=== PATIENT | male | born 1945 | race Caucasian/White ===

== ENCOUNTER 2017-08-08 09:01 | Inpatient (IN) | payer MEDICARE, BC ==
[2017-08-08] MEDS ORDERED: ACETAMINOPHEN 325 MG TABLET PO ONE (09:18)
[2017-08-08] MEDS ORDERED: CEFTRIAXONE INJ 1000 MG VIAL IV ONE (09:19)
[2017-08-08 10:03] LABS: VENOUS BLOOD BASE EXCESS -2.6 mmol/L; VENOUS BLOOD HCO3 21.5 mmol/L (20-32); VENOUS BLOOD PCO2 35.1 mmHg (35-63); VENOUS BLOOD PH 7.4 (7.30-7.42)
[2017-08-08 10:04] LABS: APPEARANCE,URINE CLOUDY; BILIRUBIN,URINE NEGATIVE (NEGATIVE); COLOR,URINE AMBER; GLUCOSE, URINE NEGATIVE (NEGATIVE); KETONES,URINE NEGATIVE (NEGATIVE); LEUKOCYTE ESTERASE,URINE NEGATIVE (NEGATIVE); NITRITE,URINE NEGATIVE (NEGATIVE); PROTEIN,URINE 100 mg/dL (NEGATIVE); URINE SPECIFIC GRAVITY 1.021
[2017-08-08 10:06] LABS: ABSOLUTE MONOCYTES (AUTO) 0.4 10^3/uL (0.1-1.4); ABSOLUTE NEUT (AUTO) 4.4 10^3/uL (1.7-8.2); BASOPHILS % (AUTO) 0.5 % (0-2); HEMATOCRIT 40.9 % (37.9-51.0); LYMPHOCYTES % (AUTO) 16.7 % (13-45); MEAN CORPUSCULAR HGB CONC 34.2 g/dL (32.0-36.0); MEAN CORPUSCULAR VOLUME 88 fl (80-97); MONOCYTES % (AUTO) 6.8 % (3-13); RED BLOOD COUNT 4.67 10^6/uL (4.35-5.55); RED CELL DISTRIBUTION WIDTH 14.3 % (11.5-14.0); TOTAL CELLS COUNTED % (AUTO) 100 %; WHITE BLOOD COUNT 5.8 10^3/uL (4.0-10.5)
[2017-08-08 10:09] LABS: PROTHROMBIN TIME 13.7 SEC (11.4-15.4)
[2017-08-08 10:20] LABS: ALANINE AMINOTRANSFERASE 111 U/L (21-72); ALBUMIN 3.7 g/dL (3.5-5.0); ALKALINE PHOSPHATASE 154 U/L (38-126); ASPARTATE AMINO TRANSFERASE 99 U/L (17-59); BILIRUBIN,DIRECT 0.7 mg/dL (0.0-0.4); BILIRUBIN,TOTAL 0.9 mg/dL (0.2-1.3); BLOOD UREA NITROGEN 32 mg/dL (7-20); CALCIUM 8.8 mg/dL (8.4-10.2); GLUCOSE 117 mg/dL (75-110); POTASSIUM 4.1 mmol/L (3.6-5.0)
[2017-08-08 10:25] LABS: CARBON DIOXIDE 21 mmol/L (22-30); CHLORIDE 91 mmol/L (98-107); SODIUM 130.2 mmol/L (137-145)
[2017-08-08 10:29] LABS: ANION GAP 18 (5-19)
[2017-08-08 10:31] LABS: PLATELET COUNT 65 10^3/uL (150-450)
--- NOTE | 2017-08-08 11:08 | ER Document Report ---
ED General - General Chief Complaint: Fever Stated Complaint: FEVER Time Seen by Provider: 08/08/17 09:18 Mode of Arrival: Ambulatory Information source: Patient Notes: 72-year-old male presents with complaints of fever of 3 day duration not feeling well over the past couple weeks and then the cough that started last night. Patient denies any shortness breath breathing patient notes he had a bunch of scratches on his arm from barbed wire couple weeks ago and used topical and oral antibiotics for it TRAVEL OUTSIDE OF THE [place] IN LAST 30 DAYS: No - HPI Onset: Last week Onset/Duration: Persistent Quality of pain: Achy Severity: Mild Pain Level: 1 Associated symptoms: Nonproductive cough, Fever, Weakness Exacerbated by: Denies Relieved by: Denies Similar symptoms previously: Yes Recently seen / treated by doctor: No - Related Data Allergies/Adverse Reactions: Penicillins Allergy (Verified 12/08/14 22:06) propoxyphene HCl [From Darvon] Allergy (Verified 12/08/14 22:06) Past Medical History - Social History Smoking Status: Former Smoker Cigarette use (# per day): No Chew tobacco use (# tins/day): No Smoking Education Provided: No Family History: Reviewed & Not Pertinent Patient has suicidal ideation: No Patient has homicidal ideation: No Renal/ Medical History: Denies: Hx Peritoneal Dialysis Past Surgical History: Reports: Hx Orthopedic Surgery - BACK SURGERY Review of Systems - Review of Systems Notes: REVIEW OF SYSTEMS: CONSTITUTIONAL : Admits to fevers chills body aches EENT: Denies eye, ear, throat, or mouth pain or symptoms. Denies nasal or sinus congestion or discharge. Denies throat, tongue, or mouth swelling or difficulty swallowing. CARDIOVASCULAR: Denies chest pain. Denies palpitations or racing or irregular heart beat. Denies ankle edema. RESPIRATORY: Admits to cough GASTROINTESTINAL: Denies abdominal pain or distention. Denies nausea, vomiting , or diarrhea. Denies blood in vomitus, stools, or per rectum. Denies black, tarry stools. Denies constipation. GENITOURINARY: Denies difficulty urinating, painful urination, burning, frequency, blood in urine, or discharge. MUSCULOSKELETAL: Admits body aches SKIN: Admits to right forearm abrasions HEMATOLOGIC : Denies easy bruising or bleeding. LYMPHATIC: Denies swollen, enlarged glands. NEUROLOGICAL: Denies confusion or altered mental status. Denies passing out or loss of consciousness. Denies dizziness or lightheadedness. Denies headache. Denies weakness or paralysis or loss of use of either side. Denies problems with gait or speech. Denies sensory loss, numbness, or tingling. Denies seizures. PSYCHIATRIC: Denies anxiety or stress. Denies depression, suicidal ideation, or homicidal ideation. ALL OTHER SYSTEMS REVIEWED AND NEGATIVE. Dictation was performed using [email or web address] voice recognition software PHYSICAL EXAMINATION: GENERAL: Febrile but overall well-appearing, well-nourished and in no acute distress. HEAD: Atraumatic, normocephalic. EYES: Pupils equal round and reactive to light, extraocular movements intact, sclera anicteric, conjunctiva are normal. ENT: Nares patent, oropharynx clear without exudates. Moist mucous membranes. NECK: Normal range of motion, supple without lymphadenopathy LUNGS: Crackles at the bases HEART: Regular rate and rhythm without murmurs ABDOMEN: Soft, nontender, nondistended abdomen. No guarding, no rebound. No masses appreciated. Musculoskeletal: Normal range of motion, no pitting or edema. No cyanosis. NEUROLOGICAL: Cranial nerves grossly intact. Normal speech, normal gait. Normal sensory, motor exams PSYCH: Normal mood, normal affect. SKIN: Well-healing superficial abrasion of the right forearm Physical Exam - Vital signs Vitals: Temp Pulse Resp BP Pulse Ox 100.2 F 109 H 22 H 115/96 H 93 08/08/17 09:10 08/08/17 09:10 08/08/17 09:10 08/08/17 09:10 08/08/17 09:10 Course - Re-evaluation Re-evalutation: 08/08/17 11:10 lab results from pcp office note CMP with estimated GFR 02-23-2017 sodium 142 normal potassium 4.7 normal chloride 102 normal CO2 33 high glucose 95 normal BUN 20 normal creatinine 1.49 high bilirubin, total 0.5 normal alkaline phosphatase 49 normal AST/SGOT 22 normal ALT/SGPT 22 normal total protein 6.6 normal albumin 4.3 normal calcium 9.6 normal est GFR, 53 low est GFR, nonafrican afghan 46 low 08/08/17 14:47 Patient's lab work imaging and presentation is most consistent with pneumonia, given his acute renal insufficiency and hypoxemia I believe patient is septic from pneumonia, he will be admitted to the hospitalist service antibiotics have been started - Vital Signs Vital signs: Temp Pulse Resp BP Pulse Ox 100.2 F 109 H 22 H 115/96 H 93 08/08/17 09:10 08/08/17 09:10 08/08/17 09:10 08/08/17 09:10 08/08/17 09:10 - Laboratory Result Diagrams: 08/08/17 09:40 08/08/17 09:40 Laboratory results interpreted by me: 08/08/17 08/08/17 08/08/17 09:32 09:40 09:40 RDW 14.3 H Plt Count 65 L Sodium 130.2 L Chloride 91 L Carbon Dioxide 21 L BUN 32 H Creatinine 2.23 H Est GFR ( Amer) 35 L Est GFR (Non-Af Amer) 29 L Glucose 117 H Lactic Acid Direct Bilirubin 0.7 H AST 99 H ALT 111 H Alkaline Phosphatase 154 H Total Protein 6.0 L Urine Protein 100 H Urine Blood SMALL H Urine Urobilinogen 4.0 H 08/08/17 09:40 RDW Plt Count Sodium Chloride Carbon Dioxide BUN Creatinine Est GFR ( Amer) Est GFR (Non-Af Amer) Glucose Lactic Acid 2.6 H Direct Bilirubin AST ALT Alkaline Phosphatase Total Protein Urine Protein Urine Blood Urine Urobilinogen - Diagnostic Test Radiology reviewed: Image reviewed - No acute abnormality noted on chest x-ray, Reports reviewed Critical Care Note - Critical Care Note Total time excluding time spent on procedures (mins): 34 Comments: 34 minutes of critical care time spent in direct contact evaluating and reevaluating the patient, treating symptoms, reviewing labs and studies and speaking with family and consultants excluding any procedures Discharge - Discharge Clinical Impression: Body aches, SIRS (systemic inflammatory response syndrome) Fever Qualifiers: Fever type: unspecified Qualified Code(s): R50.9 - Fever, unspecified Pneumonia Qualifiers: Pneumonia type: due to unspecified organism Laterality: right Lung location: unspecified part of lung Qualified Code(s): J18.9 - Pneumonia, unspecified organism Condition: Stable Disposition: ADMITTED INPATIENT Admitting Provider: Hospitalist Unit Admitted: Medical Floor
[2017-08-08] MEDS ORDERED: NORMAL SALINE 1000 ML 1,000 ML IV PRN ×2 (11:10→11:11)
[2017-08-08] MEDS ORDERED: NORMAL SALINE 1000 ML 1,000 ML IV ONE (11:19)
--- NOTE | 2017-08-08 12:52 | RADIOLOGY REPORT (SQ) ---
EXAM DESCRIPTION: CHEST 2 VIEWS COMPLETED DATE/TIME: 08/08/2017 12:33 pm REASON FOR STUDY: cough, fever COMPARISON: 11/09/2007. EXAM PARAMETERS: NUMBER OF VIEWS: two views TECHNIQUE: Digital Frontal and Lateral radiographic views of the chest acquired. RADIATION DOSE: NA LIMITATIONS: none FINDINGS: LUNGS AND PLEURA: Minimal bilateral apical pleural thickening again noted. No acute infil trates or effusions. MEDIASTINUM AND HILAR STRUCTURES: No masses or contour abnormalities. HEART AND VASCULAR STRUCTURES: The heart is normal with uncoiling thoracic aorta. BONES: Dorsal spondylosis seen. HARDWARE: None in the chest. IMPRESSION: NO ACUTE RADIOGRAPHIC FINDING IN THE CHEST. TECHNICAL DOCUMENTATION: JOB ID: [id number] [id number] 2010 [employer]- All Rights Reserved Reading location - IP/workstation name: [email or web address]
--- NOTE | 2017-08-08 13:46 | PDOC H&P ---
History of Present Illness Admission Date/PCP: 08/08/17 13:16 Patient complains of: Difficulty breathing and shortness of breath History of Present Illness: This patient presented with complaints of fever for 3 days associated with generalized malaise as well as a nonproductive cough. Denies any nausea vomiting chest pain or any other pertinent symptoms. He does have some scratches on his arms sustained from a encounter with the barbed wire couple weeks ago. Both patient and his are very poor historians and I am unable to obtain much information from them. There is a denial of any prior liver disease though although patient's lab data indicate otherwise Past Medical History Past Medical History: Patient and spouse unable to give me a concise past medical history. Cardiac Medical History: Reports: Hypertension Psychiatric Medical History: Reports: None Traumatic Medical History: Reports: None Hematology: Reports: None Past Surgical History Past Surgical History: Reports: Orthopedic Surgery - BACK SURGERY Social History Information Source: [facility] Records - Very minimal information from old records Smoking Status: Former Smoker - Advance Directive Resuscitation Status: Full Code Family History Family History: Reviewed & Not Pertinent Parental Family History Reviewed: No Children Family History Reviewed: NA Sibling(s) Family History Reviewed.: NA Medication/Allergy Home Medications: Amitriptyline HCl [Elavil 50 Mg Tablet] 50 mg PO BID 08/08/17 Calcium Carbonate [Calcium] 600 mg PO DAILY 08/08/17 Cetirizine HCl [All Day Allergy] 10 mg PO DAILY 08/08/17 Cholecalciferol (Vitamin D3) [Vitamin D] 2,000 unit PO Q2D@1000 08/08/17 Lisinopril/Hydrochlorothiazide [Lisinopril-Hctz 10-12.5 mg Tab] 1 tab PO DAILY 08/08/17 Omeprazole Magnesium [Prilosec Otc] 20 mg PO BID 08/08/17 Pravastatin Sodium [Pravachol] 20 mg PO QPM 08/08/17 Allergies/Adverse Reactions: Penicillins Allergy (Verified 08/08/17 17:51) propoxyphene HCl [From Darvon] Allergy (Verified 08/08/17 17:51) Review of Systems Constitutional: PRESENT: chills, fever(s), weakness Eyes: ABSENT: visual disturbances Ears: ABSENT: hearing changes Nose, Mouth, and Throat: ABSENT: headache(s), sore throat Cardiovascular: ABSENT: chest pain, dyspnea on exertion, orthropnea, palpitations Respiratory: PRESENT: cough. ABSENT: dyspnea, hemoptysis Gastrointestinal: ABSENT: abdominal pain, constipation, diarrhea, hematemesis, hematochezia, nausea, vomiting Genitourinary: ABSENT: dysuria, hematuria Musculoskeletal: ABSENT: back pain Integumentary: ABSENT: rash, wounds Neurological: PRESENT: confusion. ABSENT: abnormal gait, abnormal speech, dizziness, focal weakness, syncope Psychiatric: ABSENT: anxiety, depression, homidical ideation, suicidal ideation Endocrine: ABSENT: cold intolerance, heat intolerance, polydipsia, polyuria Physical Exam Vital Signs: Temp Pulse Resp BP Pulse Ox 100.2 F 109 H 22 H 115/96 H 93 08/08/17 09:10 08/08/17 09:10 08/08/17 09:10 08/08/17 09:10 08/08/17 09:10 General appearance: PRESENT: no acute distress, well-developed, well-nourished Head exam: PRESENT: atraumatic, normocephalic Eye exam: PRESENT: conjunctiva pink, PERRLA. ABSENT: scleral icterus Mouth exam: PRESENT: moist, tongue midline Neck exam: ABSENT: carotid bruit, JVD, lymphadenopathy, thyromegaly Respiratory exam: PRESENT: decreased breath sounds. ABSENT: rales, rhonchi, wheezes Cardiovascular exam: PRESENT: RRR. ABSENT: diastolic murmur, rubs, systolic murmur Pulses: PRESENT: normal dorsalis pedis pul Vascular exam: PRESENT: normal capillary refill GI/Abdominal exam: PRESENT: normal bowel sounds, soft. ABSENT: distended, guarding, mass, organolmegaly, rebound, tenderness Rectal exam: PRESENT: deferred Extremities exam: PRESENT: full ROM. ABSENT: calf tenderness, clubbing, pedal edema Neurological exam: PRESENT: alert, awake, oriented to person, oriented to place , oriented to time, oriented to situation, CN II-XII grossly intact. ABSENT: motor sensory deficit Psychiatric exam: PRESENT: appropriate affect, normal mood. ABSENT: homicidal ideation, suicidal ideation Skin exam: PRESENT: dry, intact, warm. ABSENT: cyanosis, rash Results Laboratory Results: Laboratory 08/08/17 08/08/17 08/08/17 09:32 09:40 09:40 WBC 5.8 RBC 4.67 Hgb 14.0 Hct 40.9 MCV 88 MCH 30.0 MCHC 34.2 RDW 14.3 H Plt Count 65 L Seg Neutrophils % 76.0 Lymphocytes % 16.7 Monocytes % 6.8 Eosinophils % 0.0 Basophils % 0.5 Absolute Neutrophils 4.4 Absolute Lymphocytes 1.0 Absolute Monocytes 0.4 Absolute Eosinophils 0.0 Absolute Basophils 0.0 PT 13.7 INR 1.00 VBG pH VBG pCO2 VBG HCO3 VBG Base Excess Sodium Potassium Chloride Carbon Dioxide Anion Gap BUN Creatinine Est GFR ( Amer) Est GFR (Non-Af Amer) Glucose POC Glucose Lactic Acid Calcium Total Bilirubin Direct Bilirubin Neonat Total Bilirubin Neonat Direct Bilirubin Neonat Indirect Bili AST ALT Alkaline Phosphatase Total Protein Albumin Urine Color TREVIN Urine Appearance CLOUDY Urine pH 5.0 Ur Specific [place] 1.021 Urine Protein 100 H Urine Glucose (UA) NEGATIVE Urine Ketones NEGATIVE Urine Blood SMALL H Urine Nitrite NEGATIVE Urine Bilirubin NEGATIVE Urine Urobilinogen 4.0 H Ur Leukocyte Esterase NEGATIVE Urine WBC (Auto) 5 Urine RBC (Auto) 2 Squamous Epi Cells Auto 2 Urine Mucus (Auto) FEW Urine Ascorbic Acid NEGATIVE 08/08/17 08/08/17 08/08/17 09:40 09:40 09:40 WBC RBC Hgb Hct MCV MCH MCHC RDW Plt Count Seg Neutrophils % Lymphocytes % Monocytes % Eosinophils % Basophils % Absolute Neutrophils Absolute Lymphocytes Absolute Monocytes Absolute Eosinophils Absolute Basophils PT INR VBG pH 7.40 VBG pCO2 35.1 VBG HCO3 21.5 VBG Base Excess -2.6 Sodium 130.2 L Potassium 4.1 Chloride 91 L Carbon Dioxide 21 L Anion Gap 18 BUN 32 H Creatinine 2.23 H Est GFR ( Amer) 35 L Est GFR (Non-Af Amer) 29 L Glucose 117 H POC Glucose Lactic Acid 2.6 H Calcium 8.8 Total Bilirubin 0.9 Direct Bilirubin 0.7 H Neonat Total Bilirubin Not Reportable Neonat Direct Bilirubin Not Reportable Neonat Indirect Bili Not Reportable AST 99 H ALT 111 H Alkaline Phosphatase 154 H Total Protein 6.0 L Albumin 3.7 Urine Color Urine Appearance Urine pH Ur Specific [place] Urine Protein Urine Glucose (UA) Urine Ketones Urine Blood Urine Nitrite Urine Bilirubin Urine Urobilinogen Ur Leukocyte Esterase Urine WBC (Auto) Urine RBC (Auto) Squamous Epi Cells Auto Urine Mucus (Auto) Urine Ascorbic Acid 08/08/17 10:25 WBC RBC Hgb Hct MCV MCH MCHC RDW Plt Count Seg Neutrophils % Lymphocytes % Monocytes % Eosinophils % Basophils % Absolute Neutrophils Absolute Lymphocytes Absolute Monocytes Absolute Eosinophils Absolute Basophils PT INR VBG pH VBG pCO2 VBG HCO3 VBG Base Excess Sodium Potassium Chloride Carbon Dioxide Anion Gap BUN Creatinine Est GFR ( Amer) Est GFR (Non-Af Amer) Glucose POC Glucose 102 Lactic Acid Calcium Total Bilirubin Direct Bilirubin Neonat Total Bilirubin Neonat Direct Bilirubin Neonat Indirect Bili AST ALT Alkaline Phosphatase Total Protein Albumin Urine Color Urine Appearance Urine pH Ur Specific [place] Urine Protein Urine Glucose (UA) Urine Ketones Urine Blood Urine Nitrite Urine Bilirubin Urine Urobilinogen Ur Leukocyte Esterase Urine WBC (Auto) Urine RBC (Auto) Squamous Epi Cells Auto Urine Mucus (Auto) Urine Ascorbic Acid Impressions: Chest X-Ray 08/08/17 09:19 IMPRESSION: NO ACUTE RADIOGRAPHIC FINDING IN THE CHEST. Assessment & Plan - Diagnosis (1) Pneumonia Qualifiers: Pneumonia type: due to unspecified organism Laterality: right Lung location: unspecified part of lung Qualified Code(s): J18.9 - Pneumonia, unspecified organism Is this a current diagnosis for this admission?: Yes Plan: This appears to be the most likely etiology of his symptoms although chest x- ray is negative. This could be due to dehydration. Patient will be placed on empiric antibiotic (2) Acute kidney injury Is this a current diagnosis for this admission?: Yes Plan: Baseline kidney function is unknown. I see no recent or prior kidney function in chart (3) Hyponatremia Is this a current diagnosis for this admission?: Yes Plan: Likely diuretic induced (4) Transaminitis Is this a current diagnosis for this admission?: Yes Plan: Etiology unclear, may need sonogram. - Time Time Spent: 30 to 50 Minutes Smoking Cessation Education: 3 to 10 minutes Anticipated discharge: Home Within: within 48 hours - Inpatient Certification Based on my medical assessment, after consideration of the patient's comorbidities, presenting symptoms, or acuity I expect that the services needed warrant INPATIENT care.: Yes Medical Necessity: Need For IV Fluids, Need for IV Antibiotics, Risk of Complication if Not Cared For in Hospital
[2017-08-08] MEDS ORDERED: OXYCODONE-ACETAMINOPHEN 5-325 MG TABLET PO PRN (14:11)
[2017-08-08] MEDS ORDERED: TEMAZEPAM 7.5 MG CAPSULE PO PRN (14:11)
[2017-08-08] MEDS ORDERED: MAG HYDROX/AL HYDROX/SIMETH SUSP 30 ML UDCUP PO PRN (14:11)
[2017-08-08] MEDS ORDERED: ENOXAPARIN SODIUM INJ 30 MG/0.3 ML DISP.SYRIN SUBCUT ONE (15:30)
--- NOTE | 2017-08-08 15:52 | EKG REPORT ---
SEVERITY:- ABNORMAL ECG - SINUS TACHYCARDIA NONSPECIFIC ST-T CHANGES- ANTEROLATERAL LEADS : Confirmed by: Ishaan Morrison MD 08-Aug-2017 15:52:01
[2017-08-08] MEDS: 1/2 NORMAL SALINE 1,000 ML IV PRN ×2 (17:36→18:19)
[2017-08-08] MEDS: AMITRIPTYLINE HCL 50 MG TABLET PO SCH (18:18)
[2017-08-08] MEDS: FAMOTIDINE 20 MG TABLET PO SCH (21:52)
[2017-08-08] MEDS: ATORVASTATIN CALCIUM 10 MG TABLET PO SCH (21:52)
[2017-08-09 06:47] LABS: ALANINE AMINOTRANSFERASE 92 U/L (21-72); ALBUMIN 2.8 g/dL (3.5-5.0); ALKALINE PHOSPHATASE 120 U/L (38-126); ANION GAP 14 (5-19); ASPARTATE AMINO TRANSFERASE 90 U/L (17-59); BILIRUBIN,DIRECT 0.6 mg/dL (0.0-0.4); BILIRUBIN,TOTAL 0.7 mg/dL (0.2-1.3); BLOOD UREA NITROGEN 25 mg/dL (7-20); CALCIUM 7.4 mg/dL (8.4-10.2); CARBON DIOXIDE 18 mmol/L (22-30); CHLORIDE 95 mmol/L (98-107); GLUCOSE 87 mg/dL (75-110); POTASSIUM 4.1 mmol/L (3.6-5.0); SODIUM 126.7 mmol/L (137-145)
[2017-08-09 07:50] LABS: HEMATOCRIT 36.4 % (37.9-51.0); HEMOGLOBIN 12.6 g/dL (13.5-17.0); MEAN CORPUSCULAR HGB CONC 34.5 g/dL (32.0-36.0); MEAN CORPUSCULAR VOLUME 87 fl (80-97); RED BLOOD COUNT 4.19 10^6/uL (4.35-5.55); RED CELL DISTRIBUTION WIDTH 14.4 % (11.5-14.0); WHITE BLOOD COUNT 6.9 10^3/uL (4.0-10.5)
[2017-08-09] MEDS ORDERED: NORMAL SALINE 1000 ML 1,000 ML IV PRN (08:08)
[2017-08-09 08:37] LABS: PLATELET COUNT 64 10^3/uL (150-450)
[2017-08-09] MEDS: AMITRIPTYLINE HCL 50 MG TABLET PO SCH ×2 (09:07→17:55)
[2017-08-09] MEDS: CETIRIZINE 10 MG TABLET PO SCH (09:07)
[2017-08-09] MEDS: CALCIUM CARBONATE 500 MG TAB.CHEW PO SCH (09:07)
[2017-08-09] MEDS: AZITHROMYCIN 250 MG TABLET PO SCH (09:07)
[2017-08-09] MEDS: FAMOTIDINE 20 MG TABLET PO SCH ×2 (09:07→22:04)
[2017-08-09] MEDS: DOCUSATE SODIUM 100 MG CAPSULE PO SCH (09:11)
[2017-08-09] MEDS: CEFTRIAXONE SODIUM 1,000 MG in DEXTROSE 5%-WATER 50 ML IV SCH (09:55)
[2017-08-09] MEDS ORDERED: ENOXAPARIN SODIUM INJ 30 MG/0.3 ML DISP.SYRIN SUBCUT SCH (10:00)
[2017-08-09] MEDS ORDERED: CEFTRIAXONE 1 GM/D5W RTU 1 GM/50 ML RTUPB IV SCH (10:00)
--- NOTE | 2017-08-09 12:08 | PDOC PROGRESS REPORT ---
Subjective Progress Note for:: 08/09/17 Subjective:: Patient admitted with fever, ? PNA but with negative chest xray. He is sleeping though arousable. Denies any new complaints. No reported nausea or vomiting or abdominal pain Reason For Visit: PNEUMONIA, SEPSIS, PERRY Physical Exam Vital Signs: Temp Pulse Resp BP Pulse Ox 100.0 F 120 H 20 119/57 L 96 08/08/17 22:44 08/08/17 22:44 08/08/17 22:44 08/08/17 22:44 08/08/17 22:44 Intake & Output 08/08/17 08/09/17 08/10/17 06:59 06:59 06:59 Intake Total 1722 Output Total 200 Balance 1522 Weight 96.7 kg General appearance: PRESENT: no acute distress, well-developed, well-nourished Head exam: PRESENT: atraumatic Eye exam: PRESENT: conjunctiva pink, PERRLA. ABSENT: scleral icterus Ear exam: PRESENT: normal external ear exam Mouth exam: PRESENT: tongue midline Neck exam: ABSENT: carotid bruit, JVD, lymphadenopathy, thyromegaly Respiratory exam: PRESENT: clear to auscultation fredis. ABSENT: rales, rhonchi, wheezes Cardiovascular exam: PRESENT: RRR. ABSENT: diastolic murmur, rubs, systolic murmur Pulses: PRESENT: normal dorsalis pedis pul Vascular exam: PRESENT: normal capillary refill GI/Abdominal exam: PRESENT: normal bowel sounds, soft. ABSENT: distended, guarding, mass, organolmegaly, rebound, tenderness Rectal exam: PRESENT: deferred Extremities exam: PRESENT: full ROM. ABSENT: calf tenderness, clubbing, pedal edema Neurological exam: PRESENT: other - sleeping bu arousable, slightly confused. ABSENT: motor sensory deficit Psychiatric exam: ABSENT: homicidal ideation, suicidal ideation Skin exam: PRESENT: dry, intact, warm. ABSENT: cyanosis, rash Results Laboratory Results: 08/09/17 05:27 08/09/17 05:27 08/08/17 08/09/17 08/09/17 14:29 05:27 05:27 WBC 6.9 RBC 4.19 L Hgb 12.6 L Hct 36.4 L MCV 87 MCH 30.0 MCHC 34.5 RDW 14.4 H Plt Count 64 L Sodium 126.7 L Potassium 4.1 Chloride 95 L Carbon Dioxide 18 L Anion Gap 14 BUN 25 H Creatinine 1.65 H Est GFR ( Amer) 50 L Est GFR (Non-Af Amer) 41 L Glucose 87 Lactic Acid 1.9 Calcium 7.4 L Total Bilirubin 0.7 AST 90 H ALT 92 H Alkaline Phosphatase 120 Total Protein 5.0 L Albumin 2.8 L Impressions: Chest X-Ray 08/08/17 09:19 IMPRESSION: NO ACUTE RADIOGRAPHIC FINDING IN THE CHEST. Assessment & Plan - Diagnosis (1) Pneumonia Qualifiers: Pneumonia type: due to unspecified organism Laterality: right Lung location: unspecified part of lung Qualified Code(s): J18.9 - Pneumonia, unspecified organism Is this a current diagnosis for this admission?: Yes Plan: This is a presumptive diagnosis however. Will continue empiric antibiotic (2) Acute kidney injury Is this a current diagnosis for this admission?: Yes Plan: Baseline kidney function is unknown. Kidney function is improved (3) Hyponatremia Is this a current diagnosis for this admission?: Yes Plan: Likely diuretic induced or secondary to liver disease. He was on hypotonic fluid but will change to isotonic fluid (4) Transaminitis Is this a current diagnosis for this admission?: Yes Plan: Etiology unclear, he surely has underlying liver disease however this is not listed as a PMH and spouse unaware of this. Will obtain sono and order Hepatitis panel. Will check Ammonia level. There is no clinical evidence of SBP but will keep this in mind especially if sono shows ascites. - Time Time Spent with patient: 15-24 minutes Anticipated discharge: Home Within: within 72 hours - Inpatient Certification Based on my medical assessment, after consideration of the patient's comorbidities, presenting symptoms, or acuity I expect that the services needed warrant INPATIENT care.: Yes Medical Necessity: Need For IV Fluids, Need for IV Antibiotics
[2017-08-09] MEDS: ACETAMINOPHEN 325 MG TABLET PO PRN ×2 (12:25→22:09)
--- NOTE | 2017-08-09 14:08 | RADIOLOGY REPORT (SQ) ---
EXAM DESCRIPTION: U/S ABDOMEN COMPLETE W/DOPPLER COMPLETED DATE/TIME: 08/09/2017 1:50 pm REASON FOR STUDY: Abnormal LFT COMPARISON: CT abdomen and pelvis 11/17/2012. TECHNIQUE: Dynamic and static grayscale images acquired of the abdomen and recorded on PACS. Charlio peyton selected color Doppler and spectral images recorded. LIMITATIONS: None. FINDINGS: PANCREAS: No abnormality seen. LIVER: The liver demonstrates normal echogenicity measuring 14.4 cm in length which is normal. . LIVER VASCULATURE: Normal directional flow of the main portal vein and hepatic veins. GALLBLADDER: No abnormality. The gallbladder wall is normal measuring 2.6 mm. Negative Day sign. INTRAHEPATIC DUCTS AND COMMON DUCT: CBD is normal measuring 0.5 cm. Intrahepatic ducts normal calibe r. No filling defects. INFERIOR VENA CAVA: Normal flow. AORTA: The upper abdominal aorta measures 3 cm in AP diameter. The mid abdominal aorta measures 2.3 cm in AP diameter and distally 2.1 cm. . RIGHT KIDNEY: The right kidney is normal measuring 11.2 c m. No hydronephrosis. LEFT KIDNEY: The left kidney is normal measuring 9.5 cm. No hydronephrosis. PERITONEAL AND PLEURAL SPACES: No ascites or effusions. SPLEEN: No abnormality seen. Head measures 11.2 cm. IMPRESSION: NORMAL ABDOMINAL ULTRASOUND. TECHNICAL DOCUMENTATION: JOB ID: [id number] SC-[id number] 2010 [employer]- All Rights Reserved Reading location - IP/workstation name: [email or web address]
[2017-08-09] MEDS: ATORVASTATIN CALCIUM 10 MG TABLET PO SCH (22:03)
[2017-08-10 05:53] LABS: ALANINE AMINOTRANSFERASE 71 U/L (21-72); ALBUMIN 2.7 g/dL (3.5-5.0); ALKALINE PHOSPHATASE 97 U/L (38-126); ANION GAP 11 (5-19); ASPARTATE AMINO TRANSFERASE 102 U/L (17-59); BILIRUBIN,DIRECT 0.7 mg/dL (0.0-0.4); BILIRUBIN,TOTAL 0.7 mg/dL (0.2-1.3); BLOOD UREA NITROGEN 24 mg/dL (7-20); CALCIUM 7.6 mg/dL (8.4-10.2); CARBON DIOXIDE 21 mmol/L (22-30); CHLORIDE 97 mmol/L (98-107); GLUCOSE 75 mg/dL (75-110); POTASSIUM 4.8 mmol/L (3.6-5.0); SODIUM 128.9 mmol/L (137-145); TOTAL PROTEIN 5.1 g/dL (6.3-8.2)
[2017-08-10] MEDS: CALCIUM CARBONATE 500 MG TAB.CHEW PO SCH (10:27)
[2017-08-10] MEDS: CEFTRIAXONE SODIUM 1,000 MG in DEXTROSE 5%-WATER 50 ML IV SCH (10:28)
[2017-08-10] MEDS: CETIRIZINE 10 MG TABLET PO SCH (10:33)
[2017-08-10] MEDS: AZITHROMYCIN 250 MG TABLET PO SCH (10:33)
[2017-08-10] MEDS: FAMOTIDINE 20 MG TABLET PO SCH ×2 (10:33→22:46)
[2017-08-10] MEDS: AMITRIPTYLINE HCL 50 MG TABLET PO SCH ×2 (10:33→18:27)
[2017-08-10] MEDS: DOCUSATE SODIUM 100 MG CAPSULE PO SCH (10:35)
[2017-08-10] MEDS: CHOLECALCIFEROL (D3) 1,000 UNIT TABLET PO SCH (11:08)
--- NOTE | 2017-08-10 16:13 | PDOC PROGRESS REPORT ---
Subjective Progress Note for:: 08/10/17 Subjective:: Patient is seen resting in bedside chair. He is not on any oxygen. He states he does get short of breath with minimal exertion. He denies any cough or chest pain. He denies nausea, vomiting or diarrhea. He denies any significant arthralgias or myalgias. He is very unsteady on his feet according to the nursing staff. Which is not his norm. Remaining review of systems are negative Reason For Visit: PNEUMONIA, SEPSIS, PERRY Physical Exam Vital Signs: Temp Pulse Resp BP Pulse Ox 100.3 F 127 H 22 H 109/57 L 97 08/10/17 11:29 08/10/17 11:29 08/10/17 11:29 08/10/17 11:29 08/10/17 11:29 Intake & Output 08/09/17 08/10/17 08/11/17 06:59 06:59 06:59 Intake Total 1722 664 320 Output Total 200 Balance 1522 664 320 Weight 96.7 kg 100.7 kg General appearance: PRESENT: no acute distress, obese, well-developed, well- nourished Head exam: PRESENT: atraumatic, normocephalic Eye exam: PRESENT: conjunctiva pink, EOMI, PERRLA. ABSENT: scleral icterus Ear exam: PRESENT: normal external ear exam Mouth exam: PRESENT: moist, tongue midline Teeth exam: PRESENT: poor dentation Neck exam: ABSENT: carotid bruit, JVD, lymphadenopathy, thyromegaly Respiratory exam: PRESENT: clear to auscultation fredis. ABSENT: rales, rhonchi, wheezes Cardiovascular exam: PRESENT: RRR. ABSENT: diastolic murmur, rubs, systolic murmur Pulses: PRESENT: normal dorsalis pedis pul Vascular exam: PRESENT: normal capillary refill GI/Abdominal exam: PRESENT: normal bowel sounds, soft. ABSENT: distended, guarding, mass, organolmegaly, rebound, tenderness Rectal exam: PRESENT: deferred Extremities exam: PRESENT: full ROM. ABSENT: calf tenderness, clubbing, pedal edema Musculoskeletal exam: PRESENT: ambulatory, full ROM, normal inspection Neurological exam: PRESENT: alert, awake, oriented to person, oriented to place , oriented to time, oriented to situation, CN II-XII grossly intact. ABSENT: motor sensory deficit Psychiatric exam: PRESENT: appropriate affect Skin exam: PRESENT: dry - scratches on forearms from working on barbed wire fence, warm Results Laboratory Results: 08/09/17 05:27 08/10/17 04:58 08/10/17 08/10/17 04:58 05:06 Sodium 128.9 L Potassium 4.8 Chloride 97 L Carbon Dioxide 21 L Anion Gap 11 BUN 24 H Creatinine 1.49 H Est GFR ( Amer) 56 L Est GFR (Non-Af Amer) 46 L Glucose 75 Calcium 7.6 L Total Bilirubin 0.7 AST 102 H ALT 71 Alkaline Phosphatase 97 Ammonia < 8.7 L Total Protein 5.1 L Albumin 2.7 L Impressions: Chest X-Ray 08/08/17 09:19 IMPRESSION: NO ACUTE RADIOGRAPHIC FINDING IN THE CHEST. Abdomen Ultrasound 08/09/17 00:00 IMPRESSION: NORMAL ABDOMINAL ULTRASOUND. Assessment & Plan - Diagnosis (1) SIRS (systemic inflammatory response syndrome) Is this a current diagnosis for this admission?: No Plan: Resolved. With IV hydration and antibiotics (2) Thrombocytopenia Is this a current diagnosis for this admission?: Yes Plan: Possible viral etiology. was sick with similar symptoms prior to him becoming ill. He has also had recent tick bites. Will check lyme ab, Jw German panel. It has been stable he has no history of prior blood dyscrasias (3) Acute kidney injury Is this a current diagnosis for this admission?: Yes (4) Hyponatremia Is this a current diagnosis for this admission?: Yes (6) Fever Qualifiers: Fever type: unspecified Qualified Code(s): R50.9 - Fever, unspecified Is this a current diagnosis for this admission?: Yes Plan: Resolved over the last 24 hrs (7) Transaminitis Is this a current diagnosis for this admission?: Yes (8) Pneumonia Qualifiers: Pneumonia type: due to unspecified organism Laterality: right Lung location: unspecified part of lung Qualified Code(s): J18.9 - Pneumonia, unspecified organism Is this a current diagnosis for this admission?: Yes Plan: No evidence on chest xray. He is still short of breath with exertion. Will get CTA of the chest tomorrow with continued improvement of his kidney function - Time Time Spent with patient: 25-34 minutes Total Critical Time (Minutes): 15 Medications reviewed and adjusted accordingly: Yes Anticipated discharge: Home Within: within 48 hours - Inpatient Certification Based on my medical assessment, after consideration of the patient's comorbidities, presenting symptoms, or acuity I expect that the services needed warrant INPATIENT care.: Yes I certify that my determination is in accordance with my understanding of Medicare's requirements for reasonable and necessary INPATIENT services [42 CFR 412.3e].: Yes Medical Necessity: Failure to Improve With Outpatient Therapy, Need For IV Fluids, Risk of Complication if Not Cared For in Hospital
[2017-08-10] MEDS: ACETAMINOPHEN 325 MG TABLET PO PRN ×2 (18:27→22:46)
--- NOTE | 2017-08-10 20:10 | EKG REPORT ---
SEVERITY:- BORDERLINE ECG - SINUS TACHYCARDIA BORDERLINE T WAVE ABNORMALITIES : Confirmed by: Laurence Stahl 10-Aug-2017 20:09:00
[2017-08-10] MEDS: ATORVASTATIN CALCIUM 10 MG TABLET PO SCH (22:45)
[2017-08-11 01:15] LABS: HEMATOCRIT 36.2 % (37.9-51.0); HEMOGLOBIN 12.3 g/dL (13.5-17.0); MEAN CORPUSCULAR HEMOGLOBIN 29.6 pg (27.0-33.4); MEAN CORPUSCULAR HGB CONC 33.8 g/dL (32.0-36.0); MEAN CORPUSCULAR VOLUME 87 fl (80-97); RED BLOOD COUNT 4.15 10^6/uL (4.35-5.55); RED CELL DISTRIBUTION WIDTH 14.8 % (11.5-14.0); WHITE BLOOD COUNT 7.2 10^3/uL (4.0-10.5)
[2017-08-11 01:26] LABS: PLATELET COUNT 80 10^3/uL (150-450)
[2017-08-11 01:43] LABS: ALANINE AMINOTRANSFERASE 73 U/L (21-72); ALBUMIN 2.5 g/dL (3.5-5.0); ALKALINE PHOSPHATASE 92 U/L (38-126); ANION GAP 14 (5-19); ASPARTATE AMINO TRANSFERASE 109 U/L (17-59); BILIRUBIN,DIRECT 0.6 mg/dL (0.0-0.4); BILIRUBIN,TOTAL 0.6 mg/dL (0.2-1.3); BLOOD UREA NITROGEN 25 mg/dL (7-20); CALCIUM 7.7 mg/dL (8.4-10.2); CARBON DIOXIDE 17 mmol/L (22-30); CHLORIDE 100 mmol/L (98-107); GLUCOSE 91 mg/dL (75-110); POTASSIUM 4.5 mmol/L (3.6-5.0); SODIUM 130.5 mmol/L (137-145); TOTAL PROTEIN 4.8 g/dL (6.3-8.2)
[2017-08-11 01:48] LABS: ABSOLUTE LYMPHOCYTES# (MANUAL) 0.1 10^3/uL (0.5-4.7); ABSOLUTE MONOCYTES # (MANUAL) 0.4 10^3/uL (0.1-1.4); ABSOLUTE NEUTROPHILS# (MANUAL) 6.7 10^3/uL (1.7-8.2); ANISOCYTOSIS SLIGHT; BAND NEUTROPHILS % (MANUAL) 5 % (3-5); BASOPHILS % (MANUAL) 1 % (0-2); EOSINOPHILS % (MANUAL) 0 % (0-6); LYMPHOCYTES % (MANUAL) 1 % (13-45); MONOCYTES % (MANUAL) 5 % (3-13); PLATELET COMMENT DECREASED; PLATELET GIANT PRESENT; PLATELET LARGE PRESENT; SEGMENTED NEUTROPHILS % (MAN) 88 % (42-78); TOTAL CELLS COUNTED 100; TOXIC GRANULATION SLIGHT; TOXIC VACUOLATION PRESENT
[2017-08-11 01:56] LABS: ERYTHROCYTE SEDIMENTATION RATE 14 mm/hr (0-20)
[2017-08-11 07:28] LABS: HEMATOCRIT 36.5 % (37.9-51.0); HEMOGLOBIN 12.3 g/dL (13.5-17.0); MEAN CORPUSCULAR HEMOGLOBIN 29.6 pg (27.0-33.4); MEAN CORPUSCULAR HGB CONC 33.7 g/dL (32.0-36.0); MEAN CORPUSCULAR VOLUME 88 fl (80-97); RED BLOOD COUNT 4.16 10^6/uL (4.35-5.55); RED CELL DISTRIBUTION WIDTH 15.5 % (11.5-14.0); WHITE BLOOD COUNT 6.9 10^3/uL (4.0-10.5)
[2017-08-11 07:42] LABS: HEPATITIS A AB IGM Negative (Negative); HEPATITIS B CORE AB IGM Negative (Negative); HEPATITS B SURFACE ANTIGEN Negative (Negative)
[2017-08-11 07:46] LABS: ALANINE AMINOTRANSFERASE 74 U/L (21-72); ALBUMIN 2.6 g/dL (3.5-5.0); ALKALINE PHOSPHATASE 100 U/L (38-126); ANION GAP 13 (5-19); ASPARTATE AMINO TRANSFERASE 115 U/L (17-59); BILIRUBIN,DIRECT 0.6 mg/dL (0.0-0.4); BILIRUBIN,TOTAL 0.6 mg/dL (0.2-1.3); BLOOD UREA NITROGEN 23 mg/dL (7-20); CALCIUM 7.6 mg/dL (8.4-10.2); CARBON DIOXIDE 19 mmol/L (22-30); CHLORIDE 99 mmol/L (98-107); GLUCOSE 71 mg/dL (75-110); POTASSIUM 4.3 mmol/L (3.6-5.0); SODIUM 130.6 mmol/L (137-145)
[2017-08-11 08:30] LABS: PLATELET COUNT 83 10^3/uL (150-450)
[2017-08-11 08:40] LABS: ABSOLUTE LYMPHOCYTES# (MANUAL) 0.1 10^3/uL (0.5-4.7); ABSOLUTE MONOCYTES # (MANUAL) 0.1 10^3/uL (0.1-1.4); ABSOLUTE NEUTROPHILS# (MANUAL) 6.7 10^3/uL (1.7-8.2); BAND NEUTROPHILS % (MANUAL) 7 % (3-5); BASOPHILS % (MANUAL) 0 % (0-2); EOSINOPHILS % (MANUAL) 0 % (0-6); LYMPHOCYTES % (MANUAL) 1 % (13-45); MONOCYTES % (MANUAL) 1 % (3-13); SEGMENTED NEUTROPHILS % (MAN) 90 % (42-78); TOTAL CELLS COUNTED 100
[2017-08-11 08:41] LABS: ANISOCYTOSIS SLIGHT; HYPOCHROMASIA SLIGHT; PLATELET COMMENT DECREASED; POLYCHROMASIA SLIGHT; TOXIC GRANULATION 2+; TOXIC VACUOLATION PRESENT
--- NOTE | 2017-08-11 08:42 | RADIOLOGY REPORT (SQ) ---
EXAM DESCRIPTION: CHEST 2 VIEWS COMPLETED DATE/TIME: 08/11/2017 8:25 am REASON FOR STUDY: Cough, shortness of breath, and fever COMPARISON: Two-view chest 08/08/2017, 11/09/2007 EXAM PARAMETERS: NUMBER OF VIEWS: two views TECHNIQUE: Digital Frontal and Lateral radiographic views of the chest acquired. RADIATION DOSE: NA LIMITATIONS: none FINDINGS: LUNGS AND PLEURA: There is bandlike atelectasis at the right lung base. Trace bilateral pleural effusions in the posterior costophrenic sulci. No fluffy alveolar infiltrates worrisome for pulmonary edema or pneumonia. MEDIASTINUM AND HILAR STRUCTURES: No masses or contour abnormalities. HEART AND VASCULAR STRUCTURES: No cardiomegaly BONES: No acute findings. HARDWARE: None in the chest. OTHER: No other significant finding. IMPRESSION: Right lung base bandlike atelectasis Trace bilateral pleural effusions TECHNICAL DOCUMENTATION: JOB ID: [id number] [employer]- All Rights Reserved Reading location - IP/workstation name: [email or web address]
[2017-08-11 09:15] LABS: HEPATITIS C VIRUS ANTIBODY <0.1 s/co ratio (0.0-0.9)
[2017-08-11] MEDS: CEFTRIAXONE SODIUM 1,000 MG in DEXTROSE 5%-WATER 50 ML IV SCH (10:17)
[2017-08-11] MEDS: METOPROLOL TARTRATE 25 MG TABLET PO SCH ×2 (10:18→22:37)
[2017-08-11] MEDS: AMITRIPTYLINE HCL 50 MG TABLET PO SCH ×2 (10:18→17:11)
[2017-08-11] MEDS: CETIRIZINE 10 MG TABLET PO SCH (10:18)
[2017-08-11] MEDS: AZITHROMYCIN 250 MG TABLET PO SCH (10:18)
[2017-08-11] MEDS: CALCIUM CARBONATE 500 MG TAB.CHEW PO SCH (10:19)
[2017-08-11] MEDS: DOCUSATE SODIUM 100 MG CAPSULE PO SCH (10:19)
[2017-08-11] MEDS: FAMOTIDINE 20 MG TABLET PO SCH ×2 (10:19→22:36)
--- NOTE | 2017-08-11 17:01 | RADIOLOGY REPORT (SQ) ---
EXAM DESCRIPTION: CT CHEST WITHOUT; CT ABD/PELVIS NO ORAL OR IV COMPLETED DATE/TIME: 08/11/2017 4:36 pm; 08/11/2017 4:40 pm REASON FOR STUDY: Shortness of breath; Fever, thrombocytopenia, and elevated liver enzyme COMPARISON: None. TECHNIQUE: CT scan of the chest performed without intravenous contrast using helical scanning techni que. Images reviewed with lung, soft tissue and bone windows. Reconstructed coronal and sagittal MPR images reviewed. All images stored on PACS. CT scan of the abdomen and pelvis performed without intravenous contrast and withoutoral contrast usi ng helical scanning technique with dynamic intravenous contrast injection. Images reviewed with lung , soft tissue and bone windows. Reconstructed coronal and sagittal MPR images reviewed. All images stored on PACS. All CT scanners at this facility use dose modulation, iterative reconstruction, and/or weight based d osing when appropriate to reduce radiation dose to as low as reasonably achievable (ALARA). [facility]: Dose Right [facility]: CareDose [facility]: Dose Right [facility]: Teradose 4D [facility]: [employer] RADIATION DOSE: 36mGy. LIMITATIONS: MOTION ARTIFACT FINDINGS: CHEST: AXILLAE: No adenopathy. CHEST WALL: No masses. No subcutaneous air. LUNGS: No nodules or masses. No pneumothorax. No infiltrates. PLEURA: Trace bilateral pleural effusions are present. THYROID: Like 5 of scan came and the small HILAR AND MEDIASTINAL STRUCTURES: No identified masses or abnormal nodes. AORTA AND GREAT VESSELS: No aneurysm. HEART: No pericardial effusion. HARDWARE AND LIFELINES: None. BONES: No significant finding. OTHER: No other significant finding. ABDOMEN AND PELVIS: LIVER: Normal size. No masses. No dilated ducts. SPLEEN: 14 cm in length, mildly enlarged. This is new compared to imaging from 2013 PANCREAS: No masses. No significant calcifications. No adjacent inflammation or peripancreatic flui d collections. Pancreatic duct not dilated. GALLBLADDER: No identified stones by CT criteria. No inflammatory changes to suggest cholecystitis. ADRENAL GLANDS: No significant masses or asymmetry. RIGHT KIDNEY AND URETER: No solid masses. Assessment limited by lack of IV contrast. No significant calcifications. No hydronephrosis or hydroureter. LEFT KIDNEY AND URETER: No solid masses. Assessment limited by lack of IV contrast. No significant calcifications. No hydronephrosis or hydroureter. AORTA AND VESSELS: No aneurysm. RETROPERITONEUM: No retroperitoneal adenopathy, hemorrhage or masses. APPENDIX: Normal. LARGE AND SMALL BOWEL: No dilatation. No masses. No wall thickening. Row of anastomotic christen po st sigmoid partial colectomy ABDOMINAL WALL: Intact ventral hernia repair with multiple surgical christen PERITONEAL CAVITY: No free air. No free fluid. No peritoneal implants or masses. PELVIS: No mass or free fluid. Normal bladder. BONES: Old lower lumbar laminectomy at L4 OTHER: No other significant finding. IMPRESSION: Trace bilateral pleural effusions. No pneumothorax. No alveolar pulmonary edema or den se pneumonia. No bowel obstruction. Post partial sigmoid colectomy. Intact ventral hernia repair. TECHNICAL DOCUMENTATION: JOB ID: [id number] Quality ID # [id number]: Final reports with documentation of one or more dose reduction techniques (e.g., Au tomated exposure control, adjustment of the mA and/or kV according to patient size, use of iterative reconstruction technique) 2010 [employer]- All Rights Reserved Reading location - IP/workstation name: [email or web address]
--- NOTE | 2017-08-11 17:01 | RADIOLOGY REPORT (SQ) ---
EXAM DESCRIPTION: CT CHEST WITHOUT; CT ABD/PELVIS NO ORAL OR IV COMPLETED DATE/TIME: 08/11/2017 4:36 pm; 08/11/2017 4:40 pm REASON FOR STUDY: Shortness of breath; Fever, thrombocytopenia, and elevated liver enzyme COMPARISON: None. TECHNIQUE: CT scan of the chest performed without intravenous contrast using helical scanning techni que. Images reviewed with lung, soft tissue and bone windows. Reconstructed coronal and sagittal MPR images reviewed. All images stored on PACS. CT scan of the abdomen and pelvis performed without intravenous contrast and withoutoral contrast usi ng helical scanning technique with dynamic intravenous contrast injection. Images reviewed with lung , soft tissue and bone windows. Reconstructed coronal and sagittal MPR images reviewed. All images stored on PACS. All CT scanners at this facility use dose modulation, iterative reconstruction, and/or weight based d osing when appropriate to reduce radiation dose to as low as reasonably achievable (ALARA). [facility]: Dose Right [facility]: CareDose [facility]: Dose Right [facility]: Teradose 4D [facility]: [employer] RADIATION DOSE: 36mGy. LIMITATIONS: MOTION ARTIFACT FINDINGS: CHEST: AXILLAE: No adenopathy. CHEST WALL: No masses. No subcutaneous air. LUNGS: No nodules or masses. No pneumothorax. No infiltrates. PLEURA: Trace bilateral pleural effusions are present. THYROID: Like 5 of scan came and the small HILAR AND MEDIASTINAL STRUCTURES: No identified masses or abnormal nodes. AORTA AND GREAT VESSELS: No aneurysm. HEART: No pericardial effusion. HARDWARE AND LIFELINES: None. BONES: No significant finding. OTHER: No other significant finding. ABDOMEN AND PELVIS: LIVER: Normal size. No masses. No dilated ducts. SPLEEN: 14 cm in length, mildly enlarged. This is new compared to imaging from 2013 PANCREAS: No masses. No significant calcifications. No adjacent inflammation or peripancreatic flui d collections. Pancreatic duct not dilated. GALLBLADDER: No identified stones by CT criteria. No inflammatory changes to suggest cholecystitis. ADRENAL GLANDS: No significant masses or asymmetry. RIGHT KIDNEY AND URETER: No solid masses. Assessment limited by lack of IV contrast. No significant calcifications. No hydronephrosis or hydroureter. LEFT KIDNEY AND URETER: No solid masses. Assessment limited by lack of IV contrast. No significant calcifications. No hydronephrosis or hydroureter. AORTA AND VESSELS: No aneurysm. RETROPERITONEUM: No retroperitoneal adenopathy, hemorrhage or masses. APPENDIX: Normal. LARGE AND SMALL BOWEL: No dilatation. No masses. No wall thickening. Row of anastomotic christen po st sigmoid partial colectomy ABDOMINAL WALL: Intact ventral hernia repair with multiple surgical christen PERITONEAL CAVITY: No free air. No free fluid. No peritoneal implants or masses. PELVIS: No mass or free fluid. Normal bladder. BONES: Old lower lumbar laminectomy at L4 OTHER: No other significant finding. IMPRESSION: Trace bilateral pleural effusions. No pneumothorax. No alveolar pulmonary edema or den se pneumonia. No bowel obstruction. Post partial sigmoid colectomy. Intact ventral hernia repair. TECHNICAL DOCUMENTATION: JOB ID: [id number] Quality ID # [id number]: Final reports with documentation of one or more dose reduction techniques (e.g., Au tomated exposure control, adjustment of the mA and/or kV according to patient size, use of iterative reconstruction technique) 2010 [employer]- All Rights Reserved Reading location - IP/workstation name: [facility]
--- NOTE | 2017-08-11 17:25 | XCELERA REPORT ---
[address] [address] Transthoracic Echocardiogram Report Name: PURA HARRELL Age: 72 yrs Gender: Male : 1945 Patient Status: Inpatient Patient Location: [address] [place] [address] Study Date: 08/11/2017 02:19 PM Procedure: A two-dimensional transthoracic echocardiogram with color flow and Doppler was performed. Study Quality: Technically suboptimal. POOR DOPPLER INTEROGATION. Reason For Study: SOB History: Shortness of breath. Ordering Physician: LEO AMBROSE Performed By: Felecia Iglesias Interpretation Summary A two-dimensional transthoracic echocardiogram with color flow and Doppler was performed. Study Quality: Technically suboptimal. The left ventricle is normal in size. There is mild concentric left ventricular hypertrophy. LV EF is > THAN 75% The left ventricle is hyperdynamic. Doppler measurements suggest impaired left ventricular relaxation, which is associated with grade I/IV or mild diastolic dysfunction hYPERDYNAMIC LV CONTRACTILITY. No gross thrombus. The left atrial size is normal. There is no evidence of mitral valve prolapse. There is no mitral valve stenosis. There is no mitral regurgitation noted. The aortic valve is mildly calcified There is no aortic valvular vegetation. There is no LVOT obstruction. No aortic regurgitation is present. There is no tricuspid stenosis. Probably no TR.Unable to calculate RVSP/Pulmonary Hypertension. There is no pericardial effusion. MMode/2D Measurements & Calculations RVDd: 3.2 cm LVIDd: 4.5 cm FS: 45.1 % Ao root diam: 3.1 cm IVSd: 1.3 cm LVIDs: 2.5 cm EDV(Teich): 94.7 ml Ao root area: 7.3 cm2 LVPWd: 1.2 cm ESV(Teich): 22.2 ml LA dimension: 3.0 cm EF(Teich): 76.5 % LVOT diam: 1.9 cm LVOT area: 2.8 cm2 Doppler Measurements & Calculations MV E max elda: MV P1/2t max elda: Ao V2 max: LV V1 max P.2 cm/sec 97.0 cm/sec 156.7 cm/sec 9.0 mmHg MV A max elda: MV P1/2t: 48.3 msec Ao max PG: LV V1 max: 91.0 cm/sec 9.8 mmHg 149.7 cm/sec MV E/A: 0.84 MVA(P1/2t): 4.6 cm2 MV dec slope: APRIL(V,D): 2.6 cm2 587.4 cm/sec2 MV dec time: 0.20 sec PA V2 max: 44.1 cm/sec PA max P.78 mmHg Left Ventricle The left ventricle is normal in size. There is mild concentric left ventricular hypertrophy. LV EF is > THAN 75%. The left ventricle is hyperdynamic. Doppler measurements suggest impaired left ventricular relaxation, which is associated with grade I/IV or mild diastolic dysfunction. hYPERDYNAMIC LV CONTRACTILITY. No gross thrombus. Right Ventricle The right ventricle is not well visualized secondary to technical limitations. Atria Right atrium not well visualized secondary to technical limitations. The left atrial size is normal. Mitral Valve There is no evidence of mitral valve prolapse. There is no vegetation seen on the mitral valve. There is no mitral valve stenosis. There is no mitral regurgitation noted. Aortic Valve The aortic valve is mildly calcified. There is no aortic valvular vegetation. There is no aortic stenosis. There is no LVOT obstruction. No aortic regurgitation is present. Tricuspid Valve There is no tricuspid stenosis. Probably no TR.Unable to calculate RVSP/Pulmonary Hypertension. Pulmonic Valve There is no pulmonic valvular stenosis. There is no pulmonic valvular regurgitation. Great Vessels The aortic root is normal size. Effusions There is no pericardial effusion. : LEO AMBROSE > Chichi Marquez
[2017-08-11] MEDS: ATORVASTATIN CALCIUM 10 MG TABLET PO SCH (22:36)
[2017-08-11 23:44] LABS: ARTERIAL BLOOD BASE EXCESS -4.7 mmol/L; ARTERIAL BLOOD H2CO3 0.93 mmol/L (1.05-1.35); ARTERIAL BLOOD PCO2 30.8 mmHg (35-45); ARTERIAL BLOOD PH 7.41 (7.35-7.45); ARTERIAL BLOOD PO2 72.8 mmHg (80-100); ARTERIAL BLOOD TOTAL CO2 19.9 mmol/L (23-27)
[2017-08-11] MEDS: ACETAMINOPHEN 325 MG TABLET PO PRN (23:44)
[2017-08-11 23:52] LABS: ARTERIAL BLOOD FIO2 2L
[2017-08-11] MEDS ORDERED: FUROSEMIDE INJ/PF 40 MG/4 ML SDV IV ONE (23:57)
--- NOTE | 2017-08-12 00:51 | RADIOLOGY REPORT (SQ) ---
EXAM DESCRIPTION: Single view of the chest CLINICAL HISTORY: wheezing and sob COMPARISON: 08/11/2017 FINDINGS: Single frontal view of the chest. Cardiomegaly. Low lung volumes. Curvilinear right basilar opacities are stable. No pneumothorax or definite pleural effusion. Leads overlie the chest. Degenerative change of the spine. Upper abdominal soft tissues are unremarkable. IMPRESSION: 1. Stable appearance of the chest.
[2017-08-12] MEDS ORDERED: METOPROLOL TARTRATE PF/INJ 5 MG/5 ML SDV IV ONE ×2 (01:55→02:00)
[2017-08-12] MEDS ORDERED: DILTIAZEM HCL 180 MG CAPSULE.CR PO ONE (02:00)
[2017-08-12] MEDS: IPRATROPIUM/ALBUTEROL 0.5-2.5 MG/3 ML AMPUL NEB PRN ×3 (03:34→21:27)
[2017-08-12] MEDS ORDERED: NORMAL SALINE 500 ML IV ONE (08:00)
--- NOTE | 2017-08-12 08:46 | EKG REPORT ---
SEVERITY:- ABNORMAL ECG - ATRIAL FIBRILLATION WITH RAPID V-RATE : Confirmed by: Laurence Stahl 12-Aug-2017 08:46:05
--- NOTE | 2017-08-12 08:46 | EKG REPORT ---
SEVERITY:- BORDERLINE ECG - SINUS TACHYCARDIA LOW VOLTAGE THROUGHOUT : Confirmed by: Laurence Stahl 12-Aug-2017 08:46:14
[2017-08-12] MEDS: FAMOTIDINE 20 MG TABLET PO SCH ×2 (10:44→20:54)
[2017-08-12] MEDS: AZITHROMYCIN 250 MG TABLET PO SCH (10:45)
[2017-08-12] MEDS: METOPROLOL TARTRATE 25 MG TABLET PO SCH (10:47)
[2017-08-12] MEDS: CETIRIZINE 10 MG TABLET PO SCH (10:48)
[2017-08-12] MEDS: AMITRIPTYLINE HCL 50 MG TABLET PO SCH (10:49)
[2017-08-12] MEDS: DOCUSATE SODIUM 100 MG CAPSULE PO SCH (10:50)
[2017-08-12] MEDS: ACETAMINOPHEN 325 MG TABLET PO PRN (10:51)
[2017-08-12] MEDS: CEFTRIAXONE SODIUM 1,000 MG in DEXTROSE 5%-WATER 50 ML IV SCH (10:52)
--- NOTE | 2017-08-12 10:52 | PDOC PROGRESS REPORT ---
Subjective Progress Note for:: 08/11/17 Subjective:: Patient is seen resting in bedside chair. He is not on any oxygen. He states he does get short of breath with minimal exertion. He denies any cough or chest pain. He denies nausea, vomiting or diarrhea. He denies any significant arthralgias or myalgias. He is very unsteady on his feet according to the nursing staff. He is also confused at times according to his . Which is not his norm. Remaining review of systems are negative Reason For Visit: GENERALIZED PAIN, FEVER, SYSTEMIC INFLAMMATION Physical Exam Vital Signs: Temp Pulse Resp BP Pulse Ox 100.3 F 106 H 21 H 109/56 L 93 08/12/17 07:46 08/12/17 07:46 08/12/17 07:46 08/12/17 07:46 08/12/17 07:46 Intake & Output 08/11/17 08/12/17 08/13/17 06:59 06:59 06:59 Intake Total 2048 770 Output Total 300 200 Balance 1748 570 Weight 102.1 kg 102.1 kg General appearance: PRESENT: no acute distress, obese, well-developed, well- nourished, other - veronique complexion Head exam: PRESENT: atraumatic, normocephalic Eye exam: PRESENT: conjunctiva pink, EOMI, PERRLA. ABSENT: scleral icterus Ear exam: PRESENT: normal external ear exam Mouth exam: PRESENT: moist, tongue midline Teeth exam: PRESENT: poor dentation Neck exam: ABSENT: carotid bruit, JVD, lymphadenopathy, thyromegaly Respiratory exam: PRESENT: clear to auscultation fredis, symmetrical, unlabored. ABSENT: rales, rhonchi, wheezes Cardiovascular exam: PRESENT: RRR. ABSENT: diastolic murmur, rubs, systolic murmur Pulses: PRESENT: normal carotid pulses, normal radial pulses Vascular exam: PRESENT: normal capillary refill GI/Abdominal exam: PRESENT: normal bowel sounds, soft. ABSENT: distended, guarding, mass, organolmegaly, rebound, tenderness Rectal exam: PRESENT: deferred Extremities exam: PRESENT: full ROM. ABSENT: calf tenderness, clubbing, pedal edema Musculoskeletal exam: PRESENT: ambulatory, full ROM, normal inspection Neurological exam: PRESENT: alert, awake, oriented to person, oriented to place , oriented to time, oriented to situation, CN II-XII grossly intact. ABSENT: motor sensory deficit Psychiatric exam: PRESENT: flat affect, normal mood. ABSENT: homicidal ideation , suicidal ideation Skin exam: PRESENT: dry, intact, warm, other - healing scratches to bilateral forearms. ABSENT: cyanosis, rash Results Laboratory Results: 08/11/17 07:05 08/11/17 07:05 08/11/17 23:15 Carbonic Acid 0.93 L HCO3/H2CO3 Ratio 20:1 ABG pH 7.41 ABG pCO2 30.8 L ABG pO2 72.8 L ABG HCO3 19.0 L ABG O2 Saturation 95.0 ABG Base Excess -4.7 FiO2 2L Impressions: Abdomen Ultrasound 08/09/17 00:00 IMPRESSION: NORMAL ABDOMINAL ULTRASOUND. Abdomen/Pelvis CT 08/11/17 00:00 IMPRESSION: Trace bilateral pleural effusions. No pneumothorax. No alveolar pulmonary edema or dense pneumonia. No bowel obstruction. Post partial sigmoid colectomy. Intact ventral hernia repair. Chest CT 08/11/17 00:00 IMPRESSION: Trace bilateral pleural effusions. No pneumothorax. No alveolar pulmonary edema or dense pneumonia. No bowel obstruction. Post partial sigmoid colectomy. Intact ventral hernia repair. Chest X-Ray 08/11/17 08:00 IMPRESSION: Right lung base bandlike atelectasis Trace bilateral pleural effusions Assessment & Plan - Diagnosis (1) SIRS (systemic inflammatory response syndrome) Is this a current diagnosis for this admission?: No Plan: He remains tachycardic with intermittent low grade temp. Chest xray today shows no signs of pneumonia. His urine culture grew 30,000 colonies of bacteria. Blood cultures are negative. Will check echo, although he has no cardiomegaly on chest xray he does have small effusions. If negative with ly scan without contrast. Viral studies are pending (2) Thrombocytopenia Is this a current diagnosis for this admission?: Yes Plan: Possible viral etiology. was sick with similar symptoms prior to him becoming ill. He has also had recent tick bites. Will check lyme ab, Jw German panel etc. It has been stable he has no history of prior blood dyscrasias (3) Acute kidney injury Is this a current diagnosis for this admission?: Yes Plan: Stable (4) Hyponatremia Is this a current diagnosis for this admission?: Yes Plan: Slowly improving (5) Body aches Is this a current diagnosis for this admission?: No Plan: Resolved (6) Fever Qualifiers: Fever type: unspecified Qualified Code(s): R50.9 - Fever, unspecified Is this a current diagnosis for this admission?: Yes Plan: He continues to have low grade temp spikes up to 100.2 T (7) Transaminitis Is this a current diagnosis for this admission?: Yes Plan: No signs of cirrhosis or fatty liver on ultrasound. He was on a statin. Non drinker (8) Pneumonia Qualifiers: Pneumonia type: due to unspecified organism Laterality: right Lung location: unspecified part of lung Qualified Code(s): J18.9 - Pneumonia, unspecified organism Is this a current diagnosis for this admission?: Yes Plan: No evidence on chest xray. He is still short of breath with exertion. Will get CT chest without contrast due to tello - Time Time Spent with patient: 25-34 minutes Total Critical Time (Minutes): 15 Medications reviewed and adjusted accordingly: Yes
[2017-08-12] MEDS: CALCIUM CARBONATE 500 MG TAB.CHEW PO SCH (10:53)
[2017-08-12] MEDS: CHOLECALCIFEROL (D3) 1,000 UNIT TABLET PO SCH (10:53)
[2017-08-12 10:56] LABS: PHOSPHORUS 3.5 mg/dL (2.5-4.5)
[2017-08-12] MEDS ORDERED: DILTIAZEM HCL/D5W 125 MG/125 ML RTUINJ IV PRN (11:30)
[2017-08-12] MEDS ORDERED: NORMAL SALINE 1000 ML 1,000 ML IV PRN (11:34)
[2017-08-12 12:13] LABS: HEMATOCRIT 35.4 % (37.9-51.0); MEAN CORPUSCULAR HEMOGLOBIN 29.4 pg (27.0-33.4); MEAN CORPUSCULAR VOLUME 87 fl (80-97); RED CELL DISTRIBUTION WIDTH 15.3 % (11.5-14.0); WHITE BLOOD COUNT 3.5 10^3/uL (4.0-10.5)
[2017-08-12 12:19] LABS: ARTERIAL BLOOD BASE EXCESS -3.6 mmol/L; ARTERIAL BLOOD FIO2 5 L; ARTERIAL BLOOD HCO3 20.3 mmol/L (20-26); ARTERIAL BLOOD O2 SATURATION 98.2 % (94-98); ARTERIAL BLOOD PCO2 33.1 mmHg (35-45); ARTERIAL BLOOD PH 7.41 (7.35-7.45); ARTERIAL BLOOD PO2 113.2 mmHg (80-100); ARTERIAL BLOOD TOTAL CO2 21.3 mmol/L (23-27)
[2017-08-12 12:29] LABS: ALANINE AMINOTRANSFERASE 81 U/L (21-72); ALBUMIN 2.3 g/dL (3.5-5.0); ALKALINE PHOSPHATASE 88 U/L (38-126); ANION GAP 10 (5-19); ASPARTATE AMINO TRANSFERASE 143 U/L (17-59); BILIRUBIN,DIRECT 0.5 mg/dL (0.0-0.4); BILIRUBIN,TOTAL 0.5 mg/dL (0.2-1.3); BLOOD UREA NITROGEN 33 mg/dL (7-20); CALCIUM 8.2 mg/dL (8.4-10.2); CARBON DIOXIDE 22 mmol/L (22-30); CHLORIDE 101 mmol/L (98-107); GLUCOSE 116 mg/dL (75-110); POTASSIUM 4.5 mmol/L (3.6-5.0); SODIUM 132.9 mmol/L (137-145); TOTAL PROTEIN 4.7 g/dL (6.3-8.2)
[2017-08-12 12:46] LABS: ABSOLUTE LYMPHOCYTES# (MANUAL) 0.1 10^3/uL (0.5-4.7); ABSOLUTE NEUTROPHILS# (MANUAL) 3.4 10^3/uL (1.7-8.2); BAND NEUTROPHILS % (MANUAL) 1 % (3-5); BASOPHILS % (MANUAL) 0 % (0-2); EOSINOPHILS % (MANUAL) 0 % (0-6); LYMPHOCYTES % (MANUAL) 0 % (13-45); METAMYELOCYTES % (MANUAL) 1 % (0); MONOCYTES % (MANUAL) 1 % (3-13); SEGMENTED NEUTROPHILS % (MAN) 94 % (42-78); TOTAL CELLS COUNTED 100
[2017-08-12 12:49] LABS: ANISOCYTOSIS SLIGHT; OVALOCYTES 1+; PLATELET COMMENT DECREASED; PLATELET COUNT 79 10^3/uL (150-450); POIKILOCYTOSIS 1+; TEAR DROP CELLS SLIGHT; TOXIC GRANULATION 1+; TOXIC VACUOLATION PRESENT
--- NOTE | 2017-08-12 13:09 | RADIOLOGY REPORT (SQ) ---
EXAM DESCRIPTION: CHEST SINGLE VIEW COMPLETED DATE/TIME: 08/12/2017 12:30 pm REASON FOR STUDY: SOB COMPARISON: Chest x-ray and 08/12/2017 at 0020 hours and chest x-ray and chest CT 08/11/2017 EXAM PARAMETERS: NUMBER OF VIEWS: One view. TECHNIQUE: Single frontal radiographic view of the chest acquired. RADIATION DOSE: NA LIMITATIONS: Patient body habitus. Shallow inspiration. FINDINGS: LUNGS AND PLEURA: Stable curvilinear atelectatic marking right lung base. Minimal bluntin g costophrenic angles. MEDIASTINUM AND HILAR STRUCTURES: Stable HEART AND VASCULAR STRUCTURES: Cardiomegaly stable. No overt CHF. BONES: No acute findings. HARDWARE: None in the chest. OTHER: No other significant finding. IMPRESSION: Stable appearance. TECHNICAL DOCUMENTATION: JOB ID: [id number] 1986 [employer]- All Rights Reserved Reading location - IP/workstation name: [email or web address]
[2017-08-12 13:49] LABS: LYME DISEASE IGM AB <0.80 index (0.00-0.79)
[2017-08-12] MEDS ORDERED: VANCOMYCIN HCL 0 MG in DEXTROSE 5%-WATER 250 ML IV NR (14:00)
[2017-08-12 15:30] LABS: EBV DNA PCR QUANT 970 copies/mL (Negative)
--- NOTE | 2017-08-12 15:42 | PDOC PROGRESS REPORT ---
Subjective Progress Note for:: 08/12/17 Subjective:: 72-year-old gentleman was admitted on August 08 with shortness of breath. Past medical history: Hypertension He was admitted with acute renal failure hyponatremia and suspected pneumonia and was started on Azithromycin, Rocephin and IV fluids. The patient had abnormal transaminases. Abdominal ultrasound was normal. CT of the chest did not show any infiltrate or pulmonary edema. He developed Afib RVR overnight and reverted to SR with IV Metoprolol and PO Cardizem. He has borderline hypotension and fever. Will be transferred to ICU for closer monitoring. Repeat blood cultures ordered. Antibiotic coverage expanded- Vanc meropenem and Doxycycline ordered. Son was at [facility] and reported that he does not drink alcohol. was doing well until a couple of weeks ago when he developed flu like symptoms cough and runny nose which his also had, however, he refused to see a doctor until he became progressively weaker and was brought to the ER by his family Echo showed hyperdynamic LV per Dr. Iraheta. His input is appreciated. CT head was done to r/o CVA- official report pending. Reason For Visit: GENERALIZED PAIN, FEVER, SYSTEMIC INFLAMMATION Physical Exam Vital Signs: Temp Pulse Resp BP Pulse Ox 100.3 F 106 H 21 H 109/56 L 93 08/12/17 07:46 08/12/17 07:46 08/12/17 07:46 08/12/17 07:46 08/12/17 07:46 Intake & Output 08/11/17 08/12/17 08/13/17 06:59 06:59 06:59 Intake Total 2048 770 Output Total 300 200 Balance 1748 570 Weight 102.1 kg 102.1 kg General appearance: PRESENT: obese Head exam: PRESENT: normocephalic Eye exam: ABSENT: scleral icterus Mouth exam: PRESENT: moist Neck exam: ABSENT: tracheal deviation Respiratory exam: PRESENT: rhonchi, symmetrical, unlabored Cardiovascular exam: PRESENT: RRR GI/Abdominal exam: PRESENT: normal bowel sounds, soft. ABSENT: tenderness Rectal exam: PRESENT: deferred Gentrourinary exam: ABSENT: indwelling catheter Extremities exam: ABSENT: pedal edema Psychiatric exam: PRESENT: anxious Results Laboratory Results: 08/11/17 07:05 08/11/17 07:05 08/11/17 23:15 Carbonic Acid 0.93 L HCO3/H2CO3 Ratio 20:1 ABG pH 7.41 ABG pCO2 30.8 L ABG pO2 72.8 L ABG HCO3 19.0 L ABG O2 Saturation 95.0 ABG Base Excess -4.7 FiO2 2L Impressions: Abdomen Ultrasound 08/09/17 00:00 IMPRESSION: NORMAL ABDOMINAL ULTRASOUND. Abdomen/Pelvis CT 08/11/17 00:00 IMPRESSION: Trace bilateral pleural effusions. No pneumothorax. No alveolar pulmonary edema or dense pneumonia. No bowel obstruction. Post partial sigmoid colectomy. Intact ventral hernia repair. Chest CT 08/11/17 00:00 IMPRESSION: Trace bilateral pleural effusions. No pneumothorax. No alveolar pulmonary edema or dense pneumonia. No bowel obstruction. Post partial sigmoid colectomy. Intact ventral hernia repair. Chest X-Ray 08/11/17 08:00 IMPRESSION: Right lung base bandlike atelectasis Trace bilateral pleural effusions Assessment & Plan - Diagnosis (1) Sepsis Is this a current diagnosis for this admission?: Yes Plan: Due to pneumonia, ? Viral. Continue antibiotics. Follow cultures (2) Acute kidney injury Is this a current diagnosis for this admission?: Yes Plan: Due to acute illness and dehydration. Gentle IV fluids. Monitor kidney function. (3) Hyponatremia Is this a current diagnosis for this admission?: Yes Plan: Monitor. IV NS (4) Pneumonia Qualifiers: Pneumonia type: due to unspecified organism Laterality: right Lung location: unspecified part of lung Qualified Code(s): J18.9 - Pneumonia, unspecified organism Is this a current diagnosis for this admission?: Yes Plan: Continue antibiotics as above. Follow-up on cultures. (5) Thrombocytopenia Is this a current diagnosis for this admission?: Yes Plan: Likely due to sepsis. Monitor closely. (6) Transaminitis Is this a current diagnosis for this admission?: Yes Plan: Likely due to sepsis, monitor closely. Abdominal ultrasound was unremarkable. - Time Time Spent with patient: 35 or more minutes
--- NOTE | 2017-08-12 15:56 | RADIOLOGY REPORT (SQ) ---
EXAM DESCRIPTION: CT HEAD WITHOUT COMPLETED DATE/TIME: 08/12/2017 3:34 pm REASON FOR STUDY: Confusion. COMPARISON: None. TECHNIQUE: Axial images acquired through the brain without intravenous contrast. Images reviewed wi th bone, brain and subdural windows. Additional sagittal and coronal reconstructions were generated. Images stored on PACS. All CT scanners at this facility use dose modulation, iterative reconstruction, and/or weight based d osing when appropriate to reduce radiation dose to as low as reasonably achievable (ALARA). [facility]: Dose Right [facility]: CareDose [facility]: Dose Right [facility]: Teradose 4D [facility]: PaletteApp RADIATION DOSE: CT Rad equipment meets quality standard of care and radiation dose reduction techniq ues were employed. CTDIvol: 48.6 mGy. DLP: 1003 mGy-cm. mGy. LIMITATIONS: None. FINDINGS: VENTRICLES: Normal size and contour. CEREBRUM: No masses. No hemorrhage. No midline shift. No evidence for acute infarction. Normal gra y/white matter differentiation. No areas of low density in the white matter. CEREBELLUM: No masses. No hemorrhage. No alteration of density. No evidence for acute infarction. EXTRAAXIAL SPACES: No fluid collections. No masses. ORBITS AND GLOBE: No intra- or extraconal masses. Normal contour of globe without masses. CALVARIUM: No fracture. PARANASAL SINUSES: No fluid or mucosal thickening. SOFT TISSUES: No mass or hematoma. OTHER: No other significant finding. IMPRESSION: NORMAL BRAIN CT WITHOUT CONTRAST. EVIDENCE OF ACUTE STROKE: NO. COMMENT: Quality ID # [id number]: Final reports with documentation of one or more dose reduction techniques (e.g., Automated exposure control, adjustment of the mA and/or kV according to patient size, use of iterative reconstruction technique) TECHNICAL DOCUMENTATION: JOB ID: [id number] [employer]- All Rights Reserved Reading location - IP/workstation name: [email or web address]
[2017-08-12] MEDS ORDERED: VANCOMYCIN HCL 1,500 MG in DEXTROSE 5%-WATER 250 ML IV SCH (16:00)
[2017-08-12 16:02] LABS: HEMATOCRIT 35.3 % (37.9-51.0); MEAN CORPUSCULAR HEMOGLOBIN 29.5 pg (27.0-33.4); MEAN CORPUSCULAR HGB CONC 33.9 g/dL (32.0-36.0); MEAN CORPUSCULAR VOLUME 87 fl (80-97); RED BLOOD COUNT 4.06 10^6/uL (4.35-5.55); RED CELL DISTRIBUTION WIDTH 15.3 % (11.5-14.0); WHITE BLOOD COUNT 2.9 10^3/uL (4.0-10.5)
[2017-08-12] MEDS ORDERED: ACETAMINOPHEN 650 MG SUPP.RECT PR ONE (16:12)
[2017-08-12 16:19] LABS: ALANINE AMINOTRANSFERASE 80 U/L (21-72); ALBUMIN 2.5 g/dL (3.5-5.0); ALKALINE PHOSPHATASE 92 U/L (38-126); ASPARTATE AMINO TRANSFERASE 166 U/L (17-59); BILIRUBIN,DIRECT 0.5 mg/dL (0.0-0.4); BILIRUBIN,TOTAL 0.5 mg/dL (0.2-1.3); TOTAL PROTEIN 4.8 g/dL (6.3-8.2)
[2017-08-12] MEDS ORDERED: ACETAMINOPHEN 650 MG SUPP.RECT PR PRN (16:22)
[2017-08-12] MEDS ORDERED: NORMAL SALINE 1000 ML 1,000 ML IV ONE (17:00)
[2017-08-12 17:01] LABS: PLATELET COUNT 78 10^3/uL (150-450)
[2017-08-12 17:06] LABS: ABSOLUTE LYMPHOCYTES# (MANUAL) 0.2 10^3/uL (0.5-4.7); ABSOLUTE MONOCYTES # (MANUAL) 0.1 10^3/uL (0.1-1.4); ABSOLUTE NEUTROPHILS# (MANUAL) 2.6 10^3/uL (1.7-8.2); BAND NEUTROPHILS % (MANUAL) 6 % (3-5); BASOPHILS % (MANUAL) 1 % (0-2); EOSINOPHILS % (MANUAL) 0 % (0-6); LYMPHOCYTES % (MANUAL) 3 % (13-45); METAMYELOCYTES % (MANUAL) 1 % (0); MONOCYTES % (MANUAL) 2 % (3-13); PLATELET COMMENT DECREASED; PLATELET LARGE PRESENT; SEGMENTED NEUTROPHILS % (MAN) 84 % (42-78); TOTAL CELLS COUNTED 100
[2017-08-12 17:07] LABS: ANISOCYTOSIS SLIGHT; HYPOCHROMASIA SLIGHT; POLYCHROMASIA SLIGHT; TOXIC GRANULATION 2+; TOXIC VACUOLATION PRESENT
[2017-08-12] MEDS: MEROPENEM 1 GM in NORMAL SALINE 50 ML IV SCH (18:31)
[2017-08-12] MEDS ORDERED: OXYCODONE-ACETAMINOPHEN 5-325 MG TABLET PO PRN (19:40)
[2017-08-12] MEDS ORDERED: FONDAPARINUX SODIUM INJ 2.5 MG/0.5 ML DISP.SYRIN SUBCUT SCH (20:00)
[2017-08-12] MEDS: VANCOMYCIN HCL 1,500 MG in DEXTROSE 5%-WATER 250 ML IV SCH (20:03)
[2017-08-12] MEDS: NORMAL SALINE 1000 ML 1,000 ML IV PRN (20:05)
--- NOTE | 2017-08-12 22:45 | EKG REPORT ---
SEVERITY:- BORDERLINE ECG - SINUS TACHYCARDIA LOW VOLTAGE IN FRONTAL LEADS BORDERLINE T ABNORMALITIES, ANT-LAT LEADS : Confirmed by: Laurence Stahl 12-Aug-2017 19:45:10
[2017-08-12] MEDS: DOXYCYCLINE HYCLATE 100 MG in DEXTROSE 5%-WATER 250 ML IV SCH (23:01)
--- NOTE | 2017-08-13 | CONSULTATION REPORT E ---
Consultation Report NAME: PURA HARRELL : 1945 AGE: 72Y DATE: 08/12/2017 ROOM: 611 A TO: FLORY MESA M.D. FROM: SAIMA SILVA M.D. Requesting Physician REASON FOR CONSULTATION: Atrial fibrillation with rapid ventricular response (paroxysmal). HISTORY OF PRESENT ILLNESS: Note the patient is very confused and unable to give a history. History obtained from son who is not a very good historian. The patient is a 72-year-old male who has had until recently robust activity, admitted with fever as per the son 103 degrees with wheezing and cough, nonproductive of any sputum. He does have some scratches from the barbwire. But, there is no history of tick bites. As per the son there is no PND or orthopnea. The patient has never had problems like this. There is no history of asthma or COPD. He has a history of hypertension for which he is on medication and as per the son well-controlled. He has no history of diabetes mellitus. There is no history of chronic kidney disease. No history of chest pains suggestive of angina or pleurisy. The patient was treated with antibiotics and became more confused. He also has acute renal failure and abnormal liver function tests. The patient also, when I examined him, had asterixis. In the early a.m. of 08/12/2017 the patient went into atrial fibrillation with rapid ventricular response. He was given 1 dose of p.o. Cardizem and converted to sinus rhythm in the form of sinus tachycardia. There is no prior history of atrial fibrillation. PAST MEDICAL HISTORY: As per the son; history of hypertension, history of chronic back pain but the patient has robust activity in spite of his back pain. No history of TIA, CVA. No history of asthma, COPD. No history of sleep apnea. No history of congestive heart failure. No history of CAD, angina, or HI. No history of PND, orthopnea, or leg edema. PAST SURGICAL HISTORY: Positive for back surgery, colon surgery for ruptured colon in the past, and a ventral hernia repair. FAMILY HISTORY: Negative for coronary artery disease, hypertension, or diabetes mellitus. SOCIAL HISTORY: The patient quit smoking 30 years ago. There is no history of drug abuse. DISPOSITION: The patient is a full code. His and the patient's son are his surrogate healthcare providers. ALLERGIES: The patient is allergic to PENICILLIN AND PROPOXYPHENE. MEDICATIONS: His medications are: Tylenol 650 mg per rectally q.4 hours p.r.n. He is on vitamin D3 - 2000 units p.o. q.48 hours. He is on Colace 100 mg p.o. daily. He is on Pepcid 20 mg p.o. daily. He did get Lasix 60 mg IV x1. He is on DuoNebs 3 mL nebulizer treatment q.6 hours p.r.n. He was started on a Cardizem drip at 15 mg/hr to make sure that he does not go back into atrial fibrillation in spite of the patient being in sinus tachycardia, but the patient's blood pressure dropped to 95 and, hence, this was stopped. He is on Vibramycin 100 mg IV q.12 hours. He is on meropenem 1 gram IV q.12 hours. He will be started on normal saline at 100 mL per hour. He is on magnesium hydroxide 30 mL p.o. q.6 hours. He did receive metoprolol 5 mg IV push x1 and normal saline 500 mL and 1000 mL boluses given. He is on vancomycin 1500 mg IV daily at 1999. He is on oxycodone/acetaminophen 1 tablet p.o. q.4 hours p.r.n. REVIEW OF SYSTEMS: CONSTITUTIONAL: History of fever, chills, and rigors as per the son with temperature going up to 103, this was just a day or 2 prior to admission. HEAD: Denies any history of headaches or head injury. EYES: No history of amblyopia or diplopia. No history of amaurosis fugax. ENT: There are no nosebleeds, tinnitus, or hearing loss. Throat; no history of odynphagia or dysphagia. SKIN: No history of skin cancer or skin rashes. There are a few scratches from barbwire. No history of psoriasis or jaundice. NECK: No history of pain in the neck or swelling in the neck. LUNGS: Wheezing as mentioned earlier with cough, nonproductive of any sputum. No history of asthma or COPD. He has never had symptoms of this kind in the past. CARDIAC: No history of CAD, angina, chest pains. No history of congestive heart failure. No history of PND, orthopnea. No history of leg edema. No history of anginal symptoms. No history of coronary artery disease, HI. No history of valvular disease. No history of rheumatic heart disease. No history of syncope. GASTROINTESTINAL: No history of peptic ulcer disease. No history of GI bleed. RENAL: No past history of chronic kidney disease. The patient seems to be in acute renal failure. In the past, 5 years ago, the patient had some problems with his prostate but his PSA was fine and he has not had any problems since. There are no symptom of UTI as per the son. CENTRAL NERVOUS SYSTEM: No history of TIA or CVA. The patient at present with altered mental status and is delirious and is very confused, but moves all 4 extremities. PSYCHIATRIC: There is no past history of suicidal ideation. No history of anxiety or depression. At present the patient does appear to be agitated. The rest of the review of systems is not obtainable since the son does not know much. PHYSICAL EXAMINATION: GENERAL: On examination the patient is mildly obese. He is very confused. Extremities of the hand show asterixis in both hands. VITAL SIGNS: His temperature is 101.7 degrees Fahrenheit. Pulse is 125 beats per minute to 110 beats per minute, which is sinus tachycardia. His blood pressure dropped to 95/62. Respirations are 20 per minute. O2 saturations are 95% on 5 liters nasal cannula. HEENT: Head is atraumatic, normocephalic. Eyes: Pupils are equal, round and regular, reactive to light. The patient's ENT is not examined since the patient is not very cooperative, but no gross lesions seen in the ears or nose. SKIN: There are no skin rashes. There is no petechiae or ecchymosis. There is no discoloration. There are a few superficial scratches in the arms on both sides. NECK: Supple. There is no JVD. There is no lymphadenopathy. There is no goiter. Carotids are equal. There is no bruit. Trachea is central. LUNGS: Show bilateral wheezing and rhonchi. No rales of CHF. HEART: S1 and S2 is heard. There is no S3 gallop. There is no S4 gallop. There is a systolic murmur in the left sternal border and the apex. There is no rub. ABDOMEN: Soft, obese, nontender. There is no hepatosplenomegaly. Bowel sounds are well heard. EXTREMITIES: Femorals are slightly diminished. Leg pulses are diminished. There is no pedal edema. There is no DVT or cellulitis. There is no calf tenderness. CENTRAL NERVOUS SYSTEM: The patient is very confused and disoriented and delirious, but moves all 4 extremities. PSYCHIATRIC: The patient does appear to be agitated. Psych testing could not be done due to the patient's mental status. DIAGNOSTICS: The patient's EKG on admission shows sinus tachycardia with nonspecific ST-T changes in anterolateral leads. His subsequent EKG showed atrial fibrillation with rapid ventricular response and later that day on 08/12, morning his EKG shows sinus tachycardia with no acute changes. His abdominal pelvis CT done on 08/11/2017 shows trace bilateral pleural effusion, no pneumothorax, no alveolar pulmonary edema or dense pneumonia. No bowel obstruction. Post partial sigmoid colectomy. Intact ventral hernia repair. His abdominal ultrasound shows no acute lesions in the liver or gallbladder. His chest CT as mentioned earlier. His echocardiogram shows that the study is technically suboptimal. Left ventricle is normal size. There is mild concentric left ventricular hypertrophy. LV ejection fraction is hyperdynamic and greater than 75%. There is mild diastolic dysfunction. The are no gross murmurs. There is no mitral regurgitation. There is no mitral valve stenosis. There is no aortic valvular vegetation. There is no aortic regurgitation. The aortic valve is mildly calcified. There is no aortic stenosis. There is no tricuspid stenosis. Probably no TR. Unable to calculate right ventricular systolic pressure due to lack of TR jet. There is no pericardial effusion. His Lyme screen IgG and IgM is normal and less than 0.91. His other Lyme titers are not reportable. His Lyme IgM quantitation is less than 0.80. His Jw-German virus DNA quantification copy/mL 970 which is normal. Jw-German virus quantity PCR plasma log 10, 2.987 which is normal. His Hepatitis A IgM antibody is negative. Hepatitis B antigen is negative. His hepatitis B core IgM antibody is negative. His hepatitis C antibody is less than 0.1. His ABG showed a pH of 7.41, pCO2 is 33.1, pO2 is 113.2, O2 sats are 98.2% on 5 liters. His sodium is 132.9, potassium 4.5, chloride 101, CO2 is 22. The patient's BUN is 33, creatinine 1.73, GFR is reduced to 39 from 46 on 08/11/17. His calcium is 8.2. His liver function tests are abnormal with a total bilirubin of 0.5, his direct bilirubin is 0.5, his AST is elevated at 143, his ALT is 81, his alk-phos is 88. His serum ammonia level on 08/10, was less than 8.7. His TSH is 2.28. His white count is 3500, hemoglobin is 12, hematocrit is 35.2, and his platelet count is reduced to 79,000. IMPRESSION: 1. Paroxysmal atrial fibrillation transient. Note the patient now in sinus tachycardia. 2. Altered mental status/delirium. Most likely secondary to acute infection/sepsis. 3. Asterixis suspicious for impending hepatic or renal or respiratory failure. Hence would recommend that the patient be transferred to ICU setting. This has been discussed with the patient's son and the patient's family. 4. Asthmatic bronchitis. 5. Abnormal liver function test. 6. Acute renal failure, worsening. 7. Hypertension by history, at present hypotensive. 8. Chronic back pain. RECOMMENDATION: Would recommend to transfer the patient to ICU setting. Continue IV fluids. Continue antibiotics. Continue respiratory treatments. Monitor the patient's liver function test. Note in view of the patient's platelet being low and the patient's renal insufficiency at present would not use Lovenox or heparin, would place the patient on Arixtra for DVT prophylaxis. This has been discussed with the patient, the patient son. They know about the patient being transferred to the ICU for intensive care. Note the case has been discussed with the hospitalist and also the patient's family. PROGNOSIS: The patient's prognosis is very guarded. Note medical decision making is highly complex in view of the multiple comorbidities in this patient. Will follow with you. Thanking you. DICTATING PHYSICIAN: FLORY MESA M.D. [id number] PHY#: [id number] ID: [id number] JOB#: [id number] ACCT: [id number] cc:FLORY MESA M.D. >
[2017-08-13 01:12] LABS: ARTERIAL BLOOD BASE EXCESS -4.7 mmol/L; ARTERIAL BLOOD FIO2 12L; ARTERIAL BLOOD H2CO3 1.55 mmol/L (1.05-1.35); ARTERIAL BLOOD HCO3 22.6 mmol/L (20-26); ARTERIAL BLOOD PCO2 51.5 mmHg (35-45); ARTERIAL BLOOD PH 7.26 (7.35-7.45); ARTERIAL BLOOD PO2 93.8 mmHg (80-100); ARTERIAL BLOOD TOTAL CO2 24.2 mmol/L (23-27)
[2017-08-13] MEDS ORDERED: KETOROLAC TROMETHAMINE INJ/PF 30 MG/1 ML SDV IM ONE (01:15)
[2017-08-13 03:01] LABS: ARTERIAL BLOOD BASE EXCESS -5.8 mmol/L; ARTERIAL BLOOD HCO3 21.9 mmol/L (20-26); ARTERIAL BLOOD O2 SATURATION 96.2 % (94-98); ARTERIAL BLOOD PCO2 53.2 mmHg (35-45); ARTERIAL BLOOD PH 7.23 (7.35-7.45); ARTERIAL BLOOD PO2 97.6 mmHg (80-100); ARTERIAL BLOOD TOTAL CO2 23.6 mmol/L (23-27)
[2017-08-13 03:03] LABS: ARTERIAL BLOOD FIO2 50%
[2017-08-13 04:44] LABS: ANION GAP 12 (5-19); BLOOD UREA NITROGEN 35 mg/dL (7-20); CALCIUM 7.6 mg/dL (8.4-10.2); CARBON DIOXIDE 20 mmol/L (22-30); CHLORIDE 105 mmol/L (98-107); GLUCOSE 99 mg/dL (75-110); PHOSPHORUS 4.8 mg/dL (2.5-4.5); POTASSIUM 4.9 mmol/L (3.6-5.0); SODIUM 136.6 mmol/L (137-145)
[2017-08-13] MEDS: MEROPENEM 1 GM in NORMAL SALINE 50 ML IV SCH ×2 (05:28→17:34)
[2017-08-13 06:39] LABS: EBV EARLY AG AB DIFFUSE Negative (Neg:<1:20)
[2017-08-13 07:35] LABS: EPSTEIN BARR EARLY AG IGG AB <9.0 U/mL (0.0-8.9); EPSTEIN BARR NUCLEAR AG IGG AB 82.1 U/mL (0.0-17.9); EPSTEIN BARR VCA IGG AB >600.0 U/mL (0.0-17.9)
--- NOTE | 2017-08-13 08:37 | RADIOLOGY REPORT (SQ) ---
EXAM DESCRIPTION: CHEST SINGLE VIEW COMPLETED DATE/TIME: 08/13/2017 8:18 am REASON FOR STUDY: Dyspnea COMPARISON: 08/12/2017 EXAM PARAMETERS: NUMBER OF VIEWS: One view. TECHNIQUE: Single frontal radiographic view of the chest acquired. RADIATION DOSE: NA LIMITATIONS: None. FINDINGS: LUNGS AND PLEURA: Minimal linear density is again identified and right lung base most cons istent with subsegmental atelectasis. Remaining lung alvares are clear. MEDIASTINUM AND HILAR STRUCTURES: No masses. Contour normal. HEART AND VASCULAR STRUCTURES: The configuration of the heart mediastinal structures is unchanged BONES: No acute findings. HARDWARE: None in the chest. OTHER: Some elevation of the right hemidiaphragm is seen. IMPRESSION: No significant interval change. Findings as noted above. TECHNICAL DOCUMENTATION: JOB ID: [id number] [employer]- All Rights Reserved Reading location - IP/workstation name: [email or web address]
[2017-08-13 09:11] LABS: ARTERIAL BLOOD BASE EXCESS -5.5 mmol/L; ARTERIAL BLOOD H2CO3 1.54 mmol/L (1.05-1.35); ARTERIAL BLOOD HCO3 21.9 mmol/L (20-26); ARTERIAL BLOOD O2 SATURATION 95.5 % (94-98); ARTERIAL BLOOD PH 7.25 (7.35-7.45); ARTERIAL BLOOD PO2 89.7 mmHg (80-100); ARTERIAL BLOOD TOTAL CO2 23.5 mmol/L (23-27)
[2017-08-13 09:14] LABS: ARTERIAL BLOOD FIO2 40%
[2017-08-13] MEDS: DOCUSATE SODIUM 100 MG CAPSULE PO SCH (09:20)
[2017-08-13] MEDS: MAGNESIUM SULFATE/D5W 1 GM/100 ML RTUPB IV SCH ×2 (09:23→12:37)
[2017-08-13] MEDS: DOXYCYCLINE HYCLATE 100 MG in DEXTROSE 5%-WATER 250 ML IV SCH ×2 (09:24→22:15)
[2017-08-13 09:37] LABS: FIBRINOGEN 270 mg/dL (209-497); INTERNATIONAL RATION (INR) 1.16; PROTHROMBIN TIME 15.4 SEC (11.4-15.4)
[2017-08-13 09:38] LABS: PARTIAL THROMBOPLASTIN TIME 39.1 SEC (23.5-35.8)
[2017-08-13] MEDS ORDERED: PHARMACY COMMUNICATION ORDER MC NR (09:45)
[2017-08-13] MEDS ORDERED: LACTOBACILLUS ACIDOPHILUS 250 MG TAB PO SCH (10:00)
[2017-08-13] MEDS ORDERED: MAG HYDROX/AL HYDROX/SIMETH SUSP 30 ML UDCUP NG PRN (10:07)
[2017-08-13] MEDS ORDERED: PROPOFOL INJ 200 MG/20 ML VIAL IV ONE (10:17)
[2017-08-13] MEDS: IPRATROPIUM/ALBUTEROL 0.5-2.5 MG/3 ML AMPUL NEB PRN (10:31)
--- NOTE | 2017-08-13 10:50 | RADIOLOGY REPORT (SQ) ---
EXAM DESCRIPTION: CHEST SINGLE VIEW COMPLETED DATE/TIME: 08/13/2017 10:39 am REASON FOR STUDY: intubation COMPARISON: AP chest 08/13/2017, 08/12/2017, 08/11/2017 CT chest 08/11/2017 EXAM PARAMETERS: NUMBER OF VIEWS: One view. TECHNIQUE: Single frontal radiographic view of the chest acquired. RADIATION DOSE: NA LIMITATIONS: None. FINDINGS: Endotracheal tube tip 5 to 6 cm above the loly. Nasogastric tube tip and side port in the stomach. LUNGS AND PLEURA: Minimal atelectasis or scarring along the right major and minor fissures, unchanged . No fluffy alveolar infiltrates worrisome for edema or pneumonia. No pleural effusion. No pneumothorax. MEDIASTINUM AND HILAR STRUCTURES: No masses. Contour normal. HEART AND VASCULAR STRUCTURES: Heart normal in size. Normal vasculature. BONES: No acute findings. HARDWARE: As above OTHER: No other significant finding. IMPRESSION: Endotracheal tube tip 5 to 6 cm above the loly. Nasogastric tube tip and side port in the stomach Stable minimal scarring or atelectasis along the right minor and major fissures. TECHNICAL DOCUMENTATION: JOB ID: [id number] [employer]- All Rights Reserved Reading location - IP/workstation name: [email or web address]
--- NOTE | 2017-08-13 11:16 | PDOC CONSULTATION ---
Consultation Consult Date: 08/13/17 Attending physician:: SAIMA BEAR Consult reason:: resp failure History of Present Illness Admission Date/PCP: 08/08/17 13:16 History of Present Illness: PURA HARRELL is a 72 year old male,he presented to the emergency room several days ago with fever a cough that was nonproductive generalized weakness and pain he subsequently was progressively lethargic and unarousable and was subsequently transferred to the ICU and placed on BiPAP as he was beginning to develop a metabolic acidosis. He currently is unable to give the BiPAP mass on his dressing about and is not particularly responsive to commands. He I electively intubated him as he could not protect his airway and was not adequately ventilating on his BiPAP. His oxygenation remained acceptable. No additional history is available at this time. Past Medical History Cardiac Medical History: Reports: Atrial Fibrillation, Hypertension Pulmonary Medical History: Reports: Chronic Obstructive Pulmonary Disease (COPD) Neurological Medical History: Denies: Multiple Sclerosis Psychiatric Medical History: Reports: None Traumatic Medical History: Reports: None Hematology: Reports: None Past Surgical History Past Surgical History: Reports: Orthopedic Surgery - BACK SURGERY Social History Information Source: [facility] Records Smoking Status: Former Smoker Cigarettes Packs Per Day: 4 Cigars Per Day: 0 Pipes Per Day: 0 Number of Years Smokin Last Time Smoked: 03/30/1997 Frequency of Alcohol Use: None Hx Recreational Drug Use: No Hx Prescription Drug Abuse: No - Advance Directive Resuscitation Status: Full Code Family History Parental Family History Reviewed: No Children Family History Reviewed: No Sibling(s) Family History Reviewed.: No Medication/Allergy Home Medications: Amitriptyline HCl [Elavil 50 Mg Tablet] 50 mg PO BID 08/08/17 Calcium Carbonate [Calcium] 600 mg PO DAILY 08/08/17 Cetirizine HCl [All Day Allergy] 10 mg PO DAILY 08/08/17 Cholecalciferol (Vitamin D3) [Vitamin D] 2,000 unit PO Q2D@1000 08/08/17 Lisinopril/Hydrochlorothiazide [Lisinopril-Hctz 10-12.5 mg Tab] 1 tab PO DAILY 08/08/17 Omeprazole Magnesium [Prilosec Otc] 20 mg PO BID 08/08/17 Pravastatin Sodium [Pravachol] 20 mg PO QPM 08/08/17 Allergies/Adverse Reactions: Penicillins Allergy (Verified 08/08/17 17:51) propoxyphene HCl [From Darvon] Allergy (Verified 08/08/17 17:51) Review of Systems ROS unobtainable: Due to endotracheal tube, Due to mental status Physical Exam Vital Signs: Temp Pulse Resp BP Pulse Ox 97.5 F 99 26 H 105/58 L 97 08/13/17 07:47 08/13/17 07:55 08/13/17 07:47 08/13/17 07:47 08/13/17 07:47 Intake & Output 08/12/17 08/13/17 08/14/17 06:59 06:59 06:59 Intake Total 770 4308 Output Total 200 1350 115 Balance 570 2958 -115 Weight 102.1 kg General appearance: PRESENT: disheveled, mild distress, obese Head exam: PRESENT: atraumatic, normocephalic Eye exam: PRESENT: conjunctiva pale. ABSENT: EOMI, nystagmus, periorbital swelling, scleral icterus Mouth exam: PRESENT: dry mucosa, neck supple, tongue midline Neck exam: ABSENT: carotid bruit, JVD, lymphadenopathy, thyromegaly, tracheal deviation, tracheostomy Respiratory exam: PRESENT: decreased breath sounds, prolonged expiratory phas, rhonchi, symmetrical, wheezes. ABSENT: rales, retraction, stridor, tachypnea Cardiovascular exam: PRESENT: RRR, +S1, +S2, tachycardia Pulses: PRESENT: normal radial pulses GI/Abdominal exam: PRESENT: diminished bowel sounds, soft Extremities exam: ABSENT: calf tenderness, clubbing, joint swelling Musculoskeletal exam: ABSENT: deformity, dislocation Neurological exam: PRESENT: awake. ABSENT: oriented to person, oriented to place, oriented to time, oriented to situation Skin exam: PRESENT: dry, warm Results Laboratory Results: 08/12/17 15:40 08/13/17 04:17 08/12/17 08/12/17 08/12/17 09:50 11:52 11:57 WBC 3.5 L RBC 4.10 L Hgb 12.0 L Hct 35.4 L MCV 87 MCH 29.4 MCHC 34.0 RDW 15.3 H Plt Count 79 L Seg Neutrophils % Not Reportable Lymphocytes % Not Reportable Monocytes % Not Reportable Eosinophils % Not Reportable Basophils % Not Reportable Absolute Neutrophils Not Reportable Absolute Lymphocytes Not Reportable Absolute Monocytes Not Reportable Absolute Eosinophils Not Reportable Absolute Basophils Not Reportable Carbonic Acid 1.00 L HCO3/H2CO3 Ratio 20:1 ABG pH 7.41 ABG pCO2 33.1 L ABG pO2 113.2 H ABG HCO3 20.3 ABG O2 Saturation 98.2 H ABG Base Excess -3.6 FiO2 5 L Sodium Potassium Chloride Carbon Dioxide Anion Gap BUN Creatinine Est GFR ( Amer) Est GFR (Non-Af Amer) Glucose Calcium Phosphorus 3.5 Magnesium 1.6 Total Bilirubin AST ALT Alkaline Phosphatase Ammonia Total Protein Albumin 08/12/17 08/12/17 08/12/17 11:57 15:40 15:40 WBC 2.9 L RBC 4.06 L Hgb 12.0 L Hct 35.3 L MCV 87 MCH 29.5 MCHC 33.9 RDW 15.3 H Plt Count 78 L Seg Neutrophils % Not Reportable Lymphocytes % Not Reportable Monocytes % Not Reportable Eosinophils % Not Reportable Basophils % Not Reportable Absolute Neutrophils Not Reportable Absolute Lymphocytes Not Reportable Absolute Monocytes Not Reportable Absolute Eosinophils Not Reportable Absolute Basophils Not Reportable Carbonic Acid HCO3/H2CO3 Ratio ABG pH ABG pCO2 ABG pO2 ABG HCO3 ABG O2 Saturation ABG Base Excess FiO2 Sodium 132.9 L Potassium 4.5 Chloride 101 Carbon Dioxide 22 Anion Gap 10 BUN 33 H Creatinine 1.73 H Est GFR ( Amer) 47 L Est GFR (Non-Af Amer) 39 L Glucose 116 H Calcium 8.2 L Phosphorus Magnesium 1.6 Total Bilirubin 0.5 0.5 AST 143 H 166 H ALT 81 H 80 H Alkaline Phosphatase 88 92 Ammonia Total Protein 4.7 L 4.8 L Albumin 2.3 L 2.5 L 08/13/17 08/13/17 08/13/17 01:00 02:45 04:17 WBC RBC Hgb Hct MCV MCH MCHC RDW Plt Count Seg Neutrophils % Lymphocytes % Monocytes % Eosinophils % Basophils % Absolute Neutrophils Absolute Lymphocytes Absolute Monocytes Absolute Eosinophils Absolute Basophils Carbonic Acid 1.55 H 1.60 H HCO3/H2CO3 Ratio 14:1 13:1 ABG pH 7.26 L 7.23 L ABG pCO2 51.5 H 53.2 H ABG pO2 93.8 97.6 ABG HCO3 22.6 21.9 ABG O2 Saturation 96.0 96.2 ABG Base Excess -4.7 -5.8 FiO2 12L 50% Sodium 136.6 L Potassium 4.9 Chloride 105 Carbon Dioxide 20 L Anion Gap 12 BUN 35 H Creatinine 1.68 H Est GFR ( Amer) 49 L Est GFR (Non-Af Amer) 40 L Glucose 99 Calcium 7.6 L Phosphorus 4.8 H Magnesium 1.8 Total Bilirubin AST ALT Alkaline Phosphatase Ammonia Total Protein Albumin 08/13/17 08/13/17 04:17 04:17 WBC RBC Hgb Hct MCV MCH MCHC RDW Plt Count Seg Neutrophils % Lymphocytes % Monocytes % Eosinophils % Basophils % Absolute Neutrophils Absolute Lymphocytes Absolute Monocytes Absolute Eosinophils Absolute Basophils Carbonic Acid HCO3/H2CO3 Ratio ABG pH ABG pCO2 ABG pO2 ABG HCO3 ABG O2 Saturation ABG Base Excess FiO2 Sodium Potassium Chloride Carbon Dioxide Anion Gap BUN Creatinine Est GFR ( Amer) Est GFR (Non-Af Amer) Glucose Calcium Phosphorus Magnesium Total Bilirubin AST ALT Alkaline Phosphatase Ammonia 23.3 Total Protein Albumin 2.1 L 08/13/17 04:17 NT-Pro-B Natriuret Pep 1510 H Impressions: Abdomen Ultrasound 08/09/17 00:00 IMPRESSION: NORMAL ABDOMINAL ULTRASOUND. Abdomen/Pelvis CT 08/11/17 00:00 IMPRESSION: Trace bilateral pleural effusions. No pneumothorax. No alveolar pulmonary edema or dense pneumonia. No bowel obstruction. Post partial sigmoid colectomy. Intact ventral hernia repair. Chest CT 08/11/17 00:00 IMPRESSION: Trace bilateral pleural effusions. No pneumothorax. No alveolar pulmonary edema or dense pneumonia. No bowel obstruction. Post partial sigmoid colectomy. Intact ventral hernia repair. Head CT 08/12/17 00:00 IMPRESSION: NORMAL BRAIN CT WITHOUT CONTRAST. EVIDENCE OF ACUTE STROKE: NO. Assessment & Plan - Diagnosis (1) Elevated liver function tests Is this a current diagnosis for this admission?: Yes Plan: Labs- All tests 24 hr 08/08/17 08/09/17 08/10/17 09:40 05:27 04:58 Total Bilirubin Direct Bilirubin AST 99 H 90 H 102 H ALT 111 H 92 H 71 Alkaline Phosphatase 154 H 120 97 08/11/17 08/11/17 08/12/17 00:53 07:05 11:57 Total Bilirubin Direct Bilirubin AST 109 H 115 H 143 H ALT 73 H 74 H 81 H Alkaline Phosphatase 92 100 88 08/12/17 15:40 Total Bilirubin 0.5 Direct Bilirubin 0.5 H AST 166 H ALT 80 H Alkaline Phosphatase 92 (2) Acute kidney injury Is this a current diagnosis for this admission?: Yes Plan: Improved since the time of admission Labs- All tests 24 hr 08/13/17 04:17 BUN 35 H Creatinine 1.68 H (3) Sepsis Is this a current diagnosis for this admission?: Yes Plan: Metabolic acidosis with insufficient respiratory response to compensate; Evidence for pneumonia; evidence for UTI not particularly strong at this time Labs- All tests 24 hr 08/08/17 08/09/17 08/11/17 09:40 05:27 00:53 WBC 5.8 6.9 Seg Neuts % (Manual) 88 H Band Neutrophils % 5 08/11/17 08/12/17 08/12/17 07:05 11:57 15:40 WBC 6.9 Seg Neuts % (Manual) 90 H 94 H 84 H Band Neutrophils % 7 H 1 L 6 H 08/12/17 15:45 Blood Culture - Pending Blood 08/12/17 15:40 Blood Culture - Pending Blood 08/08/17 11:42 Blood Culture - Preliminary Blood NO GROWTH 4 DAYS 08/08/17 09:40 Blood Culture - Final Blood NO GROWTH IN 5 DAYS 08/08/17 09:32 Urine Culture - Final Clean Catch Midstream Enterococcus Faecalis(Group D) (4) Thrombocytopenia Is this a current diagnosis for this admission?: Yes Plan: Labs- All tests 24 hr 08/08/17 08/09/17 08/11/17 09:40 05:27 00:53 Plt Count 65 L 64 L 80 L 08/11/17 08/12/17 08/12/17 07:05 11:57 15:40 Plt Count 83 L 79 L 78 L (5) Altered mental status, unspecified Is this a current diagnosis for this admission?: Yes Plan: Suspect metabolic etiology uncertain in view of thrombocytopenia CT of the head may be warranted - Time Total Critical Time (Minutes): 60
[2017-08-13 11:58] LABS: ARTERIAL BLOOD BASE EXCESS -5.8 mmol/L; ARTERIAL BLOOD FIO2 50%; ARTERIAL BLOOD H2CO3 1.01 mmol/L (1.05-1.35); ARTERIAL BLOOD HCO3 18.7 mmol/L (20-26); ARTERIAL BLOOD PCO2 33.4 mmHg (35-45); ARTERIAL BLOOD PH 7.37 (7.35-7.45); ARTERIAL BLOOD PO2 75.9 mmHg (80-100); ARTERIAL BLOOD TOTAL CO2 19.7 mmol/L (23-27)
[2017-08-13] MEDS: NORMAL SALINE 1000 ML 1,000 ML IV PRN ×2 (12:38→22:15)
[2017-08-13] MEDS: PROPOFOL 100 ML IV PRN ×2 (12:42→16:02)
[2017-08-13] MEDS: MIDAZOLAM HCL 50 MG/100 ML RTUINJ IV PRN ×2 (12:44→16:03)
[2017-08-13 12:47] LABS: A TYPE INFLUENZA AG NEGATIVE (NEGATIVE); B INFLUENZA AG NEGATIVE (NEGATIVE)
[2017-08-13] MEDS ORDERED: TETANUS/DIPHTHERIA TOX-ADULT 0.5 ML SYR (>=7YO) IM ONE (13:00)
[2017-08-13] MEDS ORDERED: DIPH/PERTUSS(ACELL)/TETANUS VAC/PF 0.5 ML SYR (>=10YO) IM ONE (14:00)
[2017-08-13 15:00] LABS: HEMATOCRIT 33.6 % (37.9-51.0); HEMOGLOBIN 11.5 g/dL (13.5-17.0); MEAN CORPUSCULAR HEMOGLOBIN 29.6 pg (27.0-33.4); MEAN CORPUSCULAR HGB CONC 34.1 g/dL (32.0-36.0); MEAN CORPUSCULAR VOLUME 87 fl (80-97); RED BLOOD COUNT 3.87 10^6/uL (4.35-5.55); RED CELL DISTRIBUTION WIDTH 15.8 % (11.5-14.0); WHITE BLOOD COUNT 2.4 10^3/uL (4.0-10.5)
[2017-08-13 15:21] LABS: ALANINE AMINOTRANSFERASE 74 U/L (21-72); ALKALINE PHOSPHATASE 93 U/L (38-126); ASPARTATE AMINO TRANSFERASE 159 U/L (17-59); BILIRUBIN,DIRECT 0.7 mg/dL (0.0-0.4); BILIRUBIN,TOTAL 0.7 mg/dL (0.2-1.3); TOTAL PROTEIN 4.3 g/dL (6.3-8.2)
[2017-08-13 15:32] LABS: ABSOLUTE LYMPHOCYTES# (MANUAL) 0.3 10^3/uL (0.5-4.7); ABSOLUTE MONOCYTES # (MANUAL) 0.1 10^3/uL (0.1-1.4); BAND NEUTROPHILS % (MANUAL) 3 % (3-5); BASOPHILS % (MANUAL) 0 % (0-2); EOSINOPHILS % (MANUAL) 0 % (0-6); LYMPHOCYTES % (MANUAL) 11 % (13-45); METAMYELOCYTES % (MANUAL) 1 % (0); MONOCYTES % (MANUAL) 4 % (3-13); SEGMENTED NEUTROPHILS % (MAN) 81 % (42-78); TOTAL CELLS COUNTED 100
[2017-08-13 15:36] LABS: ANISOCYTOSIS SLIGHT; PLATELET COMMENT DECREASED; POLYCHROMASIA SLIGHT
[2017-08-13 15:37] LABS: PLATELET COUNT 66 10^3/uL (150-450)
--- NOTE | 2017-08-13 16:43 | PDOC PROGRESS REPORT ---
Subjective Progress Note for:: 08/13/17 Subjective:: 72-year-old gentleman was admitted on August 08 with shortness of breath. Past medical history: Hypertension He was admitted with acute renal failure hyponatremia and suspected pneumonia and was started on Azithromycin, Rocephin and IV fluids. The patient had abnormal transaminases. Abdominal ultrasound was normal. CT of the chest did not show any infiltrate or pulmonary edema. Has been in and out of [facility]. Not on full anticoagulation due to thrombocytopenia. Was transferred to the ICU for closer monitoring. Repeat blood cultures ordered. Antibiotic coverage expanded- Vanc meropenem and Doxycycline ordered. Viral studies pending. Echo showed hyperdynamic LV. CT head did not sure acute CVA. The patient was intubated this morning due to metabolic acidosis and worsening mentation. Fibrinogen is normal. PT within normal limits. ID and hematology consults requested. His son was updated and plan of care was explained. Reason For Visit: GENERALIZED PAIN, FEVER, SYSTEMIC INFLAMMATION Physical Exam Vital Signs: Temp Pulse Resp BP Pulse Ox 98.4 F 97 20 100/57 L 97 08/13/17 14:00 08/13/17 14:00 08/13/17 14:00 08/13/17 14:00 08/13/17 16:00 Intake & Output 08/12/17 08/13/17 08/14/17 06:59 06:59 06:59 Intake Total 770 4308 Output Total 200 1350 675 Balance 570 2958 -675 Weight 102.1 kg General appearance: PRESENT: obese Head exam: PRESENT: normocephalic Eye exam: ABSENT: scleral icterus Ear exam: PRESENT: normal external ear exam Mouth exam: PRESENT: other - intubated Respiratory exam: PRESENT: rhonchi, symmetrical Cardiovascular exam: PRESENT: RRR GI/Abdominal exam: PRESENT: normal bowel sounds, soft. ABSENT: tenderness Rectal exam: PRESENT: deferred Extremities exam: ABSENT: pedal edema Neurological exam: PRESENT: other - sedated on vent Results Laboratory Results: 08/13/17 14:43 08/13/17 04:17 08/12/17 08/13/17 08/13/17 15:40 01:00 02:45 WBC 2.9 L RBC 4.06 L Hgb 12.0 L Hct 35.3 L MCV 87 MCH 29.5 MCHC 33.9 RDW 15.3 H Plt Count 78 L Seg Neutrophils % Not Reportable Lymphocytes % Not Reportable Monocytes % Not Reportable Eosinophils % Not Reportable Basophils % Not Reportable Absolute Neutrophils Not Reportable Absolute Lymphocytes Not Reportable Absolute Monocytes Not Reportable Absolute Eosinophils Not Reportable Absolute Basophils Not Reportable Carbonic Acid 1.55 H 1.60 H HCO3/H2CO3 Ratio 14:1 13:1 ABG pH 7.26 L 7.23 L ABG pCO2 51.5 H 53.2 H ABG pO2 93.8 97.6 ABG HCO3 22.6 21.9 ABG O2 Saturation 96.0 96.2 ABG Base Excess -4.7 -5.8 FiO2 12L 50% Sodium Potassium Chloride Carbon Dioxide Anion Gap BUN Creatinine Est GFR ( Amer) Est GFR (Non-Af Amer) Glucose Lactic Acid Calcium Phosphorus Magnesium Total Bilirubin AST ALT Alkaline Phosphatase Ammonia Total Protein Albumin 08/13/17 08/13/17 08/13/17 04:17 04:17 04:17 WBC RBC Hgb Hct MCV MCH MCHC RDW Plt Count Seg Neutrophils % Lymphocytes % Monocytes % Eosinophils % Basophils % Absolute Neutrophils Absolute Lymphocytes Absolute Monocytes Absolute Eosinophils Absolute Basophils Carbonic Acid HCO3/H2CO3 Ratio ABG pH ABG pCO2 ABG pO2 ABG HCO3 ABG O2 Saturation ABG Base Excess FiO2 Sodium 136.6 L Potassium 4.9 Chloride 105 Carbon Dioxide 20 L Anion Gap 12 BUN 35 H Creatinine 1.68 H Est GFR ( Amer) 49 L Est GFR (Non-Af Amer) 40 L Glucose 99 Lactic Acid Calcium 7.6 L Phosphorus 4.8 H Magnesium 1.8 Total Bilirubin AST ALT Alkaline Phosphatase Ammonia 23.3 Total Protein Albumin 2.1 L 08/13/17 08/13/17 08/13/17 08:30 08:57 10:57 WBC RBC Hgb Hct MCV MCH MCHC RDW Plt Count Seg Neutrophils % Lymphocytes % Monocytes % Eosinophils % Basophils % Absolute Neutrophils Absolute Lymphocytes Absolute Monocytes Absolute Eosinophils Absolute Basophils Carbonic Acid Cancelled 1.54 H HCO3/H2CO3 Ratio Cancelled 14:1 ABG pH Cancelled 7.25 L ABG pCO2 Cancelled 51.0 H ABG pO2 Cancelled 89.7 ABG HCO3 Cancelled 21.9 ABG O2 Saturation Cancelled 95.5 ABG Base Excess Cancelled -5.5 FiO2 Cancelled 40% Sodium Potassium Chloride Carbon Dioxide Anion Gap BUN Creatinine Est GFR ( Amer) Est GFR (Non-Af Amer) Glucose Lactic Acid 2.1 Calcium Phosphorus Magnesium Total Bilirubin AST ALT Alkaline Phosphatase Ammonia Total Protein Albumin 08/13/17 08/13/17 08/13/17 11:45 14:43 14:43 WBC 2.4 L RBC 3.87 L Hgb 11.5 L Hct 33.6 L MCV 87 MCH 29.6 MCHC 34.1 RDW 15.8 H Plt Count 66 L Seg Neutrophils % Not Reportable Lymphocytes % Not Reportable Monocytes % Not Reportable Eosinophils % Not Reportable Basophils % Not Reportable Absolute Neutrophils Not Reportable Absolute Lymphocytes Not Reportable Absolute Monocytes Not Reportable Absolute Eosinophils Not Reportable Absolute Basophils Not Reportable Carbonic Acid 1.01 L HCO3/H2CO3 Ratio 18:1 ABG pH 7.37 ABG pCO2 33.4 L ABG pO2 75.9 L ABG HCO3 18.7 L ABG O2 Saturation 95.0 ABG Base Excess -5.8 FiO2 50% Sodium Potassium Chloride Carbon Dioxide Anion Gap BUN Creatinine Est GFR ( Amer) Est GFR (Non-Af Amer) Glucose Lactic Acid Calcium Phosphorus Magnesium Total Bilirubin 0.7 AST 159 H ALT 74 H Alkaline Phosphatase 93 Ammonia Total Protein 4.3 L Albumin 2.0 L 08/13/17 15:38 WBC RBC Hgb Hct MCV MCH MCHC RDW Plt Count Seg Neutrophils % Lymphocytes % Monocytes % Eosinophils % Basophils % Absolute Neutrophils Absolute Lymphocytes Absolute Monocytes Absolute Eosinophils Absolute Basophils Carbonic Acid HCO3/H2CO3 Ratio ABG pH ABG pCO2 ABG pO2 ABG HCO3 ABG O2 Saturation ABG Base Excess FiO2 Sodium Potassium Chloride Carbon Dioxide Anion Gap BUN Creatinine Est GFR ( Amer) Est GFR (Non-Af Amer) Glucose Lactic Acid 2.0 Calcium Phosphorus Magnesium Total Bilirubin AST ALT Alkaline Phosphatase Ammonia Total Protein Albumin 08/13/17 04:17 NT-Pro-B Natriuret Pep 1510 H Impressions: Abdomen Ultrasound 08/09/17 00:00 IMPRESSION: NORMAL ABDOMINAL ULTRASOUND. Abdomen/Pelvis CT 08/11/17 00:00 IMPRESSION: Trace bilateral pleural effusions. No pneumothorax. No alveolar pulmonary edema or dense pneumonia. No bowel obstruction. Post partial sigmoid colectomy. Intact ventral hernia repair. Chest CT 08/11/17 00:00 IMPRESSION: Trace bilateral pleural effusions. No pneumothorax. No alveolar pulmonary edema or dense pneumonia. No bowel obstruction. Post partial sigmoid colectomy. Intact ventral hernia repair. Head CT 08/12/17 00:00 IMPRESSION: NORMAL BRAIN CT WITHOUT CONTRAST. EVIDENCE OF ACUTE STROKE: NO. Chest X-Ray 08/13/17 00:00 IMPRESSION: Endotracheal tube tip 5 to 6 cm above the loly. Nasogastric tube tip and side port in the stomach Stable minimal scarring or atelectasis along the right minor and major fissures. Assessment & Plan - Diagnosis (1) Sepsis Is this a current diagnosis for this admission?: Yes Plan: Due to pneumonia, ? Viral. Continue antibiotics. Follow cultures (2) Acute kidney injury Is this a current diagnosis for this admission?: Yes Plan: Due to acute illness and dehydration. Gentle IV fluids. Monitor kidney function. (3) Hyponatremia Is this a current diagnosis for this admission?: Yes Plan: Monitor closely. Continue IV NS. (4) Pneumonia Qualifiers: Qualified Code(s): J18.9 - Pneumonia, unspecified organism Is this a current diagnosis for this admission?: Yes Plan: Continue antibiotics as above. Follow-up on cultures. (5) Thrombocytopenia Is this a current diagnosis for this admission?: Yes Plan: Likely due to sepsis. Monitor closely. Fibrinogen normal. (6) Transaminitis Is this a current diagnosis for this admission?: Yes Plan: Likely due to sepsis, monitor closely. Abdominal ultrasound was unremarkable. - Time Time Spent with patient: 35 or more minutes
--- NOTE | 2017-08-13 16:45 | PDOC CONSULTATION ---
Consultation Consult Date: 08/13/17 Consult reason:: Hematology consult was requested for pancytopenia. History of Present Illness Admission Date/PCP: 08/08/17 13:16 History of Present Illness: PURA HARRELL is a 72 year old male who was admitted several days ago with an acute respiratory infection. It was thought that this was viral, as cultures and tests have been inconclusive. Over the past few days, his breathing worsened. He was on Bipap but then was unable to protect his airway and was intubated. Patient is currently sedated on the ventilator and no family are at bedside. Therefore, all history is per the medical records. Nurses report that he was given Tetanus shot but etiology of the infection is still unclear. 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 His EBV IgM is positive. Rapid Flu has been negative. Mycoplasma still pending. On admisison, his PLT were 65 and today they are 66. His HGB and WBC were normal. His WBC today is 2.4. HGB appears stable. His LFTs are elevated, but appear stable. There is no history of alcohol use. Past Medical History Cardiac Medical History: Reports: Atrial Fibrillation, Hypertension Pulmonary Medical History: Reports: Chronic Obstructive Pulmonary Disease (COPD) Neurological Medical History: Denies: Multiple Sclerosis Psychiatric Medical History: Reports: None Traumatic Medical History: Reports: None Hematology: Reports: None Past Surgical History Past Surgical History: Reports: Orthopedic Surgery - BACK SURGERY Social History Smoking Status: Former Smoker Cigarettes Packs Per Day: 4 Cigars Per Day: 0 Pipes Per Day: 0 Number of Years Smokin Last Time Smoked: 03/30/1997 Frequency of Alcohol Use: None Hx Recreational Drug Use: No Hx Prescription Drug Abuse: No - Advance Directive Resuscitation Status: Full Code Family History Parental Family History Reviewed: No Children Family History Reviewed: No Sibling(s) Family History Reviewed.: No Medication/Allergy Home Medications: Amitriptyline HCl [Elavil 50 Mg Tablet] 50 mg PO BID 08/08/17 Calcium Carbonate [Calcium] 600 mg PO DAILY 08/08/17 Cetirizine HCl [All Day Allergy] 10 mg PO DAILY 08/08/17 Cholecalciferol (Vitamin D3) [Vitamin D] 2,000 unit PO Q2D@1000 08/08/17 Lisinopril/Hydrochlorothiazide [Lisinopril-Hctz 10-12.5 mg Tab] 1 tab PO DAILY 08/08/17 Omeprazole Magnesium [Prilosec Otc] 20 mg PO BID 08/08/17 Pravastatin Sodium [Pravachol] 20 mg PO QPM 08/08/17 Allergies/Adverse Reactions: Penicillins Allergy (Verified 08/08/17 17:51) propoxyphene HCl [From Darvon] Allergy (Verified 08/08/17 17:51) Review of Systems ROS unobtainable: Due to endotracheal tube Physical Exam Vital Signs: Temp Pulse Resp BP Pulse Ox 98.4 F 97 20 100/57 L 99 08/13/17 14:00 08/13/17 14:00 08/13/17 14:00 08/13/17 14:00 08/13/17 14:00 Intake & Output 08/12/17 08/13/17 08/14/17 06:59 06:59 06:59 Intake Total 770 4308 Output Total 200 1350 675 Balance 570 2958 -675 Weight 102.1 kg General appearance: PRESENT: obese Exam: 72 year old male. Head exam: PRESENT: atraumatic Ear exam: PRESENT: normal external ear exam Mouth exam: PRESENT: other - ET tube in place. Teeth exam: ABSENT: poor dentation Neck exam: ABSENT: lymphadenopathy, thyromegaly Respiratory exam: PRESENT: clear to auscultation fredis - anteriorly., unlabored Cardiovascular exam: PRESENT: RRR. ABSENT: systolic murmur Pulses: PRESENT: +1 pedal pulses bilateral GI/Abdominal exam: PRESENT: soft. ABSENT: organolmegaly Gentrourinary exam: PRESENT: other - Isaac catheter in place. Extremities exam: PRESENT: other - SCD s in place.. ABSENT: pedal edema Neurological exam: PRESENT: other - secated on ventilator. Unresponsive. But plantar reflexes intact.. ABSENT: awake Skin exam: PRESENT: normal color, warm Results Laboratory Results: 08/13/17 14:43 08/13/17 04:17 08/12/17 08/13/17 08/13/17 15:40 01:00 02:45 WBC 2.9 L RBC 4.06 L Hgb 12.0 L Hct 35.3 L MCV 87 MCH 29.5 MCHC 33.9 RDW 15.3 H Plt Count 78 L Seg Neutrophils % Not Reportable Lymphocytes % Not Reportable Monocytes % Not Reportable Eosinophils % Not Reportable Basophils % Not Reportable Absolute Neutrophils Not Reportable Absolute Lymphocytes Not Reportable Absolute Monocytes Not Reportable Absolute Eosinophils Not Reportable Absolute Basophils Not Reportable Carbonic Acid 1.55 H 1.60 H HCO3/H2CO3 Ratio 14:1 13:1 ABG pH 7.26 L 7.23 L ABG pCO2 51.5 H 53.2 H ABG pO2 93.8 97.6 ABG HCO3 22.6 21.9 ABG O2 Saturation 96.0 96.2 ABG Base Excess -4.7 -5.8 FiO2 12L 50% Sodium Potassium Chloride Carbon Dioxide Anion Gap BUN Creatinine Est GFR ( Amer) Est GFR (Non-Af Amer) Glucose Lactic Acid Calcium Phosphorus Magnesium Total Bilirubin AST ALT Alkaline Phosphatase Ammonia Total Protein Albumin 08/13/17 08/13/17 08/13/17 04:17 04:17 04:17 WBC RBC Hgb Hct MCV MCH MCHC RDW Plt Count Seg Neutrophils % Lymphocytes % Monocytes % Eosinophils % Basophils % Absolute Neutrophils Absolute Lymphocytes Absolute Monocytes Absolute Eosinophils Absolute Basophils Carbonic Acid HCO3/H2CO3 Ratio ABG pH ABG pCO2 ABG pO2 ABG HCO3 ABG O2 Saturation ABG Base Excess FiO2 Sodium 136.6 L Potassium 4.9 Chloride 105 Carbon Dioxide 20 L Anion Gap 12 BUN 35 H Creatinine 1.68 H Est GFR ( Amer) 49 L Est GFR (Non-Af Amer) 40 L Glucose 99 Lactic Acid Calcium 7.6 L Phosphorus 4.8 H Magnesium 1.8 Total Bilirubin AST ALT Alkaline Phosphatase Ammonia 23.3 Total Protein Albumin 2.1 L 08/13/17 08/13/17 08/13/17 08:30 08:57 10:57 WBC RBC Hgb Hct MCV MCH MCHC RDW Plt Count Seg Neutrophils % Lymphocytes % Monocytes % Eosinophils % Basophils % Absolute Neutrophils Absolute Lymphocytes Absolute Monocytes Absolute Eosinophils Absolute Basophils Carbonic Acid Cancelled 1.54 H HCO3/H2CO3 Ratio Cancelled 14:1 ABG pH Cancelled 7.25 L ABG pCO2 Cancelled 51.0 H ABG pO2 Cancelled 89.7 ABG HCO3 Cancelled 21.9 ABG O2 Saturation Cancelled 95.5 ABG Base Excess Cancelled -5.5 FiO2 Cancelled 40% Sodium Potassium Chloride Carbon Dioxide Anion Gap BUN Creatinine Est GFR ( Amer) Est GFR (Non-Af Amer) Glucose Lactic Acid 2.1 Calcium Phosphorus Magnesium Total Bilirubin AST ALT Alkaline Phosphatase Ammonia Total Protein Albumin 08/13/17 08/13/17 08/13/17 11:45 14:43 14:43 WBC 2.4 L RBC 3.87 L Hgb 11.5 L Hct 33.6 L MCV 87 MCH 29.6 MCHC 34.1 RDW 15.8 H Plt Count 66 L Seg Neutrophils % Not Reportable Lymphocytes % Not Reportable Monocytes % Not Reportable Eosinophils % Not Reportable Basophils % Not Reportable Absolute Neutrophils Not Reportable Absolute Lymphocytes Not Reportable Absolute Monocytes Not Reportable Absolute Eosinophils Not Reportable Absolute Basophils Not Reportable Carbonic Acid 1.01 L HCO3/H2CO3 Ratio 18:1 ABG pH 7.37 ABG pCO2 33.4 L ABG pO2 75.9 L ABG HCO3 18.7 L ABG O2 Saturation 95.0 ABG Base Excess -5.8 FiO2 50% Sodium Potassium Chloride Carbon Dioxide Anion Gap BUN Creatinine Est GFR ( Amer) Est GFR (Non-Af Amer) Glucose Lactic Acid Calcium Phosphorus Magnesium Total Bilirubin 0.7 AST 159 H ALT 74 H Alkaline Phosphatase 93 Ammonia Total Protein 4.3 L Albumin 2.0 L 08/13/17 15:38 WBC RBC Hgb Hct MCV MCH MCHC RDW Plt Count Seg Neutrophils % Lymphocytes % Monocytes % Eosinophils % Basophils % Absolute Neutrophils Absolute Lymphocytes Absolute Monocytes Absolute Eosinophils Absolute Basophils Carbonic Acid HCO3/H2CO3 Ratio ABG pH ABG pCO2 ABG pO2 ABG HCO3 ABG O2 Saturation ABG Base Excess FiO2 Sodium Potassium Chloride Carbon Dioxide Anion Gap BUN Creatinine Est GFR ( Amer) Est GFR (Non-Af Amer) Glucose Lactic Acid 2.0 Calcium Phosphorus Magnesium Total Bilirubin AST ALT Alkaline Phosphatase Ammonia Total Protein Albumin 08/13/17 04:17 NT-Pro-B Natriuret Pep 1510 H Impressions: Abdomen Ultrasound 08/09/17 00:00 IMPRESSION: NORMAL ABDOMINAL ULTRASOUND. Abdomen/Pelvis CT 08/11/17 00:00 IMPRESSION: Trace bilateral pleural effusions. No pneumothorax. No alveolar pulmonary edema or dense pneumonia. No bowel obstruction. Post partial sigmoid colectomy. Intact ventral hernia repair. Chest CT 08/11/17 00:00 IMPRESSION: Trace bilateral pleural effusions. No pneumothorax. No alveolar pulmonary edema or dense pneumonia. No bowel obstruction. Post partial sigmoid colectomy. Intact ventral hernia repair. Head CT 08/12/17 00:00 IMPRESSION: NORMAL BRAIN CT WITHOUT CONTRAST. EVIDENCE OF ACUTE STROKE: NO. Chest X-Ray 08/13/17 00:00 IMPRESSION: Endotracheal tube tip 5 to 6 cm above the loly. Nasogastric tube tip and side port in the stomach Stable minimal scarring or atelectasis along the right minor and major fissures. Assessment & Plan - Diagnosis (1) Pancytopenia Is this a current diagnosis for this admission?: Yes Plan: I reviewed his perif. smear today. RBCs were microcytic, hypochromic with moderate anisocytosis and poikilocytosis. Tear drop forms present. WBCs were decreased in number but normal in morphology with smudge cels present. Platelets were decreased in number, but normal in morphology. This appears to be a recovering marrow. Most likely cause is either acute infection, or current medication. He is not neutropenic and there is no current indication for blood transfusion. Will watch for now. Fibrinogen normal. (2) Pneumonia Qualifiers: Pneumonia type: due to unspecified organism Laterality: right Lung location: unspecified part of lung Qualified Code(s): J18.9 - Pneumonia, unspecified organism Is this a current diagnosis for this admission?: Yes Plan: Agree with current antibiotics. This may also still be viral in etiology. (3) Elevated liver function tests Is this a current diagnosis for this admission?: Yes Plan: No old labs are available for comparison. If this is chronic, it may also be contributing to his low blood counts. Hepatitis screening was negative. This also may be due to infection. - Plan Summary Plan Summary: Thank you for this consultation. I will continue to follow with you. Please call me with any concerns or questions.
[2017-08-13] MEDS: LACTOBACILLUS ACIDOPHILUS 250 MG TAB NG SCH (17:34)
--- NOTE | 2017-08-13 18:33 | Progress Note ---
Provider Note Provider Note: ID Consult Note Asked to review patient's chart by Dr. Alonzo. Pt not seen and examined. Reviewed VS, labs, CT and CXR images and imaging reports, provider reports. Mr. Orantes is a 72 yo man with pmh including HTN and partial colectomy who was admitted on 08/08/17 with complaints of 3 days of fever, generalized malaise, and nonproductive cough. He also admitted to some confusion according to the H& P. He is a martínez. He had no rash, no rales or rhonchi, no murmur, no LAD. His temperature was 100.2 F on presentation, and he was tachycardic. Labs were notable for transaminitis (AST and ALT around 100), normal WBC count 5.8, PERRY with elevated creatinine 2.23, thrombocytopenia with plt count 65, and hyponatremia with sodium of 130. Pt reported no urinary sx. U/A also showed no pyuria or leukocyte esterase. Empiric treatment for CAP was begun with Rocephin on 08/08 and azithromycin added to it on 08/09/17. Initial imaging included CXR showed no acute infiltrate or effusion. Pt had normal abdominal U/S, negative viral hepatitis screening panel, and CT chest/abd/pelvis without contrast that showed only mildly enlarged spleen, trace b/l pleural effusions, and no pulmonary edema or pneumonia. BCx from 08/08 were finalized as negative x 5 days. UCx from 08/08 grew Enterococcus faecalis. Additional studies included negative rapid influenza test and EBV serologies c/w prior infection (positive EBNA IgG, negative early antigen IgG). Transthoracic echocardiogram was read as showing EF >75%, no pericardial effusion, mild concentric LVH, no mitral or aortic valvular vegetation, no mitral or aortic regurgitation or mitral stenosis. During his hospitalization, WBC count decreased to 2.9. Thrombocytopenia and transaminitis remains similar to that on presentation. Bilirubin is marginally elevated and direct. The patient developed altered mental status/delirium and respiratory failure with inability to compensate for metabolic acidosis. He required BiPAP support and then intubation. Prior to this, a provider was able to elicit a history of recent tick bites from the patient. Pt's also reported similar symptoms prior to the patient becoming ill. Repeat UCx and BCx were sent on 08/12. Legionella urine antigen and tracheal aspirate were sent , in process. Antibiotics were changed on 08/12 to vancomycin, meropenem and doxycycline. Impression/Recommendations Sepsis with multisystem involvement secondary to tick borne illness, most likely ehrlichiosis (human monocytic ehrlichiosis, HME) or Oolitic Spotted Fever (RMSF) - Presentation in the late spring/summer with recent hx of tick bites in [place], thrombocytopenia, transaminitis, and nonspecific febrile illness is suggestive of a tick borne illness, such as ehrlichiosis or Oolitic Spotted Fever. Both RMSF and HME are endemic in this area, in contrast to Lyme disease. Rash with RMSF occurs in 90% and may take several days to develop; the fact that the patient has no rash appreciated >5 days into illness suggests HME would be more likely (majority of pts with ehrlichiosis do not have a rash). Low WBC count tends to be more common with HME than RMSF as well. - The patient's CXR, CT scan of chest/abd/pelvis, abd US, BCx and UCx are all negative/unremarkable to date, not suggestive of a bacterial process - Differential considerations: Doubt that pt has Legionnaire's disease considering he worsened despite treatment with azithromycin, which is a preferred agent for treatment (doxycycline is an alternative), but Legionella urine antigen is in process. Leptospirosis is uncommon in the [place] but could be considered since he is a martínez (spread through infected animal urine contact with nonintact skin), but lack of conjunctival suffusion, lack of disproportionate elevation in bilirubin compared to transaminases, and lack of improvement with Rocephin/azithromycin also suggest against this. - Recommend sending serology or antibody panels for RMSF and also for Ehrlichiosis - Recommend sending PCR for Ehrlichiosis (Ehrlichia profile DNA) - Recommend continuing doxycycline - Meropenem and vancomycin can be continued while awaiting results of tracheal aspirate and repeat BCx for possibility of nosocomial infection, but I suspect that these abx are not effecting much benefit and can probably be stopped soon; repeat CXR appears to be more consistent with pulmonary edema than pneumonia, pt has no evidence from prior workup for typical bacterial infection, and clinical course - at least from chart review - seems to suggest progressive ongoing process present since admission rather than abrupt superimposed worsening from nosocomial infection Calvin Hollingsworth MD [facility] Infectious Diseases pager [phone]
[2017-08-13] MEDS: VANCOMYCIN HCL 1,500 MG in DEXTROSE 5%-WATER 250 ML IV SCH (20:29)
[2017-08-13] MEDS ORDERED: SUCCINYLCHOLINE CHLORIDE INJ 200 MG/10 ML VIAL ONE (21:29)
--- NOTE | 2017-08-13 22:19 | PROGRESS NOTE E ---
Progress Note NAME: PURA HARRELL : 1945 AGE: 72Y DATE: 08/13/2017 ROOM: 611 SUBJECTIVE: The patient went into respiratory failure and had to be intubated. At present, the patient is on a mechanical ventilator and is sedated. There is no recurrence of atrial fibrillation. There is no ventricular arrhythmia seen on the monitor. There is no pedal edema. OBJECTIVE: GENERAL: On examination, the patient is mildly obese, seems comfortable. He is not fighting the ventilator. VITAL SIGNS: He is afebrile with a temperature of 97.9 degrees Fahrenheit, pulse is 95 beats per minute, monitor show sinus tachycardia, blood pressure is 105/91, respirations are 20 per minute, O2 sat is 100% on a mechanical ventilator with FiO2 of 50%. HEENT: Head is atraumatic, normocephalic. Eyes: Pupils are equal, round, regular, reactive to light. ENT is negative. NECK: Supple. There is no JVD. Carotids are equal. There is no bruit. There is no goiter. There is no lymphadenopathy. LUNGS: Show a few scattered rhonchi bilaterally. No rales of CHF. HEART: S1 and S2 are heard. There is no S3 gallop. There is no S4 gallop. S1 is or normal intensity. There is a systolic murmur on the left sternal border on the apex without radiation. There is no rub. ABDOMEN: Soft, obese, nontender. There is no hepatosplenomegaly. Bowel sounds are well heard. EXTREMITIES: Femorals are slightly diminished. Leg pulses are diminished. There is no pedal edema. There is no DVT or cellulitis. There is no calf tenderness. CENTRAL NERVOUS SYSTEM AND PSYCHIATRIC: Not examined since the patient is intubated and sedated. INTAKE AND OUTPUT: The patient's 24-hour intake has been 4380 mL and output is 1350 mL. IMAGING STUDIES: The patient's chest x-ray shows band-like atelectasis in the right lower lobe versus this could be minimal scarring or atelectasis along the right minor and major fissures. No evidence of congestive heart failure. LABORATORY DATA: The patient's white count is *------*; hemoglobin is 11.5; hematocrit is 33.6; platelet count is 66,000. The patient's liver function tests show slight improvement with the AST down to 159 from 166. The patient's sodium is 136.6, potassium 4.9. The patient's *------* is elevated at 80. The patient's calcium is 7.6, phosphorus 4.8, magnesium is 1.8. The patient's BUN is 35, creatinine is 1.68, GFR is reduced at 40 mL, glucose is 99. The patient's potassium 4.9, chloride is 105, CO2 is 20. The patient's lactic acid is 2.1. Albumin is 2.1. Patient's NT-proBNP is 1510. This may be due to the patient's renal failure rather than heart failure. There is no clear cut evidence of heart failure. Echo shows hyperdynamic left ventricular function. Ammonia is 23.3. The patient's ABG showed a pH of 7.37, pCO2 of 33.4, pO2 is 75.9 on FiO2 of 50% with an O2 sat of 95%. The patient's fibrinogen is 270. His PTT is 79.1, INR is 1.16, ProTime is 15.4. IMPRESSION: 1. PAROXYSMAL ATRIAL FIBRILLATION WITH NO RECURRENCE MOST LIKELY SECONDARY TO THE PATIENT'S INFECTIOUS LUNG PROCESS AND SEPSIS. 2. ALTERED MENTAL STATUS. Patient now intubated. 3. RESPIRATORY FAILURE. Patient intubated. Continue respiratory support and oxygen saturation. 4. SEPSIS, MOST LIKELY SECONDARY TO VIRAL INFECTION. ID is seeing the patient. Continue antibiotics. Note that since the patient is on Arixtra and the patient's platelet is low, the patient could not have a lumbar puncture done. This has been deferred to a later date. 5. ASTHMATIC BRONCHITIS. 6. ABNORMAL LIVER FUNCTION TESTS. 7. ACUTE RENAL FAILURE. 8. HYPERTENSION. 9. CHRONIC BACK PAIN. RECOMMENDATIONS: At present, the patient's blood pressure is tenuous and hence, would not use any AV moe or SA moe blocking agents. If the patient does go back into atrial fibrillation then would recommend that the patient be placed on digoxin and/or calcium channel joan such as Cardizem or verapamil if the patient's blood pressure tolerates. At present, cardiac status does not seem to be a major problem. Hence, we will sign off. Discussed with the patient's family, that is his son, and discussed with the hospitalist. Please call me if my services are needed. The attending physician on the case will watch the patient closely to see if there is any recurrence of atrial fibrillation. Continue antibiotics. Continue ventilator support. Note: Medications have been reviewed. Medical decision making is of moderate complexity. DICTATING PHYSICIAN: FLORY MESA M.D. [id number] PHY#: [id number] ID: [id number] JOB#: [id number] ACCT: [id number] cc:FLORY MESA M.D. >
[2017-08-13] MEDS: OXYCODONE-ACETAMINOPHEN 5-325 MG TABLET NG PRN (22:25)
[2017-08-13] MEDS ORDERED: NOREPINEPHRINE BITARTRATE INJ/PF 4 MG/4 ML SDV IV ONE (23:33)
[2017-08-13] MEDS ORDERED: DEXTROSE 5%-WATER 250 ML with NOREPINEPHRINE BITARTRATE 4 MG IV PRN ×2 (23:40)
[2017-08-14] MEDS: MIDAZOLAM HCL 50 MG/100 ML RTUINJ IV PRN ×2 (02:41→09:32)
[2017-08-14 04:34] LABS: INTERNATIONAL RATION (INR) 1.08; PROTHROMBIN TIME 14.6 SEC (11.4-15.4)
[2017-08-14 04:38] LABS: RETICULOCYTE COUNT (AUTO) 0.51 % (0.66-2.85)
[2017-08-14 04:48] LABS: ANION GAP 9 (5-19); BLOOD UREA NITROGEN 33 mg/dL (7-20); CARBON DIOXIDE 19 mmol/L (22-30); CHLORIDE 109 mmol/L (98-107); GLUCOSE 85 mg/dL (75-110); IRON(TIBC) 34.9 ug/dL (49-181); POTASSIUM 4.6 mmol/L (3.6-5.0); SODIUM 136.9 mmol/L (137-145)
[2017-08-14 05:09] LABS: PHOSPHORUS 2.5 mg/dL (2.5-4.5)
[2017-08-14 05:54] LABS: FOLATE 5.73 ng/mL (>2.76)
--- NOTE | 2017-08-14 06:16 | RADIOLOGY REPORT (SQ) ---
EXAM DESCRIPTION: Single view of the chest CLINICAL HISTORY: resp failure COMPARISON: 08/13/2017 FINDINGS: Single frontal view of the chest. Cardia mediastinal silhouette is stable. Endotracheal tube with tip 4 cm above the loly. NG tube with tip below the diaphragm. Leads overlie the chest. Persistent bibasilar opacity slightly increased from the comparison study with possible small bilateral pleural effusions. No pneumothorax. Degenerative change of the spine. Upper abdominal soft tissues are unremarkable. IMPRESSION: 1. Slight interval increase in bibasilar opacities and likely small bilateral pleural effusion. Electronically signed by: Rohan Peters 08/14/2017 5:15 AM
[2017-08-14] MEDS: MEROPENEM 1 GM in NORMAL SALINE 50 ML IV SCH (06:29)
[2017-08-14 06:31] LABS: ARTERIAL BLOOD BASE EXCESS -5.5 mmol/L; ARTERIAL BLOOD H2CO3 0.93 mmol/L (1.05-1.35); ARTERIAL BLOOD HCO3 18.4 mmol/L (20-26); ARTERIAL BLOOD O2 SATURATION 95.9 % (94-98); ARTERIAL BLOOD PH 7.39 (7.35-7.45); ARTERIAL BLOOD PO2 80.1 mmHg (80-100); ARTERIAL BLOOD TOTAL CO2 19.3 mmol/L (23-27)
[2017-08-14 06:32] LABS: ARTERIAL BLOOD FIO2 50%
--- NOTE | 2017-08-14 07:41 | PDOC PROGRESS REPORT ---
Subjective Progress Note for:: 08/14/17 Subjective:: Patient remains intubated in ICU. Nurses report that BP dropped, so pressors were changed. Otherwise, no significant manager of change night. No bleeding. ID notes reviewed. Reason For Visit: GENERALIZED PAIN, FEVER, SYSTEMIC INFLAMMATION Physical Exam Vital Signs: Temp Pulse Resp BP Pulse Ox 99.1 F 98 20 108/57 L 96 08/14/17 06:00 08/13/17 22:00 08/14/17 06:43 08/14/17 06:43 08/14/17 06:43 Intake & Output 08/13/17 08/14/17 08/15/17 06:59 06:59 06:59 Intake Total 4308 3652 Output Total 1350 1855 Balance 2958 1797 Weight 105.7 kg General appearance: PRESENT: no acute distress, obese Head exam: PRESENT: atraumatic Respiratory exam: PRESENT: clear to auscultation fredis, unlabored Cardiovascular exam: PRESENT: RRR Pulses: PRESENT: +1 pedal pulses bilateral GI/Abdominal exam: PRESENT: normal bowel sounds, soft Extremities exam: ABSENT: pedal edema Skin exam: PRESENT: normal color Results Laboratory Results: 08/13/17 14:43 08/14/17 04:12 08/13/17 08/13/17 08/13/17 08:30 08:57 10:57 WBC RBC Hgb Hct MCV MCH MCHC RDW Plt Count Seg Neutrophils % Lymphocytes % Monocytes % Eosinophils % Basophils % Absolute Neutrophils Absolute Lymphocytes Absolute Monocytes Absolute Eosinophils Absolute Basophils Retic Count (auto) Absolute Retic Carbonic Acid Cancelled 1.54 H HCO3/H2CO3 Ratio Cancelled 14:1 ABG pH Cancelled 7.25 L ABG pCO2 Cancelled 51.0 H ABG pO2 Cancelled 89.7 ABG HCO3 Cancelled 21.9 ABG O2 Saturation Cancelled 95.5 ABG Base Excess Cancelled -5.5 FiO2 Cancelled 40% Sodium Potassium Chloride Carbon Dioxide Anion Gap BUN Creatinine Est GFR ( Amer) Est GFR (Non-Af Amer) Glucose Lactic Acid 2.1 Calcium Phosphorus Magnesium Iron TIBC % Saturation Ferritin Total Bilirubin AST ALT Alkaline Phosphatase Total Protein Albumin Vitamin B12 Folate 08/13/17 08/13/17 08/13/17 11:45 14:43 14:43 WBC 2.4 L RBC 3.87 L Hgb 11.5 L Hct 33.6 L MCV 87 MCH 29.6 MCHC 34.1 RDW 15.8 H Plt Count 66 L Seg Neutrophils % Not Reportable Lymphocytes % Not Reportable Monocytes % Not Reportable Eosinophils % Not Reportable Basophils % Not Reportable Absolute Neutrophils Not Reportable Absolute Lymphocytes Not Reportable Absolute Monocytes Not Reportable Absolute Eosinophils Not Reportable Absolute Basophils Not Reportable Retic Count (auto) Absolute Retic Carbonic Acid 1.01 L HCO3/H2CO3 Ratio 18:1 ABG pH 7.37 ABG pCO2 33.4 L ABG pO2 75.9 L ABG HCO3 18.7 L ABG O2 Saturation 95.0 ABG Base Excess -5.8 FiO2 50% Sodium Potassium Chloride Carbon Dioxide Anion Gap BUN Creatinine Est GFR ( Amer) Est GFR (Non-Af Amer) Glucose Lactic Acid Calcium Phosphorus Magnesium Iron TIBC % Saturation Ferritin Total Bilirubin 0.7 AST 159 H ALT 74 H Alkaline Phosphatase 93 Total Protein 4.3 L Albumin 2.0 L Vitamin B12 Folate 08/13/17 08/13/17 08/14/17 15:38 22:11 04:12 WBC RBC Hgb Hct MCV MCH MCHC RDW Plt Count Seg Neutrophils % Lymphocytes % Monocytes % Eosinophils % Basophils % Absolute Neutrophils Absolute Lymphocytes Absolute Monocytes Absolute Eosinophils Absolute Basophils Retic Count (auto) Absolute Retic Carbonic Acid HCO3/H2CO3 Ratio ABG pH ABG pCO2 ABG pO2 ABG HCO3 ABG O2 Saturation ABG Base Excess FiO2 Sodium 136.9 L Potassium 4.6 Chloride 109 H Carbon Dioxide 19 L Anion Gap 9 BUN 33 H Creatinine 1.20 Est GFR ( Amer) > 60 Est GFR (Non-Af Amer) > 60 Glucose 85 Lactic Acid 2.0 2.3 H Calcium 7.0 L* Phosphorus 2.5 D Magnesium 2.3 Iron 34.9 L TIBC 179 L % Saturation 19 Ferritin 4580.00 H Total Bilirubin AST ALT Alkaline Phosphatase Total Protein Albumin Vitamin B12 807.0 Folate 5.73 08/14/17 08/14/17 08/14/17 04:12 04:12 06:20 WBC RBC Hgb Hct MCV MCH MCHC RDW Plt Count Seg Neutrophils % Lymphocytes % Monocytes % Eosinophils % Basophils % Absolute Neutrophils Absolute Lymphocytes Absolute Monocytes Absolute Eosinophils Absolute Basophils Retic Count (auto) 0.51 L Absolute Retic 0.020 L Carbonic Acid 0.93 L HCO3/H2CO3 Ratio 19:1 ABG pH 7.39 ABG pCO2 31.0 L ABG pO2 80.1 ABG HCO3 18.4 L ABG O2 Saturation 95.9 ABG Base Excess -5.5 FiO2 50% Sodium Potassium Chloride Carbon Dioxide Anion Gap BUN Creatinine Est GFR ( Amer) Est GFR (Non-Af Amer) Glucose Lactic Acid Calcium Phosphorus Magnesium Iron TIBC % Saturation Ferritin Total Bilirubin AST ALT Alkaline Phosphatase Total Protein Albumin 1.9 L Vitamin B12 Folate 08/13/17 08/14/17 04:17 04:12 NT-Pro-B Natriuret Pep 1510 H 878 Impressions: Abdomen Ultrasound 08/09/17 00:00 IMPRESSION: NORMAL ABDOMINAL ULTRASOUND. Abdomen/Pelvis CT 08/11/17 00:00 IMPRESSION: Trace bilateral pleural effusions. No pneumothorax. No alveolar pulmonary edema or dense pneumonia. No bowel obstruction. Post partial sigmoid colectomy. Intact ventral hernia repair. Chest CT 08/11/17 00:00 IMPRESSION: Trace bilateral pleural effusions. No pneumothorax. No alveolar pulmonary edema or dense pneumonia. No bowel obstruction. Post partial sigmoid colectomy. Intact ventral hernia repair. Head CT 08/12/17 00:00 IMPRESSION: NORMAL BRAIN CT WITHOUT CONTRAST. EVIDENCE OF ACUTE STROKE: NO. Chest X-Ray 08/14/17 06:00 IMPRESSION: 1. Slight interval increase in bibasilar opacities and likely small bilateral pleural effusion. Assessment & Plan - Diagnosis (1) Pancytopenia Is this a current diagnosis for this admission?: Yes Plan: Most likely reactive to infection and possibly due to medications. I agree with stopping the Vanc and Meropenum, but will defer to primary team. May use transfusion support if needed. Not indicated currently. B12 and Folate are normal. Irons studies indicate anemia of inflammation. (2) Pneumonia Qualifiers: Pneumonia type: due to unspecified organism Laterality: right Lung location: unspecified part of lung Qualified Code(s): J18.9 - Pneumonia, unspecified organism Is this a current diagnosis for this admission?: Yes (3) Elevated liver function tests Is this a current diagnosis for this admission?: Yes Plan: Continue to watch. Ferritin is very high, but this is most likely acute phase reaction. May consider checking for hemochromatosis at some point in the future , but this is not his primary problem currently. - Plan Summary Plan Summary: Dr. Louise covering over the weekend. Please call with any concerns.
--- NOTE | 2017-08-14 08:55 | PDOC PROGRESS REPORT ---
Subjective Progress Note for:: 08/14/17 Subjective:: unable to obtain as pt intubated and sedated, per RN pt had reasonably good night, levophed being weaned and propofol DCed for sedation holiday. No BM, good UOP, skin in tact, not in Afib. Reason For Visit: sepsis, acute respiratory failure, pathogen unclear Physical Exam Vital Signs: Temp Pulse Resp BP Pulse Ox 99.1 F 98 20 109/57 L 96 08/14/17 07:43 08/13/17 22:00 08/14/17 07:28 08/14/17 07:28 08/14/17 07:28 Intake & Output 08/13/17 08/14/17 08/15/17 06:59 06:59 06:59 Intake Total 4308 3652 Output Total 1350 1855 150 Balance 2958 1797 -150 Weight 105.7 kg General appearance: PRESENT: no acute distress Head exam: PRESENT: atraumatic, normocephalic Eye exam: PRESENT: periorbital swelling, PERRLA. ABSENT: scleral icterus Ear exam: PRESENT: normal external ear exam. ABSENT: drainage Mouth exam: PRESENT: moist Throat exam: PRESENT: other - intubated Neck exam: ABSENT: lymphadenopathy, tracheal deviation Respiratory exam: PRESENT: decreased breath sounds - decreased in bases, no wheezes ronchi or rales Cardiovascular exam: PRESENT: RRR. ABSENT: systolic murmur Pulses: PRESENT: normal radial pulses GI/Abdominal exam: PRESENT: normal bowel sounds, soft. ABSENT: distended, mass , tenderness Rectal exam: PRESENT: other - no stool present on external eval Gentrourinary exam: PRESENT: indwelling catheter - yellow urine, no significant sediment Extremities exam: PRESENT: other - anasarca Musculoskeletal exam: PRESENT: other - sedated in ICU bed. ABSENT: deformity Neurological exam: PRESENT: other - no tremor or myoclonus, sedated, PERRL, grimaces to painful stimulus Psychiatric exam: PRESENT: other - cannot assess Skin exam: PRESENT: intact, rash - back has confluent erythema ? rash vs secondary to mattress/heat. ABSENT: jaundice, mottled, petechiae, skin tears Results Laboratory Results: 08/13/17 14:43 08/14/17 04:12 08/13/17 08/13/17 08/13/17 08:30 08:57 10:57 WBC RBC Hgb Hct MCV MCH MCHC RDW Plt Count Seg Neutrophils % Lymphocytes % Monocytes % Eosinophils % Basophils % Absolute Neutrophils Absolute Lymphocytes Absolute Monocytes Absolute Eosinophils Absolute Basophils Retic Count (auto) Absolute Retic Carbonic Acid Cancelled 1.54 H HCO3/H2CO3 Ratio Cancelled 14:1 ABG pH Cancelled 7.25 L ABG pCO2 Cancelled 51.0 H ABG pO2 Cancelled 89.7 ABG HCO3 Cancelled 21.9 ABG O2 Saturation Cancelled 95.5 ABG Base Excess Cancelled -5.5 FiO2 Cancelled 40% Sodium Potassium Chloride Carbon Dioxide Anion Gap BUN Creatinine Est GFR ( Amer) Est GFR (Non-Af Amer) Glucose Lactic Acid 2.1 Calcium Phosphorus Magnesium Iron TIBC % Saturation Ferritin Total Bilirubin AST ALT Alkaline Phosphatase Total Protein Albumin Vitamin B12 Folate 08/13/17 08/13/17 08/13/17 11:45 14:43 14:43 WBC 2.4 L RBC 3.87 L Hgb 11.5 L Hct 33.6 L MCV 87 MCH 29.6 MCHC 34.1 RDW 15.8 H Plt Count 66 L Seg Neutrophils % Not Reportable Lymphocytes % Not Reportable Monocytes % Not Reportable Eosinophils % Not Reportable Basophils % Not Reportable Absolute Neutrophils Not Reportable Absolute Lymphocytes Not Reportable Absolute Monocytes Not Reportable Absolute Eosinophils Not Reportable Absolute Basophils Not Reportable Retic Count (auto) Absolute Retic Carbonic Acid 1.01 L HCO3/H2CO3 Ratio 18:1 ABG pH 7.37 ABG pCO2 33.4 L ABG pO2 75.9 L ABG HCO3 18.7 L ABG O2 Saturation 95.0 ABG Base Excess -5.8 FiO2 50% Sodium Potassium Chloride Carbon Dioxide Anion Gap BUN Creatinine Est GFR ( Amer) Est GFR (Non-Af Amer) Glucose Lactic Acid Calcium Phosphorus Magnesium Iron TIBC % Saturation Ferritin Total Bilirubin 0.7 AST 159 H ALT 74 H Alkaline Phosphatase 93 Total Protein 4.3 L Albumin 2.0 L Vitamin B12 Folate 08/13/17 08/13/17 08/14/17 15:38 22:11 04:12 WBC RBC Hgb Hct MCV MCH MCHC RDW Plt Count Seg Neutrophils % Lymphocytes % Monocytes % Eosinophils % Basophils % Absolute Neutrophils Absolute Lymphocytes Absolute Monocytes Absolute Eosinophils Absolute Basophils Retic Count (auto) Absolute Retic Carbonic Acid HCO3/H2CO3 Ratio ABG pH ABG pCO2 ABG pO2 ABG HCO3 ABG O2 Saturation ABG Base Excess FiO2 Sodium 136.9 L Potassium 4.6 Chloride 109 H Carbon Dioxide 19 L Anion Gap 9 BUN 33 H Creatinine 1.20 Est GFR ( Amer) > 60 Est GFR (Non-Af Amer) > 60 Glucose 85 Lactic Acid 2.0 2.3 H Calcium 7.0 L* Phosphorus 2.5 D Magnesium 2.3 Iron 34.9 L TIBC 179 L % Saturation 19 Ferritin 4580.00 H Total Bilirubin AST ALT Alkaline Phosphatase Total Protein Albumin Vitamin B12 807.0 Folate 5.73 08/14/17 08/14/17 08/14/17 04:12 04:12 06:20 WBC RBC Hgb Hct MCV MCH MCHC RDW Plt Count Seg Neutrophils % Lymphocytes % Monocytes % Eosinophils % Basophils % Absolute Neutrophils Absolute Lymphocytes Absolute Monocytes Absolute Eosinophils Absolute Basophils Retic Count (auto) 0.51 L Absolute Retic 0.020 L Carbonic Acid 0.93 L HCO3/H2CO3 Ratio 19:1 ABG pH 7.39 ABG pCO2 31.0 L ABG pO2 80.1 ABG HCO3 18.4 L ABG O2 Saturation 95.9 ABG Base Excess -5.5 FiO2 50% Sodium Potassium Chloride Carbon Dioxide Anion Gap BUN Creatinine Est GFR ( Amer) Est GFR (Non-Af Amer) Glucose Lactic Acid Calcium Phosphorus Magnesium Iron TIBC % Saturation Ferritin Total Bilirubin AST ALT Alkaline Phosphatase Total Protein Albumin 1.9 L Vitamin B12 Folate 08/13/17 08/14/17 04:17 04:12 NT-Pro-B Natriuret Pep 1510 H 878 Impressions: Abdomen Ultrasound 08/09/17 00:00 IMPRESSION: NORMAL ABDOMINAL ULTRASOUND. Abdomen/Pelvis CT 08/11/17 00:00 IMPRESSION: Trace bilateral pleural effusions. No pneumothorax. No alveolar pulmonary edema or dense pneumonia. No bowel obstruction. Post partial sigmoid colectomy. Intact ventral hernia repair. Chest CT 08/11/17 00:00 IMPRESSION: Trace bilateral pleural effusions. No pneumothorax. No alveolar pulmonary edema or dense pneumonia. No bowel obstruction. Post partial sigmoid colectomy. Intact ventral hernia repair. Head CT 08/12/17 00:00 IMPRESSION: NORMAL BRAIN CT WITHOUT CONTRAST. EVIDENCE OF ACUTE STROKE: NO. Chest X-Ray 08/14/17 06:00 IMPRESSION: 1. Slight interval increase in bibasilar opacities and likely small bilateral pleural effusion. Assessment & Plan - Diagnosis (1) Tick-borne disease Is this a current diagnosis for this admission?: Yes Plan: based on transaminitis, cytopenia, hx exposure to ticks, fever it is likey pt has tick borne illness. Doxycycline started and will cont. RMSF, erlichiosis more likely than lyme, thought lyme is stilla possibility. Today back is erythematous, otherwise no unique rash. WIll cont to follow labs and micro, appreciate ID input. (2) Acute respiratory failure Is this a current diagnosis for this admission?: Yes Plan: pt was on bipap about 7 hours yesterday and wordsened, with hypoxemia. Due to inability to protect airway he was intubated. He is on SIMV vent, FiO2 50%, PEEP 5, rate 20. Pulm following. Appreciate pulomnary service assistance. Propofol off for sedation holiday. May have PNA but no dense infiltrate seen on admit. Has trace bilat pleural effusions. I DCed meropenem today. WIll follow tracheal aspirate. (3) Enterococcus faecalis infection Is this a current diagnosis for this admission?: Yes Plan: unclear is symptomatic or asymptomatic bactiuria. Cont vanc for now. (4) Altered mental status, unspecified Qualifiers: Altered mental status type: delirium Qualified Code(s): R41.0 - Disorientation, unspecified Is this a current diagnosis for this admission?: Yes Plan: Due to infection, or SIRS. Is now intubated. Will watch mental status as he awakens. Will treat underlying conditions. (5) Elevated liver function tests Is this a current diagnosis for this admission?: Yes Plan: possibly due to infection, downward trend today, will cont to monitor. ABd US normal. (6) Pancytopenia Is this a current diagnosis for this admission?: Yes Plan: Likely related to acute illness. Will watch and treat underlying problems. Will transfuse if indicated, not indicated now. Appreciate heme recommendations and input. Will discuss appropriate DVT prophylaxis given thrombocytopenia. (7) Pneumonia Qualifiers: Pneumonia type: due to unspecified organism Laterality: right Lung location: unspecified part of lung Qualified Code(s): J18.9 - Pneumonia, unspecified organism Is this a current diagnosis for this admission?: Yes Plan: trach aspirate with no pathogen growth at this time. Will cont to monitor for need to treat a bacterial PNA. (8) SIRS (systemic inflammatory response syndrome) Is this a current diagnosis for this admission?: Yes Plan: likely related to underlying infection, see remainder of plan. Also pt has been hypotensive and has been on levophed, we will DC this am and montior BP closely. MAP in 70's this am. (9) Positive blood culture Is this a current diagnosis for this admission?: Yes Plan: gram pos cocci in one set blood cultures, will cont vanc until we have more data to show specimen contamination vs true infecting pathogen. Repeat blood cultures ordered today. (10) Nutrition deficiency due to insufficient food Is this a current diagnosis for this admission?: Yes Plan: pt intubated, will order nutrition recs for starting tube feeds (11) Atrial fibrillation Qualifiers: Atrial fibrillation type: paroxysmal Qualified Code(s): I48.0 - Paroxysmal atrial fibrillation Is this a current diagnosis for this admission?: Yes Plan: Pt had transietn Afib while hypoxemic and on bipap, was started on diltiazem gtt and is now is now in SR, dilt gtt off, cardiology folllowing. Appreciate cardiology recommendations. - Time Time Spent with patient: 35 or more minutes Total Critical Time (Minutes): 15 Medications reviewed and adjusted accordingly: Yes Disposition: not yet known - Inpatient Certification Based on my medical assessment, after consideration of the patient's comorbidities, presenting symptoms, or acuity I expect that the services needed warrant INPATIENT care.: Yes I certify that my determination is in accordance with my understanding of Medicare's requirements for reasonable and necessary INPATIENT services [42 CFR 412.3e].: Yes Medical Necessity: Need For IV Fluids, Need For Continuous Telemetry Monitoring , Need for IV Antibiotics, Risk of Complication if Not Cared For in Hospital
[2017-08-14] MEDS: LACTOBACILLUS ACIDOPHILUS 250 MG TAB NG SCH ×2 (09:28→17:27)
[2017-08-14] MEDS: DOCUSATE SODIUM 100 MG CAPSULE PO SCH (09:28)
[2017-08-14] MEDS: DOXYCYCLINE HYCLATE 100 MG in DEXTROSE 5%-WATER 250 ML IV SCH ×2 (09:29→22:42)
[2017-08-14] MEDS ORDERED: CHOLECALCIFEROL (D3) 1,000 UNIT TABLET PO SCH (10:00)
[2017-08-14 14:56] LABS: HEMATOCRIT 34.6 % (37.9-51.0); HEMOGLOBIN 11.8 g/dL (13.5-17.0); MEAN CORPUSCULAR HEMOGLOBIN 29.5 pg (27.0-33.4); MEAN CORPUSCULAR HGB CONC 34.2 g/dL (32.0-36.0); MEAN CORPUSCULAR VOLUME 86 fl (80-97); RED BLOOD COUNT 4.01 10^6/uL (4.35-5.55); RED CELL DISTRIBUTION WIDTH 16.1 % (11.5-14.0); WHITE BLOOD COUNT 2.9 10^3/uL (4.0-10.5)
[2017-08-14 15:09] LABS: ALANINE AMINOTRANSFERASE 70 U/L (21-72); ALKALINE PHOSPHATASE 112 U/L (38-126); ASPARTATE AMINO TRANSFERASE 146 U/L (17-59); BILIRUBIN,DIRECT 0.9 mg/dL (0.0-0.4)
[2017-08-14 15:43] LABS: ABSOLUTE LYMPHOCYTES# (MANUAL) 0.1 10^3/uL (0.5-4.7); ABSOLUTE MONOCYTES # (MANUAL) 0.4 10^3/uL (0.1-1.4); ABSOLUTE NEUTROPHILS# (MANUAL) 2.3 10^3/uL (1.7-8.2); BAND NEUTROPHILS % (MANUAL) 2 % (3-5); BASOPHILS % (MANUAL) 1 % (0-2); EOSINOPHILS % (MANUAL) 0 % (0-6); LYMPHOCYTES % (MANUAL) 4 % (13-45); MONOCYTES % (MANUAL) 14 % (3-13); SEGMENTED NEUTROPHILS % (MAN) 79 % (42-78); TOTAL CELLS COUNTED 100
[2017-08-14 15:46] LABS: ANISOCYTOSIS SLIGHT; PLATELET COMMENT DECREASED
[2017-08-14 15:50] LABS: PLATELET COUNT 72 10^3/uL (150-450)
[2017-08-14] MEDS: VANCOMYCIN HCL 1,000 MG in DEXTROSE 5%-WATER 250 ML IV SCH (17:17)
[2017-08-14] MEDS: NORMAL SALINE 1000 ML 1,000 ML IV PRN (17:27)
[2017-08-14] MEDS: OXYCODONE-ACETAMINOPHEN 5-325 MG TABLET NG PRN (20:29)
[2017-08-14 20:59] LABS: HEMATOCRIT 34.3 % (37.9-51.0); HEMOGLOBIN 11.7 g/dL (13.5-17.0); MEAN CORPUSCULAR HEMOGLOBIN 29.2 pg (27.0-33.4); MEAN CORPUSCULAR HGB CONC 34.2 g/dL (32.0-36.0); MEAN CORPUSCULAR VOLUME 86 fl (80-97); RED BLOOD COUNT 4.01 10^6/uL (4.35-5.55); RED CELL DISTRIBUTION WIDTH 15.8 % (11.5-14.0); WHITE BLOOD COUNT 3.3 10^3/uL (4.0-10.5)
[2017-08-14] MEDS ORDERED: ENOXAPARIN SODIUM INJ 40 MG/0.4 ML DISP.SYRIN SUBCUT ONE (21:00)
[2017-08-14 21:03] LABS: INTERNATIONAL RATION (INR) 1.07; PROTHROMBIN TIME 14.4 SEC (11.4-15.4)
[2017-08-14 21:12] LABS: PARTIAL THROMBOPLASTIN TIME 32.8 SEC (23.5-35.8)
[2017-08-14 21:25] LABS: PLATELET COUNT 76 10^3/uL (150-450)
[2017-08-15] MEDS: MIDAZOLAM HCL 50 MG/100 ML RTUINJ IV PRN ×3 (01:46→22:27)
[2017-08-15 04:26] LABS: HEMATOCRIT 32.9 % (37.9-51.0); HEMOGLOBIN 11.5 g/dL (13.5-17.0); MEAN CORPUSCULAR HEMOGLOBIN 29.7 pg (27.0-33.4); MEAN CORPUSCULAR HGB CONC 34.8 g/dL (32.0-36.0); MEAN CORPUSCULAR VOLUME 85 fl (80-97); RED BLOOD COUNT 3.85 10^6/uL (4.35-5.55); RED CELL DISTRIBUTION WIDTH 15.5 % (11.5-14.0); WHITE BLOOD COUNT 3.5 10^3/uL (4.0-10.5)
[2017-08-15 04:35] LABS: PHOSPHORUS 2.4 mg/dL (2.5-4.5)
[2017-08-15 04:36] LABS: ALANINE AMINOTRANSFERASE 72 U/L (21-72); ALBUMIN 1.9 g/dL (3.5-5.0); ALKALINE PHOSPHATASE 125 U/L (38-126); ANION GAP 7 (5-19); ASPARTATE AMINO TRANSFERASE 152 U/L (17-59); BILIRUBIN,DIRECT 0.7 mg/dL (0.0-0.4); BILIRUBIN,TOTAL 0.8 mg/dL (0.2-1.3); BLOOD UREA NITROGEN 30 mg/dL (7-20); CALCIUM 7.3 mg/dL (8.4-10.2); CARBON DIOXIDE 18 mmol/L (22-30); CHLORIDE 113 mmol/L (98-107); GLUCOSE 85 mg/dL (75-110); POTASSIUM 4.4 mmol/L (3.6-5.0); TOTAL PROTEIN 4.5 g/dL (6.3-8.2)
[2017-08-15 04:47] LABS: PLATELET COUNT 73 10^3/uL (150-450)
[2017-08-15] MEDS: NORMAL SALINE 1000 ML 1,000 ML IV PRN ×2 (05:03→18:01)
[2017-08-15] MEDS: VANCOMYCIN HCL 1,000 MG in DEXTROSE 5%-WATER 250 ML IV SCH ×2 (05:05→18:01)
[2017-08-15 05:22] LABS: ARTERIAL BLOOD BASE EXCESS -3.9 mmol/L; ARTERIAL BLOOD H2CO3 0.81 mmol/L (1.05-1.35); ARTERIAL BLOOD HCO3 18.6 mmol/L (20-26); ARTERIAL BLOOD O2 SATURATION 94.5 % (94-98); ARTERIAL BLOOD PCO2 26.9 mmHg (35-45); ARTERIAL BLOOD PH 7.46 (7.35-7.45); ARTERIAL BLOOD PO2 66.5 mmHg (80-100); ARTERIAL BLOOD TOTAL CO2 19.4 mmol/L (23-27)
[2017-08-15 05:24] LABS: ARTERIAL BLOOD FIO2 50%
--- NOTE | 2017-08-15 08:21 | RADIOLOGY REPORT (SQ) ---
EXAM DESCRIPTION: CHEST SINGLE VIEW COMPLETED DATE/TIME: 08/15/2017 7:04 am REASON FOR STUDY: resp failure/pna COMPARISON: 08/14/2017. EXAM PARAMETERS: NUMBER OF VIEWS: One view. TECHNIQUE: Single frontal radiographic view of the chest acquired. RADIATION DOSE: NA LIMITATIONS: None. FINDINGS: LUNGS AND PLEURA: Faint basilar densities and small effusions unchanged. MEDIASTINUM AND HILAR STRUCTURES: No masses. Contour normal. HEART AND VASCULAR STRUCTURES: Heart normal in size. Normal vasculature. BONES: No acute findings. HARDWARE: Stable endotracheal tube and nasogastric tube. OTHER: No other significant finding. IMPRESSION: NO CHANGE IN APPEARANCE OF THE CHEST. TECHNICAL DOCUMENTATION: JOB ID: [id number] [employer]- All Rights Reserved Reading location - IP/workstation name: [email or web address]
[2017-08-15 08:58] LABS: MYCOPLASMA PNEUMONIAE IGG AB 109 U/mL (0-99); MYCOPLASMA PNEUMONIAE IGM AB <770 U/mL (0-769)
[2017-08-15] MEDS: LACTOBACILLUS ACIDOPHILUS 250 MG TAB NG SCH ×2 (09:51→18:06)
[2017-08-15] MEDS: ENOXAPARIN SODIUM INJ 40 MG/0.4 ML DISP.SYRIN SUBCUT SCH (09:51)
[2017-08-15] MEDS: DOCUSATE SODIUM 100 MG CAPSULE PO SCH (09:51)
[2017-08-15] MEDS: DOXYCYCLINE HYCLATE 100 MG in DEXTROSE 5%-WATER 250 ML IV SCH ×2 (09:53→22:08)
--- NOTE | 2017-08-15 10:20 | PDOC PROGRESS REPORT ---
Subjective Progress Note for:: 08/15/17 Subjective:: no acute events overnight Reason For Visit: GENERALIZED PAIN, FEVER, SYSTEMIC INFLAMMATION Physical Exam Vital Signs: Temp Pulse Resp BP Pulse Ox 99.1 F 105 H 23 H 112/67 94 08/14/17 07:43 08/15/17 08:00 08/15/17 09:43 08/15/17 09:43 08/15/17 09:43 Intake & Output 08/14/17 08/15/17 08/16/17 06:59 06:59 06:59 Intake Total 3652 2979 Output Total 1855 1760 175 Balance 1797 1219 -175 Weight 105.7 kg 105.7 kg General appearance: PRESENT: no acute distress, well-developed, well-nourished Head exam: PRESENT: atraumatic, normocephalic Eye exam: PRESENT: conjunctiva pink, EOMI, PERRLA. ABSENT: scleral icterus Ear exam: PRESENT: normal external ear exam Mouth exam: PRESENT: moist, tongue midline Neck exam: ABSENT: carotid bruit, JVD, lymphadenopathy, thyromegaly Respiratory exam: PRESENT: clear to auscultation fredis. ABSENT: rales, rhonchi, wheezes Cardiovascular exam: PRESENT: RRR. ABSENT: diastolic murmur, rubs, systolic murmur Pulses: PRESENT: normal dorsalis pedis pul Vascular exam: PRESENT: normal capillary refill GI/Abdominal exam: PRESENT: normal bowel sounds, soft. ABSENT: distended, guarding, mass, organolmegaly, rebound, tenderness Rectal exam: PRESENT: deferred Extremities exam: PRESENT: full ROM. ABSENT: calf tenderness, clubbing, pedal edema Neurological exam: PRESENT: alert, awake, oriented to person, oriented to place , oriented to time, oriented to situation, CN II-XII grossly intact. ABSENT: motor sensory deficit Psychiatric exam: PRESENT: appropriate affect, normal mood. ABSENT: homicidal ideation, suicidal ideation Skin exam: PRESENT: dry, intact, warm. ABSENT: cyanosis, rash Results Laboratory Results: 08/15/17 04:11 08/15/17 04:11 08/14/17 08/14/17 08/14/17 14:25 14:25 20:25 WBC 2.9 L 3.3 L RBC 4.01 L 4.01 L Hgb 11.8 L 11.7 L Hct 34.6 L 34.3 L MCV 86 86 MCH 29.5 29.2 MCHC 34.2 34.2 RDW 16.1 H 15.8 H Plt Count 72 L 76 L Seg Neutrophils % Not Reportable Lymphocytes % Not Reportable Monocytes % Not Reportable Eosinophils % Not Reportable Basophils % Not Reportable Absolute Neutrophils Not Reportable Absolute Lymphocytes Not Reportable Absolute Monocytes Not Reportable Absolute Eosinophils Not Reportable Absolute Basophils Not Reportable Carbonic Acid HCO3/H2CO3 Ratio ABG pH ABG pCO2 ABG pO2 ABG HCO3 ABG O2 Saturation ABG Base Excess FiO2 Sodium Potassium Chloride Carbon Dioxide Anion Gap BUN Creatinine Est GFR ( Amer) Est GFR (Non-Af Amer) Glucose Lactic Acid Calcium Phosphorus Magnesium Total Bilirubin 1.0 AST 146 H ALT 70 Alkaline Phosphatase 112 Total Protein 4.0 L Albumin 2.0 L 08/14/17 08/15/17 08/15/17 20:25 04:11 04:11 WBC 3.5 L RBC 3.85 L Hgb 11.5 L Hct 32.9 L MCV 85 MCH 29.7 MCHC 34.8 RDW 15.5 H Plt Count 73 L Seg Neutrophils % Lymphocytes % Monocytes % Eosinophils % Basophils % Absolute Neutrophils Absolute Lymphocytes Absolute Monocytes Absolute Eosinophils Absolute Basophils Carbonic Acid HCO3/H2CO3 Ratio ABG pH ABG pCO2 ABG pO2 ABG HCO3 ABG O2 Saturation ABG Base Excess FiO2 Sodium Potassium Chloride Carbon Dioxide Anion Gap BUN Creatinine 1.07 Est GFR ( Amer) > 60 Est GFR (Non-Af Amer) > 60 Glucose Lactic Acid Calcium Phosphorus 2.4 L Magnesium 2.3 Total Bilirubin AST ALT Alkaline Phosphatase Total Protein Albumin 08/15/17 08/15/17 08/15/17 04:11 05:15 08:30 WBC RBC Hgb Hct MCV MCH MCHC RDW Plt Count Seg Neutrophils % Lymphocytes % Monocytes % Eosinophils % Basophils % Absolute Neutrophils Absolute Lymphocytes Absolute Monocytes Absolute Eosinophils Absolute Basophils Carbonic Acid 0.81 L HCO3/H2CO3 Ratio 22:1 ABG pH 7.46 H ABG pCO2 26.9 L ABG pO2 66.5 L ABG HCO3 18.6 L ABG O2 Saturation 94.5 ABG Base Excess -3.9 FiO2 50% Sodium 138.0 Potassium 4.4 Chloride 113 H Carbon Dioxide 18 L Anion Gap 7 BUN 30 H Creatinine 1.09 Est GFR ( Amer) > 60 Est GFR (Non-Af Amer) > 60 Glucose 85 Lactic Acid 2.0 Calcium 7.3 L Phosphorus Magnesium Total Bilirubin 0.8 AST 152 H ALT 72 Alkaline Phosphatase 125 Total Protein 4.5 L Albumin 1.9 L 08/13/17 11:10 Tracheal Aspirate Gram Stain - Final 08/13/17 11:10 Tracheal Aspirate Sputum Culture - Final C.albicans/C.dubliniensis Normal Pamela Absent 08/12/17 16:20 Catheterized Urine Urine Culture - Final NO GROWTH 2 DAYS 08/13/17 08/14/17 04:17 04:12 NT-Pro-B Natriuret Pep 1510 H 878 Impressions: Abdomen Ultrasound 08/09/17 00:00 IMPRESSION: NORMAL ABDOMINAL ULTRASOUND. Abdomen/Pelvis CT 08/11/17 00:00 IMPRESSION: Trace bilateral pleural effusions. No pneumothorax. No alveolar pulmonary edema or dense pneumonia. No bowel obstruction. Post partial sigmoid colectomy. Intact ventral hernia repair. Chest CT 08/11/17 00:00 IMPRESSION: Trace bilateral pleural effusions. No pneumothorax. No alveolar pulmonary edema or dense pneumonia. No bowel obstruction. Post partial sigmoid colectomy. Intact ventral hernia repair. Head CT 08/12/17 00:00 IMPRESSION: NORMAL BRAIN CT WITHOUT CONTRAST. EVIDENCE OF ACUTE STROKE: NO. Chest X-Ray 08/15/17 06:00 IMPRESSION: NO CHANGE IN APPEARANCE OF THE CHEST. Assessment & Plan - Diagnosis (1) Pancytopenia Is this a current diagnosis for this admission?: Yes Plan: D/w Dr. Hunter, agree that arboviral cause is very possible, agree w/ cheyanne, noted that pancytopenia can occur, have seen 3-4 cases over last 7 yrs of this, mycoplasma IgG also + so suggested that we cover for that also. Pancytopenia can take 3-4 wk to fully recover. Also agreed w/ starting lovenox for DVT prophyl, hold if plt ct <50 Will follow - Time Time Spent with patient: 35 or more minutes Disposition: d/w hospitalist team, >35 min in discussion/coordination of care - Inpatient Certification Based on my medical assessment, after consideration of the patient's comorbidities, presenting symptoms, or acuity I expect that the services needed warrant INPATIENT care.: Yes I certify that my determination is in accordance with my understanding of Medicare's requirements for reasonable and necessary INPATIENT services [42 CFR 412.3e].: Yes Medical Necessity: Need for IV Antibiotics
--- NOTE | 2017-08-15 17:52 | PDOC PROGRESS REPORT ---
Subjective Progress Note for:: 08/15/17 Subjective:: Cannot obtain as patient is intubated and sedated, per nursing he had a fever overnight. This morning he is afebrile. No significant vent changes. No significant adverse events. Reason For Visit: GENERALIZED PAIN, FEVER, SYSTEMIC INFLAMMATION Physical Exam Vital Signs: Temp Pulse Resp BP Pulse Ox 99.1 F 105 H 24 H 105/59 L 96 08/14/17 07:43 08/15/17 08:00 08/15/17 16:00 08/15/17 15:59 08/15/17 16:10 Intake & Output 08/14/17 08/15/17 08/16/17 06:59 06:59 06:59 Intake Total 3652 2979 Output Total 1855 1760 600 Balance 1797 1219 -600 Weight 105.7 kg 105.7 kg 105.7 kg General appearance: PRESENT: no acute distress, well-developed, well-nourished Head exam: PRESENT: atraumatic, normocephalic Eye exam: PRESENT: PERRLA Ear exam: PRESENT: normal external ear exam Mouth exam: PRESENT: moist, other - ET tube in place, NG tube in place Respiratory exam: PRESENT: rales, rhonchi, unlabored. ABSENT: accessory muscle use, prolonged expiratory phas, tachypnea, wheezes Cardiovascular exam: PRESENT: RRR. ABSENT: systolic murmur Pulses: PRESENT: normal radial pulses, normal dorsalis pedis pul GI/Abdominal exam: PRESENT: normal bowel sounds, soft. ABSENT: distended, mass , tenderness Rectal exam: PRESENT: other - Per RN no stool in the rectal vault Gentrourinary exam: PRESENT: indwelling catheter - There are yellow urine Extremities exam: PRESENT: pedal edema Musculoskeletal exam: PRESENT: normal inspection Neurological exam: PRESENT: other - Intubated and sedated, moving extremities spontaneously Psychiatric exam: ABSENT: agitated, anxious Skin exam: PRESENT: dry, intact, warm Results Laboratory Results: 08/15/17 04:11 08/15/17 04:11 08/14/17 08/14/17 08/15/17 20:25 20:25 04:11 WBC 3.3 L RBC 4.01 L Hgb 11.7 L Hct 34.3 L MCV 86 MCH 29.2 MCHC 34.2 RDW 15.8 H Plt Count 76 L Carbonic Acid HCO3/H2CO3 Ratio ABG pH ABG pCO2 ABG pO2 ABG HCO3 ABG O2 Saturation ABG Base Excess FiO2 Sodium Potassium Chloride Carbon Dioxide Anion Gap BUN Creatinine 1.07 Est GFR ( Amer) > 60 Est GFR (Non-Af Amer) > 60 Glucose Lactic Acid Calcium Phosphorus 2.4 L Magnesium 2.3 Total Bilirubin AST ALT Alkaline Phosphatase Total Protein Albumin 08/15/17 08/15/17 08/15/17 04:11 04:11 05:15 WBC 3.5 L RBC 3.85 L Hgb 11.5 L Hct 32.9 L MCV 85 MCH 29.7 MCHC 34.8 RDW 15.5 H Plt Count 73 L Carbonic Acid 0.81 L HCO3/H2CO3 Ratio 22:1 ABG pH 7.46 H ABG pCO2 26.9 L ABG pO2 66.5 L ABG HCO3 18.6 L ABG O2 Saturation 94.5 ABG Base Excess -3.9 FiO2 50% Sodium 138.0 Potassium 4.4 Chloride 113 H Carbon Dioxide 18 L Anion Gap 7 BUN 30 H Creatinine 1.09 Est GFR ( Amer) > 60 Est GFR (Non-Af Amer) > 60 Glucose 85 Lactic Acid Calcium 7.3 L Phosphorus Magnesium Total Bilirubin 0.8 AST 152 H ALT 72 Alkaline Phosphatase 125 Total Protein 4.5 L Albumin 1.9 L 08/15/17 08:30 WBC RBC Hgb Hct MCV MCH MCHC RDW Plt Count Carbonic Acid HCO3/H2CO3 Ratio ABG pH ABG pCO2 ABG pO2 ABG HCO3 ABG O2 Saturation ABG Base Excess FiO2 Sodium Potassium Chloride Carbon Dioxide Anion Gap BUN Creatinine Est GFR ( Amer) Est GFR (Non-Af Amer) Glucose Lactic Acid 2.0 Calcium Phosphorus Magnesium Total Bilirubin AST ALT Alkaline Phosphatase Total Protein Albumin 08/13/17 08/14/17 04:17 04:12 NT-Pro-B Natriuret Pep 1510 H 878 Impressions: Abdomen Ultrasound 08/09/17 00:00 IMPRESSION: NORMAL ABDOMINAL ULTRASOUND. Abdomen/Pelvis CT 08/11/17 00:00 IMPRESSION: Trace bilateral pleural effusions. No pneumothorax. No alveolar pulmonary edema or dense pneumonia. No bowel obstruction. Post partial sigmoid colectomy. Intact ventral hernia repair. Chest CT 08/11/17 00:00 IMPRESSION: Trace bilateral pleural effusions. No pneumothorax. No alveolar pulmonary edema or dense pneumonia. No bowel obstruction. Post partial sigmoid colectomy. Intact ventral hernia repair. Head CT 08/12/17 00:00 IMPRESSION: NORMAL BRAIN CT WITHOUT CONTRAST. EVIDENCE OF ACUTE STROKE: NO. Chest X-Ray 08/15/17 06:00 IMPRESSION: NO CHANGE IN APPEARANCE OF THE CHEST. Assessment & Plan - Diagnosis (1) Tick-borne disease Is this a current diagnosis for this admission?: Yes Plan: Serologies are still pending. Patient will continue on doxycycline. Yesterday his told me that not only did they find a tick on him several days before he got sick but also she noticed, a few days before he came into the hospital, round target-like lesions on his arms that disappeared overnight. We discussed the this is distant with Lyme disease. (2) Acute respiratory failure Is this a current diagnosis for this admission?: Yes Plan: Secondary to infection versus pleural effusions versus alteration in mental status. Patient is now intubated. Vent settings are not very high. He is overall doing well and that is being managed by Dr. Young. Will wean as tolerated. Continue with morning ABGs and morning chest x-ray. (3) Enterococcus faecalis infection Is this a current diagnosis for this admission?: Yes Plan: Continue vancomycin for now. (4) Altered mental status, unspecified Qualifiers: Altered mental status type: delirium Qualified Code(s): R41.0 - Disorientation, unspecified Is this a current diagnosis for this admission?: Yes Plan: Lea secondary to infection versus respiratory failure. Patient is now sedated on the vent. Secondary to hypotension propofol was discontinued and he is now on Versed. (5) Elevated liver function tests Is this a current diagnosis for this admission?: Yes Plan: These are improving. This could be consistent with rickettsial infection. We will continue to monitor. No significant alcohol use history. (6) Pancytopenia Is this a current diagnosis for this admission?: Yes Plan: This is potentially related to rickettsial infection. White blood cell count increased slightly today. Platelets are stable in the 70s. I have discussed DVT prophylaxis with Dr. Louise we agree that Lovenox 40 mg subcu daily is indicated given his high risk for DVT. We will hold for platelets less than 50. (7) Pneumonia Qualifiers: Pneumonia type: due to unspecified organism Laterality: right Lung location: unspecified part of lung Qualified Code(s): J18.9 - Pneumonia, unspecified organism Is this a current diagnosis for this admission?: Yes Plan: Patient is currently on vancomycin and doxycycline. Tracheal aspirate did not grow bacteria. If there is an indication the patient has a bacterial pneumonia we will modify antibiotics. (8) SIRS (systemic inflammatory response syndrome) Is this a current diagnosis for this admission?: Yes Plan: Parameters improved. Lactic acid normal. Treating underlying infections. (9) Positive blood culture Is this a current diagnosis for this admission?: Yes Plan: Gram-positive cocci from one bottle. Will continue Vanco until this is final but it is likely a contaminant. (10) Nutrition deficiency due to insufficient food Is this a current diagnosis for this admission?: Yes Plan: Today nutrition consult was placed in order to start tube feeds. (11) Atrial fibrillation Qualifiers: Atrial fibrillation type: paroxysmal Qualified Code(s): I48.0 - Paroxysmal atrial fibrillation Is this a current diagnosis for this admission?: Yes Plan: She had paroxysmal A. fib earlier in the hospitalization. He is no longer in A. fib. He is not on a rate control agent at this time. - Time Time Spent with patient: 35 or more minutes - I had a long discussion with the patient's family yesterday answered questions to their satisfaction. Medications reviewed and adjusted accordingly: Yes - Inpatient Certification Based on my medical assessment, after consideration of the patient's comorbidities, presenting symptoms, or acuity I expect that the services needed warrant INPATIENT care.: Yes I certify that my determination is in accordance with my understanding of Medicare's requirements for reasonable and necessary INPATIENT services [42 CFR 412.3e].: Yes Medical Necessity: Significant Comorbidiites Make Outpatient Treatment Too Risky , Need Close Monitoring Due to Risk of Patient Decompensation, Need For Continuous Telemetry Monitoring, Need for IV Antibiotics
--- NOTE | 2017-08-15 18:20 | PDOC PROGRESS REPORT ---
Subjective Progress Note for:: 08/15/17 Subjective:: Intubated and sedated Reason For Visit: GENERALIZED PAIN, FEVER, SYSTEMIC INFLAMMATION Physical Exam Vital Signs: Temp Pulse Resp BP Pulse Ox 99.1 F 105 H 0 L 109/67 95 08/14/17 07:43 08/15/17 08:00 08/15/17 10:58 08/15/17 10:58 08/15/17 11:00 Intake & Output 08/14/17 08/15/17 08/16/17 06:59 06:59 06:59 Intake Total 3652 2979 Output Total 1855 1760 300 Balance 1797 1219 -300 Weight 105.7 kg 105.7 kg General appearance: PRESENT: no acute distress, disheveled, obese. ABSENT: cooperative Head exam: PRESENT: atraumatic, normocephalic Eye exam: PRESENT: conjunctiva pale. ABSENT: nystagmus, periorbital swelling, scleral icterus Mouth exam: PRESENT: dry mucosa, neck supple, tongue midline Neck exam: ABSENT: carotid bruit, JVD, lymphadenopathy, thyromegaly, tracheal deviation, tracheostomy Respiratory exam: PRESENT: decreased breath sounds, prolonged expiratory phas, rales, rhonchi, unlabored. ABSENT: retraction, stridor Cardiovascular exam: PRESENT: RRR, +S1, +S2, tachycardia Pulses: PRESENT: normal radial pulses GI/Abdominal exam: PRESENT: hypoactive bowel sounds, soft Gentrourinary exam: PRESENT: indwelling catheter Extremities exam: ABSENT: clubbing, joint swelling Musculoskeletal exam: ABSENT: ambulatory, deformity, dislocation Neurological exam: ABSENT: awake, oriented to person Skin exam: PRESENT: dry, warm Results Laboratory Results: 08/15/17 04:11 08/15/17 04:11 08/14/17 08/14/17 08/14/17 14:25 14:25 20:25 WBC 2.9 L 3.3 L RBC 4.01 L 4.01 L Hgb 11.8 L 11.7 L Hct 34.6 L 34.3 L MCV 86 86 MCH 29.5 29.2 MCHC 34.2 34.2 RDW 16.1 H 15.8 H Plt Count 72 L 76 L Seg Neutrophils % Not Reportable Lymphocytes % Not Reportable Monocytes % Not Reportable Eosinophils % Not Reportable Basophils % Not Reportable Absolute Neutrophils Not Reportable Absolute Lymphocytes Not Reportable Absolute Monocytes Not Reportable Absolute Eosinophils Not Reportable Absolute Basophils Not Reportable Carbonic Acid HCO3/H2CO3 Ratio ABG pH ABG pCO2 ABG pO2 ABG HCO3 ABG O2 Saturation ABG Base Excess FiO2 Sodium Potassium Chloride Carbon Dioxide Anion Gap BUN Creatinine Est GFR ( Amer) Est GFR (Non-Af Amer) Glucose Lactic Acid Calcium Phosphorus Magnesium Total Bilirubin 1.0 AST 146 H ALT 70 Alkaline Phosphatase 112 Total Protein 4.0 L Albumin 2.0 L 08/14/17 08/15/17 08/15/17 20:25 04:11 04:11 WBC 3.5 L RBC 3.85 L Hgb 11.5 L Hct 32.9 L MCV 85 MCH 29.7 MCHC 34.8 RDW 15.5 H Plt Count 73 L Seg Neutrophils % Lymphocytes % Monocytes % Eosinophils % Basophils % Absolute Neutrophils Absolute Lymphocytes Absolute Monocytes Absolute Eosinophils Absolute Basophils Carbonic Acid HCO3/H2CO3 Ratio ABG pH ABG pCO2 ABG pO2 ABG HCO3 ABG O2 Saturation ABG Base Excess FiO2 Sodium Potassium Chloride Carbon Dioxide Anion Gap BUN Creatinine 1.07 Est GFR ( Amer) > 60 Est GFR (Non-Af Amer) > 60 Glucose Lactic Acid Calcium Phosphorus 2.4 L Magnesium 2.3 Total Bilirubin AST ALT Alkaline Phosphatase Total Protein Albumin 08/15/17 08/15/17 08/15/17 04:11 05:15 08:30 WBC RBC Hgb Hct MCV MCH MCHC RDW Plt Count Seg Neutrophils % Lymphocytes % Monocytes % Eosinophils % Basophils % Absolute Neutrophils Absolute Lymphocytes Absolute Monocytes Absolute Eosinophils Absolute Basophils Carbonic Acid 0.81 L HCO3/H2CO3 Ratio 22:1 ABG pH 7.46 H ABG pCO2 26.9 L ABG pO2 66.5 L ABG HCO3 18.6 L ABG O2 Saturation 94.5 ABG Base Excess -3.9 FiO2 50% Sodium 138.0 Potassium 4.4 Chloride 113 H Carbon Dioxide 18 L Anion Gap 7 BUN 30 H Creatinine 1.09 Est GFR ( Amer) > 60 Est GFR (Non-Af Amer) > 60 Glucose 85 Lactic Acid 2.0 Calcium 7.3 L Phosphorus Magnesium Total Bilirubin 0.8 AST 152 H ALT 72 Alkaline Phosphatase 125 Total Protein 4.5 L Albumin 1.9 L 08/13/17 11:10 Tracheal Aspirate Gram Stain - Final 08/13/17 11:10 Tracheal Aspirate Sputum Culture - Final C.albicans/C.dubliniensis Normal Pamela Absent 08/12/17 16:20 Catheterized Urine Urine Culture - Final NO GROWTH 2 DAYS 08/13/17 08/14/17 04:17 04:12 NT-Pro-B Natriuret Pep 1510 H 878 Impressions: Abdomen Ultrasound 08/09/17 00:00 IMPRESSION: NORMAL ABDOMINAL ULTRASOUND. Abdomen/Pelvis CT 08/11/17 00:00 IMPRESSION: Trace bilateral pleural effusions. No pneumothorax. No alveolar pulmonary edema or dense pneumonia. No bowel obstruction. Post partial sigmoid colectomy. Intact ventral hernia repair. Chest CT 08/11/17 00:00 IMPRESSION: Trace bilateral pleural effusions. No pneumothorax. No alveolar pulmonary edema or dense pneumonia. No bowel obstruction. Post partial sigmoid colectomy. Intact ventral hernia repair. Head CT 08/12/17 00:00 IMPRESSION: NORMAL BRAIN CT WITHOUT CONTRAST. EVIDENCE OF ACUTE STROKE: NO. Chest X-Ray 08/15/17 06:00 IMPRESSION: NO CHANGE IN APPEARANCE OF THE CHEST. Assessment & Plan - Diagnosis (1) Elevated liver function tests Is this a current diagnosis for this admission?: Yes Plan: Labs- All tests 24 hr 08/08/17 08/09/17 08/10/17 09:40 05:27 04:58 Total Bilirubin Direct Bilirubin AST 99 H 90 H 102 H ALT 111 H 92 H 71 Alkaline Phosphatase 154 H 120 97 08/11/17 08/11/17 08/12/17 00:53 07:05 11:57 Total Bilirubin Direct Bilirubin AST 109 H 115 H 143 H ALT 73 H 74 H 81 H Alkaline Phosphatase 92 100 88 08/12/17 15:40 Total Bilirubin 0.5 Direct Bilirubin 0.5 H AST 166 H ALT 80 H Alkaline Phosphatase 92 (2) Acute kidney injury Is this a current diagnosis for this admission?: Yes Plan: Improving (3) Sepsis Is this a current diagnosis for this admission?: Yes (4) Thrombocytopenia Is this a current diagnosis for this admission?: Yes Plan: Unchanged (5) Altered mental status, unspecified Qualifiers: Altered mental status type: delirium Qualified Code(s): R41.0 - Disorientation, unspecified Is this a current diagnosis for this admission?: Yes Plan: Unchanged patient responds poorly to sedation vacation this family report the patient recently had circular-like regions that looked like targets his back and abdomen he works outside a lot apparently may have been bitten by a tick - Time Total Critical Time (Minutes): 50
--- NOTE | 2017-08-15 18:25 | PDOC PROGRESS REPORT ---
Subjective Progress Note for:: 08/14/17 Subjective:: Intubated and sedated Reason For Visit: GENERALIZED PAIN, FEVER, SYSTEMIC INFLAMMATION Physical Exam Vital Signs: Temp Pulse Resp BP Pulse Ox 99.1 F 98 20 109/57 L 96 08/14/17 07:43 08/13/17 22:00 08/14/17 07:28 08/14/17 07:28 08/14/17 07:28 Intake & Output 08/13/17 08/14/17 08/15/17 06:59 06:59 06:59 Intake Total 4308 3652 Output Total 1350 1855 150 Balance 2958 1797 -150 Weight 105.7 kg General appearance: PRESENT: no acute distress, disheveled, obese. ABSENT: cooperative Head exam: PRESENT: atraumatic, normocephalic Eye exam: ABSENT: conjunctiva pale, nystagmus, periorbital swelling, scleral icterus Mouth exam: PRESENT: dry mucosa, neck supple, tongue midline, other - ET tube in place Neck exam: ABSENT: carotid bruit, JVD, lymphadenopathy, thyromegaly, tracheal deviation, tracheostomy Respiratory exam: PRESENT: decreased breath sounds, prolonged expiratory phas, rales, rhonchi, unlabored. ABSENT: retraction, stridor Cardiovascular exam: PRESENT: RRR, +S1, +S2, tachycardia Pulses: PRESENT: normal radial pulses GI/Abdominal exam: PRESENT: diminished bowel sounds, soft Extremities exam: ABSENT: clubbing, joint swelling Musculoskeletal exam: ABSENT: ambulatory, deformity, dislocation Neurological exam: ABSENT: awake Skin exam: PRESENT: dry, warm, other - No rashes noted Results Laboratory Results: 08/13/17 14:43 08/14/17 04:12 08/13/17 08/13/17 08/13/17 10:57 11:45 14:43 WBC RBC Hgb Hct MCV MCH MCHC RDW Plt Count Seg Neutrophils % Lymphocytes % Monocytes % Eosinophils % Basophils % Absolute Neutrophils Absolute Lymphocytes Absolute Monocytes Absolute Eosinophils Absolute Basophils Retic Count (auto) Absolute Retic Carbonic Acid 1.01 L HCO3/H2CO3 Ratio 18:1 ABG pH 7.37 ABG pCO2 33.4 L ABG pO2 75.9 L ABG HCO3 18.7 L ABG O2 Saturation 95.0 ABG Base Excess -5.8 FiO2 50% Sodium Potassium Chloride Carbon Dioxide Anion Gap BUN Creatinine Est GFR ( Amer) Est GFR (Non-Af Amer) Glucose Lactic Acid 2.1 Calcium Phosphorus Magnesium Iron TIBC % Saturation Ferritin Total Bilirubin 0.7 AST 159 H ALT 74 H Alkaline Phosphatase 93 Total Protein 4.3 L Albumin 2.0 L Vitamin B12 Folate 08/13/17 08/13/17 08/13/17 14:43 15:38 22:11 WBC 2.4 L RBC 3.87 L Hgb 11.5 L Hct 33.6 L MCV 87 MCH 29.6 MCHC 34.1 RDW 15.8 H Plt Count 66 L Seg Neutrophils % Not Reportable Lymphocytes % Not Reportable Monocytes % Not Reportable Eosinophils % Not Reportable Basophils % Not Reportable Absolute Neutrophils Not Reportable Absolute Lymphocytes Not Reportable Absolute Monocytes Not Reportable Absolute Eosinophils Not Reportable Absolute Basophils Not Reportable Retic Count (auto) Absolute Retic Carbonic Acid HCO3/H2CO3 Ratio ABG pH ABG pCO2 ABG pO2 ABG HCO3 ABG O2 Saturation ABG Base Excess FiO2 Sodium Potassium Chloride Carbon Dioxide Anion Gap BUN Creatinine Est GFR ( Amer) Est GFR (Non-Af Amer) Glucose Lactic Acid 2.0 2.3 H Calcium Phosphorus Magnesium Iron TIBC % Saturation Ferritin Total Bilirubin AST ALT Alkaline Phosphatase Total Protein Albumin Vitamin B12 Folate 08/14/17 08/14/17 08/14/17 04:12 04:12 04:12 WBC RBC Hgb Hct MCV MCH MCHC RDW Plt Count Seg Neutrophils % Lymphocytes % Monocytes % Eosinophils % Basophils % Absolute Neutrophils Absolute Lymphocytes Absolute Monocytes Absolute Eosinophils Absolute Basophils Retic Count (auto) 0.51 L Absolute Retic 0.020 L Carbonic Acid HCO3/H2CO3 Ratio ABG pH ABG pCO2 ABG pO2 ABG HCO3 ABG O2 Saturation ABG Base Excess FiO2 Sodium 136.9 L Potassium 4.6 Chloride 109 H Carbon Dioxide 19 L Anion Gap 9 BUN 33 H Creatinine 1.20 Est GFR ( Amer) > 60 Est GFR (Non-Af Amer) > 60 Glucose 85 Lactic Acid Calcium 7.0 L* Phosphorus 2.5 D Magnesium 2.3 Iron 34.9 L TIBC 179 L % Saturation 19 Ferritin 4580.00 H Total Bilirubin AST ALT Alkaline Phosphatase Total Protein Albumin 1.9 L Vitamin B12 807.0 Folate 5.73 08/14/17 06:20 WBC RBC Hgb Hct MCV MCH MCHC RDW Plt Count Seg Neutrophils % Lymphocytes % Monocytes % Eosinophils % Basophils % Absolute Neutrophils Absolute Lymphocytes Absolute Monocytes Absolute Eosinophils Absolute Basophils Retic Count (auto) Absolute Retic Carbonic Acid 0.93 L HCO3/H2CO3 Ratio 19:1 ABG pH 7.39 ABG pCO2 31.0 L ABG pO2 80.1 ABG HCO3 18.4 L ABG O2 Saturation 95.9 ABG Base Excess -5.5 FiO2 50% Sodium Potassium Chloride Carbon Dioxide Anion Gap BUN Creatinine Est GFR ( Amer) Est GFR (Non-Af Amer) Glucose Lactic Acid Calcium Phosphorus Magnesium Iron TIBC % Saturation Ferritin Total Bilirubin AST ALT Alkaline Phosphatase Total Protein Albumin Vitamin B12 Folate 08/13/17 11:10 Tracheal Aspirate Gram Stain - Final 08/12/17 16:20 Catheterized Urine Urine Culture - Final NO GROWTH 2 DAYS 08/13/17 08/14/17 04:17 04:12 NT-Pro-B Natriuret Pep 1510 H 878 Impressions: Abdomen Ultrasound 08/09/17 00:00 IMPRESSION: NORMAL ABDOMINAL ULTRASOUND. Abdomen/Pelvis CT 08/11/17 00:00 IMPRESSION: Trace bilateral pleural effusions. No pneumothorax. No alveolar pulmonary edema or dense pneumonia. No bowel obstruction. Post partial sigmoid colectomy. Intact ventral hernia repair. Chest CT 08/11/17 00:00 IMPRESSION: Trace bilateral pleural effusions. No pneumothorax. No alveolar pulmonary edema or dense pneumonia. No bowel obstruction. Post partial sigmoid colectomy. Intact ventral hernia repair. Head CT 08/12/17 00:00 IMPRESSION: NORMAL BRAIN CT WITHOUT CONTRAST. EVIDENCE OF ACUTE STROKE: NO. Chest X-Ray 08/14/17 06:00 IMPRESSION: 1. Slight interval increase in bibasilar opacities and likely small bilateral pleural effusion. Assessment & Plan - Diagnosis (1) Elevated liver function tests Is this a current diagnosis for this admission?: Yes Plan: Labs- All tests 24 hr 08/08/17 08/09/17 08/10/17 09:40 05:27 04:58 Total Bilirubin Direct Bilirubin AST 99 H 90 H 102 H ALT 111 H 92 H 71 Alkaline Phosphatase 154 H 120 97 08/11/17 08/11/17 08/12/17 00:53 07:05 11:57 Total Bilirubin Direct Bilirubin AST 109 H 115 H 143 H ALT 73 H 74 H 81 H Alkaline Phosphatase 92 100 88 08/12/17 15:40 Total Bilirubin 0.5 Direct Bilirubin 0.5 H AST 166 H ALT 80 H Alkaline Phosphatase 92 (2) Acute kidney injury Is this a current diagnosis for this admission?: Yes Plan: Improving (3) Sepsis Is this a current diagnosis for this admission?: Yes (4) Thrombocytopenia Is this a current diagnosis for this admission?: Yes Plan: Unchanged (5) Altered mental status, unspecified Qualifiers: Altered mental status type: delirium Qualified Code(s): R41.0 - Disorientation, unspecified Is this a current diagnosis for this admission?: Yes - Time Total Critical Time (Minutes): 40
[2017-08-16] MEDS: MIDAZOLAM HCL 50 MG/100 ML RTUINJ IV PRN ×2 (03:32→09:10)
[2017-08-16] MEDS: NORMAL SALINE 1000 ML 1,000 ML IV PRN ×2 (03:33→16:55)
[2017-08-16] MEDS: VANCOMYCIN HCL 1,000 MG in DEXTROSE 5%-WATER 250 ML IV SCH ×2 (05:47→17:00)
[2017-08-16 05:59] LABS: HEMATOCRIT 34.7 % (37.9-51.0); MEAN CORPUSCULAR HEMOGLOBIN 29.6 pg (27.0-33.4); MEAN CORPUSCULAR HGB CONC 34.5 g/dL (32.0-36.0); MEAN CORPUSCULAR VOLUME 86 fl (80-97); RED BLOOD COUNT 4.05 10^6/uL (4.35-5.55); WHITE BLOOD COUNT 5.5 10^3/uL (4.0-10.5)
--- NOTE | 2017-08-16 06:02 | RADIOLOGY REPORT (SQ) ---
EXAM DESCRIPTION: Single view of the chest CLINICAL HISTORY: resp failure COMPARISON: 08/13/2017 FINDINGS: Single frontal view of the chest. Cardiomediastinal silhouette is stable. Endotracheal tube and NG tube are stable. Leads overlie the chest. Persistent bibasilar opacity with possible small bilateral pleural effusions. No pneumothorax. Degenerative change of the spine. Upper abdominal soft tissues are unremarkable. IMPRESSION: 1. Slight improved aeration the lung bases with otherwise stable appearance of the chest. Electronically signed by: Rohan Peters 08/16/2017 5:01 AM CDT
[2017-08-16 06:08] LABS: ARTERIAL BLOOD BASE EXCESS -4.8 mmol/L; ARTERIAL BLOOD H2CO3 0.74 mmol/L (1.05-1.35); ARTERIAL BLOOD HCO3 17.4 mmol/L (20-26); ARTERIAL BLOOD O2 SATURATION 97.2 % (94-98); ARTERIAL BLOOD PCO2 24.7 mmHg (35-45); ARTERIAL BLOOD PH 7.47 (7.35-7.45); ARTERIAL BLOOD PO2 86.2 mmHg (80-100); ARTERIAL BLOOD TOTAL CO2 18.1 mmol/L (23-27)
[2017-08-16 06:09] LABS: ARTERIAL BLOOD FIO2 50%
[2017-08-16 06:22] LABS: ALANINE AMINOTRANSFERASE 65 U/L (21-72); ALBUMIN 1.9 g/dL (3.5-5.0); ALKALINE PHOSPHATASE 126 U/L (38-126); ANION GAP 9 (5-19); ASPARTATE AMINO TRANSFERASE 132 U/L (17-59); BILIRUBIN,DIRECT 0.6 mg/dL (0.0-0.4); BILIRUBIN,TOTAL 0.6 mg/dL (0.2-1.3); BLOOD UREA NITROGEN 30 mg/dL (7-20); CALCIUM 7.3 mg/dL (8.4-10.2); CARBON DIOXIDE 18 mmol/L (22-30); CHLORIDE 114 mmol/L (98-107); GLUCOSE 101 mg/dL (75-110); SODIUM 140.7 mmol/L (137-145); TOTAL PROTEIN 4.9 g/dL (6.3-8.2)
[2017-08-16 06:28] LABS: PLATELET COUNT 99 10^3/uL (150-450)
[2017-08-16 06:32] LABS: POTASSIUM 4.6 mmol/L (3.6-5.0)
[2017-08-16 07:36] LABS: VANCOMYCIN,TROUGH 11.7 ug/mL (5.0-20.0)
[2017-08-16] MEDS ORDERED: RINGERS SOLUTION,LACTATED 1,000 ML IV ONE (07:52)
[2017-08-16 08:12] LABS: A. PHAGOCYTOPHILUM PCR Negative (Negative); E. CHAFFEENSIS PCR Positive (Negative)
[2017-08-16] MEDS: DOXYCYCLINE HYCLATE 100 MG in DEXTROSE 5%-WATER 250 ML IV SCH ×2 (09:26→21:03)
[2017-08-16] MEDS: DOCUSATE SODIUM 100 MG CAPSULE PO SCH (09:26)
[2017-08-16] MEDS: LACTOBACILLUS ACIDOPHILUS 250 MG TAB NG SCH ×2 (09:26→17:01)
[2017-08-16] MEDS: ENOXAPARIN SODIUM INJ 40 MG/0.4 ML DISP.SYRIN SUBCUT SCH (09:26)
[2017-08-16 09:38] LABS: ARTERIAL BLOOD BASE EXCESS -3.7 mmol/L; ARTERIAL BLOOD H2CO3 0.81 mmol/L (1.05-1.35); ARTERIAL BLOOD HCO3 18.8 mmol/L (20-26); ARTERIAL BLOOD O2 SATURATION 96.3 % (94-98); ARTERIAL BLOOD PCO2 26.9 mmHg (35-45); ARTERIAL BLOOD PH 7.46 (7.35-7.45); ARTERIAL BLOOD PO2 77.3 mmHg (80-100); ARTERIAL BLOOD TOTAL CO2 19.6 mmol/L (23-27)
[2017-08-16 09:41] LABS: ARTERIAL BLOOD FIO2 40%
[2017-08-16] MEDS: PROPOFOL 100 ML IV PRN ×2 (16:54→21:02)
--- NOTE | 2017-08-16 19:14 | PDOC PROGRESS REPORT ---
Subjective Progress Note for:: 08/16/17 Subjective:: Intubated and sedated Reason For Visit: GENERALIZED PAIN, FEVER, SYSTEMIC INFLAMMATION Physical Exam Vital Signs: Temp Pulse Resp BP Pulse Ox 99.7 F 108 H 24 H 110/63 97 08/15/17 20:00 08/15/17 21:35 08/16/17 06:00 08/16/17 04:59 08/16/17 06:00 Intake & Output 08/15/17 08/16/17 08/17/17 06:59 06:59 06:59 Intake Total 2979 3406 Output Total 1760 1635 Balance 1219 1771 Weight 105.7 kg 105.7 kg General appearance: PRESENT: no acute distress, disheveled, obese. ABSENT: cooperative Head exam: PRESENT: atraumatic, normocephalic Eye exam: PRESENT: conjunctiva pale. ABSENT: EOMI, nystagmus, periorbital swelling, scleral icterus Mouth exam: PRESENT: dry mucosa, neck supple, tongue midline, other - ET tube Neck exam: ABSENT: carotid bruit, JVD, lymphadenopathy, thyromegaly, tracheal deviation, tracheostomy Respiratory exam: PRESENT: decreased breath sounds, prolonged expiratory phas, rales, rhonchi, unlabored. ABSENT: retraction, stridor Cardiovascular exam: PRESENT: RRR, +S1, +S2, tachycardia Pulses: PRESENT: normal radial pulses GI/Abdominal exam: PRESENT: diminished bowel sounds, soft Extremities exam: ABSENT: clubbing, full ROM, joint swelling Musculoskeletal exam: ABSENT: ambulatory, deformity, dislocation, full ROM Neurological exam: ABSENT: awake, oriented to person Skin exam: PRESENT: dry, warm Results Laboratory Results: 08/16/17 05:47 08/16/17 05:47 08/15/17 08/16/17 08/16/17 08:30 05:47 05:47 WBC 5.5 RBC 4.05 L Hgb 12.0 L Hct 34.7 L MCV 86 MCH 29.6 MCHC 34.5 RDW 16.0 H Plt Count 99 L Carbonic Acid HCO3/H2CO3 Ratio ABG pH ABG pCO2 ABG pO2 ABG HCO3 ABG O2 Saturation ABG Base Excess FiO2 Sodium Potassium Chloride Carbon Dioxide Anion Gap BUN Creatinine Cancelled Est GFR ( Amer) Cancelled Est GFR (Non-Af Amer) Cancelled Glucose Lactic Acid 2.0 Calcium Magnesium 2.3 Total Bilirubin AST ALT Alkaline Phosphatase Total Protein Albumin 08/16/17 08/16/17 05:47 06:00 WBC RBC Hgb Hct MCV MCH MCHC RDW Plt Count Carbonic Acid 0.74 L HCO3/H2CO3 Ratio 23:1 ABG pH 7.47 H ABG pCO2 24.7 L ABG pO2 86.2 ABG HCO3 17.4 L ABG O2 Saturation 97.2 ABG Base Excess -4.8 FiO2 50% Sodium 140.7 Potassium 4.6 Chloride 114 H Carbon Dioxide 18 L Anion Gap 9 BUN 30 H Creatinine 1.00 Est GFR ( Amer) > 60 Est GFR (Non-Af Amer) > 60 Glucose 101 Lactic Acid Calcium 7.3 L Magnesium Total Bilirubin 0.6 AST 132 H ALT 65 Alkaline Phosphatase 126 Total Protein 4.9 L Albumin 1.9 L 08/13/17 08/14/17 04:17 04:12 NT-Pro-B Natriuret Pep 1510 H 878 Impressions: Abdomen Ultrasound 08/09/17 00:00 IMPRESSION: NORMAL ABDOMINAL ULTRASOUND. Abdomen/Pelvis CT 08/11/17 00:00 IMPRESSION: Trace bilateral pleural effusions. No pneumothorax. No alveolar pulmonary edema or dense pneumonia. No bowel obstruction. Post partial sigmoid colectomy. Intact ventral hernia repair. Chest CT 08/11/17 00:00 IMPRESSION: Trace bilateral pleural effusions. No pneumothorax. No alveolar pulmonary edema or dense pneumonia. No bowel obstruction. Post partial sigmoid colectomy. Intact ventral hernia repair. Head CT 08/12/17 00:00 IMPRESSION: NORMAL BRAIN CT WITHOUT CONTRAST. EVIDENCE OF ACUTE STROKE: NO. Chest X-Ray 08/16/17 06:00 IMPRESSION: 1. Slight improved aeration the lung bases with otherwise stable appearance of the chest. Assessment & Plan - Diagnosis (1) Elevated liver function tests Is this a current diagnosis for this admission?: Yes Plan: improving (2) Acute kidney injury Is this a current diagnosis for this admission?: Yes Plan: Improving Labs- All tests 24 hr 08/08/17 08/09/17 08/10/17 09:40 05:27 04:58 Creatinine 2.23 H 1.65 H 1.49 H 08/11/17 08/11/17 08/12/17 00:53 07:05 11:57 Creatinine 1.51 H 1.55 H 1.73 H 08/13/17 08/14/17 08/14/17 04:17 04:12 20:25 Creatinine 1.68 H 1.20 1.07 08/15/17 08/16/17 04:11 05:47 Creatinine 1.09 1.00 (3) Sepsis Is this a current diagnosis for this admission?: Yes Plan: no longer on vasopressor (4) Thrombocytopenia Is this a current diagnosis for this admission?: Yes Plan: Labs- All tests 24 hr 08/08/17 08/09/17 08/11/17 09:40 05:27 00:53 Plt Count 65 L 64 L 80 L 08/11/17 08/12/17 08/12/17 07:05 11:57 15:40 Plt Count 83 L 79 L 78 L 08/13/17 08/14/17 08/14/17 14:43 14:25 20:25 Plt Count 66 L 72 L 76 L 08/15/17 08/16/17 04:11 05:47 Plt Count 73 L 99 L (5) Altered mental status, unspecified Qualifiers: Altered mental status type: delirium Qualified Code(s): R41.0 - Disorientation, unspecified Is this a current diagnosis for this admission?: Yes Plan: Unchanged - Time Total Critical Time (Minutes): 40
--- NOTE | 2017-08-16 19:29 | PDOC PROGRESS REPORT ---
Subjective Progress Note for:: 08/16/17 Subjective:: intubated and sedated, uneventful night Reason For Visit: GENERALIZED PAIN, FEVER, SYSTEMIC INFLAMMATION Physical Exam Vital Signs: Temp Pulse Resp BP Pulse Ox 99.7 F 98 22 H 103/53 L 93 08/15/17 20:00 08/16/17 08:00 08/16/17 18:00 08/16/17 17:59 08/16/17 18:00 Intake & Output 08/15/17 08/16/17 08/17/17 06:59 06:59 06:59 Intake Total 2979 3406 1935 Output Total 1760 1635 1100 Balance 1219 1771 835 Weight 105.7 kg 105.7 kg General appearance: PRESENT: no acute distress Head exam: PRESENT: atraumatic, normocephalic Eye exam: PRESENT: PERRLA. ABSENT: conjunctival injection, scleral icterus Mouth exam: PRESENT: moist Respiratory exam: PRESENT: clear to auscultation fredis. ABSENT: rales, rhonchi, unlabored, wheezes Cardiovascular exam: PRESENT: RRR. ABSENT: systolic murmur Pulses: PRESENT: normal radial pulses, normal dorsalis pedis pul GI/Abdominal exam: PRESENT: normal bowel sounds, soft. ABSENT: distended, tenderness Gentrourinary exam: ABSENT: lesions Musculoskeletal exam: PRESENT: normal inspection Neurological exam: PRESENT: other - Intubated and sedated Psychiatric exam: ABSENT: agitated Skin exam: PRESENT: dry, intact, warm Results Laboratory Results: 08/16/17 05:47 08/16/17 05:47 08/16/17 08/16/17 08/16/17 05:47 05:47 05:47 WBC 5.5 RBC 4.05 L Hgb 12.0 L Hct 34.7 L MCV 86 MCH 29.6 MCHC 34.5 RDW 16.0 H Plt Count 99 L Carbonic Acid HCO3/H2CO3 Ratio ABG pH ABG pCO2 ABG pO2 ABG HCO3 ABG O2 Saturation ABG Base Excess FiO2 Sodium 140.7 Potassium 4.6 Chloride 114 H Carbon Dioxide 18 L Anion Gap 9 BUN 30 H Creatinine Cancelled 1.00 Est GFR ( Amer) Cancelled > 60 Est GFR (Non-Af Amer) Cancelled > 60 Glucose 101 Calcium 7.3 L Magnesium 2.3 Total Bilirubin 0.6 AST 132 H ALT 65 Alkaline Phosphatase 126 Total Protein 4.9 L Albumin 1.9 L 08/16/17 08/16/17 06:00 09:15 WBC RBC Hgb Hct MCV MCH MCHC RDW Plt Count Carbonic Acid 0.74 L 0.81 L HCO3/H2CO3 Ratio 23:1 23:1 ABG pH 7.47 H 7.46 H ABG pCO2 24.7 L 26.9 L ABG pO2 86.2 77.3 L ABG HCO3 17.4 L 18.8 L ABG O2 Saturation 97.2 96.3 ABG Base Excess -4.8 -3.7 FiO2 50% 40% Sodium Potassium Chloride Carbon Dioxide Anion Gap BUN Creatinine Est GFR ( Amer) Est GFR (Non-Af Amer) Glucose Calcium Magnesium Total Bilirubin AST ALT Alkaline Phosphatase Total Protein Albumin 08/12/17 15:40 Blood Blood Culture - Final Staphylococcus Epidermidis 08/13/17 08/14/17 04:17 04:12 NT-Pro-B Natriuret Pep 1510 H 878 Impressions: Abdomen Ultrasound 08/09/17 00:00 IMPRESSION: NORMAL ABDOMINAL ULTRASOUND. Abdomen/Pelvis CT 08/11/17 00:00 IMPRESSION: Trace bilateral pleural effusions. No pneumothorax. No alveolar pulmonary edema or dense pneumonia. No bowel obstruction. Post partial sigmoid colectomy. Intact ventral hernia repair. Chest CT 08/11/17 00:00 IMPRESSION: Trace bilateral pleural effusions. No pneumothorax. No alveolar pulmonary edema or dense pneumonia. No bowel obstruction. Post partial sigmoid colectomy. Intact ventral hernia repair. Head CT 08/12/17 00:00 IMPRESSION: NORMAL BRAIN CT WITHOUT CONTRAST. EVIDENCE OF ACUTE STROKE: NO. Chest X-Ray 08/16/17 06:00 IMPRESSION: 1. Slight improved aeration the lung bases with otherwise stable appearance of the chest. Assessment & Plan - Diagnosis (1) Tick-borne disease Is this a current diagnosis for this admission?: Yes Plan: It is possible that this patient has Lyme disease given the reports of a tick being found on the patient about 2 weeks ago and also evanescent target shaped lesions that the saw on his arms and torso. He is on doxycycline. First set of Lyme serologies was negative but they can be so for up to 2 weeks. I have reordered Lyme serologies with reflex Western blot. Lumbar puncture is pending for tomorrow to see if there is potential CSF involvement. It remains possible that he has other tickborne illness such as [place] spotted fever or ehrlichiosis. Continue doxycycline for now. (2) Acute respiratory failure Is this a current diagnosis for this admission?: Yes Plan: Most likely related to acute infection. He is doing well on the vent and we have been able to wean back on his O2 and respiratory rate today. We will continue with daily chest x-rays and ABG. Appreciate Dr. Young's assistance with the vent. We are now able to sedate him with propofol as his blood pressure is improved and Versed has been discontinued. (3) Enterococcus faecalis infection Is this a current diagnosis for this admission?: Yes Plan: Patient was on vancomycin for at least 7 days. Vanco has now been DC'd. (4) Altered mental status, unspecified Qualifiers: Altered mental status type: delirium Qualified Code(s): R41.0 - Disorientation, unspecified Is this a current diagnosis for this admission?: Yes Plan: Contrary to acute infection. Unknown whether patient has CSF involvement or whether the acute encephalopathy was related to a sepsis picture. Lumbar puncture is pending. There has been no report of Cantor's palsy. (5) Elevated liver function tests Is this a current diagnosis for this admission?: Yes Plan: Probably related to tickborne illness. LFTs are improving. (6) Pancytopenia Is this a current diagnosis for this admission?: Yes Plan: Probably related to tickborne illness. Pancytopenia is improving. White blood cell count is normal today. Platelets are improving. (7) Pneumonia Qualifiers: Pneumonia type: due to unspecified organism Laterality: right Lung location: unspecified part of lung Qualified Code(s): J18.9 - Pneumonia, unspecified organism Is this a current diagnosis for this admission?: Yes Plan: No evidence of pneumonia now. All antibiotics are discontinued with the exception of doxycycline. (8) SIRS (systemic inflammatory response syndrome) Is this a current diagnosis for this admission?: Yes Plan: Parameters resolved. (9) Positive blood culture Is this a current diagnosis for this admission?: Yes Plan: Spoke with the lab today. Staph epi is growing from one set of blood cultures that the lab is calling a contaminant. I stopped vancomycin. Repeat blood cultures are negative to date but still pending final results. (10) Nutrition deficiency due to insufficient food Is this a current diagnosis for this admission?: Yes Plan: Tube feeds have been started today and patient is tolerating well. (11) Atrial fibrillation Qualifiers: Atrial fibrillation type: paroxysmal Qualified Code(s): I48.0 - Paroxysmal atrial fibrillation Is this a current diagnosis for this admission?: Yes Plan: Patient had A. fib on the floor. He was briefly on a diltiazem drip. Now he is in sinus rhythm. - Time Time Spent with patient: 35 or more minutes Medications reviewed and adjusted accordingly: Yes - Inpatient Certification Based on my medical assessment, after consideration of the patient's comorbidities, presenting symptoms, or acuity I expect that the services needed warrant INPATIENT care.: Yes I certify that my determination is in accordance with my understanding of Medicare's requirements for reasonable and necessary INPATIENT services [42 CFR 412.3e].: Yes Medical Necessity: Need for IV Antibiotics, Other - Intubated and sedated - Plan Summary Plan Summary: Patient had a tick taken off of him about 2 weeks ago, several days prior to admission. His lab tests and clinical picture are really consistent with a tickborne illness. 2 days ago his gave me the story that he had target shaped lesions on his arms and torso so this may be Lyme disease. It also could be [place] spotted fever or early ketosis. ID has consulted.
[2017-08-17] MEDS: PROPOFOL 100 ML IV PRN ×6 (01:46→23:18)
[2017-08-17] MEDS: NORMAL SALINE 1000 ML 1,000 ML IV PRN ×2 (01:47→17:07)
[2017-08-17 04:37] LABS: HEMATOCRIT 35.1 % (37.9-51.0); HEMOGLOBIN 12.2 g/dL (13.5-17.0); MEAN CORPUSCULAR HEMOGLOBIN 29.7 pg (27.0-33.4); MEAN CORPUSCULAR HGB CONC 34.8 g/dL (32.0-36.0); MEAN CORPUSCULAR VOLUME 85 fl (80-97); RED BLOOD COUNT 4.11 10^6/uL (4.35-5.55); RED CELL DISTRIBUTION WIDTH 16.3 % (11.5-14.0)
[2017-08-17 04:50] LABS: ALANINE AMINOTRANSFERASE 60 U/L (21-72); ALKALINE PHOSPHATASE 133 U/L (38-126); ANION GAP 7 (5-19); ASPARTATE AMINO TRANSFERASE 110 U/L (17-59); BILIRUBIN,DIRECT 0.6 mg/dL (0.0-0.4); BILIRUBIN,TOTAL 0.6 mg/dL (0.2-1.3); BLOOD UREA NITROGEN 29 mg/dL (7-20); CALCIUM 7.5 mg/dL (8.4-10.2); CARBON DIOXIDE 21 mmol/L (22-30); CHLORIDE 112 mmol/L (98-107); GLUCOSE 106 mg/dL (75-110); PHOSPHORUS 3.3 mg/dL (2.5-4.5); POTASSIUM 4.5 mmol/L (3.6-5.0); SODIUM 139.5 mmol/L (137-145); TOTAL PROTEIN 4.9 g/dL (6.3-8.2)
[2017-08-17 05:11] LABS: ARTERIAL BLOOD H2CO3 0.81 mmol/L (1.05-1.35); ARTERIAL BLOOD HCO3 20.1 mmol/L (20-26); ARTERIAL BLOOD O2 SATURATION 95.3 % (94-98); ARTERIAL BLOOD PCO2 26.8 mmHg (35-45); ARTERIAL BLOOD PH 7.49 (7.35-7.45); ARTERIAL BLOOD PO2 68.7 mmHg (80-100); ARTERIAL BLOOD TOTAL CO2 20.9 mmol/L (23-27)
[2017-08-17 05:13] LABS: ARTERIAL BLOOD FIO2 30%
[2017-08-17 05:18] LABS: ABSOLUTE LYMPHOCYTES# (MANUAL) 1.1 10^3/uL (0.5-4.7); ABSOLUTE MONOCYTES # (MANUAL) 0.1 10^3/uL (0.1-1.4); ABSOLUTE NEUTROPHILS# (MANUAL) 3.9 10^3/uL (1.7-8.2); BAND NEUTROPHILS % (MANUAL) 4 % (3-5); BASOPHILS % (MANUAL) 0 % (0-2); EOSINOPHILS % (MANUAL) 0 % (0-6); LYMPHOCYTES % (MANUAL) 21 % (13-45); MONOCYTES % (MANUAL) 2 % (3-13); RBC MORPHOLOGY COMMENT NORMO-CYTIC/CHROMIC; SEGMENTED NEUTROPHILS % (MAN) 73 % (42-78); TOTAL CELLS COUNTED 100
[2017-08-17 05:19] LABS: PLATELET CLUMPS PRESENT; PLATELET COMMENT ADEQUATE
[2017-08-17 05:20] LABS: TOXIC GRANULATION 2+; TOXIC VACUOLATION PRESENT
[2017-08-17 05:22] LABS: PLATELET COUNT 105 10^3/uL (150-450)
[2017-08-17 05:23] LABS: SMUDGE CELLS PRESENT
--- NOTE | 2017-08-17 08:03 | RADIOLOGY REPORT (SQ) ---
EXAM DESCRIPTION: CHEST SINGLE VIEW COMPLETED DATE/TIME: 08/17/2017 6:45 am REASON FOR STUDY: resp fail COMPARISON: CT chest 08/11/2017 Chest films 08/13/2017, 08/14/2017, 08/15/2017, 08/16/2017 EXAM PARAMETERS: NUMBER OF VIEWS: One view. TECHNIQUE: Single frontal radiographic view of the chest acquired. RADIATION DOSE: NA LIMITATIONS: Rotated towards the OCCITAN orientation FINDINGS: LUNGS AND PLEURA: There is minimal right retrocardiac airspace disease atelectasis versus pneumonia with few air bronchograms present. Lungs are otherwise well inflated and grossly clear. No pleural effusion. No pneumothorax. MEDIASTINUM AND HILAR STRUCTURES: No masses. Contour normal. HEART AND VASCULAR STRUCTURES: No cardiomegaly BONES: No acute findings. HARDWARE: Endotracheal tube tip 5 cm above the loly. Nasogastric tube tip and side port in the sto mach. OTHER: No other significant finding. IMPRESSION: Right medial basilar airspace disease atelectasis versus pneumonia. TECHNICAL DOCUMENTATION: JOB ID: [id number] [employer]- All Rights Reserved Reading location - IP/workstation name: [facility]
--- NOTE | 2017-08-17 08:06 | PDOC PROGRESS REPORT ---
Subjective Progress Note for:: 08/17/17 Subjective:: Patient remains sedated on Vent. Nurses report no significant issues overnight. He is scheduled for LP today. Doxycycline continues. Hopefully, they will start weaning Vent today. He is receiving tube feedings. No fevers. ROS unable to obtain due to patient's condition. Reason For Visit: GENERALIZED PAIN, FEVER, SYSTEMIC INFLAMMATION Physical Exam Vital Signs: Temp Pulse Resp BP Pulse Ox 98.4 F 96 22 H 127/65 H 95 08/17/17 07:56 08/17/17 07:56 08/17/17 07:56 08/17/17 07:56 08/17/17 07:56 Intake & Output 08/16/17 08/17/17 08/18/17 06:59 06:59 06:59 Intake Total 3406 3688 Output Total 1635 2275 100 Balance 1771 1413 -100 Weight 105.7 kg 109.2 kg General appearance: PRESENT: no acute distress Exam: Overweight, 72 year olf male. No family at bedside currently. Head exam: PRESENT: atraumatic Mouth exam: PRESENT: neck supple Neck exam: ABSENT: lymphadenopathy Respiratory exam: PRESENT: unlabored GI/Abdominal exam: PRESENT: soft. ABSENT: organolmegaly Extremities exam: PRESENT: other - SCDs in place.. ABSENT: pedal edema Neurological exam: PRESENT: other - Sedated on ventilator Skin exam: PRESENT: normal color Results Laboratory Results: 08/17/17 04:24 08/17/17 04:24 08/16/17 08/17/17 08/17/17 09:15 04:24 04:24 WBC 5.0 RBC 4.11 L Hgb 12.2 L Hct 35.1 L MCV 85 MCH 29.7 MCHC 34.8 RDW 16.3 H Plt Count 105 L Seg Neutrophils % Not Reportable Lymphocytes % Not Reportable Monocytes % Not Reportable Eosinophils % Not Reportable Basophils % Not Reportable Absolute Neutrophils Not Reportable Absolute Lymphocytes Not Reportable Absolute Monocytes Not Reportable Absolute Eosinophils Not Reportable Absolute Basophils Not Reportable Carbonic Acid 0.81 L HCO3/H2CO3 Ratio 23:1 ABG pH 7.46 H ABG pCO2 26.9 L ABG pO2 77.3 L ABG HCO3 18.8 L ABG O2 Saturation 96.3 ABG Base Excess -3.7 FiO2 40% Sodium 139.5 Potassium 4.5 Chloride 112 H Carbon Dioxide 21 L Anion Gap 7 BUN 29 H Creatinine 0.81 Est GFR ( Amer) > 60 Est GFR (Non-Af Amer) > 60 Glucose 106 Calcium 7.5 L Phosphorus 3.3 Magnesium 2.2 Total Bilirubin 0.6 AST 110 H ALT 60 Alkaline Phosphatase 133 H Total Protein 4.9 L Albumin 2.0 L 08/17/17 05:02 WBC RBC Hgb Hct MCV MCH MCHC RDW Plt Count Seg Neutrophils % Lymphocytes % Monocytes % Eosinophils % Basophils % Absolute Neutrophils Absolute Lymphocytes Absolute Monocytes Absolute Eosinophils Absolute Basophils Carbonic Acid 0.81 L HCO3/H2CO3 Ratio 24:1 ABG pH 7.49 H ABG pCO2 26.8 L ABG pO2 68.7 L ABG HCO3 20.1 ABG O2 Saturation 95.3 ABG Base Excess -2.0 FiO2 30% Sodium Potassium Chloride Carbon Dioxide Anion Gap BUN Creatinine Est GFR ( Amer) Est GFR (Non-Af Amer) Glucose Calcium Phosphorus Magnesium Total Bilirubin AST ALT Alkaline Phosphatase Total Protein Albumin 08/12/17 16:20 Isaac Catheter Legionella Urinary Antigen - Final 08/12/17 15:40 Blood Blood Culture - Final Staphylococcus Epidermidis 08/13/17 08/14/17 08/17/17 04:17 04:12 04:24 NT-Pro-B Natriuret Pep 1510 H 878 196 Impressions: Abdomen Ultrasound 08/09/17 00:00 IMPRESSION: NORMAL ABDOMINAL ULTRASOUND. Abdomen/Pelvis CT 08/11/17 00:00 IMPRESSION: Trace bilateral pleural effusions. No pneumothorax. No alveolar pulmonary edema or dense pneumonia. No bowel obstruction. Post partial sigmoid colectomy. Intact ventral hernia repair. Chest CT 08/11/17 00:00 IMPRESSION: Trace bilateral pleural effusions. No pneumothorax. No alveolar pulmonary edema or dense pneumonia. No bowel obstruction. Post partial sigmoid colectomy. Intact ventral hernia repair. Head CT 08/12/17 00:00 IMPRESSION: NORMAL BRAIN CT WITHOUT CONTRAST. EVIDENCE OF ACUTE STROKE: NO. Assessment & Plan - Diagnosis (1) Pancytopenia Is this a current diagnosis for this admission?: Yes Plan: All blood counts are slowly improving. Patient seems to be responding to treatment. This was most likely reactive from the infection. (2) Pneumonia Qualifiers: Pneumonia type: due to unspecified organism Laterality: right Lung location: unspecified part of lung Qualified Code(s): J18.9 - Pneumonia, unspecified organism Is this a current diagnosis for this admission?: Yes Plan: Ehrlichia was positive, as was mycoplasma. Await Lumbar Puncture today. Infectious disease notes reviewed again. (3) Elevated liver function tests Is this a current diagnosis for this admission?: Yes Plan: Improved. - Plan Summary Plan Summary: I agree with continued supportive care and aggressive treatment of infection. DVT prophylaxis as long as PLT >50. No indication for blood transfusions. Please call me with any concerns.
[2017-08-17] MEDS: ENOXAPARIN SODIUM INJ 40 MG/0.4 ML DISP.SYRIN SUBCUT SCH (08:45)
--- NOTE | 2017-08-17 08:55 | PROGRESS NOTE E ---
Progress Note NAME: PURA HARRELL : 1945 AGE: 72Y DATE: 08/17/2017 ROOM: 611 SUBJECTIVE: The patient is lying in bed. He is intubated, sedated, unable to provide any history. It appears that the patient has had much more blood pressure worsening since stopping the Versed. The patient remains on pressure support. The patient has been afebrile. His blood pressures have been in a good range. The patient is having an LP today and the patient is unable to voice any specific concerns at this time. REVIEW OF SYSTEMS: A full review of systems cannot be appreciated given the patient's mental status. MEDICATIONS: Medications have been reviewed. OBJECTIVE: GENERAL: The patient is a 72-year-old male who is currently intubated, sedated, does not appear to be distressed. VITAL SIGNS: As follows: Temperature 97.9, pulse 94, respirations 22, blood pressure 111/66, oxygen saturation 95% on 30% FiO2. SKIN: Warm and dry. No rash, not diaphoretic. HEENT: Pupils are sluggish, but reactive. Conjunctivae are pale. There is no evidence of JVP. CARDIOVASCULAR: Heart is regular. There is no rub. CHEST: Diminished, symmetrical with bilateral, unlabored. ABDOMEN: Soft, nontender. EXTREMITIES: The patient does have third-spacing edema. PSYCHIATRIC: Unable to assess. DIAGNOSTICS: Lab values are as follows: Hematology obtained on 08/17/2017, WBC 15.0, hemoglobin 12.2, hematocrit 35.1, platelet count 105,000. Chemistry obtained on 08/17/2017; sodium 139, potassium 4.5, chloride 112, carbon dioxide 21, BUN 29, creatinine 0.81, glucose 106, calcium 7.5, phosphorus 3.3, magnesium 3.2, bilirubin 0.6, AST 110, ALT 60, alkaline phosphatase 133, total protein 4.9, albumin 2.0. IMPRESSION AND PLAN: 1. INFECTION WITH HIGH SUSPICION FOR TICK BORNE ILLNESS. Repeat serologies are pending. According to previous documentation, the patient had a 2-week history of effervescent target lesions that the saw on his arms and torso. The patient has been covered with doxycycline. Initial set of Lyme was negative, but this has been repeated for 2-week followup. The patient is to have an LP today to evaluate for further involvement. We will continue doxycycline for now and follow. 2. ACUTE RESPIRATORY FAILURE. The patient has been able to wean on the O2, though he remains intubated and sedated. We will continue to follow chest x-ray and ABG. Do appreciate Dr. Young's assistance with this and follow. 3. ENTEROCOCCUS FAECALIS URINARY TRACT INFECTION. The patient received 7 days of vancomycin. This has been discontinued. 4. ACUTE ENCEPHALOPATHY, POSSIBLE DUE TO THE INFECTION. Again, the patient is to have an LP done today. We will follow. 5. TRANSAMINITIS, POSSIBLY DUE TO INFECTIOUS PROCESS. We will continue to monitor. 6. PANCYTOPENIA. Again, secondary to infectious process. 7. PAROXYSMAL ATRIAL FIBRILLATION. This is a new diagnosis for the patient. Do appreciate Cardiology input on this. The patient currently remains in sinus rhythm. Anticoagulation is currently on hold for LP. DISPOSITION: The patient is a FULL CODE. Depending on the patient's symptomatology and diagnostic findings, we will reevaluate as needed. Do appreciate Infectious Disease input on this. TIME SPENT: On this critical care visit, including assessment, plan, physical examination, and review of records is 35 minutes. DICTATING PHYSICIAN: MALLORY MEJIA NP [id number] PHY#: [id number] ID: [id number] JOB#: [id number] ACCT: [id number] cc: >
[2017-08-17] MEDS: DOCUSATE SODIUM 100 MG CAPSULE PO SCH (10:12)
--- NOTE | 2017-08-17 11:49 | PDOC PROGRESS REPORT ---
Subjective Progress Note for:: 08/17/17 Subjective:: Intubated and sedated and does not arouse during sedation vacation Reason For Visit: GENERALIZED PAIN, FEVER, SYSTEMIC INFLAMMATION Physical Exam Vital Signs: Temp Pulse Resp BP Pulse Ox 98.4 F 96 22 H 127/65 H 96 08/17/17 07:56 08/17/17 07:56 08/17/17 07:56 08/17/17 07:56 08/17/17 08:00 Intake & Output 08/16/17 08/17/17 08/18/17 06:59 06:59 06:59 Intake Total 3406 3688 Output Total 1635 2275 100 Balance 1771 1413 -100 Weight 105.7 kg 109.2 kg General appearance: PRESENT: no acute distress, disheveled, obese. ABSENT: cooperative Head exam: PRESENT: atraumatic, normocephalic Eye exam: PRESENT: conjunctiva pale. ABSENT: nystagmus, periorbital swelling, scleral icterus Mouth exam: PRESENT: dry mucosa, neck supple, tongue midline, other - ET tube Neck exam: ABSENT: carotid bruit, JVD, lymphadenopathy, thyromegaly, tracheal deviation, tracheostomy Respiratory exam: PRESENT: decreased breath sounds, prolonged expiratory phas, rales, rhonchi, unlabored. ABSENT: retraction, stridor Cardiovascular exam: PRESENT: RRR, +S1, +S2, tachycardia Pulses: PRESENT: normal radial pulses GI/Abdominal exam: PRESENT: hypoactive bowel sounds, soft Extremities exam: ABSENT: calf tenderness, clubbing, joint swelling Musculoskeletal exam: ABSENT: deformity, dislocation Neurological exam: ABSENT: awake, oriented to person Skin exam: PRESENT: dry, warm Results Laboratory Results: 08/17/17 04:24 08/17/17 04:24 08/16/17 08/17/17 08/17/17 09:15 04:24 04:24 WBC 5.0 RBC 4.11 L Hgb 12.2 L Hct 35.1 L MCV 85 MCH 29.7 MCHC 34.8 RDW 16.3 H Plt Count 105 L Seg Neutrophils % Not Reportable Lymphocytes % Not Reportable Monocytes % Not Reportable Eosinophils % Not Reportable Basophils % Not Reportable Absolute Neutrophils Not Reportable Absolute Lymphocytes Not Reportable Absolute Monocytes Not Reportable Absolute Eosinophils Not Reportable Absolute Basophils Not Reportable Carbonic Acid 0.81 L HCO3/H2CO3 Ratio 23:1 ABG pH 7.46 H ABG pCO2 26.9 L ABG pO2 77.3 L ABG HCO3 18.8 L ABG O2 Saturation 96.3 ABG Base Excess -3.7 FiO2 40% Sodium 139.5 Potassium 4.5 Chloride 112 H Carbon Dioxide 21 L Anion Gap 7 BUN 29 H Creatinine 0.81 Est GFR ( Amer) > 60 Est GFR (Non-Af Amer) > 60 Glucose 106 Calcium 7.5 L Phosphorus 3.3 Magnesium 2.2 Total Bilirubin 0.6 AST 110 H ALT 60 Alkaline Phosphatase 133 H Total Protein 4.9 L Albumin 2.0 L 08/17/17 05:02 WBC RBC Hgb Hct MCV MCH MCHC RDW Plt Count Seg Neutrophils % Lymphocytes % Monocytes % Eosinophils % Basophils % Absolute Neutrophils Absolute Lymphocytes Absolute Monocytes Absolute Eosinophils Absolute Basophils Carbonic Acid 0.81 L HCO3/H2CO3 Ratio 24:1 ABG pH 7.49 H ABG pCO2 26.8 L ABG pO2 68.7 L ABG HCO3 20.1 ABG O2 Saturation 95.3 ABG Base Excess -2.0 FiO2 30% Sodium Potassium Chloride Carbon Dioxide Anion Gap BUN Creatinine Est GFR ( Amer) Est GFR (Non-Af Amer) Glucose Calcium Phosphorus Magnesium Total Bilirubin AST ALT Alkaline Phosphatase Total Protein Albumin 08/12/17 16:20 Isaac Catheter Legionella Urinary Antigen - Final 08/12/17 15:40 Blood Blood Culture - Final Staphylococcus Epidermidis 08/13/17 08/14/17 08/17/17 04:17 04:12 04:24 NT-Pro-B Natriuret Pep 1510 H 878 196 Impressions: Abdomen Ultrasound 08/09/17 00:00 IMPRESSION: NORMAL ABDOMINAL ULTRASOUND. Abdomen/Pelvis CT 08/11/17 00:00 IMPRESSION: Trace bilateral pleural effusions. No pneumothorax. No alveolar pulmonary edema or dense pneumonia. No bowel obstruction. Post partial sigmoid colectomy. Intact ventral hernia repair. Chest CT 08/11/17 00:00 IMPRESSION: Trace bilateral pleural effusions. No pneumothorax. No alveolar pulmonary edema or dense pneumonia. No bowel obstruction. Post partial sigmoid colectomy. Intact ventral hernia repair. Head CT 08/12/17 00:00 IMPRESSION: NORMAL BRAIN CT WITHOUT CONTRAST. EVIDENCE OF ACUTE STROKE: NO. Chest X-Ray 08/17/17 06:00 IMPRESSION: Right medial basilar airspace disease atelectasis versus pneumonia. Assessment & Plan - Diagnosis (1) Elevated liver function tests Is this a current diagnosis for this admission?: No (2) Acute kidney injury Is this a current diagnosis for this admission?: Yes Plan: Improving Labs- All tests 24 hr 08/08/17 08/09/17 08/10/17 09:40 05:27 04:58 Creatinine 2.23 H 1.65 H 1.49 H 08/11/17 08/11/17 08/12/17 00:53 07:05 11:57 Creatinine 1.51 H 1.55 H 1.73 H 08/13/17 08/14/17 08/14/17 04:17 04:12 20:25 Creatinine 1.68 H 1.20 1.07 08/15/17 08/16/17 04:11 05:47 Creatinine 1.09 1.00 (3) Sepsis Is this a current diagnosis for this admission?: No (4) Thrombocytopenia Is this a current diagnosis for this admission?: Yes Plan: Labs- All tests 24 hr 08/08/17 08/09/17 08/11/17 09:40 05:27 00:53 Plt Count 65 L 64 L 80 L 08/11/17 08/12/17 08/12/17 07:05 11:57 15:40 Plt Count 83 L 79 L 78 L 08/13/17 08/14/17 08/14/17 14:43 14:25 20:25 Plt Count 66 L 72 L 76 L 08/15/17 08/16/17 04:11 05:47 Plt Count 73 L 99 L (5) Altered mental status, unspecified Qualifiers: Altered mental status type: delirium Qualified Code(s): R41.0 - Disorientation, unspecified Is this a current diagnosis for this admission?: Yes Plan: Unchanged - Time Total Critical Time (Minutes): 45
[2017-08-17] MEDS: LACTOBACILLUS ACIDOPHILUS 250 MG TAB NG SCH ×2 (11:56→17:43)
[2017-08-17] MEDS: LACTULOSE SYRUP 20 GM/30 ML UDCUP NG SCH ×2 (11:56→17:43)
[2017-08-17] MEDS: DOXYCYCLINE HYCLATE 100 MG in DEXTROSE 5%-WATER 250 ML IV SCH ×2 (11:57→21:25)
[2017-08-17 13:24] LABS: PATH REVIEW PATHOLOGIST REVIEWED
[2017-08-17] MEDS ORDERED: LIDOCAINE 1% INJ-PF (10 MG/ML) 30 ML SDV ONE (14:33)
[2017-08-17 16:05] LABS: APPEARANCE ALL TUBES CLEAR; COLOR ALL TUBES COLORLESS; CSF TUBE NUMBER 3
[2017-08-17 16:07] LABS: RED BLOOD CELL,CSF 0 /uL (0-10)
[2017-08-17 16:08] LABS: WHITE BLOOD CELL,CSF 29 /uL (0-5)
[2017-08-17 16:09] LABS: GLUCOSE,CSF 44 mg/dL (40-70)
[2017-08-17 16:18] LABS: PROTEIN,CSF 348 mg/dL (12-60)
[2017-08-17 16:24] LABS: H. INFLUENZAE TYPE B AG NEGATIVE (NEGATIVE); S. PNEUMONIAE AG NEGATIVE (NEGATIVE); STREP. GROUP B AG NEGATIVE (NEGATIVE)
--- NOTE | 2017-08-17 17:29 | Progress Note ---
Provider Note Provider Note: ID Consult Note Asked to review patient's chart by Pharmacy. Pt not seen or examined. Reviewed provider reports, labs, VS. Mr. Orantes is a 72 yo man who was admitted with nonspecific febrile syndrome with dry cough, transaminitis, thrombocytopenia, hyponatremia and PERRY. He had a normal total bilirubin, normal to low total WBC count, anemia with normal MCV, normal fibrinogen. Evaluation included abdominal U/S, U/A, CXR, viral hepatitis panel, TTE, and BCx on 08/08 that were unrevealing or inconsistent with infection. CT chest/abd/pelvis w/o contrast showed only mildly enlarged spleen. UCx from 08/08 grew Enterococcus faecalis. Pt was on Rocephin/azithromycin from 08/08 and 08/09 for empiric CAP treatment. He developed altered mental status and respiratory failure requiring intubation. The family provided hx of recent prior tick bite and effervescent target-like lesions on arms and torso. Repeat UCx on 08/12 was negative. BCx from 08/12 grew Staphylococcus epidermidis in 1 of 2 sets. Tracheal aspirate from 08/13 revealed only growth of Blossom albicans/dublinensis. Repeat BCx from 08/14 negative x 3d. Other studies included negative rapid influenza test and Lyme serologic test. Mycoplasma IgM was negative and IgG was positive. EBV antibody panel returned with positive IgG against the capsid and EBNA, negative antibody against the early antigen, and positive IgM against the capsid. EBV PCR was 970 copies/mL. Anaplasma PCR was negative. Ehrlichia PCR was positive. Antibiotics were broadened initially to doxycycline plus meropenem from 08/12- and vancomycin 08/12-08/16 before being streamlined to doxycycline alone, which continues presently. Pt remains intubated and sedated. No fevers have occurred since 08/12. Platelet count has improved from in the 60s initially to in the 100s. ALT has also improved from around 100 down to the 60s. AST is largely unchanged. For further evaluation of acute encephalopathy, LP was performed today, and CSF studies are in process. Impression/Recommendations sepsis due to Ehrlichiosis - Pt presented with nonspecific febrile illness with hyponatremia, low to normal WBC count, low plts, transaminitis, thrombocytopenia, confusion, recent tick exposure in [place] in summer; confirmed with positive PCR of the blood for Ehrlichia chaffeensis - Extensive workup for typical bacterial causes of sepsis has been negative/ unrevealing, as detailed above; positive IgG with negative Mycoplasma IgM only shows evidence of old, prior exposure - Ehrlichiosis can be severe, and BAG [employer] involvement can occur, including meningitis or meningoencephalitis - Pt has had some evidence of improvement in terms of ALT and plt count and defervescence with initiation of doxycycline on 08/12 - Continue doxycycline 100 mg BID. Treatment duration is similar to that for RMSF, generally in the range of 7-10 days (minimum of 3 days after fever abates) . Pt is on day 5 today of 10 Pseudobacteremia with Staphylococcus epidermidis - in 1 of 2 sets on 08/12, not present when pt presented with sepsis on 08/08, not present on repeat on 08/14 - c/w contamination, no treatment indicated EBV reactivation - EBV serologies are c/w reactivation on the basis of IgM for the capsid and EBV PCR positivity; does not have primary infection or infectious mononucleosis (positive EBNA IgG and negative early antigen IgG is not consistent with acute infection) - EBV establishes lifelong latency and persistence, like other herpesviruses, and can periodically reactivate in otherwise healthy persons or more frequently in immunosuppressed hosts. Reactivation is usually asymptomatic. There are several studies that describe EBV reactivation during prolonged stress events, such as in recruits, children with malaria, and critically ill immunocompetent patients without specific pathogenic signs ( except inflammation). - Suspect reactivation due to illness; there is no clear evidence of direct pathogenicity in this setting - No therapy is indicated Hx of skin rash following tick bite - Lyme disease would be unusual, as [place] is not an endemic area, and testing would not be indicated unless pt had had recent travel to the [facility], [place] or upper [place] - Differential considerations include rash due to hypersensitivity reaction to tick saliva with small transient erythematous rash at the site of tick bites ( tends to expand rapidly while tick is attached or shortly thereafter, remain small and start to gustavo in 1-2 days). This is in contrast to erythema migrans rash in Lyme disease, where the lesion lasts days to weeks and expands slowly over this time frame, usually to 5 cm or larger. STARI (Southern Tick Rash Illness) mimics the erythema migrans rash of Lyme disease (can be single or multiple), would make more sense epidemiologically (occurs in the [place] or [place] ), is fairly benign and not associated with known sequelae and usually also gets managed with doxycycline Calvin Hollingsworth MD [facility] Infectious Diseases pager [phone]
[2017-08-17] MEDS: MIDAZOLAM HCL 50 MG/100 ML RTUINJ IV PRN (21:25)
[2017-08-18] MEDS: PROPOFOL 100 ML IV PRN ×5 (01:46→18:22)
[2017-08-18 04:13] LABS: HEMATOCRIT 32.3 % (37.9-51.0); HEMOGLOBIN 11.3 g/dL (13.5-17.0); MEAN CORPUSCULAR HEMOGLOBIN 29.9 pg (27.0-33.4); MEAN CORPUSCULAR HGB CONC 34.9 g/dL (32.0-36.0); MEAN CORPUSCULAR VOLUME 86 fl (80-97); PLATELET COUNT 125 10^3/uL (150-450); RED BLOOD COUNT 3.77 10^6/uL (4.35-5.55); RED CELL DISTRIBUTION WIDTH 15.9 % (11.5-14.0); WHITE BLOOD COUNT 4.5 10^3/uL (4.0-10.5)
[2017-08-18 04:25] LABS: ANION GAP 7 (5-19); BLOOD UREA NITROGEN 25 mg/dL (7-20); CALCIUM 7.8 mg/dL (8.4-10.2); CARBON DIOXIDE 21 mmol/L (22-30); CHLORIDE 109 mmol/L (98-107); GLUCOSE 104 mg/dL (75-110); POTASSIUM 4.5 mmol/L (3.6-5.0); SODIUM 137.4 mmol/L (137-145)
[2017-08-18] MEDS: NORMAL SALINE 1000 ML 1,000 ML IV PRN (05:03)
[2017-08-18 05:55] LABS: ARTERIAL BLOOD BASE EXCESS -3.4 mmol/L; ARTERIAL BLOOD H2CO3 0.96 mmol/L (1.05-1.35); ARTERIAL BLOOD HCO3 20.2 mmol/L (20-26); ARTERIAL BLOOD O2 SATURATION 96.2 % (94-98); ARTERIAL BLOOD PH 7.42 (7.35-7.45); ARTERIAL BLOOD PO2 80.4 mmHg (80-100); ARTERIAL BLOOD TOTAL CO2 21.2 mmol/L (23-27)
[2017-08-18 05:56] LABS: ARTERIAL BLOOD FIO2 35%
[2017-08-18 07:47] LABS: ROCKY MTN SPOTTED FEV IGG EIA Negative (Negative)
[2017-08-18 07:52] LABS: ROCKY MTN SPOTTED FEVER IGM AB 0.23 index (0.00-0.89)
--- NOTE | 2017-08-18 07:54 | RADIOLOGY REPORT (SQ) ---
EXAM DESCRIPTION: CHEST SINGLE VIEW COMPLETED DATE/TIME: 08/18/2017 7:37 am REASON FOR STUDY: resp failure COMPARISON: Chest films 08/17/2017, 08/16/2017, 08/15/2017, 08/14/2017 CT chest 08/11/2017 EXAM PARAMETERS: NUMBER OF VIEWS: One view. TECHNIQUE: Single frontal radiographic view of the chest acquired. RADIATION DOSE: NA LIMITATIONS: None. FINDINGS: Endotracheal tube tip 6 to 7 cm above the loly, at the level of the clavicular heads. Nasogastric tube tip and side port in the stomach. LUNGS AND PLEURA: Trace bilateral pleural effusions with bibasilar airspace disease atelectasis versu s pneumonia, stable compared to previous plain films. No pneumothorax MEDIASTINUM AND HILAR STRUCTURES: No masses. Contour normal. HEART AND VASCULAR STRUCTURES: Heart normal in size. Normal vasculature. BONES: No acute findings. HARDWARE: As above OTHER: No other significant finding. IMPRESSION: Endotracheal tube tip at the clavicular heads, 6 to 7 cm above the loly. Trace bilateral pleural effusions with bibasilar stable airspace disease. TECHNICAL DOCUMENTATION: JOB ID: [id number] Plus- All Rights Reserved Reading location - IP/workstation name: [email or web address]
[2017-08-18] MEDS: OXYCODONE-ACETAMINOPHEN 5-325 MG TABLET NG PRN ×2 (09:04→14:23)
[2017-08-18] MEDS: LACTOBACILLUS ACIDOPHILUS 250 MG TAB NG SCH ×2 (09:04→18:22)
[2017-08-18] MEDS: ENOXAPARIN SODIUM INJ 40 MG/0.4 ML DISP.SYRIN SUBCUT SCH (09:05)
[2017-08-18] MEDS: DOXYCYCLINE HYCLATE 100 MG in DEXTROSE 5%-WATER 250 ML IV SCH ×2 (09:07→21:27)
[2017-08-18] MEDS: DOCUSATE SODIUM 100 MG CAPSULE PO SCH (09:10)
[2017-08-18] MEDS: MORPHINE SULFATE 10 MG/ML INJ IV PRN ×2 (10:11→14:23)
[2017-08-18] MEDS: FUROSEMIDE INJ/PF 20 MG/2 ML SDV IV SCH ×2 (10:11→21:27)
--- NOTE | 2017-08-18 11:15 | PDOC PROGRESS REPORT ---
Subjective Progress Note for:: 08/18/17 Subjective:: 72-year-old gentleman was admitted on August 08 with shortness of breath. Past medical history: Hypertension He was admitted with acute renal failure hyponatremia and suspected pneumonia and was started on Azithromycin, Rocephin and IV fluids. The patient had abnormal transaminases. Abdominal ultrasound was normal. CT of the chest did not show any infiltrate or pulmonary edema. He was in and out of A. fib. but was not on full anticoagulation due to thrombocytopenia. Echo showed hyperdynamic LV. CT head did not sure acute CVA. The patient was intubated on 08/13/17. He has been diagnosed with sepsis due to Ehrlichiosis and also reactivation of EBV. He has been in NSR and platelet cout is improving. Blood culture positive for Staph epi- contaminant. Remains sedated and intubated. Reason For Visit: GENERALIZED PAIN, FEVER, SYSTEMIC INFLAMMATION Physical Exam Vital Signs: Temp Pulse Resp BP Pulse Ox 98.6 F 100 18 133/70 H 94 08/18/17 10:00 08/18/17 10:00 08/18/17 10:00 08/18/17 10:00 08/18/17 10:00 Intake & Output 08/17/17 08/18/17 08/19/17 06:59 06:59 06:59 Intake Total 3688 3347 Output Total 2275 2385 590 Balance 1413 962 -590 Weight 109.2 kg 107.5 kg General appearance: PRESENT: obese Head exam: PRESENT: normocephalic Eye exam: ABSENT: scleral icterus Ear exam: PRESENT: normal external ear exam Neck exam: PRESENT: other - endotracheal tube Respiratory exam: PRESENT: symmetrical, unlabored Cardiovascular exam: PRESENT: RRR GI/Abdominal exam: PRESENT: normal bowel sounds, soft. ABSENT: tenderness Rectal exam: PRESENT: deferred Gentrourinary exam: PRESENT: indwelling catheter Extremities exam: PRESENT: pedal edema Neurological exam: PRESENT: other - sedated on vent Results Laboratory Results: 08/18/17 03:54 08/18/17 03:54 08/17/17 08/17/17 08/17/17 15:00 15:00 15:00 WBC RBC Hgb Hct MCV MCH MCHC RDW Plt Count Carbonic Acid HCO3/H2CO3 Ratio ABG pH ABG pCO2 ABG pO2 ABG HCO3 ABG O2 Saturation ABG Base Excess FiO2 Sodium Potassium Chloride Carbon Dioxide Anion Gap BUN Creatinine Est GFR ( Amer) Est GFR (Non-Af Amer) Glucose Calcium Magnesium Albumin Fluid Tube Number 3 CSF Volume 10.0 CSF Appearance CLEAR CSF Color COLORLESS CSF WBC 29 H CSF RBC 0 CSF Comment CSF CULTURE ORDERED CSF Glucose 44 CSF Total Protein 348 H 08/18/17 08/18/17 08/18/17 03:54 03:54 03:54 WBC 4.5 RBC 3.77 L Hgb 11.3 L Hct 32.3 L MCV 86 MCH 29.9 MCHC 34.9 RDW 15.9 H Plt Count 125 L Carbonic Acid HCO3/H2CO3 Ratio ABG pH ABG pCO2 ABG pO2 ABG HCO3 ABG O2 Saturation ABG Base Excess FiO2 Sodium 137.4 Potassium 4.5 Chloride 109 H Carbon Dioxide 21 L Anion Gap 7 BUN 25 H Creatinine 0.73 Est GFR ( Amer) > 60 Est GFR (Non-Af Amer) > 60 Glucose 104 Calcium 7.8 L Magnesium 2.0 Albumin 2.0 L Fluid Tube Number CSF Volume CSF Appearance CSF Color CSF WBC CSF RBC CSF Comment CSF Glucose CSF Total Protein 08/18/17 05:35 WBC RBC Hgb Hct MCV MCH MCHC RDW Plt Count Carbonic Acid 0.96 L HCO3/H2CO3 Ratio 21:1 ABG pH 7.42 ABG pCO2 32.0 L ABG pO2 80.4 ABG HCO3 20.2 ABG O2 Saturation 96.2 ABG Base Excess -3.4 FiO2 35% Sodium Potassium Chloride Carbon Dioxide Anion Gap BUN Creatinine Est GFR ( Amer) Est GFR (Non-Af Amer) Glucose Calcium Magnesium Albumin Fluid Tube Number CSF Volume CSF Appearance CSF Color CSF WBC CSF RBC CSF Comment CSF Glucose CSF Total Protein 08/12/17 15:45 Blood Blood Culture - Final NO GROWTH IN 5 DAYS 08/12/17 15:40 Blood Blood Culture - Final Staphylococcus Epidermidis 08/12/17 16:20 Isaac Catheter Legionella Urinary Antigen - Final 08/13/17 08/14/17 08/17/17 04:17 04:12 04:24 NT-Pro-B Natriuret Pep 1510 H 878 196 Impressions: Abdomen Ultrasound 08/09/17 00:00 IMPRESSION: NORMAL ABDOMINAL ULTRASOUND. Abdomen/Pelvis CT 08/11/17 00:00 IMPRESSION: Trace bilateral pleural effusions. No pneumothorax. No alveolar pulmonary edema or dense pneumonia. No bowel obstruction. Post partial sigmoid colectomy. Intact ventral hernia repair. Chest CT 08/11/17 00:00 IMPRESSION: Trace bilateral pleural effusions. No pneumothorax. No alveolar pulmonary edema or dense pneumonia. No bowel obstruction. Post partial sigmoid colectomy. Intact ventral hernia repair. Head CT 08/12/17 00:00 IMPRESSION: NORMAL BRAIN CT WITHOUT CONTRAST. EVIDENCE OF ACUTE STROKE: NO. Chest X-Ray 08/18/17 06:00 IMPRESSION: Endotracheal tube tip at the clavicular heads, 6 to 7 cm above the loly. Trace bilateral pleural effusions with bibasilar stable airspace disease. Assessment & Plan - Diagnosis (1) Sepsis Is this a current diagnosis for this admission?: No Plan: Due to Ehrlichiosis (2) Acute kidney injury Is this a current diagnosis for this admission?: Yes Plan: Resolved (3) Hyponatremia Is this a current diagnosis for this admission?: Yes Plan: Resolved (4) Pneumonia Qualifiers: Pneumonia type: due to unspecified organism Laterality: right Lung location: unspecified part of lung Qualified Code(s): J18.9 - Pneumonia, unspecified organism Is this a current diagnosis for this admission?: Yes Plan: Ruled out. (5) Thrombocytopenia Is this a current diagnosis for this admission?: Yes Plan: Due to tick borne illness Improving (6) Transaminitis Is this a current diagnosis for this admission?: Yes Plan: Due to tick borne illness (7) Ehrlichiosis Is this a current diagnosis for this admission?: Yes Plan: On Doxyxycline. ID input appreciated. (8) Acute respiratory failure Is this a current diagnosis for this admission?: Yes Plan: Due to sepsis. Vent support and attempt to wean (9) Edema Qualifiers: Edema type: generalized Qualified Code(s): R60.1 - Generalized edema Is this a current diagnosis for this admission?: Yes Plan: Add protein to tube feeds, cut back on IV fluids, 2 doses of Lasix. No pulmonary edema, oxygenating well (10) Enterococcus faecalis infection Is this a current diagnosis for this admission?: Yes Plan: UTI Completed a course of Vancomycin. - Time Time Spent with patient: 35 or more minutes
[2017-08-18] MEDS: MIDAZOLAM HCL 50 MG/100 ML RTUINJ IV PRN (14:22)
[2017-08-18] MEDS: 1/2 NORMAL SALINE 1,000 ML IV PRN (14:22)
--- NOTE | 2017-08-18 14:22 | PDOC PROGRESS REPORT ---
Subjective Progress Note for:: 08/18/17 Subjective:: + 7.2 L Intubated and sedated and does not arouse during sedation vacation Reason For Visit: GENERALIZED PAIN, FEVER, SYSTEMIC INFLAMMATION Physical Exam Vital Signs: Temp Pulse Resp BP Pulse Ox 98.8 F 95 22 H 135/71 H 95 08/18/17 08:00 08/18/17 08:09 08/18/17 08:01 08/18/17 08:01 08/18/17 08:01 Intake & Output 08/17/17 08/18/17 08/19/17 06:59 06:59 06:59 Intake Total 3688 3347 Output Total 2275 2385 220 Balance 1413 962 -220 Weight 109.2 kg 107.5 kg General appearance: PRESENT: no acute distress, disheveled, obese. ABSENT: cooperative Head exam: PRESENT: atraumatic, normocephalic Eye exam: PRESENT: conjunctiva pale. ABSENT: EOMI, nystagmus, periorbital swelling, scleral icterus Mouth exam: PRESENT: dry mucosa, neck supple, tongue midline, other - ET tube in place Neck exam: ABSENT: carotid bruit, JVD, lymphadenopathy, thyromegaly, tracheal deviation, tracheostomy Respiratory exam: PRESENT: decreased breath sounds, prolonged expiratory phas, rales, rhonchi, unlabored, wheezes. ABSENT: retraction, stridor Cardiovascular exam: PRESENT: RRR, +S1, +S2, tachycardia Pulses: PRESENT: normal radial pulses GI/Abdominal exam: PRESENT: hypoactive bowel sounds, soft Extremities exam: ABSENT: calf tenderness, clubbing, joint swelling Musculoskeletal exam: ABSENT: ambulatory, deformity, dislocation Neurological exam: ABSENT: awake, oriented to person Skin exam: PRESENT: dry, warm Results Laboratory Results: 08/18/17 03:54 08/18/17 03:54 08/17/17 08/17/17 08/17/17 15:00 15:00 15:00 WBC RBC Hgb Hct MCV MCH MCHC RDW Plt Count Carbonic Acid HCO3/H2CO3 Ratio ABG pH ABG pCO2 ABG pO2 ABG HCO3 ABG O2 Saturation ABG Base Excess FiO2 Sodium Potassium Chloride Carbon Dioxide Anion Gap BUN Creatinine Est GFR ( Amer) Est GFR (Non-Af Amer) Glucose Calcium Magnesium Albumin Fluid Tube Number 3 CSF Volume 10.0 CSF Appearance CLEAR CSF Color COLORLESS CSF WBC 29 H CSF RBC 0 CSF Comment CSF CULTURE ORDERED CSF Glucose 44 CSF Total Protein 348 H 08/18/17 08/18/17 08/18/17 03:54 03:54 03:54 WBC 4.5 RBC 3.77 L Hgb 11.3 L Hct 32.3 L MCV 86 MCH 29.9 MCHC 34.9 RDW 15.9 H Plt Count 125 L Carbonic Acid HCO3/H2CO3 Ratio ABG pH ABG pCO2 ABG pO2 ABG HCO3 ABG O2 Saturation ABG Base Excess FiO2 Sodium 137.4 Potassium 4.5 Chloride 109 H Carbon Dioxide 21 L Anion Gap 7 BUN 25 H Creatinine 0.73 Est GFR ( Amer) > 60 Est GFR (Non-Af Amer) > 60 Glucose 104 Calcium 7.8 L Magnesium 2.0 Albumin 2.0 L Fluid Tube Number CSF Volume CSF Appearance CSF Color CSF WBC CSF RBC CSF Comment CSF Glucose CSF Total Protein 08/18/17 05:35 WBC RBC Hgb Hct MCV MCH MCHC RDW Plt Count Carbonic Acid 0.96 L HCO3/H2CO3 Ratio 21:1 ABG pH 7.42 ABG pCO2 32.0 L ABG pO2 80.4 ABG HCO3 20.2 ABG O2 Saturation 96.2 ABG Base Excess -3.4 FiO2 35% Sodium Potassium Chloride Carbon Dioxide Anion Gap BUN Creatinine Est GFR ( Amer) Est GFR (Non-Af Amer) Glucose Calcium Magnesium Albumin Fluid Tube Number CSF Volume CSF Appearance CSF Color CSF WBC CSF RBC CSF Comment CSF Glucose CSF Total Protein 08/12/17 15:45 Blood Blood Culture - Final NO GROWTH IN 5 DAYS 08/12/17 15:40 Blood Blood Culture - Final Staphylococcus Epidermidis 08/12/17 16:20 Isaac Catheter Legionella Urinary Antigen - Final 08/13/17 08/14/17 08/17/17 04:17 04:12 04:24 NT-Pro-B Natriuret Pep 1510 H 878 196 Impressions: Abdomen Ultrasound 08/09/17 00:00 IMPRESSION: NORMAL ABDOMINAL ULTRASOUND. Abdomen/Pelvis CT 08/11/17 00:00 IMPRESSION: Trace bilateral pleural effusions. No pneumothorax. No alveolar pulmonary edema or dense pneumonia. No bowel obstruction. Post partial sigmoid colectomy. Intact ventral hernia repair. Chest CT 08/11/17 00:00 IMPRESSION: Trace bilateral pleural effusions. No pneumothorax. No alveolar pulmonary edema or dense pneumonia. No bowel obstruction. Post partial sigmoid colectomy. Intact ventral hernia repair. Head CT 08/12/17 00:00 IMPRESSION: NORMAL BRAIN CT WITHOUT CONTRAST. EVIDENCE OF ACUTE STROKE: NO. Chest X-Ray 08/18/17 06:00 IMPRESSION: Endotracheal tube tip at the clavicular heads, 6 to 7 cm above the loly. Trace bilateral pleural effusions with bibasilar stable airspace disease. Assessment & Plan - Diagnosis (1) Elevated liver function tests Is this a current diagnosis for this admission?: No (2) Acute kidney injury Is this a current diagnosis for this admission?: Yes Plan: Improving Labs- All tests 24 hr 08/08/17 08/09/17 08/10/17 09:40 05:27 04:58 Creatinine 2.23 H 1.65 H 1.49 H 08/11/17 08/11/17 08/12/17 00:53 07:05 11:57 Creatinine 1.51 H 1.55 H 1.73 H 08/13/17 08/14/17 08/14/17 04:17 04:12 20:25 Creatinine 1.68 H 1.20 1.07 08/15/17 08/16/17 04:11 05:47 Creatinine 1.09 1.00 (3) Sepsis Is this a current diagnosis for this admission?: No Plan: no longer on vasopressor (4) Thrombocytopenia Is this a current diagnosis for this admission?: Yes Plan: Labs- All tests 24 hr 08/08/17 08/09/17 08/11/17 09:40 05:27 00:53 Plt Count 65 L 64 L 80 L 08/11/17 08/12/17 08/12/17 07:05 11:57 15:40 Plt Count 83 L 79 L 78 L 08/13/17 08/14/17 08/14/17 14:43 14:25 20:25 Plt Count 66 L 72 L 76 L 08/15/17 08/16/17 04:11 05:47 Plt Count 73 L 99 L (5) Altered mental status, unspecified Qualifiers: Altered mental status type: delirium Qualified Code(s): R41.0 - Disorientation, unspecified Is this a current diagnosis for this admission?: Yes - Time Total Critical Time (Minutes): 45
[2017-08-18 15:38] LABS: E. CHAFFEENSIS IGG TITER Negative (Neg:<1:64)
--- NOTE | 2017-08-18 17:40 | Progress Note ---
Provider Note Provider Note: ID Consult Note Asked to review patient's chart by Pharmacy. Pt not seen or examined. Reviewed VS, labs, provider reports. Pt diagnosed with sepsis due to ehrlichiosis. Has had extensive w/u summarized in prior notes. Has been intubated. According to notes, pt does not arouse during sedation vacation. Had LP yesterday (08/17) for further evaluation of acute encephalopathy presumed due to infectious source. CSF WBC count was elevated at 29, 95% lymphs. Total protein in CSF was elevated 348. CSF glucose was 44. Gram stain showed no organisms and culture showed no growth x 1 day. Pt has had no fever since 08/12. Thrombocytopenia has improved. Impression/Recommendations Sepsis due to ehrlichiosis Suspected [employer] involvement due ehrlichiosis - Severe cases of ehrlichiosis can have [employer] manifestations, most commonly meningitis or meningoencephalitis, and typical CSF abnormalities in this setting are lymphocytic pleocytosis, elevated protein, and normal glucose or borderline hypoglycorrhachia. The patient's CSF formula is consistent with this. If there are morulae seen on Edwards Giemsa stain of CSF WBC cells, this would help confirm the diagnosis, but the frequency of morulae being detected is low. PCR of CSF for Ehrlichia can also be done by some reference labs, but ultimately treatment for ehrlichiosis is doxycycline and would not be altered on the basis of suspected or proven [employer]ING [employer] involvement. - The patient's CSF formula could be potentially consistent with other diagnoses. The question of a viral encephalitis or meningoencephalitis due to arboviruses or West Nile virus could be entertained, considering it is summer and pt has been outdoors and could potentially have had mosquito bites in addition to tick bites, but management would be supportive. Calvin Hollingsworth MD [facility] Infectious Diseases pager [phone]
[2017-08-18 21:07] LABS: HSV I DNA Negative (Negative)
[2017-08-19] MEDS: PROPOFOL 100 ML IV PRN ×4 (00:50→21:45)
[2017-08-19] MEDS: MORPHINE SULFATE 10 MG/ML INJ IV PRN ×2 (03:44→19:57)
[2017-08-19] MEDS: 1/2 NORMAL SALINE 1,000 ML IV PRN ×2 (05:32→19:59)
[2017-08-19 05:34] LABS: ARTERIAL BLOOD H2CO3 0.98 mmol/L (1.05-1.35); ARTERIAL BLOOD HCO3 23.9 mmol/L (20-26); ARTERIAL BLOOD O2 SATURATION 95.1 % (94-98); ARTERIAL BLOOD PCO2 32.4 mmHg (35-45); ARTERIAL BLOOD PH 7.49 (7.35-7.45); ARTERIAL BLOOD PO2 68.4 mmHg (80-100); ARTERIAL BLOOD TOTAL CO2 24.9 mmol/L (23-27)
[2017-08-19 05:35] LABS: ARTERIAL BLOOD FIO2 35%
[2017-08-19 06:02] LABS: HEMATOCRIT 32.4 % (37.9-51.0); HEMOGLOBIN 11.3 g/dL (13.5-17.0); MEAN CORPUSCULAR HEMOGLOBIN 29.7 pg (27.0-33.4); MEAN CORPUSCULAR HGB CONC 34.8 g/dL (32.0-36.0); MEAN CORPUSCULAR VOLUME 85 fl (80-97); PLATELET COUNT 151 10^3/uL (150-450); RED CELL DISTRIBUTION WIDTH 15.8 % (11.5-14.0); WHITE BLOOD COUNT 4.4 10^3/uL (4.0-10.5)
[2017-08-19 06:19] LABS: ALANINE AMINOTRANSFERASE 56 U/L (21-72); ALBUMIN 2.2 g/dL (3.5-5.0); ALKALINE PHOSPHATASE 154 U/L (38-126); ANION GAP 8 (5-19); ASPARTATE AMINO TRANSFERASE 80 U/L (17-59); BILIRUBIN,DIRECT 0.5 mg/dL (0.0-0.4); BILIRUBIN,TOTAL 0.5 mg/dL (0.2-1.3); BLOOD UREA NITROGEN 23 mg/dL (7-20); CALCIUM 8.5 mg/dL (8.4-10.2); CARBON DIOXIDE 21 mmol/L (22-30); CHLORIDE 106 mmol/L (98-107); GLUCOSE 104 mg/dL (75-110); POTASSIUM 4.5 mmol/L (3.6-5.0); SODIUM 134.6 mmol/L (137-145); TOTAL PROTEIN 5.2 g/dL (6.3-8.2)
[2017-08-19 06:48] LABS: ABSOLUTE LYMPHOCYTES# (MANUAL) 1.4 10^3/uL (0.5-4.7); ABSOLUTE MONOCYTES # (MANUAL) 0.1 10^3/uL (0.1-1.4); ABSOLUTE NEUTROPHILS# (MANUAL) 2.8 10^3/uL (1.7-8.2); BAND NEUTROPHILS % (MANUAL) 2 % (3-5); BASOPHILS % (MANUAL) 0 % (0-2); EOSINOPHILS % (MANUAL) 2 % (0-6); LYMPHOCYTES % (MANUAL) 31 % (13-45); METAMYELOCYTES % (MANUAL) 1 % (0); MONOCYTES % (MANUAL) 3 % (3-13); NUCLEATED RED BLOOD CELLS 1 /100 WBC (0); SEGMENTED NEUTROPHILS % (MAN) 60 % (42-78); TOTAL CELLS COUNTED 100
[2017-08-19 06:56] LABS: ANISOCYTOSIS 1+; PLATELET COMMENT ADEQUATE; POLYCHROMASIA SLIGHT
[2017-08-19 07:04] LABS: E. CHAFFEENSIS IGM TITER Negative (Neg:<1:20)
[2017-08-19 07:05] LABS: HSV II DNA Negative (Negative)
--- NOTE | 2017-08-19 07:13 | RADIOLOGY REPORT (SQ) ---
EXAM DESCRIPTION: XR CHEST 1 VIEW CLINICAL HISTORY: 72 years Male, resp failure COMPARISON: One day prior. NUMBER OF VIEWS/TECHNIQUE: 1/AP FINDINGS: Small hazy opacity-layered effusion of the left lung base and right costophrenic angle. Normal cardiac silhouette. Adequate appearing endotracheal tube and likely adequate enteric tube. No pneumothorax. No acute bone defect. IMPRESSION: No significant change.
--- NOTE | 2017-08-19 08:44 | PDOC PROGRESS REPORT ---
Subjective Progress Note for:: 08/19/17 Subjective:: Patient remains sedated on the vent. I spoke with Dr. Young as well as ICU nurses caring for him. He has diuresed and has weaned well from the vent. However, he is still not fully waking up. This is still a concern for extubation. Otherwise, he is looking good. ROS not obtainable due to intubation. Reason For Visit: GENERALIZED PAIN, FEVER, SYSTEMIC INFLAMMATION Physical Exam Vital Signs: Temp Pulse Resp BP Pulse Ox 98.1 F 93 18 124/70 97 08/19/17 08:00 08/19/17 08:00 08/19/17 08:00 08/19/17 08:00 08/19/17 08:00 Intake & Output 08/18/17 08/19/17 08/20/17 06:59 06:59 06:59 Intake Total 3347 3116 Output Total 2385 6875 300 Balance 962 -3759 -300 Weight 107.5 kg 108.3 kg General appearance: PRESENT: no acute distress, obese Head exam: PRESENT: normocephalic Respiratory exam: PRESENT: clear to auscultation fredis, unlabored Cardiovascular exam: PRESENT: RRR. ABSENT: systolic murmur Extremities exam: PRESENT: +1 edema - feet. SCDs remain in place. Skin exam: PRESENT: normal color Results Laboratory Results: 08/19/17 05:45 08/19/17 05:45 08/19/17 08/19/17 08/19/17 03:51 03:51 05:20 WBC Cancelled RBC Cancelled Hgb Cancelled Hct Cancelled MCV Cancelled MCH Cancelled MCHC Cancelled RDW Cancelled Plt Count Cancelled Seg Neutrophils % Cancelled Lymphocytes % Cancelled Monocytes % Cancelled Eosinophils % Cancelled Basophils % Cancelled Absolute Neutrophils Cancelled Absolute Lymphocytes Cancelled Absolute Monocytes Cancelled Absolute Eosinophils Cancelled Absolute Basophils Cancelled Carbonic Acid 0.98 L HCO3/H2CO3 Ratio 24:1 ABG pH 7.49 H ABG pCO2 32.4 L ABG pO2 68.4 L ABG HCO3 23.9 ABG O2 Saturation 95.1 ABG Base Excess 1.0 FiO2 35% Sodium Cancelled Potassium Cancelled Chloride Cancelled Carbon Dioxide Cancelled Anion Gap Cancelled BUN Cancelled Creatinine Cancelled Est GFR ( Amer) Cancelled Est GFR (Non-Af Amer) Cancelled Glucose Cancelled Calcium Cancelled Magnesium Cancelled Total Bilirubin Cancelled AST Cancelled ALT Cancelled Alkaline Phosphatase Cancelled Total Protein Cancelled Albumin Cancelled 08/19/17 08/19/17 05:45 05:45 WBC 4.4 RBC 3.80 L Hgb 11.3 L Hct 32.4 L MCV 85 MCH 29.7 MCHC 34.8 RDW 15.8 H Plt Count 151 Seg Neutrophils % Not Reportable Lymphocytes % Not Reportable Monocytes % Not Reportable Eosinophils % Not Reportable Basophils % Not Reportable Absolute Neutrophils Not Reportable Absolute Lymphocytes Not Reportable Absolute Monocytes Not Reportable Absolute Eosinophils Not Reportable Absolute Basophils Not Reportable Carbonic Acid HCO3/H2CO3 Ratio ABG pH ABG pCO2 ABG pO2 ABG HCO3 ABG O2 Saturation ABG Base Excess FiO2 Sodium 134.6 L Potassium 4.5 Chloride 106 Carbon Dioxide 21 L Anion Gap 8 BUN 23 H Creatinine 0.82 Est GFR ( Amer) > 60 Est GFR (Non-Af Amer) > 60 Glucose 104 Calcium 8.5 Magnesium 1.8 Total Bilirubin 0.5 AST 80 H ALT 56 Alkaline Phosphatase 154 H Total Protein 5.2 L Albumin 2.2 L 08/13/17 08/14/17 08/17/17 04:17 04:12 04:24 NT-Pro-B Natriuret Pep 1510 H 878 196 Impressions: Abdomen Ultrasound 08/09/17 00:00 IMPRESSION: NORMAL ABDOMINAL ULTRASOUND. Abdomen/Pelvis CT 08/11/17 00:00 IMPRESSION: Trace bilateral pleural effusions. No pneumothorax. No alveolar pulmonary edema or dense pneumonia. No bowel obstruction. Post partial sigmoid colectomy. Intact ventral hernia repair. Chest CT 08/11/17 00:00 IMPRESSION: Trace bilateral pleural effusions. No pneumothorax. No alveolar pulmonary edema or dense pneumonia. No bowel obstruction. Post partial sigmoid colectomy. Intact ventral hernia repair. Head CT 08/12/17 00:00 IMPRESSION: NORMAL BRAIN CT WITHOUT CONTRAST. EVIDENCE OF ACUTE STROKE: NO. Chest X-Ray 08/19/17 06:00 IMPRESSION: No significant change. Assessment & Plan - Diagnosis (1) Pancytopenia Is this a current diagnosis for this admission?: Yes Plan: Blood counts have greatly improved. This was most likely reactive due to the severe infection. PLT now normal. (2) Pneumonia Qualifiers: Pneumonia type: due to unspecified organism Laterality: right Lung location: unspecified part of lung Qualified Code(s): J18.9 - Pneumonia, unspecified organism Is this a current diagnosis for this admission?: Yes Plan: Cultures have now indicated a tick-born infection. Awaiting CSF results as well. Dr. Young trying to wean patient from ventilator, but mental status still a concern. (3) Elevated liver function tests Is this a current diagnosis for this admission?: No - Plan Summary Plan Summary: Will continue to follow with you. Please call with any questions or concerns.
[2017-08-19] MEDS: LACTOBACILLUS ACIDOPHILUS 250 MG TAB NG SCH ×2 (11:25→17:25)
[2017-08-19] MEDS: DOXYCYCLINE HYCLATE 100 MG in DEXTROSE 5%-WATER 250 ML IV SCH (11:29)
[2017-08-19] MEDS: ENOXAPARIN SODIUM INJ 40 MG/0.4 ML DISP.SYRIN SUBCUT SCH (11:29)
[2017-08-19] MEDS: DOCUSATE SODIUM 100 MG CAPSULE PO SCH (11:30)
--- NOTE | 2017-08-19 14:12 | PDOC PROGRESS REPORT ---
Subjective Progress Note for:: 08/19/17 Subjective:: + 7.2 L Intubated and sedated and does not arouse during sedation vacation Reason For Visit: GENERALIZED PAIN, FEVER, SYSTEMIC INFLAMMATION Physical Exam Vital Signs: Temp Pulse Resp BP Pulse Ox 98.1 F 93 18 124/70 97 08/19/17 08:00 08/19/17 08:00 08/19/17 08:00 08/19/17 08:00 08/19/17 08:00 Intake & Output 08/18/17 08/19/17 08/20/17 06:59 06:59 06:59 Intake Total 3347 3116 Output Total 2385 6875 300 Balance 962 -3759 -300 Weight 107.5 kg 108.3 kg General appearance: PRESENT: no acute distress, disheveled, morbidly obese Head exam: PRESENT: atraumatic, normocephalic Eye exam: PRESENT: conjunctiva pale, EOMI. ABSENT: nystagmus, periorbital swelling, scleral icterus Mouth exam: PRESENT: dry mucosa, neck supple, tongue midline, other - ET tube Neck exam: ABSENT: carotid bruit, JVD, lymphadenopathy, thyromegaly, tracheal deviation, tracheostomy Respiratory exam: PRESENT: decreased breath sounds, prolonged expiratory phas, rhonchi, unlabored, wheezes. ABSENT: rales, retraction, stridor Cardiovascular exam: PRESENT: RRR, +S1, +S2 Pulses: PRESENT: normal radial pulses GI/Abdominal exam: PRESENT: hypoactive bowel sounds, soft Extremities exam: PRESENT: pedal edema, +1 edema. ABSENT: calf tenderness, clubbing, joint swelling Musculoskeletal exam: ABSENT: deformity, dislocation Neurological exam: PRESENT: awake. ABSENT: oriented to person, oriented to place, oriented to time, oriented to situation Skin exam: PRESENT: dry, warm Results Laboratory Results: 08/19/17 05:45 08/19/17 05:45 08/19/17 08/19/17 08/19/17 03:51 03:51 05:20 WBC Cancelled RBC Cancelled Hgb Cancelled Hct Cancelled MCV Cancelled MCH Cancelled MCHC Cancelled RDW Cancelled Plt Count Cancelled Seg Neutrophils % Cancelled Lymphocytes % Cancelled Monocytes % Cancelled Eosinophils % Cancelled Basophils % Cancelled Absolute Neutrophils Cancelled Absolute Lymphocytes Cancelled Absolute Monocytes Cancelled Absolute Eosinophils Cancelled Absolute Basophils Cancelled Carbonic Acid 0.98 L HCO3/H2CO3 Ratio 24:1 ABG pH 7.49 H ABG pCO2 32.4 L ABG pO2 68.4 L ABG HCO3 23.9 ABG O2 Saturation 95.1 ABG Base Excess 1.0 FiO2 35% Sodium Cancelled Potassium Cancelled Chloride Cancelled Carbon Dioxide Cancelled Anion Gap Cancelled BUN Cancelled Creatinine Cancelled Est GFR ( Amer) Cancelled Est GFR (Non-Af Amer) Cancelled Glucose Cancelled Calcium Cancelled Magnesium Cancelled Total Bilirubin Cancelled AST Cancelled ALT Cancelled Alkaline Phosphatase Cancelled Total Protein Cancelled Albumin Cancelled 08/19/17 08/19/17 05:45 05:45 WBC 4.4 RBC 3.80 L Hgb 11.3 L Hct 32.4 L MCV 85 MCH 29.7 MCHC 34.8 RDW 15.8 H Plt Count 151 Seg Neutrophils % Not Reportable Lymphocytes % Not Reportable Monocytes % Not Reportable Eosinophils % Not Reportable Basophils % Not Reportable Absolute Neutrophils Not Reportable Absolute Lymphocytes Not Reportable Absolute Monocytes Not Reportable Absolute Eosinophils Not Reportable Absolute Basophils Not Reportable Carbonic Acid HCO3/H2CO3 Ratio ABG pH ABG pCO2 ABG pO2 ABG HCO3 ABG O2 Saturation ABG Base Excess FiO2 Sodium 134.6 L Potassium 4.5 Chloride 106 Carbon Dioxide 21 L Anion Gap 8 BUN 23 H Creatinine 0.82 Est GFR ( Amer) > 60 Est GFR (Non-Af Amer) > 60 Glucose 104 Calcium 8.5 Magnesium 1.8 Total Bilirubin 0.5 AST 80 H ALT 56 Alkaline Phosphatase 154 H Total Protein 5.2 L Albumin 2.2 L 08/13/17 08/14/17 08/17/17 04:17 04:12 04:24 NT-Pro-B Natriuret Pep 1510 H 878 196 Impressions: Abdomen Ultrasound 08/09/17 00:00 IMPRESSION: NORMAL ABDOMINAL ULTRASOUND. Abdomen/Pelvis CT 08/11/17 00:00 IMPRESSION: Trace bilateral pleural effusions. No pneumothorax. No alveolar pulmonary edema or dense pneumonia. No bowel obstruction. Post partial sigmoid colectomy. Intact ventral hernia repair. Chest CT 08/11/17 00:00 IMPRESSION: Trace bilateral pleural effusions. No pneumothorax. No alveolar pulmonary edema or dense pneumonia. No bowel obstruction. Post partial sigmoid colectomy. Intact ventral hernia repair. Head CT 08/12/17 00:00 IMPRESSION: NORMAL BRAIN CT WITHOUT CONTRAST. EVIDENCE OF ACUTE STROKE: NO. Chest X-Ray 08/19/17 06:00 IMPRESSION: No significant change. Assessment & Plan - Diagnosis (1) Elevated liver function tests Is this a current diagnosis for this admission?: No (2) Acute kidney injury Is this a current diagnosis for this admission?: Yes Plan: Improving Labs- All tests 24 hr 08/08/17 08/09/17 08/10/17 09:40 05:27 04:58 Creatinine 2.23 H 1.65 H 1.49 H 08/11/17 08/11/17 08/12/17 00:53 07:05 11:57 Creatinine 1.51 H 1.55 H 1.73 H 08/13/17 08/14/17 08/14/17 04:17 04:12 20:25 Creatinine 1.68 H 1.20 1.07 08/15/17 08/16/17 04:11 05:47 Creatinine 1.09 1.00 (3) Sepsis Is this a current diagnosis for this admission?: No (4) Thrombocytopenia Is this a current diagnosis for this admission?: Yes Plan: Labs- All tests 24 hr 08/08/17 08/09/17 08/11/17 09:40 05:27 00:53 Plt Count 65 L 64 L 80 L 08/11/17 08/12/17 08/12/17 07:05 11:57 15:40 Plt Count 83 L 79 L 78 L 08/13/17 08/14/17 08/14/17 14:43 14:25 20:25 Plt Count 66 L 72 L 76 L 08/15/17 08/16/17 04:11 05:47 Plt Count 73 L 99 L (5) Altered mental status, unspecified Qualifiers: Altered mental status type: delirium Qualified Code(s): R41.0 - Disorientation, unspecified Is this a current diagnosis for this admission?: Yes Plan: Unchanged - Time Total Critical Time (Minutes): 40
--- NOTE | 2017-08-19 17:21 | PDOC PROGRESS REPORT ---
Subjective Progress Note for:: 08/19/17 Subjective:: Sitting up in bed on the vent. Awake but minimally interactive. Gaze tonically deviated to the right. He moves his right arm more than his left, but there is tone in his left, moves both his legs roughly equally. Reason For Visit: GENERALIZED PAIN, FEVER, SYSTEMIC INFLAMMATION Physical Exam Vital Signs: Temp Pulse Resp BP Pulse Ox 98.6 F 98 16 153/76 H 97 08/19/17 16:00 08/19/17 16:00 08/19/17 16:00 08/19/17 16:00 08/19/17 16:30 Intake & Output 08/18/17 08/19/17 08/20/17 05:59 05:59 05:59 Intake Total 3098 5088 Output Total 4273 6592 1979 Balance 371 -3787 -6055 Weight 236 lb 15.951 oz 238 lb 12.17 oz General appearance: PRESENT: no acute distress, obese Respiratory exam: PRESENT: clear to auscultation fredis Cardiovascular exam: PRESENT: RRR GI/Abdominal exam: PRESENT: soft Neurological exam: PRESENT: awake, other - Nursing reports that he has been squeezing their hand on command, I did not observe this Skin exam: PRESENT: dry, warm Results Laboratory Results: 08/19/17 05:45 08/19/17 05:45 08/19/17 08/19/17 08/19/17 03:51 03:51 05:20 WBC Cancelled RBC Cancelled Hgb Cancelled Hct Cancelled MCV Cancelled MCH Cancelled MCHC Cancelled RDW Cancelled Plt Count Cancelled Seg Neutrophils % Cancelled Lymphocytes % Cancelled Monocytes % Cancelled Eosinophils % Cancelled Basophils % Cancelled Absolute Neutrophils Cancelled Absolute Lymphocytes Cancelled Absolute Monocytes Cancelled Absolute Eosinophils Cancelled Absolute Basophils Cancelled Carbonic Acid 0.98 L HCO3/H2CO3 Ratio 24:1 ABG pH 7.49 H ABG pCO2 32.4 L ABG pO2 68.4 L ABG HCO3 23.9 ABG O2 Saturation 95.1 ABG Base Excess 1.0 FiO2 35% Sodium Cancelled Potassium Cancelled Chloride Cancelled Carbon Dioxide Cancelled Anion Gap Cancelled BUN Cancelled Creatinine Cancelled Est GFR ( Amer) Cancelled Est GFR (Non-Af Amer) Cancelled Glucose Cancelled Calcium Cancelled Magnesium Cancelled Total Bilirubin Cancelled AST Cancelled ALT Cancelled Alkaline Phosphatase Cancelled Total Protein Cancelled Albumin Cancelled 08/19/17 08/19/17 05:45 05:45 WBC 4.4 RBC 3.80 L Hgb 11.3 L Hct 32.4 L MCV 85 MCH 29.7 MCHC 34.8 RDW 15.8 H Plt Count 151 Seg Neutrophils % Not Reportable Lymphocytes % Not Reportable Monocytes % Not Reportable Eosinophils % Not Reportable Basophils % Not Reportable Absolute Neutrophils Not Reportable Absolute Lymphocytes Not Reportable Absolute Monocytes Not Reportable Absolute Eosinophils Not Reportable Absolute Basophils Not Reportable Carbonic Acid HCO3/H2CO3 Ratio ABG pH ABG pCO2 ABG pO2 ABG HCO3 ABG O2 Saturation ABG Base Excess FiO2 Sodium 134.6 L Potassium 4.5 Chloride 106 Carbon Dioxide 21 L Anion Gap 8 BUN 23 H Creatinine 0.82 Est GFR ( Amer) > 60 Est GFR (Non-Af Amer) > 60 Glucose 104 Calcium 8.5 Magnesium 1.8 Total Bilirubin 0.5 AST 80 H ALT 56 Alkaline Phosphatase 154 H Total Protein 5.2 L Albumin 2.2 L 08/14/17 11:25 Blood Blood Culture - Final NO GROWTH IN 5 DAYS 08/14/17 09:23 Blood Blood Culture - Final NO GROWTH IN 5 DAYS 08/13/17 08/14/17 08/17/17 04:17 04:12 04:24 NT-Pro-B Natriuret Pep 1510 H 878 196 Impressions: Abdomen Ultrasound 08/09/17 00:00 IMPRESSION: NORMAL ABDOMINAL ULTRASOUND. Abdomen/Pelvis CT 08/11/17 00:00 IMPRESSION: Trace bilateral pleural effusions. No pneumothorax. No alveolar pulmonary edema or dense pneumonia. No bowel obstruction. Post partial sigmoid colectomy. Intact ventral hernia repair. Chest CT 08/11/17 00:00 IMPRESSION: Trace bilateral pleural effusions. No pneumothorax. No alveolar pulmonary edema or dense pneumonia. No bowel obstruction. Post partial sigmoid colectomy. Intact ventral hernia repair. Head CT 08/12/17 00:00 IMPRESSION: NORMAL BRAIN CT WITHOUT CONTRAST. EVIDENCE OF ACUTE STROKE: NO. Chest X-Ray 08/19/17 06:00 IMPRESSION: No significant change. Assessment & Plan - Diagnosis (1) On mechanically assisted ventilation Is this a current diagnosis for this admission?: Yes Plan: Mostly for airway protection. Management per pulmonology (2) Acute encephalopathy Is this a current diagnosis for this admission?: Yes Plan: Presumably due to his acute infection. I am unsure what to make of his chronic rightward head and gaze deviation. Continue to monitor (3) Ehrlichiosis Is this a current diagnosis for this admission?: Yes Plan: Continue doxycycline (4) SIRS (systemic inflammatory response syndrome) Is this a current diagnosis for this admission?: Yes
[2017-08-19 19:36] LABS: LYME IGG P18 AB Absent (.); LYME IGG P23 AB Absent (.); LYME IGG P28 AB Absent (.); LYME IGG P30 AB Absent (.); LYME IGG P39 AB Absent (.); LYME IGG P41 AB Absent (.); LYME IGG P45 AB Absent (.); LYME IGG P58 AB Absent (.); LYME IGG P66 AB Absent (.); LYME IGG P93 AB Absent (.); LYME IGM P23 AB Absent (.); LYME IGM P39 AB Absent (.); LYME IGM P41 AB Present (.)
[2017-08-19 23:34] LABS: ARTERIAL BLOOD BASE EXCESS 1.5 mmol/L; ARTERIAL BLOOD H2CO3 0.92 mmol/L (1.05-1.35); ARTERIAL BLOOD HCO3 23.8 mmol/L (20-26); ARTERIAL BLOOD O2 SATURATION 96.5 % (94-98); ARTERIAL BLOOD PCO2 30.5 mmHg (35-45); ARTERIAL BLOOD PH 7.51 (7.35-7.45); ARTERIAL BLOOD PO2 75.8 mmHg (80-100); ARTERIAL BLOOD TOTAL CO2 24.8 mmol/L (23-27)
[2017-08-19 23:36] LABS: ARTERIAL BLOOD FIO2 35%
[2017-08-19] MEDS: METOPROLOL TARTRATE PF/INJ 5 MG/5 ML SDV IV SCH (23:50)
[2017-08-20 00:04] LABS: ANION GAP 7 (5-19); BLOOD UREA NITROGEN 22 mg/dL (7-20); CALCIUM 8.8 mg/dL (8.4-10.2); CARBON DIOXIDE 24 mmol/L (22-30); CHLORIDE 102 mmol/L (98-107); GLUCOSE 97 mg/dL (75-110); PHOSPHORUS 4.6 mg/dL (2.5-4.5); POTASSIUM 4.4 mmol/L (3.6-5.0); SODIUM 132.6 mmol/L (137-145)
[2017-08-20 02:13] LABS: ARTERIAL BLOOD BASE EXCESS 2.1 mmol/L; ARTERIAL BLOOD FIO2 35%; ARTERIAL BLOOD H2CO3 1.08 mmol/L (1.05-1.35); ARTERIAL BLOOD HCO3 25.6 mmol/L (20-26); ARTERIAL BLOOD O2 SATURATION 96.7 % (94-98); ARTERIAL BLOOD PCO2 35.9 mmHg (35-45); ARTERIAL BLOOD PH 7.47 (7.35-7.45); ARTERIAL BLOOD TOTAL CO2 26.7 mmol/L (23-27)
[2017-08-20 04:12] LABS: ABSOLUTE BASOPHILS # (AUTO) 0.1 10^3/uL (0.0-0.2); ABSOLUTE LYMPHOCYTES (AUTO) 1.2 10^3/uL (0.5-4.7); ABSOLUTE MONOCYTES (AUTO) 0.5 10^3/uL (0.1-1.4); ABSOLUTE NEUT (AUTO) 2.5 10^3/uL (1.7-8.2); EOSINOPHILS % (AUTO) 1.1 % (0-6); HEMATOCRIT 31.6 % (37.9-51.0); HEMOGLOBIN 10.9 g/dL (13.5-17.0); LYMPHOCYTES % (AUTO) 28.6 % (13-45); MEAN CORPUSCULAR HEMOGLOBIN 29.5 pg (27.0-33.4); MEAN CORPUSCULAR HGB CONC 34.6 g/dL (32.0-36.0); MEAN CORPUSCULAR VOLUME 85 fl (80-97); MONOCYTES % (AUTO) 11.6 % (3-13); PLATELET COUNT 162 10^3/uL (150-450); RED BLOOD COUNT 3.71 10^6/uL (4.35-5.55); RED CELL DISTRIBUTION WIDTH 15.7 % (11.5-14.0); SEGMENTED NEUTROPHILS % (AUTO) 56.7 % (42-78); TOTAL CELLS COUNTED % (AUTO) 100 %; WHITE BLOOD COUNT 4.4 10^3/uL (4.0-10.5)
[2017-08-20 04:25] LABS: ALANINE AMINOTRANSFERASE 51 U/L (21-72); ALBUMIN 2.3 g/dL (3.5-5.0); ALKALINE PHOSPHATASE 126 U/L (38-126); ANION GAP 6 (5-19); ASPARTATE AMINO TRANSFERASE 65 U/L (17-59); BILIRUBIN,DIRECT 0.4 mg/dL (0.0-0.4); BILIRUBIN,TOTAL 0.4 mg/dL (0.2-1.3); BLOOD UREA NITROGEN 22 mg/dL (7-20); CALCIUM 8.8 mg/dL (8.4-10.2); CARBON DIOXIDE 26 mmol/L (22-30); CHLORIDE 104 mmol/L (98-107); GLUCOSE 99 mg/dL (75-110); POTASSIUM 4.4 mmol/L (3.6-5.0); SODIUM 135.8 mmol/L (137-145); TOTAL PROTEIN 5.3 g/dL (6.3-8.2)
[2017-08-20] MEDS: PROPOFOL 100 ML IV PRN (04:39)
[2017-08-20 06:53] LABS: ARTERIAL BLOOD BASE EXCESS 2.3 mmol/L; ARTERIAL BLOOD H2CO3 1.28 mmol/L (1.05-1.35); ARTERIAL BLOOD O2 SATURATION 96.2 % (94-98); ARTERIAL BLOOD PCO2 42.4 mmHg (35-45); ARTERIAL BLOOD PH 7.42 (7.35-7.45); ARTERIAL BLOOD PO2 81.4 mmHg (80-100); ARTERIAL BLOOD TOTAL CO2 28.3 mmol/L (23-27)
[2017-08-20 06:55] LABS: ARTERIAL BLOOD FIO2 35%
--- NOTE | 2017-08-20 07:38 | RADIOLOGY REPORT (SQ) ---
EXAM DESCRIPTION: XR CHEST 1 VIEW CLINICAL HISTORY: 72 years Male, resp failure COMPARISON: One day prior. NUMBER OF VIEWS/TECHNIQUE: 1/AP FINDINGS: Small bibasilar opacity-effusion, normal cardiac silhouette, tip of an endotracheal tube is 6 cm from the loly, and likely adequate enteric tube obscured distally. No pneumothorax. No acute bone defect. IMPRESSION: No significant change.
[2017-08-20 08:29] LABS: LYME DISEASE IGM AB 3.56 index (0.00-0.79); LYME IGM WB INTERP Negative (.)
[2017-08-20] MEDS ORDERED: LACTULOSE SYRUP 20 GM/30 ML UDCUP NG ONE (09:00)
[2017-08-20] MEDS: IPRATROPIUM/ALBUTEROL 0.5-2.5 MG/3 ML AMPUL NEB PRN (09:15)
[2017-08-20] MEDS ORDERED: DEXAMETHASONE SOD PHOSPHATE INJ 4 MG/1 ML VIAL ONE (09:23)
[2017-08-20] MEDS: LACTOBACILLUS ACIDOPHILUS 250 MG TAB NG SCH ×2 (09:36→16:21)
[2017-08-20] MEDS: OXYCODONE-ACETAMINOPHEN 5-325 MG TABLET NG PRN (09:37)
[2017-08-20] MEDS: METOPROLOL TARTRATE PF/INJ 5 MG/5 ML SDV IV SCH ×2 (09:37→21:10)
[2017-08-20] MEDS: ENOXAPARIN SODIUM INJ 40 MG/0.4 ML DISP.SYRIN SUBCUT SCH (09:37)
[2017-08-20] MEDS: DOCUSATE SODIUM 100 MG CAPSULE PO SCH (09:38)
[2017-08-20] MEDS ORDERED: DEXAMETHASONE SOD PHOSPHATE INJ 4 MG/1 ML VIAL IV ONE (10:00)
--- NOTE | 2017-08-20 13:08 | PDOC PROGRESS REPORT ---
Subjective Progress Note for:: 08/20/17 Subjective:: Patient remains intubated, but has his eyes open and appears to be awake. Reason For Visit: GENERALIZED PAIN, FEVER, SYSTEMIC INFLAMMATION Physical Exam Vital Signs: Temp Pulse Resp BP Pulse Ox 99.0 F 84 21 H 147/84 H 97 08/19/17 18:00 08/20/17 10:00 08/20/17 12:14 08/20/17 10:02 08/20/17 12:14 Intake & Output 08/19/17 08/20/17 08/21/17 06:59 06:59 06:59 Intake Total 3116 2270 Output Total 6875 4265 625 [facility] [phone] Weight 108.3 kg 105.7 kg General appearance: PRESENT: no acute distress Respiratory exam: PRESENT: clear to auscultation fredis, unlabored Cardiovascular exam: PRESENT: RRR GI/Abdominal exam: PRESENT: soft. ABSENT: tenderness Extremities exam: PRESENT: pedal edema Neurological exam: PRESENT: awake, other - Not yet fully following commands, but tracking with eyes. Skin exam: PRESENT: normal color Results Laboratory Results: 08/20/17 03:56 08/20/17 03:56 08/19/17 08/19/17 08/20/17 23:30 23:39 02:00 WBC RBC Hgb Hct MCV MCH MCHC RDW Plt Count Seg Neutrophils % Lymphocytes % Monocytes % Eosinophils % Basophils % Absolute Neutrophils Absolute Lymphocytes Absolute Monocytes Absolute Eosinophils Absolute Basophils Carbonic Acid 0.92 L 1.08 HCO3/H2CO3 Ratio 25:1 23:1 ABG pH 7.51 H 7.47 H ABG pCO2 30.5 L 35.9 ABG pO2 75.8 L 82.0 ABG HCO3 23.8 25.6 ABG O2 Saturation 96.5 96.7 ABG Base Excess 1.5 2.1 FiO2 35% 35% Sodium 132.6 L Potassium 4.4 Chloride 102 Carbon Dioxide 24 Anion Gap 7 BUN 22 H Creatinine 0.79 Est GFR ( Amer) > 60 Est GFR (Non-Af Amer) > 60 Glucose 97 Calcium 8.8 Phosphorus 4.6 H Magnesium 1.7 Total Bilirubin AST ALT Alkaline Phosphatase Total Protein Albumin 08/20/17 08/20/17 08/20/17 03:56 03:56 06:40 WBC 4.4 RBC 3.71 L Hgb 10.9 L Hct 31.6 L MCV 85 MCH 29.5 MCHC 34.6 RDW 15.7 H Plt Count 162 Seg Neutrophils % 56.7 Lymphocytes % 28.6 Monocytes % 11.6 Eosinophils % 1.1 Basophils % 2.0 Absolute Neutrophils 2.5 Absolute Lymphocytes 1.2 Absolute Monocytes 0.5 Absolute Eosinophils 0.0 Absolute Basophils 0.1 Carbonic Acid 1.28 HCO3/H2CO3 Ratio 21:1 ABG pH 7.42 ABG pCO2 42.4 ABG pO2 81.4 ABG HCO3 27.0 H ABG O2 Saturation 96.2 ABG Base Excess 2.3 FiO2 35% Sodium 135.8 L Potassium 4.4 Chloride 104 Carbon Dioxide 26 Anion Gap 6 BUN 22 H Creatinine 0.82 Est GFR ( Amer) > 60 Est GFR (Non-Af Amer) > 60 Glucose 99 Calcium 8.8 Phosphorus Magnesium 1.8 Total Bilirubin 0.4 AST 65 H ALT 51 Alkaline Phosphatase 126 Total Protein 5.3 L Albumin 2.3 L 08/17/17 15:00 Cerebral Spinal Fluid - Csf Gram Stain - Final 08/17/17 15:00 Cerebral Spinal Fluid - Csf CSF Culture - Final NO GROWTH 3 DAYS 08/14/17 11:25 Blood Blood Culture - Final NO GROWTH IN 5 DAYS 08/14/17 09:23 Blood Blood Culture - Final NO GROWTH IN 5 DAYS 08/13/17 08/14/17 08/17/17 04:17 04:12 04:24 NT-Pro-B Natriuret Pep 1510 H 878 196 08/20/17 03:56 NT-Pro-B Natriuret Pep 357 Impressions: Abdomen Ultrasound 08/09/17 00:00 IMPRESSION: NORMAL ABDOMINAL ULTRASOUND. Abdomen/Pelvis CT 08/11/17 00:00 IMPRESSION: Trace bilateral pleural effusions. No pneumothorax. No alveolar pulmonary edema or dense pneumonia. No bowel obstruction. Post partial sigmoid colectomy. Intact ventral hernia repair. Chest CT 08/11/17 00:00 IMPRESSION: Trace bilateral pleural effusions. No pneumothorax. No alveolar pulmonary edema or dense pneumonia. No bowel obstruction. Post partial sigmoid colectomy. Intact ventral hernia repair. Head CT 08/12/17 00:00 IMPRESSION: NORMAL BRAIN CT WITHOUT CONTRAST. EVIDENCE OF ACUTE STROKE: NO. Chest X-Ray 08/20/17 06:00 IMPRESSION: No significant change. Assessment & Plan - Diagnosis (1) Pancytopenia Is this a current diagnosis for this admission?: Yes (2) Pneumonia Qualifiers: Pneumonia type: due to unspecified organism Laterality: right Lung location: unspecified part of lung Qualified Code(s): J18.9 - Pneumonia, unspecified organism Is this a current diagnosis for this admission?: Yes (3) Elevated liver function tests Is this a current diagnosis for this admission?: No - Plan Summary Plan Summary: Agree with plans for extubation today. Blood counts remain stable. Continue to follow.
[2017-08-20 13:31] LABS: ARTERIAL BLOOD BASE EXCESS -1.8 mmol/L; ARTERIAL BLOOD FIO2 30%; ARTERIAL BLOOD H2CO3 1.06 mmol/L (1.05-1.35); ARTERIAL BLOOD HCO3 22.2 mmol/L (20-26); ARTERIAL BLOOD O2 SATURATION 95.4 % (94-98); ARTERIAL BLOOD PCO2 35.2 mmHg (35-45); ARTERIAL BLOOD PH 7.42 (7.35-7.45); ARTERIAL BLOOD PO2 74.9 mmHg (80-100); ARTERIAL BLOOD TOTAL CO2 23.3 mmol/L (23-27)
--- NOTE | 2017-08-20 15:25 | PDOC PROGRESS REPORT ---
Subjective Progress Note for:: 08/20/17 Subjective:: Seen postextubation. Having some upper airway rattles. Is talking to the nurse and his family Reason For Visit: GENERALIZED PAIN, FEVER, SYSTEMIC INFLAMMATION Physical Exam Vital Signs: Temp Pulse Resp BP Pulse Ox 99.0 F 84 15 160/77 H 98 08/19/17 18:00 08/20/17 10:00 08/20/17 15:00 08/20/17 14:02 08/20/17 15:00 Intake & Output 08/19/17 08/20/17 08/21/17 05:59 05:59 05:59 Intake Total 5088 1177 1093 Output Total 6500 3965 1300 Balance -1412 -2788 -207 Weight 238 lb 12.17 oz 233 lb 0.458 oz General appearance: PRESENT: no acute distress, hard of hearing, obese Respiratory exam: PRESENT: rhonchi - Upper airway, lung sounds are clear Cardiovascular exam: PRESENT: RRR GI/Abdominal exam: PRESENT: soft Neurological exam: PRESENT: awake Skin exam: PRESENT: warm Results Laboratory Results: 08/20/17 03:56 08/20/17 03:56 08/19/17 08/19/17 08/20/17 23:30 23:39 02:00 WBC RBC Hgb Hct MCV MCH MCHC RDW Plt Count Seg Neutrophils % Lymphocytes % Monocytes % Eosinophils % Basophils % Absolute Neutrophils Absolute Lymphocytes Absolute Monocytes Absolute Eosinophils Absolute Basophils Carbonic Acid 0.92 L 1.08 HCO3/H2CO3 Ratio 25:1 23:1 ABG pH 7.51 H 7.47 H ABG pCO2 30.5 L 35.9 ABG pO2 75.8 L 82.0 ABG HCO3 23.8 25.6 ABG O2 Saturation 96.5 96.7 ABG Base Excess 1.5 2.1 FiO2 35% 35% Sodium 132.6 L Potassium 4.4 Chloride 102 Carbon Dioxide 24 Anion Gap 7 BUN 22 H Creatinine 0.79 Est GFR ( Amer) > 60 Est GFR (Non-Af Amer) > 60 Glucose 97 Calcium 8.8 Phosphorus 4.6 H Magnesium 1.7 Total Bilirubin AST ALT Alkaline Phosphatase Total Protein Albumin 08/20/17 08/20/17 08/20/17 03:56 03:56 06:40 WBC 4.4 RBC 3.71 L Hgb 10.9 L Hct 31.6 L MCV 85 MCH 29.5 MCHC 34.6 RDW 15.7 H Plt Count 162 Seg Neutrophils % 56.7 Lymphocytes % 28.6 Monocytes % 11.6 Eosinophils % 1.1 Basophils % 2.0 Absolute Neutrophils 2.5 Absolute Lymphocytes 1.2 Absolute Monocytes 0.5 Absolute Eosinophils 0.0 Absolute Basophils 0.1 Carbonic Acid 1.28 HCO3/H2CO3 Ratio 21:1 ABG pH 7.42 ABG pCO2 42.4 ABG pO2 81.4 ABG HCO3 27.0 H ABG O2 Saturation 96.2 ABG Base Excess 2.3 FiO2 35% Sodium 135.8 L Potassium 4.4 Chloride 104 Carbon Dioxide 26 Anion Gap 6 BUN 22 H Creatinine 0.82 Est GFR ( Amer) > 60 Est GFR (Non-Af Amer) > 60 Glucose 99 Calcium 8.8 Phosphorus Magnesium 1.8 Total Bilirubin 0.4 AST 65 H ALT 51 Alkaline Phosphatase 126 Total Protein 5.3 L Albumin 2.3 L 08/20/17 12:45 WBC RBC Hgb Hct MCV MCH MCHC RDW Plt Count Seg Neutrophils % Lymphocytes % Monocytes % Eosinophils % Basophils % Absolute Neutrophils Absolute Lymphocytes Absolute Monocytes Absolute Eosinophils Absolute Basophils Carbonic Acid 1.06 HCO3/H2CO3 Ratio 20:1 ABG pH 7.42 ABG pCO2 35.2 ABG pO2 74.9 L ABG HCO3 22.2 ABG O2 Saturation 95.4 ABG Base Excess -1.8 FiO2 30% Sodium Potassium Chloride Carbon Dioxide Anion Gap BUN Creatinine Est GFR ( Amer) Est GFR (Non-Af Amer) Glucose Calcium Phosphorus Magnesium Total Bilirubin AST ALT Alkaline Phosphatase Total Protein Albumin 08/17/17 15:00 Cerebral Spinal Fluid - Csf Gram Stain - Final 08/17/17 15:00 Cerebral Spinal Fluid - Csf CSF Culture - Final NO GROWTH 3 DAYS 08/14/17 11:25 Blood Blood Culture - Final NO GROWTH IN 5 DAYS 08/13/17 08/14/17 08/17/17 04:17 04:12 04:24 NT-Pro-B Natriuret Pep 1510 H 878 196 08/20/17 03:56 NT-Pro-B Natriuret Pep 357 Impressions: Abdomen Ultrasound 08/09/17 00:00 IMPRESSION: NORMAL ABDOMINAL ULTRASOUND. Abdomen/Pelvis CT 08/11/17 00:00 IMPRESSION: Trace bilateral pleural effusions. No pneumothorax. No alveolar pulmonary edema or dense pneumonia. No bowel obstruction. Post partial sigmoid colectomy. Intact ventral hernia repair. Chest CT 08/11/17 00:00 IMPRESSION: Trace bilateral pleural effusions. No pneumothorax. No alveolar pulmonary edema or dense pneumonia. No bowel obstruction. Post partial sigmoid colectomy. Intact ventral hernia repair. Head CT 08/12/17 00:00 IMPRESSION: NORMAL BRAIN CT WITHOUT CONTRAST. EVIDENCE OF ACUTE STROKE: NO. Chest X-Ray 08/20/17 06:00 IMPRESSION: No significant change. Assessment & Plan - Diagnosis (1) Acute encephalopathy Is this a current diagnosis for this admission?: Yes Plan: Presumably due to his acute infection. Improving (2) Ehrlichiosis Is this a current diagnosis for this admission?: Yes Plan: Continue doxycycline (3) HTN (hypertension) Qualifiers: Hypertension type: essential hypertension Qualified Code(s): I10 - Essential (primary) hypertension Is this a current diagnosis for this admission?: Yes Plan: Blood pressure starting to climb. Still not comfortable restarting his home meds. I will start him on low-dose Vasotec in addition to the metoprolol, and continue to follow closely.
[2017-08-20] MEDS: 1/2 NORMAL SALINE 1,000 ML IV PRN (16:18)
[2017-08-20] MEDS: ENALAPRILAT DIHYDRATE INJ/PF 1.25 MG/1 ML SDV IV SCH (16:21)
[2017-08-20] MEDS ORDERED: NAPROXEN 250 MG TABLET PO PRN (16:25)
[2017-08-20] MEDS ORDERED: TRAMADOL HCL 50 MG TABLET PO PRN (16:25)
[2017-08-20] MEDS: MORPHINE SULFATE 10 MG/ML INJ IV PRN (16:33)
[2017-08-20] MEDS: FAMOTIDINE INJ/PF 20 MG/2 ML SDV IV SCH (21:10)
[2017-08-21] MEDS: ENALAPRILAT DIHYDRATE INJ/PF 1.25 MG/1 ML SDV IV SCH ×4 (00:25→18:15)
[2017-08-21] MEDS: MORPHINE SULFATE 10 MG/ML INJ IV PRN (03:17)
[2017-08-21] MEDS: 1/2 NORMAL SALINE 1,000 ML IV PRN ×2 (05:22→18:16)
[2017-08-21 05:44] LABS: ARTERIAL BLOOD H2CO3 1.33 mmol/L (1.05-1.35); ARTERIAL BLOOD HCO3 30.6 mmol/L (20-26); ARTERIAL BLOOD PCO2 44.1 mmHg (35-45); ARTERIAL BLOOD PH 7.46 (7.35-7.45); ARTERIAL BLOOD PO2 77.4 mmHg (80-100); ARTERIAL BLOOD TOTAL CO2 31.9 mmol/L (23-27)
[2017-08-21 05:45] LABS: ARTERIAL BLOOD FIO2 3.5L
[2017-08-21 06:01] LABS: ABSOLUTE LYMPHOCYTES (AUTO) 1.1 10^3/uL (0.5-4.7); ABSOLUTE MONOCYTES (AUTO) 0.7 10^3/uL (0.1-1.4); ABSOLUTE NEUT (AUTO) 3.4 10^3/uL (1.7-8.2); BASOPHILS % (AUTO) 0.3 % (0-2); EOSINOPHILS % (AUTO) 0.2 % (0-6); HEMATOCRIT 34.4 % (37.9-51.0); HEMOGLOBIN 11.7 g/dL (13.5-17.0); LYMPHOCYTES % (AUTO) 21.3 % (13-45); MEAN CORPUSCULAR HEMOGLOBIN 29.2 pg (27.0-33.4); MEAN CORPUSCULAR HGB CONC 34.1 g/dL (32.0-36.0); MEAN CORPUSCULAR VOLUME 86 fl (80-97); MONOCYTES % (AUTO) 13.2 % (3-13); PLATELET COUNT 183 10^3/uL (150-450); RED BLOOD COUNT 4.01 10^6/uL (4.35-5.55); RED CELL DISTRIBUTION WIDTH 15.7 % (11.5-14.0); TOTAL CELLS COUNTED % (AUTO) 100 %; WHITE BLOOD COUNT 5.3 10^3/uL (4.0-10.5)
[2017-08-21 06:21] LABS: ALANINE AMINOTRANSFERASE 56 U/L (21-72); ALKALINE PHOSPHATASE 118 U/L (38-126); ANION GAP 9 (5-19); ASPARTATE AMINO TRANSFERASE 75 U/L (17-59); BILIRUBIN,DIRECT 0.5 mg/dL (0.0-0.4); BILIRUBIN,TOTAL 0.6 mg/dL (0.2-1.3); BLOOD UREA NITROGEN 21 mg/dL (7-20); CALCIUM 9.1 mg/dL (8.4-10.2); CARBON DIOXIDE 31 mmol/L (22-30); CHLORIDE 101 mmol/L (98-107); GLUCOSE 102 mg/dL (75-110); PHOSPHORUS 3.7 mg/dL (2.5-4.5); POTASSIUM 4.1 mmol/L (3.6-5.0); SODIUM 141.4 mmol/L (137-145); TOTAL PROTEIN 6.5 g/dL (6.3-8.2)
--- NOTE | 2017-08-21 06:26 | RADIOLOGY REPORT (SQ) ---
EXAM DESCRIPTION: XR CHEST 1 VIEW CLINICAL HISTORY: 72 years Male, pna/resp fail COMPARISON: One day prior. NUMBER OF VIEWS/TECHNIQUE: 1/AP FINDINGS: Small left basilar opacity-effusion, normal cardiac silhouette. No pneumothorax. No acute bone defect. IMPRESSION: No significant change.
--- NOTE | 2017-08-21 07:56 | PDOC PROGRESS REPORT ---
Subjective Progress Note for:: 08/21/17 Subjective:: Patient is now extubated and is able to talk to me. He states that he is feeling much better. He denies hunger. Denies pain. Reason For Visit: GENERALIZED PAIN, FEVER, SYSTEMIC INFLAMMATION Physical Exam Vital Signs: Temp Pulse Resp BP Pulse Ox 97.9 F 95 17 155/72 H 98 08/21/17 06:00 08/20/17 19:59 08/21/17 06:00 08/21/17 05:59 08/21/17 06:00 Intake & Output 08/20/17 08/21/17 08/22/17 06:59 06:59 06:59 Intake Total 2270 1240 Output Total 4265 6775 Weight 105.7 kg 99.1 kg General appearance: PRESENT: no acute distress Mouth exam: PRESENT: dry mucosa Respiratory exam: PRESENT: clear to auscultation fredis, unlabored Cardiovascular exam: PRESENT: RRR GI/Abdominal exam: PRESENT: soft. ABSENT: tenderness Neurological exam: PRESENT: alert, awake Psychiatric exam: PRESENT: appropriate affect Results Laboratory Results: 08/21/17 05:53 08/21/17 05:53 08/20/17 08/21/17 08/21/17 12:45 05:25 05:53 WBC 5.3 RBC 4.01 L Hgb 11.7 L Hct 34.4 L MCV 86 MCH 29.2 MCHC 34.1 RDW 15.7 H Plt Count 183 Seg Neutrophils % 65.0 Lymphocytes % 21.3 Monocytes % 13.2 H Eosinophils % 0.2 Basophils % 0.3 Absolute Neutrophils 3.4 Absolute Lymphocytes 1.1 Absolute Monocytes 0.7 Absolute Eosinophils 0.0 Absolute Basophils 0.0 Carbonic Acid 1.06 1.33 HCO3/H2CO3 Ratio 20:1 23:1 ABG pH 7.42 7.46 H ABG pCO2 35.2 44.1 ABG pO2 74.9 L 77.4 L ABG HCO3 22.2 30.6 H ABG O2 Saturation 95.4 96.0 ABG Base Excess -1.8 6.0 FiO2 30% 3.5L Sodium Potassium Chloride Carbon Dioxide Anion Gap BUN Creatinine Est GFR ( Amer) Est GFR (Non-Af Amer) Glucose Calcium Phosphorus Magnesium Total Bilirubin AST ALT Alkaline Phosphatase Total Protein Albumin 08/21/17 05:53 WBC RBC Hgb Hct MCV MCH MCHC RDW Plt Count Seg Neutrophils % Lymphocytes % Monocytes % Eosinophils % Basophils % Absolute Neutrophils Absolute Lymphocytes Absolute Monocytes Absolute Eosinophils Absolute Basophils Carbonic Acid HCO3/H2CO3 Ratio ABG pH ABG pCO2 ABG pO2 ABG HCO3 ABG O2 Saturation ABG Base Excess FiO2 Sodium 141.4 Potassium 4.1 Chloride 101 Carbon Dioxide 31 H Anion Gap 9 BUN 21 H Creatinine 0.84 Est GFR ( Amer) > 60 Est GFR (Non-Af Amer) > 60 Glucose 102 Calcium 9.1 Phosphorus 3.7 Magnesium 2.0 Total Bilirubin 0.6 AST 75 H ALT 56 Alkaline Phosphatase 118 Total Protein 6.5 Albumin 3.0 L 08/17/17 15:00 Cerebral Spinal Fluid - Csf Gram Stain - Final 08/17/17 15:00 Cerebral Spinal Fluid - Csf CSF Culture - Final NO GROWTH 3 DAYS 08/13/17 08/14/17 08/17/17 04:17 04:12 04:24 NT-Pro-B Natriuret Pep 1510 H 878 196 08/20/17 03:56 NT-Pro-B Natriuret Pep 357 Impressions: Abdomen Ultrasound 08/09/17 00:00 IMPRESSION: NORMAL ABDOMINAL ULTRASOUND. Abdomen/Pelvis CT 08/11/17 00:00 IMPRESSION: Trace bilateral pleural effusions. No pneumothorax. No alveolar pulmonary edema or dense pneumonia. No bowel obstruction. Post partial sigmoid colectomy. Intact ventral hernia repair. Chest CT 08/11/17 00:00 IMPRESSION: Trace bilateral pleural effusions. No pneumothorax. No alveolar pulmonary edema or dense pneumonia. No bowel obstruction. Post partial sigmoid colectomy. Intact ventral hernia repair. Head CT 08/12/17 00:00 IMPRESSION: NORMAL BRAIN CT WITHOUT CONTRAST. EVIDENCE OF ACUTE STROKE: NO. Chest X-Ray 08/21/17 06:00 IMPRESSION: No significant change. Assessment & Plan - Diagnosis (1) Pancytopenia Is this a current diagnosis for this admission?: Yes Plan: Now resolved. I will sign off. Please reconsult if needed. No outpatient follow-up planned, but happy to see again PRN. (2) Pneumonia Qualifiers: Pneumonia type: due to unspecified organism Laterality: right Lung location: unspecified part of lung Qualified Code(s): J18.9 - Pneumonia, unspecified organism Is this a current diagnosis for this admission?: Yes (3) Elevated liver function tests Is this a current diagnosis for this admission?: No
[2017-08-21] MEDS: DOCUSATE SODIUM 100 MG CAPSULE PO SCH (09:42)
[2017-08-21] MEDS: LACTOBACILLUS ACIDOPHILUS 250 MG TAB NG SCH (09:43)
[2017-08-21] MEDS: METOPROLOL TARTRATE PF/INJ 5 MG/5 ML SDV IV SCH ×2 (09:43→21:44)
[2017-08-21] MEDS: FAMOTIDINE INJ/PF 20 MG/2 ML SDV IV SCH ×2 (09:43→21:42)
[2017-08-21] MEDS: ENOXAPARIN SODIUM INJ 40 MG/0.4 ML DISP.SYRIN SUBCUT SCH (09:43)
--- NOTE | 2017-08-21 09:48 | PDOC PROGRESS REPORT ---
Subjective Progress Note for:: 08/20/17 Subjective:: + 7.2 L Intubated and sedated Reason For Visit: GENERALIZED PAIN, FEVER, SYSTEMIC INFLAMMATION Physical Exam Vital Signs: Temp Pulse Resp BP Pulse Ox 99.0 F 97 16 103/59 L 100 08/19/17 18:00 08/19/17 22:00 08/20/17 07:00 08/20/17 06:01 08/20/17 07:00 Intake & Output 08/19/17 08/20/17 08/21/17 06:59 06:59 06:59 Intake Total 3116 2270 Output Total 6875 4265 Weight 108.3 kg 105.7 kg General appearance: PRESENT: no acute distress, disheveled, obese Head exam: PRESENT: atraumatic, normocephalic Eye exam: PRESENT: conjunctiva pale, EOMI, PERRLA. ABSENT: nystagmus, periorbital swelling, scleral icterus Mouth exam: PRESENT: dry mucosa, neck supple, tongue midline, other - ET tube Neck exam: ABSENT: carotid bruit, JVD, lymphadenopathy, thyromegaly, tracheal deviation, tracheostomy Respiratory exam: PRESENT: decreased breath sounds, prolonged expiratory phas, rhonchi, unlabored. ABSENT: rales, retraction, stridor, tachypnea Cardiovascular exam: PRESENT: RRR, +S1, +S2 Pulses: PRESENT: normal radial pulses GI/Abdominal exam: PRESENT: normal bowel sounds, soft Extremities exam: ABSENT: calf tenderness, clubbing, joint swelling Musculoskeletal exam: ABSENT: deformity, dislocation Neurological exam: PRESENT: awake, oriented to person. ABSENT: oriented to place, oriented to time, oriented to situation Psychiatric exam: PRESENT: flat affect Skin exam: PRESENT: dry, warm Results Laboratory Results: 08/20/17 03:56 08/20/17 03:56 08/19/17 08/19/17 08/20/17 23:30 23:39 02:00 WBC RBC Hgb Hct MCV MCH MCHC RDW Plt Count Seg Neutrophils % Lymphocytes % Monocytes % Eosinophils % Basophils % Absolute Neutrophils Absolute Lymphocytes Absolute Monocytes Absolute Eosinophils Absolute Basophils Carbonic Acid 0.92 L 1.08 HCO3/H2CO3 Ratio 25:1 23:1 ABG pH 7.51 H 7.47 H ABG pCO2 30.5 L 35.9 ABG pO2 75.8 L 82.0 ABG HCO3 23.8 25.6 ABG O2 Saturation 96.5 96.7 ABG Base Excess 1.5 2.1 FiO2 35% 35% Sodium 132.6 L Potassium 4.4 Chloride 102 Carbon Dioxide 24 Anion Gap 7 BUN 22 H Creatinine 0.79 Est GFR ( Amer) > 60 Est GFR (Non-Af Amer) > 60 Glucose 97 Calcium 8.8 Phosphorus 4.6 H Magnesium 1.7 Total Bilirubin AST ALT Alkaline Phosphatase Total Protein Albumin 08/20/17 08/20/17 08/20/17 03:56 03:56 06:40 WBC 4.4 RBC 3.71 L Hgb 10.9 L Hct 31.6 L MCV 85 MCH 29.5 MCHC 34.6 RDW 15.7 H Plt Count 162 Seg Neutrophils % 56.7 Lymphocytes % 28.6 Monocytes % 11.6 Eosinophils % 1.1 Basophils % 2.0 Absolute Neutrophils 2.5 Absolute Lymphocytes 1.2 Absolute Monocytes 0.5 Absolute Eosinophils 0.0 Absolute Basophils 0.1 Carbonic Acid 1.28 HCO3/H2CO3 Ratio 21:1 ABG pH 7.42 ABG pCO2 42.4 ABG pO2 81.4 ABG HCO3 27.0 H ABG O2 Saturation 96.2 ABG Base Excess 2.3 FiO2 35% Sodium 135.8 L Potassium 4.4 Chloride 104 Carbon Dioxide 26 Anion Gap 6 BUN 22 H Creatinine 0.82 Est GFR ( Amer) > 60 Est GFR (Non-Af Amer) > 60 Glucose 99 Calcium 8.8 Phosphorus Magnesium 1.8 Total Bilirubin 0.4 AST 65 H ALT 51 Alkaline Phosphatase 126 Total Protein 5.3 L Albumin 2.3 L 08/14/17 11:25 Blood Blood Culture - Final NO GROWTH IN 5 DAYS 08/14/17 09:23 Blood Blood Culture - Final NO GROWTH IN 5 DAYS 08/13/17 08/14/17 08/17/17 04:17 04:12 04:24 NT-Pro-B Natriuret Pep 1510 H 878 196 08/20/17 03:56 NT-Pro-B Natriuret Pep 357 Impressions: Abdomen Ultrasound 08/09/17 00:00 IMPRESSION: NORMAL ABDOMINAL ULTRASOUND. Abdomen/Pelvis CT 08/11/17 00:00 IMPRESSION: Trace bilateral pleural effusions. No pneumothorax. No alveolar pulmonary edema or dense pneumonia. No bowel obstruction. Post partial sigmoid colectomy. Intact ventral hernia repair. Chest CT 08/11/17 00:00 IMPRESSION: Trace bilateral pleural effusions. No pneumothorax. No alveolar pulmonary edema or dense pneumonia. No bowel obstruction. Post partial sigmoid colectomy. Intact ventral hernia repair. Head CT 08/12/17 00:00 IMPRESSION: NORMAL BRAIN CT WITHOUT CONTRAST. EVIDENCE OF ACUTE STROKE: NO. Chest X-Ray 08/20/17 06:00 IMPRESSION: No significant change. Assessment & Plan - Diagnosis (1) Elevated liver function tests Is this a current diagnosis for this admission?: No Plan: improving (2) Acute kidney injury Is this a current diagnosis for this admission?: Yes Plan: Improving Labs- All tests 24 hr 08/08/17 08/09/17 08/10/17 09:40 05:27 04:58 Creatinine 2.23 H 1.65 H 1.49 H 08/11/17 08/11/17 08/12/17 00:53 07:05 11:57 Creatinine 1.51 H 1.55 H 1.73 H 08/13/17 08/14/17 08/14/17 04:17 04:12 20:25 Creatinine 1.68 H 1.20 1.07 08/15/17 08/16/17 04:11 05:47 Creatinine 1.09 1.00 (3) Sepsis Is this a current diagnosis for this admission?: No (4) Thrombocytopenia Is this a current diagnosis for this admission?: No (5) Altered mental status, unspecified Qualifiers: Altered mental status type: delirium Qualified Code(s): R41.0 - Disorientation, unspecified Is this a current diagnosis for this admission?: Yes Plan: improving - Time Total Critical Time (Minutes): 55 - Plan Summary Plan Summary: extubate!!!
--- NOTE | 2017-08-21 09:51 | PDOC PROGRESS REPORT ---
Subjective Progress Note for:: 08/21/17 Subjective:: 24hrs s/p extubation stable Reason For Visit: GENERALIZED PAIN, FEVER, SYSTEMIC INFLAMMATION Physical Exam Vital Signs: Temp Pulse Resp BP Pulse Ox 97.9 F 95 17 155/72 H 98 08/21/17 06:00 08/20/17 19:59 08/21/17 06:00 08/21/17 05:59 08/21/17 06:00 Intake & Output 08/20/17 08/21/17 08/22/17 06:59 06:59 06:59 Intake Total 2270 1240 Output Total 4265 6775 98 Weight 105.7 kg 99.1 kg General appearance: PRESENT: no acute distress, cooperative, disheveled, obese Head exam: PRESENT: atraumatic, normocephalic Eye exam: PRESENT: conjunctiva pale, EOMI, PERRLA. ABSENT: nystagmus, periorbital swelling, scleral icterus Mouth exam: PRESENT: moist, neck supple, tongue midline Neck exam: ABSENT: carotid bruit, JVD, lymphadenopathy, thyromegaly, tracheal deviation, tracheostomy Respiratory exam: PRESENT: decreased breath sounds, prolonged expiratory phas, rhonchi, unlabored. ABSENT: rales, retraction, stridor Cardiovascular exam: PRESENT: RRR, +S1, +S2. ABSENT: tachycardia Pulses: PRESENT: normal radial pulses GI/Abdominal exam: PRESENT: normal bowel sounds, soft Extremities exam: ABSENT: calf tenderness, clubbing, joint swelling Musculoskeletal exam: ABSENT: deformity, dislocation Neurological exam: PRESENT: alert, awake Psychiatric exam: PRESENT: normal mood Skin exam: PRESENT: dry, warm Results Laboratory Results: 08/21/17 05:53 08/21/17 05:53 08/20/17 08/21/17 08/21/17 12:45 05:25 05:53 WBC 5.3 RBC 4.01 L Hgb 11.7 L Hct 34.4 L MCV 86 MCH 29.2 MCHC 34.1 RDW 15.7 H Plt Count 183 Seg Neutrophils % 65.0 Lymphocytes % 21.3 Monocytes % 13.2 H Eosinophils % 0.2 Basophils % 0.3 Absolute Neutrophils 3.4 Absolute Lymphocytes 1.1 Absolute Monocytes 0.7 Absolute Eosinophils 0.0 Absolute Basophils 0.0 Carbonic Acid 1.06 1.33 HCO3/H2CO3 Ratio 20:1 23:1 ABG pH 7.42 7.46 H ABG pCO2 35.2 44.1 ABG pO2 74.9 L 77.4 L ABG HCO3 22.2 30.6 H ABG O2 Saturation 95.4 96.0 ABG Base Excess -1.8 6.0 FiO2 30% 3.5L Sodium Potassium Chloride Carbon Dioxide Anion Gap BUN Creatinine Est GFR ( Amer) Est GFR (Non-Af Amer) Glucose Calcium Phosphorus Magnesium Total Bilirubin AST ALT Alkaline Phosphatase Total Protein Albumin 08/21/17 05:53 WBC RBC Hgb Hct MCV MCH MCHC RDW Plt Count Seg Neutrophils % Lymphocytes % Monocytes % Eosinophils % Basophils % Absolute Neutrophils Absolute Lymphocytes Absolute Monocytes Absolute Eosinophils Absolute Basophils Carbonic Acid HCO3/H2CO3 Ratio ABG pH ABG pCO2 ABG pO2 ABG HCO3 ABG O2 Saturation ABG Base Excess FiO2 Sodium 141.4 Potassium 4.1 Chloride 101 Carbon Dioxide 31 H Anion Gap 9 BUN 21 H Creatinine 0.84 Est GFR ( Amer) > 60 Est GFR (Non-Af Amer) > 60 Glucose 102 Calcium 9.1 Phosphorus 3.7 Magnesium 2.0 Total Bilirubin 0.6 AST 75 H ALT 56 Alkaline Phosphatase 118 Total Protein 6.5 Albumin 3.0 L 08/17/17 15:00 Cerebral Spinal Fluid - Csf Gram Stain - Final 08/17/17 15:00 Cerebral Spinal Fluid - Csf CSF Culture - Final NO GROWTH 3 DAYS 08/13/17 08/14/17 08/17/17 04:17 04:12 04:24 NT-Pro-B Natriuret Pep 1510 H 878 196 08/20/17 03:56 NT-Pro-B Natriuret Pep 357 Impressions: Abdomen Ultrasound 08/09/17 00:00 IMPRESSION: NORMAL ABDOMINAL ULTRASOUND. Abdomen/Pelvis CT 08/11/17 00:00 IMPRESSION: Trace bilateral pleural effusions. No pneumothorax. No alveolar pulmonary edema or dense pneumonia. No bowel obstruction. Post partial sigmoid colectomy. Intact ventral hernia repair. Chest CT 08/11/17 00:00 IMPRESSION: Trace bilateral pleural effusions. No pneumothorax. No alveolar pulmonary edema or dense pneumonia. No bowel obstruction. Post partial sigmoid colectomy. Intact ventral hernia repair. Head CT 08/12/17 00:00 IMPRESSION: NORMAL BRAIN CT WITHOUT CONTRAST. EVIDENCE OF ACUTE STROKE: NO. Chest X-Ray 08/21/17 06:00 IMPRESSION: No significant change. Assessment & Plan - Diagnosis (1) Elevated liver function tests Is this a current diagnosis for this admission?: No (2) Acute kidney injury Is this a current diagnosis for this admission?: Yes (3) Sepsis Is this a current diagnosis for this admission?: No (4) Thrombocytopenia Is this a current diagnosis for this admission?: Yes Plan: Labs- All tests 24 hr 08/08/17 08/09/17 08/11/17 09:40 05:27 00:53 Plt Count 65 L 64 L 80 L 08/11/17 08/12/17 08/12/17 07:05 11:57 15:40 Plt Count 83 L 79 L 78 L 08/13/17 08/14/17 08/14/17 14:43 14:25 20:25 Plt Count 66 L 72 L 76 L 08/15/17 08/16/17 04:11 05:47 Plt Count 73 L 99 L (5) Altered mental status, unspecified Qualifiers: Altered mental status type: delirium Qualified Code(s): R41.0 - Disorientation, unspecified Is this a current diagnosis for this admission?: Yes Plan: continues to improve - Time Total Critical Time (Minutes): 40
[2017-08-21] MEDS ORDERED: MAG HYDROX/AL HYDROX/SIMETH SUSP 30 ML UDCUP PO PRN (10:30)
--- NOTE | 2017-08-21 11:40 | PDOC PROGRESS REPORT ---
Subjective Progress Note for:: 08/21/17 Subjective:: More awake today. Able to carry a simple conversation, but still a little clouded. Reason For Visit: GENERALIZED PAIN, FEVER, SYSTEMIC INFLAMMATION Physical Exam Vital Signs: Temp Pulse Resp BP Pulse Ox 98.1 F 91 13 141/79 H 97 08/21/17 10:00 08/21/17 09:22 08/21/17 10:01 08/21/17 10:00 08/21/17 10:01 Intake & Output 08/20/17 08/21/17 08/22/17 05:59 05:59 05:59 Intake Total 1177 2333 150 Output Total 3965 7200 1250 Balance -5235 -2594 -4948 Weight 238 lb 12.17 oz 233 lb 0.458 oz 218 lb 7.649 oz General appearance: PRESENT: no acute distress, obese Respiratory exam: PRESENT: clear to auscultation fredis Cardiovascular exam: PRESENT: RRR GI/Abdominal exam: PRESENT: soft Extremities exam: ABSENT: pedal edema, +1 edema Musculoskeletal exam: PRESENT: normal inspection Neurological exam: PRESENT: alert, oriented to person, oriented to place. ABSENT: oriented to time, oriented to situation Psychiatric exam: PRESENT: appropriate affect Skin exam: PRESENT: dry, warm Results Laboratory Results: 08/21/17 05:53 08/21/17 05:53 08/20/17 08/21/17 08/21/17 12:45 05:25 05:53 WBC 5.3 RBC 4.01 L Hgb 11.7 L Hct 34.4 L MCV 86 MCH 29.2 MCHC 34.1 RDW 15.7 H Plt Count 183 Seg Neutrophils % 65.0 Lymphocytes % 21.3 Monocytes % 13.2 H Eosinophils % 0.2 Basophils % 0.3 Absolute Neutrophils 3.4 Absolute Lymphocytes 1.1 Absolute Monocytes 0.7 Absolute Eosinophils 0.0 Absolute Basophils 0.0 Carbonic Acid 1.06 1.33 HCO3/H2CO3 Ratio 20:1 23:1 ABG pH 7.42 7.46 H ABG pCO2 35.2 44.1 ABG pO2 74.9 L 77.4 L ABG HCO3 22.2 30.6 H ABG O2 Saturation 95.4 96.0 ABG Base Excess -1.8 6.0 FiO2 30% 3.5L Sodium Potassium Chloride Carbon Dioxide Anion Gap BUN Creatinine Est GFR ( Amer) Est GFR (Non-Af Amer) Glucose Calcium Phosphorus Magnesium Total Bilirubin AST ALT Alkaline Phosphatase Total Protein Albumin 08/21/17 05:53 WBC RBC Hgb Hct MCV MCH MCHC RDW Plt Count Seg Neutrophils % Lymphocytes % Monocytes % Eosinophils % Basophils % Absolute Neutrophils Absolute Lymphocytes Absolute Monocytes Absolute Eosinophils Absolute Basophils Carbonic Acid HCO3/H2CO3 Ratio ABG pH ABG pCO2 ABG pO2 ABG HCO3 ABG O2 Saturation ABG Base Excess FiO2 Sodium 141.4 Potassium 4.1 Chloride 101 Carbon Dioxide 31 H Anion Gap 9 BUN 21 H Creatinine 0.84 Est GFR ( Amer) > 60 Est GFR (Non-Af Amer) > 60 Glucose 102 Calcium 9.1 Phosphorus 3.7 Magnesium 2.0 Total Bilirubin 0.6 AST 75 H ALT 56 Alkaline Phosphatase 118 Total Protein 6.5 Albumin 3.0 L 08/17/17 15:00 Cerebral Spinal Fluid - Csf Gram Stain - Final 08/17/17 15:00 Cerebral Spinal Fluid - Csf CSF Culture - Final NO GROWTH 3 DAYS 08/13/17 08/14/17 08/17/17 04:17 04:12 04:24 NT-Pro-B Natriuret Pep 1510 H 878 196 08/20/17 03:56 NT-Pro-B Natriuret Pep 357 Impressions: Abdomen Ultrasound 08/09/17 00:00 IMPRESSION: NORMAL ABDOMINAL ULTRASOUND. Abdomen/Pelvis CT 08/11/17 00:00 IMPRESSION: Trace bilateral pleural effusions. No pneumothorax. No alveolar pulmonary edema or dense pneumonia. No bowel obstruction. Post partial sigmoid colectomy. Intact ventral hernia repair. Chest CT 08/11/17 00:00 IMPRESSION: Trace bilateral pleural effusions. No pneumothorax. No alveolar pulmonary edema or dense pneumonia. No bowel obstruction. Post partial sigmoid colectomy. Intact ventral hernia repair. Head CT 08/12/17 00:00 IMPRESSION: NORMAL BRAIN CT WITHOUT CONTRAST. EVIDENCE OF ACUTE STROKE: NO. Chest X-Ray 08/21/17 06:00 IMPRESSION: No significant change. Assessment & Plan - Diagnosis (1) Acute encephalopathy Is this a current diagnosis for this admission?: Yes Plan: Presumably due to his acute infection. Improving (2) Ehrlichiosis Is this a current diagnosis for this admission?: Yes Plan: Continue doxycycline (3) HTN (hypertension) Qualifiers: Hypertension type: essential hypertension Qualified Code(s): I10 - Essential (primary) hypertension Is this a current diagnosis for this admission?: Yes Plan: Improved, but still little high. I will increase both his Vasotec and his Lopressor
[2017-08-21 17:37] LABS: ALPHA-2-GLOBULIN 7.8 % (3.0-12.6); CSF ALBUMIN 41.9 % (56.8-76.4); PRE ALBUMIN 0.9 % (2.2-7.1); TOTAL PROTEIN CSF PE 203.8 mg/dL (0.0-44.0)
[2017-08-21] MEDS: LACTOBACILLUS ACIDOPHILUS 250 MG TAB PO SCH (18:15)
[2017-08-22] MEDS: ENALAPRILAT DIHYDRATE INJ/PF 1.25 MG/1 ML SDV IV SCH ×3 (00:36→11:32)
[2017-08-22 04:27] LABS: ABSOLUTE LYMPHOCYTES (AUTO) 1.1 10^3/uL (0.5-4.7); ABSOLUTE MONOCYTES (AUTO) 0.7 10^3/uL (0.1-1.4); ABSOLUTE NEUT (AUTO) 2.5 10^3/uL (1.7-8.2); EOSINOPHILS % (AUTO) 0.4 % (0-6); HEMATOCRIT 33.9 % (37.9-51.0); HEMOGLOBIN 11.8 g/dL (13.5-17.0); LYMPHOCYTES % (AUTO) 25.1 % (13-45); MEAN CORPUSCULAR HEMOGLOBIN 29.4 pg (27.0-33.4); MEAN CORPUSCULAR HGB CONC 34.8 g/dL (32.0-36.0); MEAN CORPUSCULAR VOLUME 84 fl (80-97); MONOCYTES % (AUTO) 15.5 % (3-13); PLATELET COUNT 201 10^3/uL (150-450); RED BLOOD COUNT 4.01 10^6/uL (4.35-5.55); RED CELL DISTRIBUTION WIDTH 15.8 % (11.5-14.0); TOTAL CELLS COUNTED % (AUTO) 100 %; WHITE BLOOD COUNT 4.3 10^3/uL (4.0-10.5)
[2017-08-22 04:46] LABS: ANION GAP 8 (5-19); BLOOD UREA NITROGEN 20 mg/dL (7-20); CALCIUM 8.8 mg/dL (8.4-10.2); CARBON DIOXIDE 30 mmol/L (22-30); CHLORIDE 103 mmol/L (98-107); GLUCOSE 106 mg/dL (75-110); PHOSPHORUS 3.6 mg/dL (2.5-4.5); POTASSIUM 3.7 mmol/L (3.6-5.0); SODIUM 140.6 mmol/L (137-145)
[2017-08-22] MEDS: LACTOBACILLUS ACIDOPHILUS 250 MG TAB PO SCH ×2 (09:52→17:19)
[2017-08-22] MEDS: ENOXAPARIN SODIUM INJ 40 MG/0.4 ML DISP.SYRIN SUBCUT SCH (09:55)
[2017-08-22] MEDS: DOCUSATE SODIUM 100 MG CAPSULE PO SCH (09:55)
[2017-08-22] MEDS: METOPROLOL TARTRATE PF/INJ 5 MG/5 ML SDV IV SCH (09:55)
[2017-08-22] MEDS: FAMOTIDINE INJ/PF 20 MG/2 ML SDV IV SCH (09:56)
--- NOTE | 2017-08-22 10:45 | PDOC PROGRESS REPORT ---
Subjective Progress Note for:: 08/22/17 Subjective:: stable Reason For Visit: GENERALIZED PAIN, FEVER, SYSTEMIC INFLAMMATION Physical Exam Vital Signs: Temp Pulse Resp BP Pulse Ox 98.1 F 94 14 153/82 H 94 08/22/17 08:00 08/22/17 08:00 08/22/17 08:00 08/22/17 08:00 08/22/17 00:00 Intake & Output 08/21/17 08/22/17 08/23/17 06:59 06:59 06:59 Intake Total 1240 1525 Output Total 6775 5600 400 Balance -5535 -4075 -400 Weight 99.1 kg 95.6 kg General appearance: PRESENT: no acute distress, cooperative, disheveled, obese Head exam: PRESENT: atraumatic, normocephalic Eye exam: PRESENT: conjunctiva pale, EOMI. ABSENT: nystagmus, periorbital swelling, scleral icterus Mouth exam: PRESENT: dry mucosa, neck supple, tongue midline Neck exam: ABSENT: carotid bruit, JVD, lymphadenopathy, thyromegaly, tracheal deviation, tracheostomy Respiratory exam: PRESENT: decreased breath sounds, prolonged expiratory phas, rhonchi, unlabored. ABSENT: retraction, stridor, tachypnea Cardiovascular exam: PRESENT: RRR, +S1, +S2 Pulses: PRESENT: normal radial pulses GI/Abdominal exam: PRESENT: normal bowel sounds, soft Extremities exam: ABSENT: calf tenderness, clubbing, joint swelling Musculoskeletal exam: ABSENT: deformity, dislocation Neurological exam: PRESENT: alert, awake Psychiatric exam: PRESENT: normal mood Skin exam: PRESENT: dry, warm Results Laboratory Results: 08/22/17 04:00 08/22/17 04:00 08/22/17 08/22/17 04:00 04:00 WBC 4.3 RBC 4.01 L Hgb 11.8 L Hct 33.9 L MCV 84 MCH 29.4 MCHC 34.8 RDW 15.8 H Plt Count 201 Seg Neutrophils % 58.0 Lymphocytes % 25.1 Monocytes % 15.5 H Eosinophils % 0.4 Basophils % 1.0 Absolute Neutrophils 2.5 Absolute Lymphocytes 1.1 Absolute Monocytes 0.7 Absolute Eosinophils 0.0 Absolute Basophils 0.0 Sodium 140.6 Potassium 3.7 Chloride 103 Carbon Dioxide 30 Anion Gap 8 BUN 20 Creatinine 0.84 Est GFR ( Amer) > 60 Est GFR (Non-Af Amer) > 60 Glucose 106 Calcium 8.8 Phosphorus 3.6 Magnesium 2.0 08/13/17 08/14/17 08/17/17 04:17 04:12 04:24 NT-Pro-B Natriuret Pep 1510 H 878 196 08/20/17 03:56 NT-Pro-B Natriuret Pep 357 Impressions: Abdomen Ultrasound 08/09/17 00:00 IMPRESSION: NORMAL ABDOMINAL ULTRASOUND. Abdomen/Pelvis CT 08/11/17 00:00 IMPRESSION: Trace bilateral pleural effusions. No pneumothorax. No alveolar pulmonary edema or dense pneumonia. No bowel obstruction. Post partial sigmoid colectomy. Intact ventral hernia repair. Chest CT 08/11/17 00:00 IMPRESSION: Trace bilateral pleural effusions. No pneumothorax. No alveolar pulmonary edema or dense pneumonia. No bowel obstruction. Post partial sigmoid colectomy. Intact ventral hernia repair. Head CT 08/12/17 00:00 IMPRESSION: NORMAL BRAIN CT WITHOUT CONTRAST. EVIDENCE OF ACUTE STROKE: NO. Chest X-Ray 08/21/17 06:00 IMPRESSION: No significant change. Assessment & Plan - Diagnosis (1) Elevated liver function tests Is this a current diagnosis for this admission?: No (2) Acute kidney injury Is this a current diagnosis for this admission?: No (3) Sepsis Is this a current diagnosis for this admission?: Yes Plan: no longer on vasopressor bp stable heart rate staple (4) Thrombocytopenia Is this a current diagnosis for this admission?: Yes Plan: Labs- All tests 24 hr 08/08/17 08/09/17 08/11/17 09:40 05:27 00:53 Plt Count 65 L 64 L 80 L 08/11/17 08/12/17 08/12/17 07:05 11:57 15:40 Plt Count 83 L 79 L 78 L 08/13/17 08/14/17 08/14/17 14:43 14:25 20:25 Plt Count 66 L 72 L 76 L 08/15/17 08/16/17 08/17/17 04:11 05:47 04:24 Plt Count 73 L 99 L 105 L 08/18/17 08/19/17 08/19/17 03:54 03:51 05:45 Plt Count 125 L Cancelled 151 08/20/17 08/21/17 08/22/17 03:56 05:53 04:00 Plt Count 162 183 201 (5) Altered mental status, unspecified Qualifiers: Altered mental status type: delirium Qualified Code(s): R41.0 - Disorientation, unspecified Is this a current diagnosis for this admission?: Yes Plan: continues to improve
[2017-08-22 12:05] LABS: CSF PE GAMMA GLOBULIN 21.6 % (3.0-13.0); PROT ELEC MSPIKE 6.6 % (Not Observ)
--- NOTE | 2017-08-22 14:24 | PDOC PROGRESS REPORT ---
Subjective Progress Note for:: 08/22/17 Subjective:: Continues to clear mentally daily. Still some clouding, but able to carry more of the conversation. Reason For Visit: GENERALIZED PAIN, FEVER, SYSTEMIC INFLAMMATION Physical Exam Vital Signs: Temp Pulse Resp BP Pulse Ox 98.5 F 91 16 143/79 H 93 08/22/17 11:25 08/22/17 11:25 08/22/17 11:25 08/22/17 11:25 08/22/17 11:25 Intake & Output 08/21/17 08/22/17 08/23/17 05:59 05:59 05:59 Intake Total 2333 1083 642 Output Total 7200 5600 650 Balance -4867 -4517 -8 Weight 233 lb 0.458 oz 210 lb 12.191 oz General appearance: PRESENT: no acute distress, obese Respiratory exam: PRESENT: clear to auscultation fredis Cardiovascular exam: PRESENT: RRR GI/Abdominal exam: PRESENT: soft Neurological exam: PRESENT: awake, oriented to person, oriented to place, CN II- XII grossly intact. ABSENT: oriented to time, oriented to situation, motor sensory deficit Psychiatric exam: PRESENT: appropriate affect Skin exam: PRESENT: warm Results Laboratory Results: 08/22/17 04:00 08/22/17 04:00 08/17/17 08/22/17 08/22/17 15:00 04:00 04:00 WBC 4.3 RBC 4.01 L Hgb 11.8 L Hct 33.9 L MCV 84 MCH 29.4 MCHC 34.8 RDW 15.8 H Plt Count 201 Seg Neutrophils % 58.0 Lymphocytes % 25.1 Monocytes % 15.5 H Eosinophils % 0.4 Basophils % 1.0 Absolute Neutrophils 2.5 Absolute Lymphocytes 1.1 Absolute Monocytes 0.7 Absolute Eosinophils 0.0 Absolute Basophils 0.0 Sodium 140.6 Potassium 3.7 Chloride 103 Carbon Dioxide 30 Anion Gap 8 BUN 20 Creatinine 0.84 Est GFR ( Amer) > 60 Est GFR (Non-Af Amer) > 60 Glucose 106 Calcium 8.8 Phosphorus 3.6 Magnesium 2.0 CSF Total Protein PEP 203.8 H CSF Prealbumin 0.9 L CSF Albumin 41.9 L CSF Zifeo-9-Mvjukbja 10.0 H CSF Fwgun-0-Yaltkeuz 7.8 CSF Beta Globulin 17.9 CSF Gamma Globulin 21.6 H CSF PEP M-Fili 6.6 H 08/13/17 08/14/17 08/17/17 04:17 04:12 04:24 NT-Pro-B Natriuret Pep 1510 H 878 196 08/20/17 03:56 NT-Pro-B Natriuret Pep 357 Impressions: Abdomen Ultrasound 08/09/17 00:00 IMPRESSION: NORMAL ABDOMINAL ULTRASOUND. Abdomen/Pelvis CT 08/11/17 00:00 IMPRESSION: Trace bilateral pleural effusions. No pneumothorax. No alveolar pulmonary edema or dense pneumonia. No bowel obstruction. Post partial sigmoid colectomy. Intact ventral hernia repair. Chest CT 08/11/17 00:00 IMPRESSION: Trace bilateral pleural effusions. No pneumothorax. No alveolar pulmonary edema or dense pneumonia. No bowel obstruction. Post partial sigmoid colectomy. Intact ventral hernia repair. Head CT 08/12/17 00:00 IMPRESSION: NORMAL BRAIN CT WITHOUT CONTRAST. EVIDENCE OF ACUTE STROKE: NO. Chest X-Ray 08/21/17 06:00 IMPRESSION: No significant change. Assessment & Plan - Diagnosis (1) Acute encephalopathy Is this a current diagnosis for this admission?: Yes Plan: Presumably due to his acute infection. Improving (2) Ehrlichiosis Is this a current diagnosis for this admission?: Yes Plan: Continue doxycycline (3) HTN (hypertension) Qualifiers: Hypertension type: essential hypertension Qualified Code(s): I10 - Essential (primary) hypertension Is this a current diagnosis for this admission?: Yes Plan: Resume home medications
[2017-08-22 15:26] LABS: ARTERIAL BLOOD BASE EXCESS 3.9 mmol/L; ARTERIAL BLOOD HCO3 27.9 mmol/L (20-26); ARTERIAL BLOOD O2 SATURATION 96.7 % (94-98); ARTERIAL BLOOD PCO2 39.8 mmHg (35-45); ARTERIAL BLOOD PH 7.46 (7.35-7.45); ARTERIAL BLOOD TOTAL CO2 29.1 mmol/L (23-27)
[2017-08-22 15:28] LABS: ARTERIAL BLOOD FIO2 ROOM AIR
[2017-08-23] MEDS: LACTOBACILLUS ACIDOPHILUS 250 MG TAB PO SCH ×2 (09:26→17:12)
[2017-08-23] MEDS: LISINOPRIL 10 MG TABLET PO SCH (09:26)
[2017-08-23] MEDS: DOCUSATE SODIUM 100 MG CAPSULE PO SCH (09:26)
[2017-08-23] MEDS: ENOXAPARIN SODIUM INJ 40 MG/0.4 ML DISP.SYRIN SUBCUT SCH (09:27)
--- NOTE | 2017-08-23 13:45 | PDOC PROGRESS REPORT ---
Subjective Progress Note for:: 08/23/17 Subjective:: About the same as yesterday. Able to tell me who he is, the year, and the president. Unable to name where he is, or the season. Reason For Visit: GENERALIZED PAIN, FEVER, SYSTEMIC INFLAMMATION Physical Exam Vital Signs: Temp Pulse Resp BP Pulse Ox 98.2 F 98 18 156/95 H 100 08/22/17 16:00 08/23/17 07:00 08/22/17 19:00 08/23/17 08:04 08/23/17 08:04 Intake & Output 08/22/17 08/23/17 08/24/17 05:59 05:59 05:59 Intake Total 1083 1242 800 Output Total 5603 4517 1050 Balance -4517 -3283 -161 Weight 210 lb 12.191 oz 202 lb 13.204 oz General appearance: PRESENT: no acute distress, obese Respiratory exam: PRESENT: clear to auscultation fredis Cardiovascular exam: PRESENT: RRR GI/Abdominal exam: PRESENT: soft Musculoskeletal exam: PRESENT: normal inspection Neurological exam: PRESENT: altered, awake, CN II-XII grossly intact. ABSENT: motor sensory deficit Psychiatric exam: PRESENT: unusual affect Skin exam: PRESENT: dry, warm Results Laboratory Results: 08/22/17 04:00 08/22/17 04:00 08/22/17 15:04 Carbonic Acid 1.20 HCO3/H2CO3 Ratio 23:1 ABG pH 7.46 H ABG pCO2 39.8 ABG pO2 83.0 ABG HCO3 27.9 H ABG O2 Saturation 96.7 ABG Base Excess 3.9 FiO2 ROOM AIR 08/13/17 08/14/17 08/17/17 04:17 04:12 04:24 NT-Pro-B Natriuret Pep 1510 H 878 196 08/20/17 03:56 NT-Pro-B Natriuret Pep 357 Impressions: Abdomen Ultrasound 08/09/17 00:00 IMPRESSION: NORMAL ABDOMINAL ULTRASOUND. Abdomen/Pelvis CT 08/11/17 00:00 IMPRESSION: Trace bilateral pleural effusions. No pneumothorax. No alveolar pulmonary edema or dense pneumonia. No bowel obstruction. Post partial sigmoid colectomy. Intact ventral hernia repair. Chest CT 08/11/17 00:00 IMPRESSION: Trace bilateral pleural effusions. No pneumothorax. No alveolar pulmonary edema or dense pneumonia. No bowel obstruction. Post partial sigmoid colectomy. Intact ventral hernia repair. Head CT 08/12/17 00:00 IMPRESSION: NORMAL BRAIN CT WITHOUT CONTRAST. EVIDENCE OF ACUTE STROKE: NO. Chest X-Ray 08/21/17 06:00 IMPRESSION: No significant change. Assessment & Plan - Diagnosis (1) Acute encephalopathy Is this a current diagnosis for this admission?: Yes Plan: Presumably due to his acute infection. Continue to monitor (2) Ehrlichiosis Is this a current diagnosis for this admission?: Yes Plan: Continue doxycycline (3) HTN (hypertension) Qualifiers: Hypertension type: essential hypertension Qualified Code(s): I10 - Essential (primary) hypertension Is this a current diagnosis for this admission?: Yes Plan: Still elevated with current medications. He is also tachycardic so I will add in a beta-joan.
[2017-08-23] MEDS: METOPROLOL TARTRATE 25 MG TABLET PO SCH (21:30)
[2017-08-24 05:24] LABS: ALBUMIN 3.3 g/dL (3.5-5.0); ANION GAP 8 (5-19); BLOOD UREA NITROGEN 20 mg/dL (7-20); CALCIUM 8.9 mg/dL (8.4-10.2); CARBON DIOXIDE 30 mmol/L (22-30); CHLORIDE 101 mmol/L (98-107); GLUCOSE 116 mg/dL (75-110); PHOSPHORUS 3.4 mg/dL (2.5-4.5); SODIUM 139.3 mmol/L (137-145)
[2017-08-24 09:23] LABS: ARTERIAL BLOOD BASE EXCESS 3.3 mmol/L; ARTERIAL BLOOD FIO2 ROOM AIR; ARTERIAL BLOOD HCO3 25.9 mmol/L (20-26); ARTERIAL BLOOD O2 SATURATION 96.1 % (94-98); ARTERIAL BLOOD PCO2 33.1 mmHg (35-45); ARTERIAL BLOOD PH 7.51 (7.35-7.45); ARTERIAL BLOOD PO2 73.1 mmHg (80-100); ARTERIAL BLOOD TOTAL CO2 26.9 mmol/L (23-27)
--- NOTE | 2017-08-24 11:21 | PDOC PROGRESS REPORT ---
Subjective Progress Note for:: 08/24/17 Subjective:: About the same as yesterday. Able to tell me who he is, the year, and the president. Unable to name where he is, or the season. Reason For Visit: GENERALIZED PAIN, FEVER, SYSTEMIC INFLAMMATION Physical Exam Vital Signs: Temp Pulse Resp BP Pulse Ox 98.2 F 99 17 126/83 H 95 08/22/17 16:00 08/23/17 19:00 08/24/17 08:19 08/24/17 08:19 08/24/17 08:19 Intake & Output 08/23/17 08/24/17 08/25/17 05:59 05:59 05:59 Intake Total 1242 1400 50 Output Total 4546 1750 1325 Balance -3283 -350 -1275 Weight 196 lb 13.965 oz General appearance: PRESENT: no acute distress, cooperative, obese Eye exam: PRESENT: EOMI, PERRLA. ABSENT: nystagmus Respiratory exam: PRESENT: clear to auscultation fredis Cardiovascular exam: PRESENT: RRR GI/Abdominal exam: PRESENT: soft. ABSENT: tenderness Extremities exam: ABSENT: pedal edema Neurological exam: PRESENT: awake, oriented to person, CN II-XII grossly intact. ABSENT: motor sensory deficit Psychiatric exam: PRESENT: appropriate affect Skin exam: PRESENT: dry, warm Results Laboratory Results: 08/22/17 04:00 08/24/17 04:46 08/24/17 08/24/17 04:46 09:00 Carbonic Acid 1.00 L HCO3/H2CO3 Ratio 25:1 ABG pH 7.51 H ABG pCO2 33.1 L ABG pO2 73.1 L ABG HCO3 25.9 ABG O2 Saturation 96.1 ABG Base Excess 3.3 FiO2 ROOM AIR Sodium 139.3 Potassium 4.0 Chloride 101 Carbon Dioxide 30 Anion Gap 8 BUN 20 Creatinine 0.78 Est GFR ( Amer) > 60 Est GFR (Non-Af Amer) > 60 Glucose 116 H Calcium 8.9 Phosphorus 3.4 Magnesium 2.2 Albumin 3.3 L 08/13/17 08/14/17 08/17/17 04:17 04:12 04:24 NT-Pro-B Natriuret Pep 1510 H 878 196 08/20/17 08/24/17 03:56 04:46 NT-Pro-B Natriuret Pep 357 807 Impressions: Abdomen Ultrasound 08/09/17 00:00 IMPRESSION: NORMAL ABDOMINAL ULTRASOUND. Abdomen/Pelvis CT 08/11/17 00:00 IMPRESSION: Trace bilateral pleural effusions. No pneumothorax. No alveolar pulmonary edema or dense pneumonia. No bowel obstruction. Post partial sigmoid colectomy. Intact ventral hernia repair. Chest CT 08/11/17 00:00 IMPRESSION: Trace bilateral pleural effusions. No pneumothorax. No alveolar pulmonary edema or dense pneumonia. No bowel obstruction. Post partial sigmoid colectomy. Intact ventral hernia repair. Head CT 08/12/17 00:00 IMPRESSION: NORMAL BRAIN CT WITHOUT CONTRAST. EVIDENCE OF ACUTE STROKE: NO. Chest X-Ray 08/21/17 06:00 IMPRESSION: No significant change. Assessment & Plan - Diagnosis (1) Acute encephalopathy Is this a current diagnosis for this admission?: Yes Plan: Presumably due to his infection, hospital psychosis. Continue to monitor (2) Ehrlichiosis Is this a current diagnosis for this admission?: Yes Plan: Completed a course of doxycycline (3) HTN (hypertension) Qualifiers: Hypertension type: essential hypertension Qualified Code(s): I10 - Essential (primary) hypertension Is this a current diagnosis for this admission?: Yes Plan: Stable on current medications. Continue.
[2017-08-24] MEDS: DOCUSATE SODIUM 100 MG CAPSULE PO SCH (12:33)
[2017-08-24] MEDS: LACTOBACILLUS ACIDOPHILUS 250 MG TAB PO SCH ×2 (12:34→17:51)
[2017-08-24] MEDS: METOPROLOL TARTRATE 25 MG TABLET PO SCH ×2 (12:34→21:28)
[2017-08-24] MEDS: ENOXAPARIN SODIUM INJ 40 MG/0.4 ML DISP.SYRIN SUBCUT SCH (12:35)
[2017-08-24] MEDS: LISINOPRIL 10 MG TABLET PO SCH (12:35)
[2017-08-24] MEDS ORDERED: MAGNESIUM CITRATE 296 ML BOTTLE PO ONE (16:00)
[2017-08-24] MEDS ORDERED: FLUCONAZOLE 100 MG TABLET PO ONE (20:00)
[2017-08-24] MEDS: MORPHINE SULFATE 10 MG/ML INJ IV PRN (23:41)
[2017-08-25 04:46] LABS: HEMATOCRIT 35.7 % (37.9-51.0); HEMOGLOBIN 12.1 g/dL (13.5-17.0); MEAN CORPUSCULAR HEMOGLOBIN 29.2 pg (27.0-33.4); MEAN CORPUSCULAR VOLUME 86 fl (80-97); RED BLOOD COUNT 4.15 10^6/uL (4.35-5.55); RED CELL DISTRIBUTION WIDTH 15.9 % (11.5-14.0); WHITE BLOOD COUNT 6.3 10^3/uL (4.0-10.5)
[2017-08-25 04:49] LABS: ALANINE AMINOTRANSFERASE 40 U/L (21-72); ALBUMIN 3.1 g/dL (3.5-5.0); ALKALINE PHOSPHATASE 84 U/L (38-126); ANION GAP 9 (5-19); ASPARTATE AMINO TRANSFERASE 53 U/L (17-59); BILIRUBIN,DIRECT 0.5 mg/dL (0.0-0.4); BILIRUBIN,TOTAL 0.7 mg/dL (0.2-1.3); BLOOD UREA NITROGEN 23 mg/dL (7-20); CALCIUM 8.6 mg/dL (8.4-10.2); CARBON DIOXIDE 29 mmol/L (22-30); CHLORIDE 102 mmol/L (98-107); GLUCOSE 102 mg/dL (75-110); PHOSPHORUS 3.4 mg/dL (2.5-4.5); POTASSIUM 4.1 mmol/L (3.6-5.0); SODIUM 140.2 mmol/L (137-145); TOTAL PROTEIN 6.5 g/dL (6.3-8.2)
[2017-08-25 05:27] LABS: ABSOLUTE LYMPHOCYTES# (MANUAL) 2.2 10^3/uL (0.5-4.7); ABSOLUTE MONOCYTES # (MANUAL) 0.7 10^3/uL (0.1-1.4); ABSOLUTE NEUTROPHILS# (MANUAL) 3.4 10^3/uL (1.7-8.2); BASOPHILS % (MANUAL) 0 % (0-2); EOSINOPHILS % (MANUAL) 0 % (0-6); LYMPHOCYTES % (MANUAL) 33 % (13-45); MONOCYTES % (MANUAL) 11 % (3-13); SEGMENTED NEUTROPHILS % (MAN) 54 % (42-78); TOTAL CELLS COUNTED 100
[2017-08-25 05:28] LABS: PLATELET COMMENT ADEQUATE
[2017-08-25 05:29] LABS: ANISOCYTOSIS SLIGHT; PLATELET CLUMPS PRESENT
[2017-08-25 05:30] LABS: PLATELET COUNT 230 10^3/uL (150-450)
[2017-08-25] MEDS: MORPHINE SULFATE 10 MG/ML INJ IV PRN ×3 (08:27→19:44)
[2017-08-25] MEDS: ENOXAPARIN SODIUM INJ 40 MG/0.4 ML DISP.SYRIN SUBCUT SCH (10:33)
[2017-08-25] MEDS: FLUCONAZOLE 100 MG TABLET PO SCH (10:34)
[2017-08-25] MEDS: DOCUSATE SODIUM 100 MG CAPSULE PO SCH (10:34)
[2017-08-25] MEDS: LACTOBACILLUS ACIDOPHILUS 250 MG TAB PO SCH (10:34)
[2017-08-25] MEDS: LISINOPRIL 10 MG TABLET PO SCH (10:34)
[2017-08-25] MEDS: POLYETHYLENE GLYCOL 3350 POWDER 17 GM/1 PACKET PO SCH (10:35)
[2017-08-25] MEDS: METOPROLOL TARTRATE 25 MG TABLET PO SCH (10:35)
--- NOTE | 2017-08-25 12:12 | PDOC PROGRESS REPORT ---
Subjective Progress Note for:: 08/23/17 Subjective:: stable Reason For Visit: GENERALIZED PAIN, FEVER, SYSTEMIC INFLAMMATION Physical Exam Vital Signs: Temp Pulse Resp BP Pulse Ox 98.2 F 98 18 151/90 H 98 08/22/17 16:00 08/23/17 07:00 08/22/17 19:00 08/22/17 19:56 08/22/17 17:00 Intake & Output 08/22/17 08/23/17 08/24/17 06:59 06:59 06:59 Intake Total 1525 1000 Output Total 5600 4725 Balance -4079 -0124 Weight 95.6 kg 92 kg General appearance: PRESENT: no acute distress, disheveled, obese Head exam: PRESENT: atraumatic, normocephalic Eye exam: PRESENT: conjunctiva pale, EOMI. ABSENT: nystagmus, periorbital swelling, scleral icterus Mouth exam: PRESENT: dry mucosa, neck supple, tongue midline Neck exam: ABSENT: carotid bruit, JVD, lymphadenopathy, thyromegaly, tracheal deviation, tracheostomy Respiratory exam: PRESENT: decreased breath sounds, prolonged expiratory phas, rhonchi, unlabored. ABSENT: rales, retraction, stridor Cardiovascular exam: PRESENT: RRR, +S1, +S2 Pulses: PRESENT: normal radial pulses GI/Abdominal exam: PRESENT: normal bowel sounds, soft Extremities exam: PRESENT: full ROM. ABSENT: calf tenderness, clubbing Musculoskeletal exam: PRESENT: full ROM. ABSENT: ambulatory, deformity, dislocation Neurological exam: PRESENT: awake Psychiatric exam: PRESENT: agitated, anxious Skin exam: PRESENT: dry, warm Results Laboratory Results: 08/22/17 04:00 08/22/17 04:00 08/17/17 08/22/17 15:00 15:04 Carbonic Acid 1.20 HCO3/H2CO3 Ratio 23:1 ABG pH 7.46 H ABG pCO2 39.8 ABG pO2 83.0 ABG HCO3 27.9 H ABG O2 Saturation 96.7 ABG Base Excess 3.9 FiO2 ROOM AIR CSF Total Protein PEP 203.8 H CSF Prealbumin 0.9 L CSF Albumin 41.9 L CSF Rjcne-0-Odseezbx 10.0 H CSF Polxe-7-Lklgdnjx 7.8 CSF Beta Globulin 17.9 CSF Gamma Globulin 21.6 H CSF PEP M-Fili 6.6 H 08/13/17 08/14/17 08/17/17 04:17 04:12 04:24 NT-Pro-B Natriuret Pep 1510 H 878 196 08/20/17 03:56 NT-Pro-B Natriuret Pep 357 Impressions: Abdomen Ultrasound 08/09/17 00:00 IMPRESSION: NORMAL ABDOMINAL ULTRASOUND. Abdomen/Pelvis CT 08/11/17 00:00 IMPRESSION: Trace bilateral pleural effusions. No pneumothorax. No alveolar pulmonary edema or dense pneumonia. No bowel obstruction. Post partial sigmoid colectomy. Intact ventral hernia repair. Chest CT 08/11/17 00:00 IMPRESSION: Trace bilateral pleural effusions. No pneumothorax. No alveolar pulmonary edema or dense pneumonia. No bowel obstruction. Post partial sigmoid colectomy. Intact ventral hernia repair. Head CT 08/12/17 00:00 IMPRESSION: NORMAL BRAIN CT WITHOUT CONTRAST. EVIDENCE OF ACUTE STROKE: NO. Chest X-Ray 08/21/17 06:00 IMPRESSION: No significant change. Assessment & Plan - Diagnosis (1) Elevated liver function tests Is this a current diagnosis for this admission?: No (2) Acute kidney injury Is this a current diagnosis for this admission?: No (3) Sepsis Is this a current diagnosis for this admission?: No (4) Thrombocytopenia Is this a current diagnosis for this admission?: Yes (5) Altered mental status, unspecified Qualifiers: Altered mental status type: delirium Qualified Code(s): R41.0 - Disorientation, unspecified Is this a current diagnosis for this admission?: Yes Plan: Declined somewhat over the last 24 hours
--- NOTE | 2017-08-25 12:16 | PDOC PROGRESS REPORT ---
Subjective Progress Note for:: 08/25/17 Subjective:: Unchanged Reason For Visit: GENERALIZED PAIN, FEVER, SYSTEMIC INFLAMMATION Physical Exam Vital Signs: Temp Pulse Resp BP Pulse Ox 98.1 F 81 18 115/67 95 08/25/17 07:32 08/25/17 07:32 08/25/17 07:32 08/25/17 07:32 08/25/17 07:32 Intake & Output 08/24/17 08/25/17 08/26/17 06:59 06:59 06:59 Intake Total 1200 275 Output Total 2500 1135 Balance -1300 -860 Weight 89.3 kg 89 kg General appearance: PRESENT: no acute distress, disheveled, obese Head exam: PRESENT: atraumatic, normocephalic Eye exam: PRESENT: conjunctiva pale, EOMI. ABSENT: nystagmus, periorbital swelling, scleral icterus Mouth exam: PRESENT: dry mucosa, neck supple, tongue midline Neck exam: ABSENT: carotid bruit, JVD, lymphadenopathy, thyromegaly, tracheal deviation, tracheostomy Respiratory exam: PRESENT: decreased breath sounds, prolonged expiratory phas, rhonchi Cardiovascular exam: PRESENT: RRR, +S1, +S2 Pulses: PRESENT: normal radial pulses GI/Abdominal exam: PRESENT: normal bowel sounds, soft Extremities exam: PRESENT: full ROM. ABSENT: calf tenderness, clubbing Musculoskeletal exam: PRESENT: full ROM. ABSENT: ambulatory, deformity, dislocation Neurological exam: PRESENT: awake Psychiatric exam: PRESENT: agitated Skin exam: PRESENT: dry, warm Results Laboratory Results: 08/25/17 04:19 08/25/17 04:19 08/25/17 08/25/17 04:19 04:19 WBC 6.3 RBC 4.15 L Hgb 12.1 L Hct 35.7 L MCV 86 MCH 29.2 MCHC 34.0 RDW 15.9 H Plt Count 230 Seg Neutrophils % Not Reportable Lymphocytes % Not Reportable Monocytes % Not Reportable Eosinophils % Not Reportable Basophils % Not Reportable Absolute Neutrophils Not Reportable Absolute Lymphocytes Not Reportable Absolute Monocytes Not Reportable Absolute Eosinophils Not Reportable Absolute Basophils Not Reportable Sodium 140.2 Potassium 4.1 Chloride 102 Carbon Dioxide 29 Anion Gap 9 BUN 23 H Creatinine 0.74 Est GFR ( Amer) > 60 Est GFR (Non-Af Amer) > 60 Glucose 102 Calcium 8.6 Phosphorus 3.4 Magnesium 2.4 H Total Bilirubin 0.7 AST 53 ALT 40 Alkaline Phosphatase 84 Total Protein 6.5 Albumin 3.1 L 08/13/17 08/14/17 08/17/17 04:17 04:12 04:24 NT-Pro-B Natriuret Pep 1510 H 878 196 08/20/17 08/24/17 08/25/17 03:56 04:46 04:19 NT-Pro-B Natriuret Pep 357 807 316 Impressions: Abdomen Ultrasound 08/09/17 00:00 IMPRESSION: NORMAL ABDOMINAL ULTRASOUND. Abdomen/Pelvis CT 08/11/17 00:00 IMPRESSION: Trace bilateral pleural effusions. No pneumothorax. No alveolar pulmonary edema or dense pneumonia. No bowel obstruction. Post partial sigmoid colectomy. Intact ventral hernia repair. Chest CT 08/11/17 00:00 IMPRESSION: Trace bilateral pleural effusions. No pneumothorax. No alveolar pulmonary edema or dense pneumonia. No bowel obstruction. Post partial sigmoid colectomy. Intact ventral hernia repair. Head CT 08/12/17 00:00 IMPRESSION: NORMAL BRAIN CT WITHOUT CONTRAST. EVIDENCE OF ACUTE STROKE: NO. Chest X-Ray 08/21/17 06:00 IMPRESSION: No significant change. Assessment & Plan - Diagnosis (1) Elevated liver function tests Is this a current diagnosis for this admission?: No (2) Acute kidney injury Is this a current diagnosis for this admission?: No (3) Sepsis Is this a current diagnosis for this admission?: No (4) Thrombocytopenia Is this a current diagnosis for this admission?: Yes (5) Altered mental status, unspecified Qualifiers: Altered mental status type: delirium Qualified Code(s): R41.0 - Disorientation, unspecified Is this a current diagnosis for this admission?: Yes Plan: Declined somewhat over the last 24 hours
--- NOTE | 2017-08-25 15:04 | PDOC PROGRESS REPORT ---
Subjective Progress Note for:: 08/25/17 Subjective:: More confused today than he was yesterday. Really no conversation with any content at all. Reason For Visit: GENERALIZED PAIN, FEVER, SYSTEMIC INFLAMMATION Physical Exam Vital Signs: Temp Pulse Resp BP Pulse Ox 98.1 F 81 18 115/67 95 08/25/17 07:32 08/25/17 07:32 08/25/17 07:32 08/25/17 07:32 08/25/17 07:32 Intake & Output 08/24/17 08/25/17 08/26/17 05:59 05:59 05:59 Intake Total 1400 275 422 Output Total 1750 1985 750 Balance -350 -5800 -328 Weight 196 lb 13.965 oz 196 lb 3.382 oz General appearance: PRESENT: no acute distress Respiratory exam: PRESENT: clear to auscultation fredis Cardiovascular exam: PRESENT: RRR GI/Abdominal exam: PRESENT: soft. ABSENT: tenderness Extremities exam: PRESENT: other - No edema Neurological exam: PRESENT: awake, CN II-XII grossly intact. ABSENT: oriented to person, motor sensory deficit Psychiatric exam: PRESENT: other - Very clouded sensorium Skin exam: PRESENT: warm Results Laboratory Results: 08/25/17 04:19 08/25/17 04:19 08/25/17 08/25/17 04:19 04:19 WBC 6.3 RBC 4.15 L Hgb 12.1 L Hct 35.7 L MCV 86 MCH 29.2 MCHC 34.0 RDW 15.9 H Plt Count 230 Seg Neutrophils % Not Reportable Lymphocytes % Not Reportable Monocytes % Not Reportable Eosinophils % Not Reportable Basophils % Not Reportable Absolute Neutrophils Not Reportable Absolute Lymphocytes Not Reportable Absolute Monocytes Not Reportable Absolute Eosinophils Not Reportable Absolute Basophils Not Reportable Sodium 140.2 Potassium 4.1 Chloride 102 Carbon Dioxide 29 Anion Gap 9 BUN 23 H Creatinine 0.74 Est GFR ( Amer) > 60 Est GFR (Non-Af Amer) > 60 Glucose 102 Calcium 8.6 Phosphorus 3.4 Magnesium 2.4 H Total Bilirubin 0.7 AST 53 ALT 40 Alkaline Phosphatase 84 Total Protein 6.5 Albumin 3.1 L 08/13/17 08/14/17 08/17/17 04:17 04:12 04:24 NT-Pro-B Natriuret Pep 1510 H 878 196 08/20/17 08/24/17 08/25/17 03:56 04:46 04:19 NT-Pro-B Natriuret Pep 357 807 316 Impressions: Abdomen Ultrasound 08/09/17 00:00 IMPRESSION: NORMAL ABDOMINAL ULTRASOUND. Abdomen/Pelvis CT 08/11/17 00:00 IMPRESSION: Trace bilateral pleural effusions. No pneumothorax. No alveolar pulmonary edema or dense pneumonia. No bowel obstruction. Post partial sigmoid colectomy. Intact ventral hernia repair. Chest CT 08/11/17 00:00 IMPRESSION: Trace bilateral pleural effusions. No pneumothorax. No alveolar pulmonary edema or dense pneumonia. No bowel obstruction. Post partial sigmoid colectomy. Intact ventral hernia repair. Head CT 08/12/17 00:00 IMPRESSION: NORMAL BRAIN CT WITHOUT CONTRAST. EVIDENCE OF ACUTE STROKE: NO. Chest X-Ray 08/21/17 06:00 IMPRESSION: No significant change. Assessment & Plan - Diagnosis (1) Acute encephalopathy Is this a current diagnosis for this admission?: Yes Plan: Presumably due to his infection, hospital psychosis. May be worse because of change in location. Continue to monitor (2) Ehrlichiosis Is this a current diagnosis for this admission?: Yes Plan: Completed a course of doxycycline, and appeared to be improving, but now his mental status is declining. Empirically restart the doxycycline. (3) HTN (hypertension) Qualifiers: Hypertension type: essential hypertension Qualified Code(s): I10 - Essential (primary) hypertension Is this a current diagnosis for this admission?: Yes Plan: Stable on current medications. Continue.
[2017-08-25] MEDS ORDERED: DOXYCYCLINE HYCLATE 100 MG in DEXTROSE 5%-WATER 250 ML IV SCH (18:00)
[2017-08-25] MEDS ORDERED: NALOXONE HCL INJ/PF 0.4 MG/1 ML SDV ONE (20:23)
[2017-08-25] MEDS ORDERED: NALOXONE HCL INJ/PF 0.4 MG/1 ML SDV IV ONE (20:23)
[2017-08-25] MEDS ORDERED: DOPAMINE HCL/DEXTROSE 5%-WATER 800 MG/250 ML RTUINJ IV PRN (20:26)
[2017-08-25] MEDS ORDERED: HYDROCORTISONE SOD SUCCINATE INJ/PF 100 MG/2 ML SDV ONE (20:26)
[2017-08-25] MEDS ORDERED: DOPAMINE HCL/DEXTROSE 5%-WATER 800 MG/250 ML RTUINJ IV ONE (20:26)
[2017-08-25] MEDS ORDERED: HYDROCORTISONE SOD SUCCINATE INJ/PF 100 MG/2 ML SDV IV ONE (20:26)
[2017-08-25] MEDS ORDERED: NORMAL SALINE 1000 ML 1,000 ML IV SCH ×2 (20:30→21:30)
[2017-08-25] MEDS ORDERED: NORMAL SALINE 250 ML IV PRN ×2 (20:35)
--- NOTE | 2017-08-25 21:02 | Progress Note ---
Provider Note Provider Note: Brief Note Full consult to follow Called by Dr Christopher, patient admitted earlier in the month was in the ICU and then sent out, has had some confusion over the past 24- 48hours patient noted to have rectal bleeding his last Hgb is 12 patient's mental status has changed originally a poor historian as noted on initial admission H/P patient appears to have had a sigmoid colectomy in the past Dr Christopher has called surgery as well patient needs to be transfered back to the ICU follow up on his H/H with possible transfusion as needed recheck labs start on a PPI patient will need an NGT with aspirate to see if upper GI in nature patient will need ABC's prior to any sort of intervention consent will be an issue, stat nuclear bleeding scan may be needed to isolate the source of bleed ideally will need to have prep, if NGT is able to be placed and initial aspirate is negative, can start prep if stabe to try and get colonoscopy done
[2017-08-25 21:03] LABS: ANION GAP 12 (5-19); BLOOD UREA NITROGEN 38 mg/dL (7-20); CALCIUM 8.4 mg/dL (8.4-10.2); CARBON DIOXIDE 24 mmol/L (22-30); CHLORIDE 100 mmol/L (98-107); CREATINE KINASE 30 U/L (55-170); GLUCOSE 170 mg/dL (75-110); SODIUM 135.9 mmol/L (137-145)
[2017-08-25 21:05] LABS: POTASSIUM 5.4 mmol/L (3.6-5.0)
[2017-08-25 21:10] LABS: ARTERIAL BLOOD BASE EXCESS -3.6 mmol/L; ARTERIAL BLOOD H2CO3 0.86 mmol/L (1.05-1.35); ARTERIAL BLOOD HCO3 19.5 mmol/L (20-26); ARTERIAL BLOOD O2 SATURATION 95.6 % (94-98); ARTERIAL BLOOD PCO2 28.5 mmHg (35-45); ARTERIAL BLOOD PH 7.45 (7.35-7.45); ARTERIAL BLOOD PO2 73.2 mmHg (80-100); ARTERIAL BLOOD TOTAL CO2 20.4 mmol/L (23-27)
[2017-08-25 21:11] LABS: ARTERIAL BLOOD FIO2 3 L
[2017-08-25 21:11] LABS: INTERNATIONAL RATION (INR) 1.25; PARTIAL THROMBOPLASTIN TIME 47.6 SEC (23.5-35.8); PROTHROMBIN TIME 16.3 SEC (11.4-15.4)
[2017-08-25 21:16] LABS: TROPONIN I < 0.012 ng/mL
[2017-08-25] MEDS ORDERED: IPRATROPIUM/ALBUTEROL 0.5-2.5 MG/3 ML AMPUL NEB PRN (21:19)
[2017-08-25] MEDS ORDERED: PROPOFOL 100 ML IV ONE (21:20)
--- NOTE | 2017-08-25 21:28 | Operative Report ---
Nonrecallable Operative Report DATE OF SURGERY: 08/25/17 PREOPERATIVE DIAGNOSIS: 1. hypotension. #2 phlebosclerosis. #3 hemorrhagic shock POSTOPERATIVE DIAGNOSIS: Same as above OPERATION: Central line placement, right femoral vein SURGEON: JAY JAY FOWLER ANESTHESIA: Local TISSUE REMOVED OR ALTERED: None COMPLICATIONS: Persistent hypotension, respiratory distress. ESTIMATED BLOOD LOSS: Minimal PROCEDURE: Indication for the procedure: This is a 72-year-old male with profuse lower GI bleeding. The patient became obtunded and hypotensive. The patient does not have adequate IV access at this time. He is currently in hemorrhagic shock, and emergency consent was required. Drains/implants: Triple-lumen central line to the right femoral vein. Procedure in detail: After emergency consent was used, the patient was laid in the supine position. The area of the right groin was prepped and draped in a normal sterile fashion. Using the landmark method, the right femoral artery was palpated. The vein was accessed, medial to the artery, with the supplied access needle. Dark venous, nonpulsatile blood was returned in the syringe. The wire was inserted into the vein easily. The catheter was then slid over the wire easily. The catheter was aspirated and flushed 3 without difficulty. The catheter returned dark venous, nonpulsatile blood. The catheter was sutured to the skin and a dressing was fashioned. The procedure at this time was concluded. Condition: Critical.
[2017-08-25] MEDS: PROPOFOL 100 ML IV PRN (21:30)
[2017-08-25] MEDS ORDERED: NOREPINEPHRINE BITARTRATE INJ/PF 4 MG/4 ML SDV IV ONE (21:36)
[2017-08-25] MEDS: DEXTROSE 5%-WATER 250 ML with NOREPINEPHRINE BITARTRATE 4 MG IV PRN ×2 (21:45)
[2017-08-25 21:56] LABS: ALANINE AMINOTRANSFERASE 40 U/L (21-72); ALBUMIN 2.9 g/dL (3.5-5.0); ALKALINE PHOSPHATASE 78 U/L (38-126); ANION GAP 13 (5-19); ASPARTATE AMINO TRANSFERASE 45 U/L (17-59); BILIRUBIN,DIRECT 0.4 mg/dL (0.0-0.4); BILIRUBIN,TOTAL 0.7 mg/dL (0.2-1.3); BLOOD UREA NITROGEN 37 mg/dL (7-20); CALCIUM 8.4 mg/dL (8.4-10.2); CARBON DIOXIDE 22 mmol/L (22-30); CHLORIDE 100 mmol/L (98-107); GLUCOSE 172 mg/dL (75-110); POTASSIUM 5.5 mmol/L (3.6-5.0); SODIUM 135.3 mmol/L (137-145); TOTAL PROTEIN 5.9 g/dL (6.3-8.2)
[2017-08-25 22:00] LABS: HEMATOCRIT 28.2 % (37.9-51.0); MEAN CORPUSCULAR HEMOGLOBIN 28.7 pg (27.0-33.4); MEAN CORPUSCULAR HGB CONC 32.9 g/dL (32.0-36.0); MEAN CORPUSCULAR VOLUME 87 fl (80-97); PLATELET COUNT 304 10^3/uL (150-450); RED BLOOD COUNT 3.23 10^6/uL (4.35-5.55); RED CELL DISTRIBUTION WIDTH 15.9 % (11.5-14.0)
[2017-08-25 22:06] LABS: WHITE BLOOD COUNT 14.7 10^3/uL (4.0-10.5)
--- NOTE | 2017-08-25 22:06 | RADIOLOGY REPORT (SQ) ---
EXAM DESCRIPTION: CHEST SINGLE VIEW COMPLETED DATE/TIME: 08/25/2017 9:49 pm REASON FOR STUDY: intubated COMPARISON: 08/21/2017 EXAM PARAMETERS: NUMBER OF VIEWS: One view chest. One view abdomen. TECHNIQUE: Single frontal radiograph of the chest. AP upper abdomen RADIATION DOSE: N/A LIMITATIONS: None. FINDINGS: TEMPORARY SUPPORT DEVICES:ETT in expected location. NG tube courses below the rayshawn-diaphr agm in to the stomach. LUNGS AND PLEURA: No opacities. No masses. No effusions. No pneumothorax. MEDIASTINUM AND HILAR STRUCTURES: No masses. Contour normal. HEART AND VASCULAR STRUCTURES: Heart size normal. Normal vascularity. Aorta normal for age BONES: No acute findings. OTHER: No other significant finding. IMPRESSION: NO ACUTE RADIOGRAPHIC FINDING IN THE CHEST. SUPPORT DEVICE(S) IN EXPECTED LOCATIONS. TECHNICAL DOCUMENTATION: JOB ID: [id number] [employer]- All Rights Reserved Reading location - IP/workstation name: [email or web address]
[2017-08-25 22:08] LABS: HEMOGLOBIN 9.3 g/dL (13.5-17.0)
--- NOTE | 2017-08-25 22:09 | PDOC CONSULTATION ---
Consultation Consult Date: 08/25/17 Attending physician:: PJ GO Consult reason:: Profuse GI bleeding History of Present Illness Admission Date/PCP: 08/08/17 13:16 History of Present Illness: PURA HARRELL is a 72 year old male seen at the request for consultation by Dr. Go. The pt had sudden, severe confusion, followed by a large, bloody BM. He then became obtunded and hypotensive. I was called to evaluate the pt. The pt cannot convey any of the history due to his current mental status. The history is obtained from the medical record and nursing staff. The pt has a h/o diverticular disease, and has had a prior colon resection. He was admitted for pneumonia, erlichiosis, and encephalopathy. Past Medical History Cardiac Medical History: Reports: Atrial Fibrillation, Hypertension Pulmonary Medical History: Reports: Chronic Obstructive Pulmonary Disease (COPD) Neurological Medical History: Denies: Multiple Sclerosis Psychiatric Medical History: Reports: None Traumatic Medical History: Reports: None Hematology: Reports: None Past Surgical History Past Surgical History: Reports: Orthopedic Surgery - BACK SURGERY, Other - sigmoid colon resection for diverticular disease Social History Information Source: [facility] Records Smoking Status: Former Smoker Cigarettes Packs Per Day: 4 Cigars Per Day: 0 Pipes Per Day: 0 Number of Years Smokin Last Time Smoked: 03/30/1997 Frequency of Alcohol Use: None Hx Recreational Drug Use: No Hx Prescription Drug Abuse: No - Advance Directive Resuscitation Status: Full Code Family History Family History: Reviewed & Not Pertinent Parental Family History Reviewed: Yes Children Family History Reviewed: Yes Sibling(s) Family History Reviewed.: Yes Medication/Allergy Home Medications: Amitriptyline HCl [Elavil 50 Mg Tablet] 50 mg PO BID 08/08/17 Calcium Carbonate [Calcium] 600 mg PO DAILY 08/08/17 Cetirizine HCl [All Day Allergy] 10 mg PO DAILY 08/08/17 Cholecalciferol (Vitamin D3) [Vitamin D] 2,000 unit PO Q2D@1000 08/08/17 Lisinopril/Hydrochlorothiazide [Lisinopril-Hctz 10-12.5 mg Tab] 1 tab PO DAILY 08/08/17 Omeprazole Magnesium [Prilosec Otc] 20 mg PO BID 08/08/17 Pravastatin Sodium [Pravachol] 20 mg PO QPM 08/08/17 Allergies/Adverse Reactions: Penicillins Allergy (Verified 08/17/17 13:47) propoxyphene HCl [From Darvon] Allergy (Verified 08/17/17 13:47) Review of Systems ROS unobtainable: Due to mental status Review of Systems: unable to obtain due to mental status Physical Exam Vital Signs: Temp Pulse Resp BP Pulse Ox 98.1 F 81 18 115/67 95 08/25/17 07:32 08/25/17 14:00 08/25/17 07:32 08/25/17 07:32 08/25/17 07:32 Intake & Output 08/24/17 08/25/17 08/26/17 06:59 06:59 06:59 Intake Total 1200 275 672 Output Total 2500 1135 810 Balance -1300 -860 -138 Weight 89.3 kg 89 kg General appearance: PRESENT: severe distress Head exam: PRESENT: atraumatic, normocephalic Eye exam: PRESENT: conjunctiva pale Mouth exam: PRESENT: neck supple Teeth exam: PRESENT: edentulous, other Neck exam: ABSENT: thyromegaly, tracheal deviation Respiratory exam: PRESENT: clear to auscultation fredis Cardiovascular exam: PRESENT: tachycardia Vascular exam: PRESENT: pallor GI/Abdominal exam: PRESENT: soft. ABSENT: distended, firm Gentrourinary exam: PRESENT: urethral discharge, indwelling catheter Extremities exam: ABSENT: clubbing, pedal edema Musculoskeletal exam: PRESENT: normal inspection Neurological exam: ABSENT: alert, oriented to person, oriented to place, oriented to time, oriented to situation Focused psych exam: PRESENT: other - does not respond to questions or commands. Skin exam: ABSENT: cyanosis Results Laboratory Results: 08/25/17 04:19 08/25/17 20:36 08/25/17 08/25/17 08/25/17 04:19 04:19 20:36 WBC 6.3 RBC 4.15 L Hgb 12.1 L Hct 35.7 L MCV 86 MCH 29.2 MCHC 34.0 RDW 15.9 H Plt Count 230 Seg Neutrophils % Not Reportable Lymphocytes % Not Reportable Monocytes % Not Reportable Eosinophils % Not Reportable Basophils % Not Reportable Absolute Neutrophils Not Reportable Absolute Lymphocytes Not Reportable Absolute Monocytes Not Reportable Absolute Eosinophils Not Reportable Absolute Basophils Not Reportable Carbonic Acid HCO3/H2CO3 Ratio ABG pH ABG pCO2 ABG pO2 ABG HCO3 ABG O2 Saturation ABG Base Excess FiO2 Sodium 140.2 135.9 L Potassium 4.1 5.4 H D Chloride 102 100 Carbon Dioxide 29 24 Anion Gap 9 12 BUN 23 H 38 H Creatinine 0.74 1.17 Est GFR ( Amer) > 60 > 60 Est GFR (Non-Af Amer) > 60 > 60 Glucose 102 170 H Calcium 8.6 8.4 Phosphorus 3.4 Magnesium 2.4 H Total Bilirubin 0.7 AST 53 ALT 40 Alkaline Phosphatase 84 Total Protein 6.5 Albumin 3.1 L Blood Type Antibody Screen 08/25/17 08/25/17 20:36 21:00 WBC RBC Hgb Hct MCV MCH MCHC RDW Plt Count Seg Neutrophils % Lymphocytes % Monocytes % Eosinophils % Basophils % Absolute Neutrophils Absolute Lymphocytes Absolute Monocytes Absolute Eosinophils Absolute Basophils Carbonic Acid 0.86 L HCO3/H2CO3 Ratio 22:1 ABG pH 7.45 ABG pCO2 28.5 L ABG pO2 73.2 L ABG HCO3 19.5 L ABG O2 Saturation 95.6 ABG Base Excess -3.6 FiO2 3 L Sodium Potassium Chloride Carbon Dioxide Anion Gap BUN Creatinine Est GFR ( Amer) Est GFR (Non-Af Amer) Glucose Calcium Phosphorus Magnesium Total Bilirubin AST ALT Alkaline Phosphatase Total Protein Albumin Blood Type O POSITIVE Antibody Screen NEGATIVE 08/13/17 08/14/17 08/17/17 04:17 04:12 04:24 Creatine Kinase CK-MB (CK-2) Troponin I NT-Pro-B Natriuret Pep 1510 H 878 196 08/20/17 08/24/17 08/25/17 03:56 04:46 04:19 Creatine Kinase CK-MB (CK-2) Troponin I NT-Pro-B Natriuret Pep 357 807 316 08/25/17 08/25/17 20:36 20:36 Creatine Kinase 30 L CK-MB (CK-2) 1.30 Troponin I < 0.012 NT-Pro-B Natriuret Pep Impressions: Abdomen Ultrasound 08/09/17 00:00 IMPRESSION: NORMAL ABDOMINAL ULTRASOUND. Abdomen/Pelvis CT 08/11/17 00:00 IMPRESSION: Trace bilateral pleural effusions. No pneumothorax. No alveolar pulmonary edema or dense pneumonia. No bowel obstruction. Post partial sigmoid colectomy. Intact ventral hernia repair. Chest CT 08/11/17 00:00 IMPRESSION: Trace bilateral pleural effusions. No pneumothorax. No alveolar pulmonary edema or dense pneumonia. No bowel obstruction. Post partial sigmoid colectomy. Intact ventral hernia repair. Head CT 08/12/17 00:00 IMPRESSION: NORMAL BRAIN CT WITHOUT CONTRAST. EVIDENCE OF ACUTE STROKE: NO. Chest X-Ray 08/21/17 06:00 IMPRESSION: No significant change. Assessment & Plan - Diagnosis (1) GI bleed Qualifiers: GI bleed type/associated pathology: anorectal hemorrhage Qualified Code(s) : K62.5 - Hemorrhage of anus and rectum Is this a current diagnosis for this admission?: Yes (2) Hemorrhagic shock Is this a current diagnosis for this admission?: Yes (3) Altered mental status, unspecified Qualifiers: Altered mental status type: delirium Qualified Code(s): R41.0 - Disorientation, unspecified Is this a current diagnosis for this admission?: Yes - Plan Summary Plan Summary: 72 y/o m with an acute onset mental status change, rectal bleeding, and hypotension. The pt is suffering from hemorrhagic shock. Start blood and crystalloid boluses stat. Emergent central line placed. Needs localization --> plan CTA if mesenteric angiography not available. Labs pending. If localization is successful, and bleeding continues, the pt may require surgery.
[2017-08-25 22:11] LABS: ABSOLUTE NEUTROPHILS# (MANUAL) 7.6 10^3/uL (1.7-8.2); ANISOCYTOSIS 1+; BASOPHILS % (MANUAL) 0 % (0-2); EOSINOPHILS % (MANUAL) 0 % (0-6); LYMPHOCYTES % (MANUAL) 35 % (13-45); MONOCYTES % (MANUAL) 7 % (3-13); NUCLEATED RED BLOOD CELLS 1 /100 WBC (0); PLATELET COMMENT ADEQUATE; POLYCHROMASIA SLIGHT; SEGMENTED NEUTROPHILS % (MAN) 52 % (42-78); TOTAL CELLS COUNTED 100
--- NOTE | 2017-08-25 22:30 | PDOC CONSULTATION ---
Consultation Consult Date: 08/25/17 Attending physician:: RODNEY ROSALES Consult reason:: GI bleeding History of Present Illness Admission Date/PCP: 08/08/17 13:16 History of Present Illness: PURA HARRELL is a 72 year old male please see previous note , patient in ICU, on propofol drip along with Levophed , patient BP still 90/60 central line placed in groin by surgery awaiting for CT angiogram/ msemteric study vs nuclear bleed scan patient had hernia repair along with partial sigmoid colectomy secondary to diverticular disease patient is obtunded and in hemorrhagic shock 1st unit of blood has been completed patient having dark blood per rectum labs are pending at this time H/H is pending, PT is 16.3 Past Medical History Cardiac Medical History: Reports: Atrial Fibrillation, Hypertension Pulmonary Medical History: Reports: Chronic Obstructive Pulmonary Disease (COPD) Neurological Medical History: Denies: Multiple Sclerosis Psychiatric Medical History: Reports: None Traumatic Medical History: Reports: None Hematology: Reports: None Past Surgical History Past Surgical History: Reports: Orthopedic Surgery - BACK SURGERY, Other - sigmoid colon resection for diverticular disease Social History Smoking Status: Former Smoker Cigarettes Packs Per Day: 4 Cigars Per Day: 0 Pipes Per Day: 0 Number of Years Smokin Last Time Smoked: 03/30/1997 Frequency of Alcohol Use: None Hx Recreational Drug Use: No Hx Prescription Drug Abuse: No - Advance Directive Resuscitation Status: Full Code Family History Family History: Reviewed & Not Pertinent Parental Family History Reviewed: Yes Children Family History Reviewed: Unknown Sibling(s) Family History Reviewed.: Unknown Medication/Allergy Home Medications: Amitriptyline HCl [Elavil 50 Mg Tablet] 50 mg PO BID 08/08/17 Calcium Carbonate [Calcium] 600 mg PO DAILY 08/08/17 Cetirizine HCl [All Day Allergy] 10 mg PO DAILY 08/08/17 Cholecalciferol (Vitamin D3) [Vitamin D] 2,000 unit PO Q2D@1000 08/08/17 Lisinopril/Hydrochlorothiazide [Lisinopril-Hctz 10-12.5 mg Tab] 1 tab PO DAILY 08/08/17 Omeprazole Magnesium [Prilosec Otc] 20 mg PO BID 08/08/17 Pravastatin Sodium [Pravachol] 20 mg PO QPM 08/08/17 Allergies/Adverse Reactions: Penicillins Allergy (Verified 08/17/17 13:47) propoxyphene HCl [From Darvon] Allergy (Verified 08/17/17 13:47) Review of Systems Constitutional: ABSENT: fever(s), headache(s), night sweats, weakness Eyes: ABSENT: visual disturbances Ears: ABSENT: hearing changes Nose, Mouth, and Throat: ABSENT: mouth pain, sore throat Cardiovascular: ABSENT: edema, orthropnea Respiratory: ABSENT: hemoptysis Gastrointestinal: PRESENT: hematochezia, melena Genitourinary: ABSENT: dysuria, hematuria Musculoskeletal: ABSENT: joint swelling Integumentary: ABSENT: lesions Neurological: ABSENT: tingling, tremor(s), vertigo Endocrine: ABSENT: polydipsia, polyphagia, polyuria Hematologic/Lymphatic: ABSENT: easy bruising Physical Exam Vital Signs: Temp Pulse Resp BP Pulse Ox 98.1 F 81 18 115/67 95 08/25/17 07:32 08/25/17 14:00 08/25/17 07:32 08/25/17 07:32 08/25/17 07:32 Intake & Output 08/24/17 08/25/17 08/26/17 06:59 06:59 06:59 Intake Total 1200 275 672 Output Total 2500 1135 810 Balance -1300 -860 -138 Weight 89.3 kg 89 kg General appearance: PRESENT: well-developed Head exam: PRESENT: atraumatic Eye exam: PRESENT: EOMI, PERRLA. ABSENT: periorbital swelling, scleral icterus Throat exam: ABSENT: tonsillar exudate, tonsillogmegaly Neck exam: ABSENT: tenderness, thyromegaly Respiratory exam: PRESENT: accessory muscle use, tachypnea Cardiovascular exam: PRESENT: irregular rhythm GI/Abdominal exam: PRESENT: hyperactive bowel sounds, rigid. ABSENT: Day's sign, rebound Extremities exam: PRESENT: joint swelling Neurological exam: PRESENT: altered Focused psych exam: PRESENT: restlessness Skin exam: PRESENT: pallor. ABSENT: petechiae, urticaria, vesicles Results Laboratory Results: 08/25/17 20:36 08/25/17 08/25/17 08/25/17 04:19 04:19 20:36 WBC 6.3 RBC 4.15 L Hgb 12.1 L Hct 35.7 L MCV 86 MCH 29.2 MCHC 34.0 RDW 15.9 H Plt Count 230 Seg Neutrophils % Not Reportable Lymphocytes % Not Reportable Monocytes % Not Reportable Eosinophils % Not Reportable Basophils % Not Reportable Absolute Neutrophils Not Reportable Absolute Lymphocytes Not Reportable Absolute Monocytes Not Reportable Absolute Eosinophils Not Reportable Absolute Basophils Not Reportable Carbonic Acid HCO3/H2CO3 Ratio ABG pH ABG pCO2 ABG pO2 ABG HCO3 ABG O2 Saturation ABG Base Excess FiO2 Sodium 140.2 135.9 L Potassium 4.1 5.4 H D Chloride 102 100 Carbon Dioxide 29 24 Anion Gap 9 12 BUN 23 H 38 H Creatinine 0.74 1.17 Est GFR ( Amer) > 60 > 60 Est GFR (Non-Af Amer) > 60 > 60 Glucose 102 170 H Calcium 8.6 8.4 Phosphorus 3.4 Magnesium 2.4 H Total Bilirubin 0.7 AST 53 ALT 40 Alkaline Phosphatase 84 Total Protein 6.5 Albumin 3.1 L Blood Type Antibody Screen 08/25/17 08/25/17 20:36 21:00 WBC RBC Hgb Hct MCV MCH MCHC RDW Plt Count Seg Neutrophils % Lymphocytes % Monocytes % Eosinophils % Basophils % Absolute Neutrophils Absolute Lymphocytes Absolute Monocytes Absolute Eosinophils Absolute Basophils Carbonic Acid 0.86 L HCO3/H2CO3 Ratio 22:1 ABG pH 7.45 ABG pCO2 28.5 L ABG pO2 73.2 L ABG HCO3 19.5 L ABG O2 Saturation 95.6 ABG Base Excess -3.6 FiO2 3 L Sodium Potassium Chloride Carbon Dioxide Anion Gap BUN Creatinine Est GFR ( Amer) Est GFR (Non-Af Amer) Glucose Calcium Phosphorus Magnesium Total Bilirubin AST ALT Alkaline Phosphatase Total Protein Albumin Blood Type O POSITIVE Antibody Screen NEGATIVE 08/13/17 08/14/17 08/17/17 04:17 04:12 04:24 Creatine Kinase CK-MB (CK-2) Troponin I NT-Pro-B Natriuret Pep 1510 H 878 196 08/20/17 08/24/17 08/25/17 03:56 04:46 04:19 Creatine Kinase CK-MB (CK-2) Troponin I NT-Pro-B Natriuret Pep 357 807 316 08/25/17 08/25/17 20:36 20:36 Creatine Kinase 30 L CK-MB (CK-2) 1.30 Troponin I < 0.012 NT-Pro-B Natriuret Pep Impressions: Abdomen Ultrasound 08/09/17 00:00 IMPRESSION: NORMAL ABDOMINAL ULTRASOUND. Abdomen/Pelvis CT 08/11/17 00:00 IMPRESSION: Trace bilateral pleural effusions. No pneumothorax. No alveolar pulmonary edema or dense pneumonia. No bowel obstruction. Post partial sigmoid colectomy. Intact ventral hernia repair. Chest CT 08/11/17 00:00 IMPRESSION: Trace bilateral pleural effusions. No pneumothorax. No alveolar pulmonary edema or dense pneumonia. No bowel obstruction. Post partial sigmoid colectomy. Intact ventral hernia repair. Head CT 08/12/17 00:00 IMPRESSION: NORMAL BRAIN CT WITHOUT CONTRAST. EVIDENCE OF ACUTE STROKE: NO. Chest X-Ray 08/21/17 06:00 IMPRESSION: No significant change. Assessment & Plan - Diagnosis (1) GI bleed Plan: not on any anticoagulation, consideration for possible ischemic colitis has had surgery for previous diverticular disease, CT angiogram to see if narrow source could be having diverticular bleeding patient has hemodynamic instability and requires levophed drip will need to exclude a possble upper GI source as some point CT angiogram is pending (2) Atrial fibrillation Qualifiers: Atrial fibrillation type: paroxysmal Qualified Code(s): I48.0 - Paroxysmal atrial fibrillation Is this a current diagnosis for this admission?: Yes Plan: consideration for possible ischemic colitis. continue PRBC, wait on H/H may need transfusion support with platelets at some point, - Time Time Spent: 50 to 70 Minutes
[2017-08-25 23:03] LABS: ARTERIAL BLOOD BASE EXCESS -3.3 mmol/L; ARTERIAL BLOOD FIO2 40%; ARTERIAL BLOOD H2CO3 0.94 mmol/L (1.05-1.35); ARTERIAL BLOOD O2 SATURATION 98.5 % (94-98); ARTERIAL BLOOD PCO2 31.2 mmHg (35-45); ARTERIAL BLOOD PH 7.42 (7.35-7.45); ARTERIAL BLOOD TOTAL CO2 20.9 mmol/L (23-27)
[2017-08-26] MEDS: PROPOFOL 100 ML IV PRN ×5 (00:19→17:10)
--- NOTE | 2017-08-26 00:55 | RADIOLOGY REPORT (SQ) ---
PROCEDURE: CLINICAL HISTORY: 72 years Male divertic? Gi bleed COMPARISON: None. TECHNIQUE: Contiguous axial images obtained through the abdomen and pelvis during the infusion of IV contrast. Reformatted images obtained. 3-D MIP reformatted images obtained. NASCET criteria utilized for the evaluation of any stenotic lesions. This exam was performed according to our department optimization program which includes automated exposure control, adjustment of the mA and/or kv according to patient size and/or use of iterative reconstruction technique. FINDINGS: The aorta is normal in caliber without dissection or rupture. Scattered areas of aortic calcification are present with calcifications in the origins of the renal arteries bilaterally and calcification and findings suggesting severe narrowing in the origin of the celiac axis. There is bilateral basilar atelectasis and/or infiltrate with bilateral effusions. Spleen, adrenal glands and liver appear within normal limits. Gallbladder is mildly distended. No acute abnormality of the kidneys. Unremarkable appendix. There is mild wall thickening in the distal descending colon and the sigmoid colon suggesting colitis. Rectal catheter is in place. There is stranding in the perirectal and presacral space as well as surrounding the urinary bladder which is incompletely distended. There are two hyperdense foci in the rectosigmoid colon which may reflect suppositories. Nasogastric tube in the stomach which is decompressed. There is some wall thickening and inflammation in the first and second portions of the duodenum with some irregularity along the anteromedial wall. Possibility of duodenitis or ulcer disease should be considered. There is a subtle area of hyperdensity within the lumen in this region which could reflect tiny area of hemorrhage. Ventral hernia containing fat. IMPRESSION: There is wall thickening and inflammation along the second portion of the duodenum with some irregularity along the anteromedial wall and may reflect ulcer disease. Some subtle hyperdensity within the lumen at this level could reflect a small focus of hemorrhage There also appears to be wall thickening and inflammation in the distal descending and the sigmoid colon suggesting colitis with some surrounding stranding in the perirectal and presacral space Bilateral basilar atelectasis or consolidation with bilateral pleural effusions Additional changes as above
[2017-08-26 03:26] LABS: CREATINE KINASE MB 1.12 ng/mL (<4.55)
[2017-08-26 03:27] LABS: TROPONIN I < 0.012 ng/mL
[2017-08-26] MEDS ORDERED: METRONIDAZOLE 500 MG/NS RTU 100 ML IV ONE (04:00)
[2017-08-26] MEDS ORDERED: LEVOFLOXACIN 750 MG/D5W RTU 750 MG/150 ML RTUPB IV ONE (04:00)
[2017-08-26] MEDS: DEXTROSE 5%-WATER 250 ML with NOREPINEPHRINE BITARTRATE 4 MG IV PRN ×4 (04:54→17:10)
[2017-08-26 06:11] LABS: HEMATOCRIT 31.8 % (37.9-51.0); HEMOGLOBIN 10.8 g/dL (13.5-17.0); MEAN CORPUSCULAR HEMOGLOBIN 29.2 pg (27.0-33.4); MEAN CORPUSCULAR HGB CONC 34.1 g/dL (32.0-36.0); MEAN CORPUSCULAR VOLUME 86 fl (80-97); PLATELET COUNT 204 10^3/uL (150-450); RED BLOOD COUNT 3.71 10^6/uL (4.35-5.55); RED CELL DISTRIBUTION WIDTH 15.3 % (11.5-14.0); WHITE BLOOD COUNT 11.1 10^3/uL (4.0-10.5)
[2017-08-26 06:24] LABS: ANION GAP 8 (5-19); BLOOD UREA NITROGEN 32 mg/dL (7-20); CALCIUM 7.8 mg/dL (8.4-10.2); CARBON DIOXIDE 27 mmol/L (22-30); CHLORIDE 105 mmol/L (98-107); GLUCOSE 123 mg/dL (75-110); SODIUM 140.4 mmol/L (137-145)
[2017-08-26] MEDS ORDERED: NORMAL SALINE 1000 ML 1,000 ML IV PRN (06:29)
[2017-08-26 06:33] LABS: POTASSIUM 4.1 mmol/L (3.6-5.0)
--- NOTE | 2017-08-26 07:51 | Progress Note ---
Provider Note Provider Note: imaging reviewed, noted to have some findings in the upper GI tract along with distal colon patient has been intubated, and is on Propofol patient will need to have procedures done to include EGD and colonoscopy patient will need some sort of prep has NG tube and is airway protected, start Colyte prep spoke with RN have consents signed
[2017-08-26] MEDS ORDERED: PEG 3350/NA SULF,BICARB,CL/KCL 4000 ML NG ONE (08:45)
[2017-08-26] MEDS: METRONIDAZOLE 500 MG/NS RTU 100 ML IV SCH ×2 (08:55→14:44)
[2017-08-26] MEDS: DOCUSATE SODIUM 100 MG CAPSULE PO SCH (09:27)
[2017-08-26] MEDS: FLUCONAZOLE 100 MG TABLET PO SCH (09:27)
[2017-08-26] MEDS: POLYETHYLENE GLYCOL 3350 POWDER 17 GM/1 PACKET PO SCH (09:27)
[2017-08-26] MEDS: LISINOPRIL 10 MG TABLET PO SCH (09:30)
[2017-08-26 09:32] LABS: ARTERIAL BLOOD BASE EXCESS 1.2 mmol/L; ARTERIAL BLOOD H2CO3 0.95 mmol/L (1.05-1.35); ARTERIAL BLOOD O2 SATURATION 98.5 % (94-98); ARTERIAL BLOOD PCO2 31.5 mmHg (35-45); ARTERIAL BLOOD PO2 114.3 mmHg (80-100); ARTERIAL BLOOD TOTAL CO2 24.9 mmol/L (23-27)
[2017-08-26 09:34] LABS: ARTERIAL BLOOD FIO2 40%
[2017-08-26] MEDS ORDERED: DOXYCYCLINE HYCLATE 100 MG in DEXTROSE 5%-WATER 250 ML IV SCH (10:00)
[2017-08-26] MEDS ORDERED: MIDAZOLAM HCL 50 MG/100 ML RTUINJ IV-INFUSE PRN (10:42)
[2017-08-26] MEDS ORDERED: EPINEPHRINE INJ 1 MG/10 ML DISP.SYRIN ONE (11:55)
[2017-08-26 12:18] LABS: CREATINE KINASE MB 0.71 ng/mL (<4.55)
[2017-08-26 12:22] LABS: TROPONIN I < 0.012 ng/mL
[2017-08-26] MEDS ORDERED: NORMAL SALINE 100 ML with PANTOPRAZOLE SODIUM 80 MG IV PRN ×2 (13:18)
[2017-08-26] MEDS ORDERED: NORMAL SALINE 500 ML with OCTREOTIDE ACETATE 500 MCG IV PRN ×2 (13:18)
--- NOTE | 2017-08-26 13:38 | Operative Report ---
Operative Report DATE OF SURGERY: 08/25/17 Operative Report: The risks, benefits and alternatives of the procedure including risks of bleeding, perforation requiring surgery are explained to the patient in detail and informed consent is obtained. Patient is placed on the left, lateral decubital position. Timeout was called. Patient is already on a propofol drip. The scope was then advanced all the way to the cecum. The cecum was identified by the ileocecal valve. Prep is not good. No active bleeding is noted. Scope was then sequentially pulled back via the various segments of the colon. All blood is noted. Retroflexion maneuvers performed. The risks benefits and alternatives of the procedure explained to the patient in detail and informed consent is obtained .A GIF Olympus video scope was inserted into the patient's mouth and hypopharynx the esophagus is identified intubated and insufflated, the scope was then advanced through the esophagus stomach and duodenum, retroflexion maneuver is done, the esophagus stomach and first and second portions of the duodenum examined PREOPERATIVE DIAGNOSIS: GI bleeding POSTOPERATIVE DIAGNOSIS: Same as above OPERATION: Large duodenal ulcer in the junction of the duodenal bulb and second portion. Large clot noted on the surface. Injection of 5 cc of epi was done surrounding the ulcer. No active bleeding was noted at time of upper endoscopy. Colonic ulcers noted. Diverticulosis SURGEON: RODNEY ROSALES ANESTHESIA: LMAC TISSUE REMOVED OR ALTERED: None COMPLICATIONS: None. ESTIMATED BLOOD LOSS: None. INTRAOPERATIVE FINDINGS: Large duodenal ulcer that likely is the source of the bleeding. Limited endoscopic therapy patient will need to be transferred for possible embolization if there is any rebleed. There is risk of possible perforation as well since the ulcer is very deep. The vessel that is seen has a clot on it. It does not appear to be pulsing. However is likely a branch of the gastroduodenal artery. Colonic ulcers suggestive of ischemia due to hypertension. Diverticulosis noted. Residual blood noted in the colon, no active bleeding PROCEDURE: Patient tolerated procedure well. [place] May need embolization procedure in the event of a rebleed. I spoke to surgery here. Family updated. 5 cc of epi used to inject around the ulcer. No active upper GI bleeding is noted. At time of procedure No colonic bleeding noted Due to patient being high risk needs to be transferred to a tertiary institution.
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
[2017-08-26 17:13] VITALS: BP 96/57
--- NOTE | 2017-08-26 19:32 | PDOC PROGRESS REPORT ---
Subjective Progress Note for:: 08/26/17 Subjective:: Pt still intubated. Dr Vieyra just did upper and lower endoscopy Reason For Visit: GENERALIZED PAIN, FEVER, SYSTEMIC INFLAMMATION Physical Exam Vital Signs: Temp Pulse Resp BP Pulse Ox 100.8 F H 86 16 96/57 L 96 08/26/17 12:00 08/26/17 13:15 08/26/17 17:03 08/26/17 17:03 08/26/17 17:03 Intake & Output 08/25/17 08/26/17 08/27/17 06:59 06:59 06:59 Intake Total 275 5327 Output Total 1135 1860 570 Balance -860 3467 -570 Weight 89 kg 91 kg Exam: Endoscopy pictures were reviewed with Dr Vieyra. Has impressive 1st portion of Duodenum ulcer with area of clot with likely gastroduodenal artery bleed. No acute bleeding with pics taken. Likely source of bleeding with hypoension requiring at least 4 units PRBCs. Also have 2 colonic ulcers Results Laboratory Results: 08/26/17 06:00 08/26/17 06:00 08/25/17 08/25/17 08/25/17 20:36 20:36 20:36 WBC 14.7 H D RBC 3.23 L Hgb 9.3 L D Hct 28.2 L MCV 87 MCH 28.7 MCHC 32.9 RDW 15.9 H Plt Count 304 Seg Neutrophils % Not Reportable Lymphocytes % Not Reportable Monocytes % Not Reportable Eosinophils % Not Reportable Basophils % Not Reportable Absolute Neutrophils Not Reportable Absolute Lymphocytes Not Reportable Absolute Monocytes Not Reportable Absolute Eosinophils Not Reportable Absolute Basophils Not Reportable Carbonic Acid HCO3/H2CO3 Ratio ABG pH ABG pCO2 ABG pO2 ABG HCO3 ABG O2 Saturation ABG Base Excess FiO2 Sodium 135.9 L Potassium 5.4 H D Chloride 100 Carbon Dioxide 24 Anion Gap 12 BUN 38 H Creatinine 1.17 Est GFR ( Amer) > 60 Est GFR (Non-Af Amer) > 60 Glucose 170 H Lactic Acid Calcium 8.4 Total Bilirubin AST ALT Alkaline Phosphatase Total Protein Albumin Blood Type O POSITIVE Antibody Screen NEGATIVE 08/25/17 08/25/17 08/25/17 20:36 20:36 21:00 WBC RBC Hgb Hct MCV MCH MCHC RDW Plt Count Seg Neutrophils % Lymphocytes % Monocytes % Eosinophils % Basophils % Absolute Neutrophils Absolute Lymphocytes Absolute Monocytes Absolute Eosinophils Absolute Basophils Carbonic Acid 0.86 L HCO3/H2CO3 Ratio 22:1 ABG pH 7.45 ABG pCO2 28.5 L ABG pO2 73.2 L ABG HCO3 19.5 L ABG O2 Saturation 95.6 ABG Base Excess -3.6 FiO2 3 L Sodium 135.3 L Potassium 5.5 H Chloride 100 Carbon Dioxide 22 Anion Gap 13 BUN 37 H Creatinine 1.26 H Est GFR ( Amer) > 60 Est GFR (Non-Af Amer) 56 L Glucose 172 H Lactic Acid 5.0 H Calcium 8.4 Total Bilirubin 0.7 AST 45 ALT 40 Alkaline Phosphatase 78 Total Protein 5.9 L Albumin 2.9 L Blood Type Antibody Screen 08/25/17 08/26/17 08/26/17 22:30 01:25 06:00 WBC 11.1 H RBC 3.71 L Hgb 10.8 L Hct 31.8 L MCV 86 MCH 29.2 MCHC 34.1 RDW 15.3 H Plt Count 204 Seg Neutrophils % Lymphocytes % Monocytes % Eosinophils % Basophils % Absolute Neutrophils Absolute Lymphocytes Absolute Monocytes Absolute Eosinophils Absolute Basophils Carbonic Acid 0.94 L HCO3/H2CO3 Ratio 21:1 ABG pH 7.42 ABG pCO2 31.2 L ABG pO2 120.0 H ABG HCO3 20.0 ABG O2 Saturation 98.5 H ABG Base Excess -3.3 FiO2 40% Sodium Potassium Chloride Carbon Dioxide Anion Gap BUN Creatinine Est GFR ( Amer) Est GFR (Non-Af Amer) Glucose Lactic Acid 1.1 Calcium Total Bilirubin AST ALT Alkaline Phosphatase Total Protein Albumin Blood Type Antibody Screen 08/26/17 08/26/17 08/26/17 06:00 06:00 09:05 WBC RBC Hgb Hct MCV MCH MCHC RDW Plt Count Seg Neutrophils % Lymphocytes % Monocytes % Eosinophils % Basophils % Absolute Neutrophils Absolute Lymphocytes Absolute Monocytes Absolute Eosinophils Absolute Basophils Carbonic Acid 0.95 L HCO3/H2CO3 Ratio 25:1 ABG pH 7.50 H ABG pCO2 31.5 L ABG pO2 114.3 H ABG HCO3 24.0 ABG O2 Saturation 98.5 H ABG Base Excess 1.2 FiO2 40% Sodium 140.4 Potassium 4.1 D Chloride 105 Carbon Dioxide 27 Anion Gap 8 BUN 32 H Creatinine 0.90 Est GFR ( Amer) > 60 Est GFR (Non-Af Amer) > 60 Glucose 123 H Lactic Acid Calcium 7.8 L Total Bilirubin AST ALT Alkaline Phosphatase Total Protein Albumin 2.8 L Blood Type Antibody Screen 08/13/17 11:10 Tracheal Aspirate Mycoplasma Culture - Final 08/13/17 08/14/17 08/17/17 04:17 04:12 04:24 Creatine Kinase CK-MB (CK-2) Troponin I NT-Pro-B Natriuret Pep 1510 H 878 196 08/20/17 08/24/17 08/25/17 03:56 04:46 04:19 Creatine Kinase CK-MB (CK-2) Troponin I NT-Pro-B Natriuret Pep 357 807 316 08/25/17 08/25/17 08/26/17 20:36 20:36 02:50 Creatine Kinase 30 L 48 L CK-MB (CK-2) 1.30 Troponin I < 0.012 NT-Pro-B Natriuret Pep 08/26/17 08/26/17 08/26/17 02:50 11:30 11:30 Creatine Kinase 46 L CK-MB (CK-2) 1.12 0.71 Troponin I < 0.012 < 0.012 NT-Pro-B Natriuret Pep Impressions: Abdomen Ultrasound 08/09/17 00:00 IMPRESSION: NORMAL ABDOMINAL ULTRASOUND. Abdomen/Pelvis CT 08/11/17 00:00 IMPRESSION: Trace bilateral pleural effusions. No pneumothorax. No alveolar pulmonary edema or dense pneumonia. No bowel obstruction. Post partial sigmoid colectomy. Intact ventral hernia repair. Chest CT 08/11/17 00:00 IMPRESSION: Trace bilateral pleural effusions. No pneumothorax. No alveolar pulmonary edema or dense pneumonia. No bowel obstruction. Post partial sigmoid colectomy. Intact ventral hernia repair. Head CT 08/12/17 00:00 IMPRESSION: NORMAL BRAIN CT WITHOUT CONTRAST. EVIDENCE OF ACUTE STROKE: NO. Chest X-Ray 08/25/17 00:00 IMPRESSION: NO ACUTE RADIOGRAPHIC FINDING IN THE CHEST. SUPPORT DEVICE(S) IN EXPECTED LOCATIONS. Chest/Abdomen CTA 08/25/17 00:00 IMPRESSION: There is wall thickening and inflammation along the second portion of the duodenum with some irregularity along the anteromedial wall and may reflect ulcer disease. Some subtle hyperdensity within the lumen at this level could reflect a small focus of hemorrhage There also appears to be wall thickening and inflammation in the distal descending and the sigmoid colon suggesting colitis with some surrounding stranding in the perirectal and presacral space Bilateral basilar atelectasis or consolidation with bilateral pleural effusions Additional changes as above Pelvis CTA 08/25/17 00:00 IMPRESSION: There is wall thickening and inflammation along the second portion of the duodenum with some irregularity along the anteromedial wall and may reflect ulcer disease. Some subtle hyperdensity within the lumen at this level could reflect a small focus of hemorrhage There also appears to be wall thickening and inflammation in the distal descending and the sigmoid colon suggesting colitis with some surrounding stranding in the perirectal and presacral space Bilateral basilar atelectasis or consolidation with bilateral pleural effusions Additional changes as above Assessment & Plan - Time Time Spent with patient: 15-24 minutes - Plan Summary Plan Summary: Agree with transfer to [facility].Needs intensive ICU care with possible further multiple transfusions. May also need embolization of bleeding site by Interventional Radiologist which may avoid major surgery in this high risk 72 yo.
[2017-08-27] MEDS ORDERED: LEVOFLOXACIN 750 MG/D5W RTU 750 MG/150 ML RTUPB IV SCH (10:00)
--- NOTE | 2017-08-27 10:49 | PDOC PROGRESS REPORT ---
Subjective Progress Note for:: 08/26/17 Subjective:: INTUBATED SEDATED Reason For Visit: GENERALIZED PAIN, FEVER, SYSTEMIC INFLAMMATION Physical Exam Vital Signs: Temp Pulse Resp BP Pulse Ox 100.4 F 88 19 103/52 L 99 08/26/17 08:00 08/26/17 08:00 08/26/17 08:18 08/26/17 08:18 08/26/17 08:18 Intake & Output 08/25/17 08/26/17 08/27/17 06:59 06:59 06:59 Intake Total 275 5327 Output Total 1135 1860 250 Balance -860 3467 -250 Weight 89 kg 91 kg General appearance: PRESENT: no acute distress, disheveled, obese, well- developed, well-nourished. ABSENT: cooperative Head exam: PRESENT: atraumatic, normocephalic Eye exam: PRESENT: conjunctiva pale. ABSENT: EOMI, nystagmus, periorbital swelling, scleral icterus Mouth exam: PRESENT: dry mucosa, neck supple, tongue midline, other - ET TUBE Neck exam: ABSENT: tracheal deviation, tracheostomy Respiratory exam: PRESENT: decreased breath sounds, prolonged expiratory phas, rhonchi, unlabored. ABSENT: rales, retraction, stridor, tachypnea Cardiovascular exam: PRESENT: RRR, +S1, +S2 Pulses: PRESENT: normal radial pulses GI/Abdominal exam: PRESENT: diminished bowel sounds, soft Extremities exam: ABSENT: clubbing, joint swelling Musculoskeletal exam: ABSENT: deformity, dislocation Neurological exam: ABSENT: awake Skin exam: PRESENT: dry, warm Results Laboratory Results: 08/26/17 06:00 08/26/17 06:00 08/25/17 08/25/17 08/25/17 20:36 20:36 20:36 WBC 14.7 H D RBC 3.23 L Hgb 9.3 L D Hct 28.2 L MCV 87 MCH 28.7 MCHC 32.9 RDW 15.9 H Plt Count 304 Seg Neutrophils % Not Reportable Lymphocytes % Not Reportable Monocytes % Not Reportable Eosinophils % Not Reportable Basophils % Not Reportable Absolute Neutrophils Not Reportable Absolute Lymphocytes Not Reportable Absolute Monocytes Not Reportable Absolute Eosinophils Not Reportable Absolute Basophils Not Reportable Carbonic Acid HCO3/H2CO3 Ratio ABG pH ABG pCO2 ABG pO2 ABG HCO3 ABG O2 Saturation ABG Base Excess FiO2 Sodium 135.9 L Potassium 5.4 H D Chloride 100 Carbon Dioxide 24 Anion Gap 12 BUN 38 H Creatinine 1.17 Est GFR ( Amer) > 60 Est GFR (Non-Af Amer) > 60 Glucose 170 H Lactic Acid Calcium 8.4 Total Bilirubin AST ALT Alkaline Phosphatase Total Protein Albumin Blood Type O POSITIVE Antibody Screen NEGATIVE 08/25/17 08/25/17 08/25/17 20:36 20:36 21:00 WBC RBC Hgb Hct MCV MCH MCHC RDW Plt Count Seg Neutrophils % Lymphocytes % Monocytes % Eosinophils % Basophils % Absolute Neutrophils Absolute Lymphocytes Absolute Monocytes Absolute Eosinophils Absolute Basophils Carbonic Acid 0.86 L HCO3/H2CO3 Ratio 22:1 ABG pH 7.45 ABG pCO2 28.5 L ABG pO2 73.2 L ABG HCO3 19.5 L ABG O2 Saturation 95.6 ABG Base Excess -3.6 FiO2 3 L Sodium 135.3 L Potassium 5.5 H Chloride 100 Carbon Dioxide 22 Anion Gap 13 BUN 37 H Creatinine 1.26 H Est GFR ( Amer) > 60 Est GFR (Non-Af Amer) 56 L Glucose 172 H Lactic Acid 5.0 H Calcium 8.4 Total Bilirubin 0.7 AST 45 ALT 40 Alkaline Phosphatase 78 Total Protein 5.9 L Albumin 2.9 L Blood Type Antibody Screen 08/25/17 08/26/17 08/26/17 22:30 01:25 06:00 WBC 11.1 H RBC 3.71 L Hgb 10.8 L Hct 31.8 L MCV 86 MCH 29.2 MCHC 34.1 RDW 15.3 H Plt Count 204 Seg Neutrophils % Lymphocytes % Monocytes % Eosinophils % Basophils % Absolute Neutrophils Absolute Lymphocytes Absolute Monocytes Absolute Eosinophils Absolute Basophils Carbonic Acid 0.94 L HCO3/H2CO3 Ratio 21:1 ABG pH 7.42 ABG pCO2 31.2 L ABG pO2 120.0 H ABG HCO3 20.0 ABG O2 Saturation 98.5 H ABG Base Excess -3.3 FiO2 40% Sodium Potassium Chloride Carbon Dioxide Anion Gap BUN Creatinine Est GFR ( Amer) Est GFR (Non-Af Amer) Glucose Lactic Acid 1.1 Calcium Total Bilirubin AST ALT Alkaline Phosphatase Total Protein Albumin Blood Type Antibody Screen 08/26/17 08/26/17 06:00 06:00 WBC RBC Hgb Hct MCV MCH MCHC RDW Plt Count Seg Neutrophils % Lymphocytes % Monocytes % Eosinophils % Basophils % Absolute Neutrophils Absolute Lymphocytes Absolute Monocytes Absolute Eosinophils Absolute Basophils Carbonic Acid HCO3/H2CO3 Ratio ABG pH ABG pCO2 ABG pO2 ABG HCO3 ABG O2 Saturation ABG Base Excess FiO2 Sodium 140.4 Potassium 4.1 D Chloride 105 Carbon Dioxide 27 Anion Gap 8 BUN 32 H Creatinine 0.90 Est GFR ( Amer) > 60 Est GFR (Non-Af Amer) > 60 Glucose 123 H Lactic Acid Calcium 7.8 L Total Bilirubin AST ALT Alkaline Phosphatase Total Protein Albumin 2.8 L Blood Type Antibody Screen 08/13/17 08/14/17 08/17/17 04:17 04:12 04:24 Creatine Kinase CK-MB (CK-2) Troponin I NT-Pro-B Natriuret Pep 1510 H 878 196 08/20/17 08/24/17 08/25/17 03:56 04:46 04:19 Creatine Kinase CK-MB (CK-2) Troponin I NT-Pro-B Natriuret Pep 357 807 316 08/25/17 08/25/17 08/26/17 20:36 20:36 02:50 Creatine Kinase 30 L 48 L CK-MB (CK-2) 1.30 Troponin I < 0.012 NT-Pro-B Natriuret Pep 08/26/17 02:50 Creatine Kinase CK-MB (CK-2) 1.12 Troponin I < 0.012 NT-Pro-B Natriuret Pep Impressions: Abdomen Ultrasound 08/09/17 00:00 IMPRESSION: NORMAL ABDOMINAL ULTRASOUND. Abdomen/Pelvis CT 08/11/17 00:00 IMPRESSION: Trace bilateral pleural effusions. No pneumothorax. No alveolar pulmonary edema or dense pneumonia. No bowel obstruction. Post partial sigmoid colectomy. Intact ventral hernia repair. Chest CT 08/11/17 00:00 IMPRESSION: Trace bilateral pleural effusions. No pneumothorax. No alveolar pulmonary edema or dense pneumonia. No bowel obstruction. Post partial sigmoid colectomy. Intact ventral hernia repair. Head CT 08/12/17 00:00 IMPRESSION: NORMAL BRAIN CT WITHOUT CONTRAST. EVIDENCE OF ACUTE STROKE: NO. Chest X-Ray 08/25/17 00:00 IMPRESSION: NO ACUTE RADIOGRAPHIC FINDING IN THE CHEST. SUPPORT DEVICE(S) IN EXPECTED LOCATIONS. Chest/Abdomen CTA 08/25/17 00:00 IMPRESSION: There is wall thickening and inflammation along the second portion of the duodenum with some irregularity along the anteromedial wall and may reflect ulcer disease. Some subtle hyperdensity within the lumen at this level could reflect a small focus of hemorrhage There also appears to be wall thickening and inflammation in the distal descending and the sigmoid colon suggesting colitis with some surrounding stranding in the perirectal and presacral space Bilateral basilar atelectasis or consolidation with bilateral pleural effusions Additional changes as above Pelvis CTA 08/25/17 00:00 IMPRESSION: There is wall thickening and inflammation along the second portion of the duodenum with some irregularity along the anteromedial wall and may reflect ulcer disease. Some subtle hyperdensity within the lumen at this level could reflect a small focus of hemorrhage There also appears to be wall thickening and inflammation in the distal descending and the sigmoid colon suggesting colitis with some surrounding stranding in the perirectal and presacral space Bilateral basilar atelectasis or consolidation with bilateral pleural effusions Additional changes as above Assessment & Plan - Diagnosis (1) Elevated liver function tests Is this a current diagnosis for this admission?: No (2) Acute kidney injury Is this a current diagnosis for this admission?: No (3) Sepsis Is this a current diagnosis for this admission?: No (4) Thrombocytopenia Is this a current diagnosis for this admission?: Yes Plan: Labs- All tests 24 hr 08/08/17 08/09/17 08/11/17 09:40 05:27 00:53 Plt Count 65 L 64 L 80 L 08/11/17 08/12/17 08/12/17 07:05 11:57 15:40 Plt Count 83 L 79 L 78 L 08/13/17 08/14/17 08/14/17 14:43 14:25 20:25 Plt Count 66 L 72 L 76 L 08/15/17 08/16/17 08/17/17 04:11 05:47 04:24 Plt Count 73 L 99 L 105 L 08/18/17 08/19/17 08/19/17 03:54 03:51 05:45 Plt Count 125 L Cancelled 151 08/20/17 08/21/17 08/22/17 03:56 05:53 04:00 Plt Count 162 183 201 (5) Altered mental status, unspecified Qualifiers: Altered mental status type: delirium Qualified Code(s): R41.0 - Disorientation, unspecified Is this a current diagnosis for this admission?: Yes Plan: Declined somewhat over the last 24 hours (6) Acute blood loss anemia Is this a current diagnosis for this admission?: Yes Plan: 4UPRBC HGB 9.3-->10.6 (7) GI bleed Is this a current diagnosis for this admission?: Yes Plan: EGD LARGE PULSITILE CLOT - Time Total Critical Time (Minutes): 45
== END 2017-08-26 17:30 | disposition short-term general hospital (02) | DRG 870 ==
LOC: ER 09:01 → EH 13:16 → 5 17:20 → 3N 08-12 02:39 → ICU 08-12 15:25 → 3W 08-25 04:44 → ICU 08-25 21:27
PROVIDERS: ADMIT Internal Medicine; ATTEND Internal Medicine
PROC: 3E0234Z Introduction of Serum, Toxoid and Vaccine into Muscle, Percutaneous Approach (ICD-10-PCS; 2017-08-09)
PROC: 3E0F73Z Introduction of Anti-inflammatory into Respiratory Tract, Via Natural or Artificial Opening (ICD-10-PCS; 2017-08-09)
PROC: 5A1955Z Respiratory Ventilation, Greater than 96 Consecutive Hours (ICD-10-PCS; principal; 2017-08-13)
PROC: 3E0234Z Introduction of Serum, Toxoid and Vaccine into Muscle, Percutaneous Approach (ICD-10-PCS; 2017-08-13)
PROC: 0BH17EZ Insertion of Endotracheal Airway into Trachea, Via Natural or Artificial Opening (ICD-10-PCS; 2017-08-13)
PROC: 009U3ZX Drainage of Spinal Canal, Percutaneous Approach, Diagnostic (ICD-10-PCS; 2017-08-17)
PROC: 5A09457 Assistance with Respiratory Ventilation, 24-96 Consecutive Hours, Continuous Positive Airway Pressure (ICD-10-PCS; 2017-08-20)
PROC: 30233L1 Transfusion of Nonautologous Fresh Plasma into Peripheral Vein, Percutaneous Approach (ICD-10-PCS; 2017-08-25)
PROC: 3E0G8GC Introduction of Other Therapeutic Substance into Upper GI, Via Natural or Artificial Opening Endoscopic (ICD-10-PCS; 2017-08-25)
PROC: 0DJ08ZZ Inspection of Upper Intestinal Tract, Via Natural or Artificial Opening Endoscopic (ICD-10-PCS; 2017-08-25)
PROC: 0DJD8ZZ Inspection of Lower Intestinal Tract, Via Natural or Artificial Opening Endoscopic (ICD-10-PCS; 2017-08-25)
PROC: 06HY33Z Insertion of Infusion Device into Lower Vein, Percutaneous Approach (ICD-10-PCS; 2017-08-25)
PROC: 5A1935Z Respiratory Ventilation, Less than 24 Consecutive Hours (ICD-10-PCS; 2017-08-25)
PROC: 0BH17EZ Insertion of Endotracheal Airway into Trachea, Via Natural or Artificial Opening (ICD-10-PCS; 2017-08-25)
PROC: 30233N1 Transfusion of Nonautologous Red Blood Cells into Peripheral Vein, Percutaneous Approach (ICD-10-PCS; 2017-08-26)
PROC: 30233N1 Transfusion of Nonautologous Red Blood Cells into Peripheral Vein, Percutaneous Approach (ICD-10-PCS; 2017-08-26)
DX: A41.89 Other specified sepsis (principal); J18.9 Pneumonia, unspecified organism; K26.2 Acute duodenal ulcer with both hemorrhage and perforation; R57.8 Other shock; J96.00 Acute respiratory failure, unspecified whether with hypoxia or hypercapnia; N17.9 Acute kidney failure, unspecified; D62 Acute posthemorrhagic anemia; E87.1 Hypo-osmolality and hyponatremia; K62.5 Hemorrhage of anus and rectum; D61.818 Other pancytopenia; A77.41 Ehrlichiosis chaffeensis [E. chaffeensis]; I10 Essential (primary) hypertension; G89.29 Other chronic pain; K21.9 Gastro-esophageal reflux disease without esophagitis; D69.59 Other secondary thrombocytopenia; I48.0 Paroxysmal atrial fibrillation; E66.9 Obesity, unspecified; M54.9 Dorsalgia, unspecified; R94.5 Abnormal results of liver function studies; J45.909 Unspecified asthma, uncomplicated; K57.30 Diverticulosis of large intestine without perforation or abscess without bleeding; I87.8 Other specified disorders of veins; E86.0 Dehydration; Z78.1 Physical restraint status; Z23 Encounter for immunization; Z88.6 Allergy status to analgesic agent; Z88.0 Allergy status to penicillin; Z79.899 Other long term (current) drug therapy; Z90.49 Acquired absence of other specified parts of digestive tract; Z87.891 Personal history of nicotine dependence
CPT/HCPCS: 31500; 36415; 36430; 36600; 43236; 45378; 70450; 71045; 71046; 71250; 72191; 74175; 74176; 76700; 80048; 80053; 80069; 80074; 80076; 80202; 81001; 82040; 82140; 82550; 82553; 82565; 82607; 82728; 82746; 82784; 82803; 82945; 82962; 83540; 83550; 83605; 83735; 83880; 84100; 84157; 84166; 84443; 84484; 85025; 85027; 85045; 85384; 85610; 85652; 85730; 86256; 86403; 86603; 86617; 86618; 86663; 86664; 86665; 86710; 86738; 86757; 86850; 86900; 86901; 86920; 87040; 87070; 87077; 87086; 87088; 87186; 87205; 87529; 87798; 87799; 87804; 89050; 90715; 93005; 93010; 93306; 93976; 94002; 94003; 94640; 94660; 94799; 96361; 96365; 99285; G8978-GP; G8979-GP; J0171; J0330; J0696; J1100; J1265; J1650; J1652; J1720; J1885; J1940; J1956; J2185; J2250; J2270; J2310; J2354; J2704; J3370; J3475; J3490; J7030; J7040; J7060; J7120; J7620; P9016; P9017; S0028; S0164